=== PATIENT | female | born 1930 | race Caucasian/White ===

== ENCOUNTER → 2016-10-08 | Outpatient (CLI) | payer MEDICARE, BC ==
--- NOTE | 2016-10-08 18:11 | XR ---
EXAMINATION TYPE: XR ribs LT DATE OF EXAM: 10/08/2016 4:26 PM COMPARISON: 06/21/2016 HISTORY: Rib pain TECHNIQUE: 4 views FINDINGS: I see no pleural effusion or pneumothorax. Left lung is clear of infiltrate. The left ribs appear intact. IMPRESSION: Negative left rib exam. No change.
--- NOTE | 2016-10-08 18:12 | XR ---
EXAMINATION TYPE: XR Hip Complete LT DATE OF EXAM: 10/08/2016 4:26 PM COMPARISON: NONE HISTORY: Hip pain TECHNIQUE: 2 views FINDINGS: I see no fracture nor dislocation. Hip joint spaces normal. Sacroiliac joint is normal. IMPRESSION: Negative left hip exam.
== END | disposition home or self-care (01) ==
LOC: RADXRMAIN 16:02
PROVIDERS: ATTEND Internal Medicine
DX: S79.912A Unspecified injury of left hip, initial encounter (principal); S29.9XXA Unspecified injury of thorax, initial encounter
CPT/HCPCS: 73502

== ENCOUNTER 2017-12-01 17:38 | Inpatient (IN) | payer MEDICARE, BC ==
[2017-12-01] MEDS ORDERED: IPRATROPIUM-ALBUTEROL 3 ML NEB INHALATION STA (18:14)
--- NOTE | 2017-12-01 18:32 | ED ---
SOB HPI - General Chief Complaint: Shortness of Breath Stated Complaint: wheezing, SOB Time Seen by Provider: 12/01/17 18:12 Source: patient, family, RN notes reviewed Mode of arrival: wheelchair Limitations: no limitations - History of Present Illness Initial Comments: This is an 87-year-old female presents emergency Department chief complaint of shortness of breath. Patient's been having increasing shortness breath since Friday. Patient states that her symptoms worsen and saw her band sawing machine operator Dr. Vasquez on Friday who started on oral steroids. Patient states she has underlying asthma/UL PD. Feeling around the room states that she's been getting worse did not receive her steroids today and was noted to have increased shortness of breath and she complained of some discomfort of her chest when coughing. She denies any current chest pain. Patient reports no fever, chills. She does admit that her cough is productive. She states she does to a [facility] has not had one recently. Patient denies history of CHF does have underlying cardiac disease with prior stents. - Related Data Home Medications Medication Instructions Recorded Confirmed Budesonide [Pulmicort] 0.5 mg INHALATION RT-BID 10/01/14 12/01/17 Captopril [Capoten] 25 mg PO BID 10/01/14 12/01/17 Citalopram Hydrobromide [CeleXA] 10 mg PO HS 10/01/14 12/01/17 Donepezil HCl [Aricept] 5 mg PO HS 10/01/14 12/01/17 Montelukast [Singulair] 10 mg PO HS 10/01/14 12/01/17 Nitroglycerin Sl Tabs [Nitrostat] 0.4 mg SUBLINGUAL Q5M PRN 10/01/14 12/01/17 Omalizumab [Xolair] 1 dose IM Q30D 10/01/14 12/01/17 Potassium Chloride [Klor-Con 20] 20 meq PO DAILY 10/01/14 12/01/17 Isosorbide Mononitrate ER [Imdur] 30 mg PO DAILY 01/30/16 12/01/17 Levothyroxine Sodium [Synthroid] 50 mcg PO DAILY 01/30/16 12/01/17 Sucralfate [Carafate] 1 gm PO BID 01/30/16 12/01/17 Aspirin [Children's Aspirin] 81 mg PO DAILY 12/01/17 12/01/17 Ergocalciferol [Vitamin D2] 50,000 unit PO LOPEZ 12/01/17 12/01/17 Metoprolol Tartrate [Lopressor] 25 mg PO BID 12/01/17 12/01/17 Simvastatin [Zocor] 20 mg PO HS 12/01/17 12/01/17 Previous Rx's Medication Instructions Recorded Pantoprazole [Protonix] 40 mg PO [id number] #30 tablet. 02/01/16 Allergies Allergy/AdvReac Type Severity Reaction Status Date / Time cephalexin monohydrate Allergy Colitis Verified 12/01/17 18:42 [From [employer] [place]] Review of Systems ROS Statement: Those systems with pertinent positive or pertinent negative responses have been documented in the HPI. ROS Other: All systems not noted in ROS Statement are negative. Past Medical History Past Medical History: Asthma, Coronary Artery Disease (CAD), Chest Pain / Angina , COPD, Dementia, Hyperlipidemia, Hypertension, Myocardial Infarction (CT), Osteoarthritis (OA), Thyroid Disorder Additional Past Medical History / Comment(s): CT in 1998, 2 cardiac stents in 1998. Last Myocardial Infarction Date:: 1998 History of Any Multi-Drug Resistant Organisms: None Reported Past Surgical History: Heart Catheterization With Stent Additional Past Surgical History / Comment(s): B\L cataracts removed 2013 Past Anesthesia/Blood Transfusion Reactions: No Reported Reaction Date of Last Stent Placement:: 1998 Past Psychological History: No Psychological Hx Reported Smoking Status: Former smoker Past Alcohol Use History: None Reported Past Drug Use History: None Reported - Past Family History Father Additional Family Medical History / Comment(s): emphazema Mother Additional Family Medical History / Comment(s): Alzhiemiers General Exam Limitations: no limitations General appearance: alert, in no apparent distress ENT exam: Present: normal exam, mucous membranes moist Neck exam: Present: normal inspection, full ROM. Absent: tenderness, meningismus, lymphadenopathy Respiratory exam: Present: respiratory distress, wheezes, rhonchi. Absent: normal lung sounds bilaterally, rales, stridor Cardiovascular Exam: Present: regular rate (I'll), normal rhythm, normal heart sounds. Absent: systolic murmur, diastolic murmur, rubs, gallop, clicks Course Vital Signs 12/01/17 12/01/17 12/01/17 17:54 18:28 18:38 Temperature 98.7 F Pulse Rate 84 62 62 Respiratory 18 Rate Blood Pressure 158/74 O2 Sat by Pulse 95 Oximetry 12/01/17 18:50 Temperature Pulse Rate Respiratory 26 H Rate Blood Pressure O2 Sat by Pulse Oximetry Medical Decision Making - Lab Data Result diagrams: 12/01/17 18:35 12/01/17 18:35 Lab Results 12/01/17 12/01/17 12/01/17 Range/Units 18:35 18:35 18:35 WBC 4.5 (3.8-10.6) k/uL RBC 3.90 (3.80-5.40) m/uL Hgb 11.5 (11.4-16.0) gm/dL Hct 34.8 (34.0-46.0) % MCV 89.1 (80.0-100.0) fL MCH 29.5 (25.0-35.0) pg MCHC 33.1 (31.0-37.0) g/dL RDW 13.8 (11.5-15.5) % Plt Count 102 L (150-450) k/uL Neutrophils % 80 % Lymphocytes % 7 % Monocytes % 11 % Eosinophils % 1 % Basophils % 1 % Neutrophils # 3.6 (1.3-7.7) k/uL Lymphocytes # 0.3 L (1.0-4.8) k/uL Monocytes # 0.5 (0-1.0) k/uL Eosinophils # 0.0 (0-0.7) k/uL Basophils # 0.0 (0-0.2) k/uL PT (9.0-12.0) sec INR (<1.2) APTT (22.0-30.0) sec Sodium 137 (137-145) mmol/L Potassium 4.6 (3.5-5.1) mmol/L Chloride 99 (98-107) mmol/L Carbon Dioxide 30 (22-30) mmol/L Anion Gap 8 mmol/L BUN 22 H (7-17) mg/dL Creatinine 1.00 (0.52-1.04) mg/dL Est GFR (MDRD) Af Amer >60 (>60 ml/min/1.73 sqM) Est GFR (MDRD) Non-Af 53 (>60 ml/min/1.73 sqM) Glucose 134 H (74-99) mg/dL Plasma Lactic Acid Nicholas (0.7-2.0) mmol/L Calcium 8.8 (8.4-10.2) mg/dL Magnesium 1.9 (1.6-2.3) mg/dL Total Bilirubin 1.3 (0.2-1.3) mg/dL AST 30 (14-36) U/L ALT 12 (9-52) U/L Alkaline Phosphatase 42 (38-126) U/L Total Creatine Kinase 33 (30-135) U/L CK-MB (CK-2) 1.3 (0.0-2.4) ng/mL CK-MB (CK-2) Rel Index 3.9 Troponin I <0.012 (0.000-0.034) ng/mL NT-Pro-B Natriuret Pep pg/mL Total Protein 6.6 (6.3-8.2) g/dL Albumin 3.8 (3.5-5.0) g/dL Influenza Type A RNA (Not Detectd) Influenza Type B (PCR) (Not Detectd) 12/01/17 12/01/17 12/01/17 Range/Units 18:35 18:35 18:35 WBC (3.8-10.6) k/uL RBC (3.80-5.40) m/uL Hgb (11.4-16.0) gm/dL Hct (34.0-46.0) % MCV (80.0-100.0) fL MCH (25.0-35.0) pg MCHC (31.0-37.0) g/dL RDW (11.5-15.5) % Plt Count (150-450) k/uL Neutrophils % % Lymphocytes % % Monocytes % % Eosinophils % % Basophils % % Neutrophils # (1.3-7.7) k/uL Lymphocytes # (1.0-4.8) k/uL Monocytes # (0-1.0) k/uL Eosinophils # (0-0.7) k/uL Basophils # (0-0.2) k/uL PT 9.9 (9.0-12.0) sec INR 1.0 (<1.2) APTT 23.5 (22.0-30.0) sec Sodium (137-145) mmol/L Potassium (3.5-5.1) mmol/L Chloride (98-107) mmol/L Carbon Dioxide (22-30) mmol/L Anion Gap mmol/L BUN (7-17) mg/dL Creatinine (0.52-1.04) mg/dL Est GFR (MDRD) Af Amer (>60 ml/min/1.73 sqM) Est GFR (MDRD) Non-Af (>60 ml/min/1.73 sqM) Glucose (74-99) mg/dL Plasma Lactic Acid Nicholas 1.0 (0.7-2.0) mmol/L Calcium (8.4-10.2) mg/dL Magnesium (1.6-2.3) mg/dL Total Bilirubin (0.2-1.3) mg/dL AST (14-36) U/L ALT (9-52) U/L Alkaline Phosphatase (38-126) U/L Total Creatine Kinase (30-135) U/L CK-MB (CK-2) (0.0-2.4) ng/mL CK-MB (CK-2) Rel Index Troponin I (0.000-0.034) ng/mL NT-Pro-B Natriuret Pep 3140 pg/mL Total Protein (6.3-8.2) g/dL Albumin (3.5-5.0) g/dL Influenza Type A RNA (Not Detectd) Influenza Type B (PCR) (Not Detectd) 12/01/17 Range/Units 18:35 WBC (3.8-10.6) k/uL RBC (3.80-5.40) m/uL Hgb (11.4-16.0) gm/dL Hct (34.0-46.0) % MCV (80.0-100.0) fL MCH (25.0-35.0) pg MCHC (31.0-37.0) g/dL RDW (11.5-15.5) % Plt Count (150-450) k/uL Neutrophils % % Lymphocytes % % Monocytes % % Eosinophils % % Basophils % % Neutrophils # (1.3-7.7) k/uL Lymphocytes # (1.0-4.8) k/uL Monocytes # (0-1.0) k/uL Eosinophils # (0-0.7) k/uL Basophils # (0-0.2) k/uL PT (9.0-12.0) sec INR (<1.2) APTT (22.0-30.0) sec Sodium (137-145) mmol/L Potassium (3.5-5.1) mmol/L Chloride (98-107) mmol/L Carbon Dioxide (22-30) mmol/L Anion Gap mmol/L BUN (7-17) mg/dL Creatinine (0.52-1.04) mg/dL Est GFR (MDRD) Af Amer (>60 ml/min/1.73 sqM) Est GFR (MDRD) Non-Af (>60 ml/min/1.73 sqM) Glucose (74-99) mg/dL Plasma Lactic Acid Nicholas (0.7-2.0) mmol/L Calcium (8.4-10.2) mg/dL Magnesium (1.6-2.3) mg/dL Total Bilirubin (0.2-1.3) mg/dL AST (14-36) U/L ALT (9-52) U/L Alkaline Phosphatase (38-126) U/L Total Creatine Kinase (30-135) U/L CK-MB (CK-2) (0.0-2.4) ng/mL CK-MB (CK-2) Rel Index Troponin I (0.000-0.034) ng/mL NT-Pro-B Natriuret Pep pg/mL Total Protein (6.3-8.2) g/dL Albumin (3.5-5.0) g/dL Influenza Type A RNA Not Detected (Not Detectd) Influenza Type B (PCR) Not Detected (Not Detectd) - EKG Data EKG Comments: EKG performed at 18:16 oh sinus rhythm rate of 60 CO interval 176 QRS 48 QT/QTC 386/386 there is noted inverted T waves Disposition Clinical Impression: Pneumonia, COPD exacerbation Disposition: ADMITTED IP TO THIS HOSP Condition: Stable Referrals: Flora Pastrana MD [Primary Care Provider] - 1-2 days
[2017-12-01 18:58] LABS: Basophils % (A) 1 %; Eosinophils % (A) 1 %; HCT 34.8 % (34.0-46.0); HGB 11.5 gm/dL (11.4-16.0); Lymphocytes # (A) 0.3 k/uL (1.0-4.8); Lymphocytes % (A) 7 %; MCH 29.5 pg (25.0-35.0); MCHC 33.1 g/dL (31.0-37.0); MCV 89.1 fL (80.0-100.0); Mean Platelet Volume 8.4; Monocytes # (A) 0.5 k/uL (0-1.0); Monocytes % (A) 11 %; Neutrophils # (A) 3.6 k/uL (1.3-7.7); Neutrophils % (A) 80 %; Platelet Count 102 k/uL (150-450); RDW 13.8 % (11.5-15.5); WBC 4.5 k/uL (3.8-10.6)
[2017-12-01 19:04] LABS: Partial Thromboplastin Time 23.5 sec (22.0-30.0); Prothrombin Time 9.9 sec (9.0-12.0)
[2017-12-01 19:06] LABS: ALT 12 U/L (9-52); AST 30 U/L (14-36); Albumin 3.8 g/dL (3.5-5.0); Alkaline Phosphatase 42 U/L (38-126); Anion Gap 8 mmol/L; Blood Urea Nitrogen 22 mg/dL (7-17); Calcium 8.8 mg/dL (8.4-10.2); Carbon Dioxide 30 mmol/L (22-30); Chloride 99 mmol/L (98-107); Glucose 134 mg/dL (74-99); Potassium 4.6 mmol/L (3.5-5.1); Sodium 137 mmol/L (137-145); Total Bilirubin 1.3 mg/dL (0.2-1.3); Total Protein 6.6 g/dL (6.3-8.2)
[2017-12-01 19:10] LABS: Creatine Kinase 33 U/L (30-135)
[2017-12-01 19:22] LABS: Creatine Kinase MB 1.3 ng/mL (0.0-2.4); Troponin I <0.012 ng/mL (0.000-0.034)
[2017-12-01] MEDS ORDERED: methylPREDNISolone SOD SUCCI 125 MG/2 ML VIAL IV STA (19:29)
--- NOTE | 2017-12-01 19:56 | XR ---
EXAMINATION TYPE: XR chest 2V DATE OF EXAM: 12/01/2017 COMPARISON: 06/21/2016 INDICATION: Difficulty breathing cough congestion TECHNIQUE: Frontal and lateral views of the chest are obtained. FINDINGS: The heart size is normal. The pulmonary vasculature is normal. Mild infiltrate is in the right lower lobe.. IMPRESSION: 1. Clinical correlation recommended for mild right lower lobe infiltrate. Correlate for atelectasis a nd pneumonia.
[2017-12-01] MEDS ORDERED: PNEUMONIA PROTOCOL UTILIZED 1 EACH MISC PO PRN (20:01)
[2017-12-01] MEDS ORDERED: LEVOFLOXACIN 750MG-D5W PMX 750 MG in DEXTROSE/WATER 1 150ML.BAG IVPB STA (20:01)
[2017-12-01] MEDS ORDERED: IPRATROPIUM-ALBUTEROL 3 ML NEB INHALATION PRN (20:02)
[2017-12-01] MEDS ORDERED: NITROGLYCERIN SL TABS 0.4 MG TAB SUBLINGUAL PRN (22:30)
[2017-12-01] MEDS ORDERED: ACETAMINOPHEN TAB 325 MG TAB PO PRN (22:35)
[2017-12-01] MEDS: METOPROLOL TARTRATE 25 MG TAB PO SCH (23:21)
[2017-12-01] MEDS: SUCRALFATE 1 GM TAB PO SCH (23:21)
[2017-12-01] MEDS: ATORVASTATIN 10 MG TAB PO SCH (23:21)
[2017-12-01] MEDS: DONEPEZIL 5 MG TAB PO SCH (23:21)
[2017-12-01] MEDS: CITALOPRAM HYDROBROMIDE 10 MG TAB PO SCH (23:21)
[2017-12-01] MEDS: MONTELUKAST 10 MG TAB PO SCH (23:21)
[2017-12-01] MEDS: CAPTOPRIL 25 MG TAB PO SCH (23:21)
[2017-12-01] MEDS: methylPREDNISolone SOD SUCCI 125 MG/2 ML VIAL IV SCH (23:48)
[2017-12-02] MEDS ORDERED: FUROSEMIDE 10 MG/ML 2 ML VIAL IV ONE (05:25)
[2017-12-02] MEDS: LEVOTHYROXINE 50 MCG TAB PO SCH (05:56)
--- NOTE | 2017-12-02 07:48 | XR ---
EXAMINATION TYPE: XR chest 2V DATE OF EXAM: 12/02/2017 COMPARISON: 12/01/2017 TECHNIQUE: PA and lateral views submitted. HISTORY: Difficulty breathing FINDINGS: The lungs are clear and there is no pneumothorax, pleural effusion, or focal pneumonia. Linear dens ity right upper lobe appears to be compatible with a pleural plaque lateral view. Degenerative change of the spine. Atherosclerotic change aorta. Heart size prominent. IMPRESSION: 1. No acute process. Correlate for asbestosis related disease.
[2017-12-02] MEDS: ASPIRIN 81 MG PO SCH (07:55)
[2017-12-02] MEDS: POTASSIUM CHLORIDE ER 20 MEQ TAB.ER PO SCH (07:55)
[2017-12-02] MEDS: ISOSORBIDE MONONITRATE ER 30 MG TAB.ER.24H PO SCH (07:55)
[2017-12-02] MEDS: METOPROLOL TARTRATE 25 MG TAB PO SCH ×2 (07:55→20:49)
[2017-12-02] MEDS: PANTOPRAZOLE 40 MG TABLET PO SCH (07:56)
[2017-12-02] MEDS: SUCRALFATE 1 GM TAB PO SCH ×2 (07:56→17:39)
[2017-12-02] MEDS: CAPTOPRIL 25 MG TAB PO SCH ×2 (07:56→17:38)
[2017-12-02] MEDS: methylPREDNISolone SOD SUCCI 125 MG/2 ML VIAL IV SCH ×3 (07:56→23:21)
[2017-12-02 08:03] LABS: Basophils % (A) 0 %; Eosinophils % (A) 0 %; HCT 33.4 % (34.0-46.0); HGB 10.7 gm/dL (11.4-16.0); Lymphocytes # (A) 0.2 k/uL (1.0-4.8); Lymphocytes % (A) 8 %; MCH 28.7 pg (25.0-35.0); MCHC 32.1 g/dL (31.0-37.0); MCV 89.5 fL (80.0-100.0); Mean Platelet Volume 8.6; Monocytes # (A) 0.1 k/uL (0-1.0); Monocytes % (A) 2 %; Neutrophils # (A) 2.1 k/uL (1.3-7.7); Neutrophils % (A) 88 %; Platelet Count 101 k/uL (150-450); RBC 3.73 m/uL (3.80-5.40); RDW 13.9 % (11.5-15.5); WBC 2.4 k/uL (3.8-10.6)
[2017-12-02 08:34] LABS: Albumin 3.6 g/dL (3.5-5.0); Potassium 4.2 mmol/L (3.5-5.1); Total Bilirubin 1.2 mg/dL (0.2-1.3); Total Protein 6.2 g/dL (6.3-8.2)
[2017-12-02] MEDS ORDERED: IPRATROPIUM-ALBUTEROL 3 ML NEB INHALATION PRN (09:09)
[2017-12-02] MEDS: IPRATROPIUM-ALBUTEROL 3 ML NEB INHALATION SCH ×3 (09:22→20:05)
[2017-12-02] MEDS: BUDESONIDE 0.5 MG/2 ML NEBU INHALATION SCH ×2 (09:22→20:05)
--- NOTE | 2017-12-02 13:40 | P.HPIM ---
History of Present Illness H&P Date: 12/02/17 Chief Complaint: Cough and shortness of breath This is a 87-year-old female with a known history of dementia, hypertension, [place] , coronary artery disease cardiac stents, COPD, hypothyroidism, hyperlipidemia, peptic ulcer disease and chronic kidney disease. Patient presents to the emergency room with complaints of cough and shortness of breath. Patient has been having a productive cough with wheezing for about 3 days per daughter. She started on prednisone by her advertising assistant manager on Friday. Patient did not have improvement in symptoms therefore she came into the emergency room. Information was taken from the chart and daughter. Patient is a poor historian due to her dementia. Patient was started on IV Solu-Medrol and Levaquin for her COPD exacerbation and pneumonia. Pulmonate service has been consulted. Also started on bronchodilators. Initial chest x-ray revealing a mild right lower lobe infiltrate. And repeat chest x-ray showed no acute process. Correlate for asbestosis related disease. Pulmonary service will evaluate. Patient denies any fever or chills or sweats. Denies chest pain. Denies any nausea or vomiting. Denies any bowel movement changes or urinary symptoms. Patient did receive a dose of IV Lasix this morning so for some mild fluid overload. Review of Systems Please refer to HPI otherwise unremarkable Past Medical History Past Medical History: Asthma, Coronary Artery Disease (CAD), Chest Pain / Angina , COPD, Dementia, Hyperlipidemia, Hypertension, Myocardial Infarction (DE), Osteoarthritis (OA), Thyroid Disorder Additional Past Medical History / Comment(s): [place] in 1998, 2 cardiac stents in 1998. Last Myocardial Infarction Date:: 1998 History of Any Multi-Drug Resistant Organisms: None Reported Past Surgical History: Heart Catheterization With Stent Additional Past Surgical History / Comment(s): B\L cataracts removed 2013 Past Anesthesia/Blood Transfusion Reactions: No Reported Reaction Date of Last Stent Placement:: 1998 Past Psychological History: No Psychological Hx Reported Smoking Status: Former smoker Past Alcohol Use History: None Reported Past Drug Use History: None Reported - Past Family History Father Additional Family Medical History / Comment(s): emphazema Mother Additional Family Medical History / Comment(s): Alzhiemiers Medications and Allergies Home Medications Medication Instructions Recorded Confirmed Type Budesonide [Pulmicort] 0.5 mg INHALATION RT-BID 10/01/14 12/01/17 History Captopril [Capoten] 25 mg PO BID 10/01/14 12/01/17 History Citalopram Hydrobromide [CeleXA] 10 mg PO HS 10/01/14 12/01/17 History Donepezil HCl [Aricept] 5 mg PO HS 10/01/14 12/01/17 History Montelukast [Singulair] 10 mg PO HS 10/01/14 12/01/17 History Nitroglycerin Sl Tabs [Nitrostat] 0.4 mg SUBLINGUAL Q5M PRN 10/01/14 12/01/17 History Omalizumab [Xolair] 1 dose IM Q30D 10/01/14 12/01/17 History Potassium Chloride [Klor-Con 20] 20 meq PO DAILY 10/01/14 12/01/17 History Isosorbide Mononitrate ER [Imdur] 30 mg PO DAILY 01/30/16 12/01/17 History Levothyroxine Sodium [Synthroid] 50 mcg PO DAILY 01/30/16 12/01/17 History Sucralfate [Carafate] 1 gm PO BID 01/30/16 12/01/17 History Pantoprazole [Protonix] 40 mg PO AC-BRKFST #30 tablet. 02/01/16 12/01/17 Rx Aspirin [Children's Aspirin] 81 mg PO DAILY 12/01/17 12/01/17 History Ergocalciferol [Vitamin D2] 50,000 unit PO LOPEZ 12/01/17 12/01/17 History Metoprolol Tartrate [Lopressor] 25 mg PO BID 12/01/17 12/01/17 History Simvastatin [Zocor] 20 mg PO HS 12/01/17 12/01/17 History Allergies Allergy/AdvReac Type Severity Reaction Status Date / Time cephalexin monohydrate Allergy Colitis Verified 12/01/17 18:42 [From Keflex] Physical Exam Vitals: Vital Signs Temp Pulse Pulse Resp BP BP Pulse Ox 12/02/17 12:49 60 12/02/17 12:36 56 L 12/02/17 09:39 54 L 12/02/17 09:25 50 L 99 12/02/17 07:00 97.3 F L 52 L 18 132/70 98 12/02/17 00:00 60 12/01/17 23:53 60 12/01/17 23:00 97.7 F 67 20 141/54 94 L 12/01/17 20:53 98.4 F 65 18 153/67 97 12/01/17 20:01 94 L 12/01/17 18:50 26 H 12/01/17 18:38 62 12/01/17 18:28 62 12/01/17 17:54 98.7 F 84 18 158/74 95 Intake and Output 12/01/17 12/02/17 12/02/17 22:59 06:59 14:59 Intake Total 200 Balance 200 Intake: Oral 200 Other: Voiding Method Bedside Commode # Voids 1 1 1 Weight 58.06 kg 58 kg Head normocephalic Neck supple Lungs wheezing with coarse breath sounds bilaterally Heart regular rate and rhythm S1-S2, no rub or gallop Abdomen is soft nontender nondistended positive bowel sounds no hepatosplenomegaly Extremities no edema Neuro alert and orientated to 3 Results CBC & Chem 7: 12/02/17 07:22 12/02/17 07:22 Labs: Abnormal Lab Results - Last 24 Hours (Table) 12/01/17 12/01/17 12/02/17 Range/Units 18:35 18:35 07:22 WBC 2.4 L (3.8-10.6) k/uL RBC 3.73 L (3.80-5.40) m/uL Hgb 10.7 L (11.4-16.0) gm/dL Hct 33.4 L (34.0-46.0) % Plt Count 102 L 101 L (150-450) k/uL Lymphocytes # 0.3 L 0.2 L (1.0-4.8) k/uL Chloride (98-107) mmol/L BUN 22 H (7-17) mg/dL Creatinine (0.52-1.04) mg/dL Glucose 134 H (74-99) mg/dL Total Protein (6.3-8.2) g/dL 12/02/17 Range/Units 07:22 WBC (3.8-10.6) k/uL RBC (3.80-5.40) m/uL Hgb (11.4-16.0) gm/dL Hct (34.0-46.0) % Plt Count (150-450) k/uL Lymphocytes # (1.0-4.8) k/uL Chloride 95 L (98-107) mmol/L BUN 21 H (7-17) mg/dL Creatinine 1.07 H (0.52-1.04) mg/dL Glucose 143 H (74-99) mg/dL Total Protein 6.2 L (6.3-8.2) g/dL Thrombosis Risk Factor Assmnt - Choose All That Apply Any of the Below Risk Factors Present?: Yes Each Risk Factor Represents 3 Points: Age 75 years or older Thrombosis Risk Factor Assessment Total Risk Factor Score: 3 Thrombosis Risk Factor Assessment Level: Moderate Risk Assessment and Plan Assessment: 1. Acute COPD exacerbation: Patient started on IV Solu-Medrol and bronchodilators. Pulmonary service consulted. 2. Acute tracheobronchitis: Initial chest x-ray did show a right middle lobe pneumonia versus atelectasis. Repeat chest x-ray for today shows no acute pulmonary process. Patient is on Levaquin. Check sputum culture. Pulmonary service consulted. 3. Chronic kidney disease, stage II. Creatinine at baseline. 4. Leukopenia likely related to patient's bronchitis. White count 2.4. Repeat labs in a.m. 5. History of chronic anemia: Hemoglobin 10.7. Check iron studies 6. History of dementia 7. History of myocardial infarction with coronary disease and cardiac stents 8. Essential hypertension: BP stable continue his current meds 9. Hyperlipidemia continue statin DVT prophylaxis subcu heparin and GI prophylaxis Protonix Time with Patient: Greater than 30 (Greater than 50% of the total time spent in counseling and coordination of care.I performed an examination of the patient and discussed their management with the physician Automobile Mechanic Supervisor. I have reviewed the Physician Automobile Mechanic Supervisor's notes and agree with the documented findings and plan of care)
--- NOTE | 2017-12-02 14:50 | CONS ---
CONSULTATION DATE OF SERVICE: 12/02/2017 HISTORY OF PRESENT ILLNESS: The patient is an 87-year-old female, well known to our practice, who was seen in the Pulmonary office on Friday for worsening shortness of breath and cough and had been started on oral steroids. Patient did not improve after starting the steroids. Subsequently, was brought to the emergency room with the worsening shortness of breath and cough and admitted for further evaluation and treatment. patient is a very poor historian. Much of the information has been obtained from the chart. PAST MEDICAL HISTORY: Significant for asthma, coronary artery disease, angina, COPD, dementia, hyperlipidemia, hypertension, [place], osteoarthritis, and thyroid disorder. PAST SURGICAL HISTORY: Significant for cardiac cath with stents and bilateral cataract surgery. ALLERGIES: Include KEFLEX. Home medications include vitamin D2 fifty thousand international units p.o. weekly, children's aspirin 81 mg p.o. daily, Capoten 25 mg p.o. b.i.d., Pulmicort 0.5 mg via nebulizer b.i.d., Aricept 5 mg p.o. q.h.s., Celexa 10 mg p.o. q.h.s., levothyroxine 50 mcg p.o. daily, Imdur 30 mg p.o. daily, Nitrostat 0.4 mg sublingual q.5 minutes p.r.n. chest pain, Singulair 10 mg p.o. q.h.s., Lopressor 25 mg p.o. b.i.d., Carafate 1 g p.o. b.i.d., Zocor 20 mg p.o. q.h.s., potassium chloride 20 mEq p.o. daily, Protonix 40 mg p.o. before breakfast daily, and Xolair subcu once a month. SOCIAL HISTORY: Patient does have a history of smoking. No longer smokes. Denies any alcohol intake. Denies any illicit drug use. FAMILY HISTORY: Father with a history of emphysema and mother with a history of Alzheimer's disease. REVIEW OF SYSTEMS: General is negative for any fever or chills. HEENT: Negative for headache, dizziness. No acute visual changes. Denies difficulty hearing. Denies sore throat or difficulty swallowing. Respiratory is positive for worsening shortness of breath with cough and wheeze. CARDIOVASCULAR: Denies chest pain. Does have history of [place]. GI: Negative for abdominal pain. No nausea, vomiting, diarrhea, or constipation. : Negative for any dysuria. Endocrine is negative for diabetes mellitus, positive for thyroid disorder. MUSCULOSKELETAL: Positive for osteoarthritis. Denies any current joint pain. PSYCHIATRIC: Negative for depression. Neurologic is negative for any history of seizures. Patient does have dementia. PHYSICAL EXAM: General is a pleasant elderly female who is seen sitting up in bed, is awake, alert, pleasantly confused. Does know that she was born in 1930. Otherwise, does not know what year it is or where she lives. She thinks she lives with her daughter. VITAL SIGNS: Temp is 97.3, heart rate is 60, respiratory rate is 18, blood pressure is 132/70, O2 sats 99% on 2 L O2 via nasal cannula/ HEENT: Head is normocephalic, atraumatic. Pupils pinpoint. Ears and nose, no discharge is noted. Mouth with moist mucous membranes. Neck is supple. Trachea is midline. Lungs with decreased breath sounds and scattered wheezes throughout. HEART: S1, S2 are heard. Not tachycardic. Abdomen is soft. Bowel sounds are heard. Extremities with trace edema. NEUROLOGIC: Patient is awake, alert, pleasantly confused. LABS: White count is 2.4, hemoglobin is 10.7, hematocrit is 33.4 with 101,000 platelets, sodium is 137, potassium is 4.2, chloride is 95, CO2 is 30, anion gap is 12, BUN is 21, creatinine is 1.07, glucose is 143, calcium is 9.0, total bilirubin 1.2. AST is 17. ALT is 17, alk phos is 52. Troponins is less than 0.012. BNP is 3140, total protein 6.2, albumin is 3.6. Influenza type A and B both not detected. IMAGING: Chest x-ray done this a.m. shows no acute process. Correlate for asbestosis-related disease. IMPRESSION: 1. Acute exacerbation of asthma and chronic obstructive pulmonary disease. 2. Acute tracheobronchitis. 3. Pancytopenia. 4. Dementia. PLAN: Supplemental oxygen to maintain O2 sats greater than or equal to 90%. Continue bronchodilators with DuoNeb and aerosol steroids with Pulmicort. Continue Singulair. ill increase IV Solu-Medrol to 60 mg IV q.6 for the next 24 hours. GI and DVT. Continue GI and DVT prophylaxis. Repeat labs in the a.m. Increase activity as tolerated. Thank you for the consultation. We will continue to follow patient closely with you making further changes as necessary. LESLY / CINDY: [id number] /
[2017-12-02 17:29] LABS: Glucose,Whole Blood 135 mg/dL (75-99)
[2017-12-02] MEDS: INSULIN ASPART 100 UNIT/ML 1 ML 10 ML VIAL SQ SCH ×2 (17:39→20:55)
[2017-12-02 18:34] LABS: Iron Saturation 12.35 (12.00-45.00)
[2017-12-02] MEDS ORDERED: LEVOFLOXACIN 750MG-D5W PMX 750 MG in DEXTROSE/WATER 1 150ML.BAG IVPB SCH ×2 (20:00→21:00)
[2017-12-02] MEDS: DONEPEZIL 5 MG TAB PO SCH (20:49)
[2017-12-02] MEDS: ATORVASTATIN 10 MG TAB PO SCH (20:49)
[2017-12-02] MEDS: CITALOPRAM HYDROBROMIDE 10 MG TAB PO SCH (20:49)
[2017-12-02] MEDS: MONTELUKAST 10 MG TAB PO SCH (20:49)
[2017-12-02] MEDS: HEPARIN SODIUM,PORCINE 5,000 UNIT/ML 1 ML VIAL SQ SCH (20:50)
[2017-12-02 20:52] LABS: Glucose,Whole Blood 159 mg/dL (75-99)
[2017-12-02 21:16] LABS: Hemoglobin A1C 4.1 % (4.0-6.0)
[2017-12-03] MEDS: methylPREDNISolone SOD SUCCI 125 MG/2 ML VIAL IV SCH ×3 (05:01→18:06)
[2017-12-03] MEDS: LEVOTHYROXINE 50 MCG TAB PO SCH (05:01)
[2017-12-03] MEDS: BUDESONIDE 0.5 MG/2 ML NEBU INHALATION SCH ×2 (07:19→22:37)
[2017-12-03] MEDS: IPRATROPIUM-ALBUTEROL 3 ML NEB INHALATION SCH ×4 (07:19→22:37)
[2017-12-03 07:48] LABS: Glucose,Whole Blood 107 mg/dL (75-99)
[2017-12-03] MEDS: POTASSIUM CHLORIDE ER 20 MEQ TAB.ER PO SCH ×2 (08:22→08:25)
[2017-12-03] MEDS: CAPTOPRIL 25 MG TAB PO SCH ×2 (08:22→18:06)
[2017-12-03] MEDS: ASPIRIN 81 MG PO SCH (08:22)
[2017-12-03] MEDS: INSULIN ASPART 100 UNIT/ML 1 ML 10 ML VIAL SQ SCH ×4 (08:23→23:25)
[2017-12-03] MEDS: SUCRALFATE 1 GM TAB PO SCH ×2 (08:23→18:06)
[2017-12-03] MEDS: PANTOPRAZOLE 40 MG TABLET PO SCH (08:23)
[2017-12-03] MEDS: METOPROLOL TARTRATE 25 MG TAB PO SCH ×2 (08:23→23:25)
[2017-12-03] MEDS: ISOSORBIDE MONONITRATE ER 30 MG TAB.ER.24H PO SCH (08:23)
[2017-12-03] MEDS ORDERED: RX INFO: IV CONTRAST WAS GIVEN 1 EACH MISC MISCELLANE PRN (09:27)
--- NOTE | 2017-12-03 09:39 | P.PN ---
Subjective Progress Note Date: 12/03/17 HPI: This patient is an 87-year-old female, well-known to our practice, who has been seen in the pulmonary office on Friday for worsening shortness of breath and cough and had been started on oral steroids. Patient did not improve after starting steroids. Subsequently she brought herself into the emergency room with worsening shortness of breath and cough and admitted for further evaluation and treatment. Patient is very poor historian. Most of the information has been obtained from the chart. 12/03/17- patient is being seen in evaluated and examined on rounds. Patient is resting up in bed continues to have an audible wheeze and shortness of breath with exertion. She does use oxygen as needed at home. She continues to have a cough with scant sputum production. She has been unable to obtain a sputum sample at this time. We will add Mucinex to help her with secretions. Her flu swab was negative. Labs were reviewed and she is noted to be pancytopenic today. Both chest x-rays have been reviewed as well as old CT of the chest from 2016. We will obtain a new CT of the chest with contrast to look at her right nodule. Objective - Vital Signs Vital signs: Vital Signs Temp 98.3 F 12/03/17 06:36 Pulse 64 12/03/17 07:30 Resp 20 12/03/17 06:36 BP 151/90 12/03/17 06:36 Pulse Ox 94 L 12/03/17 06:36 Intake & Output 12/02/17 12/03/17 12/03/17 18:59 06:59 18:59 Weight 58 kg Other: Voiding Method Bedside Commode # Voids 1 1 - Exam GENERAL EXAM: Alert, active, comfortable in no apparent distress. HEAD: Normocephalic. EYES: Normal reaction of pupils, equal size. NOSE: Clear with pink turbinates. THROAT: No erythema or exudates. NECK: No masses, no JVD. CHEST: No chest wall deformity. LUNGS: Lungs noted to be coarse with inspiratory and expiratory wheezing and some rhonchi. CVS: S1 and S2 normal with no audible mumurs, regular rhythm. ABDOMEN: No hepatosplenomegaly, normal bowel sounds, no guarding or rigidity. EXTREMITIES: Trace edema noted, pedal pulses palpable. CENTRAL NERVOUS SYSTEM: No focal deficits, tone is normal in all 4 extremities. - Labs CBC & Chem 7: 03/06/18 07:22 12/02/17 07:22 Labs: Abnormal Lab Results - Last 24 Hours (Table) 12/02/17 12/02/17 12/02/17 Range/Units 07:22 17:22 20:51 POC Glucose (mg/dL) 135 H 159 H (75-99) mg/dL Iron 31 L (50-170) ug/dL Ferritin 463.0 H (10.0-291.0) ng/mL 12/03/17 Range/Units 07:26 POC Glucose (mg/dL) 107 H (75-99) mg/dL Iron (50-170) ug/dL Ferritin (10.0-291.0) ng/mL Microbiology - Last 24 Hours (Table) 12/01/17 20:57 Blood Culture - Preliminary Blood No Growth after 24 hours 12/01/17 18:35 Blood Culture - Preliminary Blood No Growth after 24 hours Assessment and Plan Assessment: Assessment Acute exacerbation of chronic persistent asthma Acute exacerbation of COPD Acute tracheobronchitis History of right lung nodule and pleural plaque Acute on chronic hypoxic respiratory failure requiring supplemental oxygen Pancytopenia Dementia Hypertension Plan Medications have been reviewed and will be continued as ordered. Add Mucinex, and flutter valve. Obtain sputum sample. Continue on the IV steroids as ordered right now, may decrease in the future. CT of the chest with contrast. Continue with pulmonary hygiene, coughing and deep breathing exercises, and supportive care. Supplemental oxygen to maintain oxygen saturations of 90% or better. Continue nebulizer treatments. GI and DVT prophylaxis. We will continue to monitor labs/results and adjust treatment as necessary. Further recommendations pending. I performed an examination of the patient and discussed their management with the nurse practitioner. I have reviewed the nurse practitioner's note and agree with the documented findings and plan of care.
[2017-12-03 09:45] LABS: Basophils % (A) 0 %; Eosinophils % (A) 0 %; HCT 32.2 % (34.0-46.0); HGB 10.4 gm/dL (11.4-16.0); Lymphocytes # (A) 0.2 k/uL (1.0-4.8); Lymphocytes % (A) 6 %; MCH 28.8 pg (25.0-35.0); MCHC 32.3 g/dL (31.0-37.0); MCV 89.3 fL (80.0-100.0); Mean Platelet Volume 9.3; Monocytes # (A) 0.1 k/uL (0-1.0); Monocytes % (A) 4 %; Neutrophils # (A) 2.5 k/uL (1.3-7.7); Neutrophils % (A) 89 %; Platelet Count 106 k/uL (150-450); RBC 3.61 m/uL (3.80-5.40); RDW 13.8 % (11.5-15.5); WBC 2.8 k/uL (3.8-10.6)
[2017-12-03 11:14] LABS: Albumin 3.4 g/dL (3.5-5.0); Calcium 9.1 mg/dL (8.4-10.2); Potassium 3.8 mmol/L (3.5-5.1); Total Protein 5.9 g/dL (6.3-8.2)
--- NOTE | 2017-12-03 11:41 | P.PN ---
Subjective Progress Note Date: 12/03/17 This is a 87-year-old female with a known history of dementia, hypertension, [place] , coronary artery disease cardiac stents, COPD, hypothyroidism, hyperlipidemia, peptic ulcer disease and chronic kidney disease. Patient presents to the emergency room with complaints of cough and shortness of breath. Patient has been having a productive cough with wheezing for about 3 days per daughter. She started on prednisone by her blueprint reader on Friday. Patient did not have improvement in symptoms therefore she came into the emergency room. Information was taken from the chart and daughter. Patient is a poor historian due to her dementia. Patient was started on IV Solu-Medrol and Levaquin for her COPD exacerbation and pneumonia. Pulmonate service has been consulted. Also started on bronchodilators. Initial chest x-ray revealing a mild right lower lobe infiltrate. And repeat chest x-ray showed no acute process. Correlate for asbestosis related disease. Pulmonary service will evaluate. Patient denies any fever or chills or sweats. Denies chest pain. Denies any nausea or vomiting. Denies any bowel movement changes or urinary symptoms. Patient did receive a dose of IV Lasix this morning so for some mild fluid overload. On 12/03/2017 patient is feeling better, she is still complaining of shortness of breath and wheezing, still complaining of cough, otherwise she denies any complaints, there is no fever or chills no chest pain, no nausea or vomiting no abdominal pain no diarrhea and no urinary symptoms Objective - Vital Signs Vital signs: Vital Signs Temp 98.3 F 12/03/17 06:36 Pulse 66 12/03/17 11:32 Resp 20 12/03/17 06:36 BP 151/90 12/03/17 06:36 Pulse Ox 94 L 12/03/17 06:36 Intake & Output 12/02/17 12/03/17 12/03/17 18:59 06:59 18:59 Weight 58 kg Other: Voiding Method Bedside Commode # Voids 1 1 - Exam Head normocephalic and atraumatic Neck supple no JVD no goiter Lungs significant wheezing with coarse breath sounds bilaterally Heart regular rate and rhythm S1-S2, no rub or gallop Abdomen is soft nontender nondistended positive bowel sounds no hepatosplenomegaly Extremities no edema Neuro alert and orientated to 3 - Labs CBC & Chem 7: 12/03/17 09:00 12/03/17 09:00 Labs: Abnormal Lab Results - Last 24 Hours (Table) 12/02/17 12/02/17 12/02/17 Range/Units 07:22 17:22 20:51 WBC (3.8-10.6) k/uL RBC (3.80-5.40) m/uL Hgb (11.4-16.0) gm/dL Hct (34.0-46.0) % Plt Count (150-450) k/uL Lymphocytes # (1.0-4.8) k/uL Carbon Dioxide (22-30) mmol/L BUN (7-17) mg/dL Creatinine (0.52-1.04) mg/dL Glucose (74-99) mg/dL POC Glucose (mg/dL) 135 H 159 H (75-99) mg/dL Iron 31 L (50-170) ug/dL Ferritin 463.0 H (10.0-291.0) ng/mL Total Protein (6.3-8.2) g/dL Albumin (3.5-5.0) g/dL 12/03/17 12/03/17 12/03/17 Range/Units 07:26 09:00 09:00 WBC 2.8 L (3.8-10.6) k/uL RBC 3.61 L (3.80-5.40) m/uL Hgb 10.4 L (11.4-16.0) gm/dL Hct 32.2 L (34.0-46.0) % Plt Count 106 L (150-450) k/uL Lymphocytes # 0.2 L (1.0-4.8) k/uL Carbon Dioxide 31 H (22-30) mmol/L BUN 30 H (7-17) mg/dL Creatinine 1.38 H (0.52-1.04) mg/dL Glucose 154 H (74-99) mg/dL POC Glucose (mg/dL) 107 H (75-99) mg/dL Iron (50-170) ug/dL Ferritin (10.0-291.0) ng/mL Total Protein 5.9 L (6.3-8.2) g/dL Albumin 3.4 L (3.5-5.0) g/dL Microbiology - Last 24 Hours (Table) 12/01/17 20:57 Blood Culture - Preliminary Blood No Growth after 24 hours 12/01/17 18:35 Blood Culture - Preliminary Blood No Growth after 24 hours Assessment and Plan Plan: 1. Acute COPD exacerbation: Patient started on IV Solu-Medrol and bronchodilators. Pulmonary service consulted. 2. Acute tracheobronchitis: Initial chest x-ray did show a right middle lobe pneumonia versus atelectasis. Repeat chest x-ray for today shows no acute pulmonary process. Patient is on Levaquin. Check sputum culture. Pulmonary service consulted. 3. Chronic kidney disease, stage II. Creatinine at baseline. 4. Leukopenia likely related to patient's bronchitis. White count 2.4. Repeat labs in a.m. 5. History of chronic anemia: Hemoglobin 10.7. Check iron studies 6. History of dementia 7. History of myocardial infarction with coronary disease and cardiac stents 8. Essential hypertension: BP stable continue his current meds 9. Hyperlipidemia continue statin 10. DVT prophylaxis subcu heparin and GI prophylaxis Protonix
--- NOTE | 2017-12-03 11:43 | CT ---
EXAMINATION TYPE: CT chest w con DATE OF EXAM: 12/03/2017 COMPARISON: 09/18/2016 HISTORY: 87-year-old female Right lung nodule; COPD exacerbation TECHNIQUE: Contiguous axial scanning of the chest after the administration of 100 ml mL of Visipaque 320. Coronal/sagittal reconstructions performed. CT DLP: 125.70mGycm. Automatic exposure control utilized for a dose reduction. FINDINGS: Heart is normal size without pericardial effusion. Extensive coronary vascular calcifications are pre sent. Ascending aorta ectatic and 3.6 cm. Moderate atherosclerotic arch calcifications with conventional br anching anatomy. Ectasia of the upper descending thoracic aorta at 3.1 cm and ectasia of the lower descending thoracic aorta at 2.9 cm. A borderline sized 1 cm precarinal lymph node is unchanged from 2016, likely chronic postinflammatory . Otherwise, no thoracic lymphadenopathy by CT size criteria. Evaluation of the lung shows similar calcified pleural plaque anterior right midlung. Mild diffuse bronchial wall thickening and hyperinflation. Strandy atelectasis/scarring at the inferi or. There is some tree-in-bud opacities peripheral right lower lobe axial image 38 through 43 new from pr ior. Some minimal tree-in-bud densities peripheral right upper lobe seem to have been present in 2016 as well, probable chronic small airways mucoid impaction. No augustina consolidation or pleural effusion . Visualized upper abdomen shows multiple gallstones in a nondistended gallbladder. Bones: Spondylosis mid to lower thoracic spine.. IMPRESSION: 1. COPD with mild emphysema. Calcified pleural plaque on the right suggests prior asbestos exposure. Clinically correlate. 2. Some new tree-in-bud opacities in the right lower lobe can be seen with infectious bronchiolitis. 3. CAD and ectatic descending thoracic aorta measuring up to 3.1 cm. 4. Cholelithiasis.
[2017-12-03] MEDS: guaiFENesin 600 MG TABLET.ER PO SCH ×2 (12:22→20:25)
[2017-12-03] MEDS: HEPARIN SODIUM,PORCINE 5,000 UNIT/ML 1 ML VIAL SQ SCH ×2 (12:22→20:26)
[2017-12-03 12:47] LABS: Glucose,Whole Blood 93 mg/dL (75-99)
[2017-12-03 17:38] LABS: Glucose,Whole Blood 113 mg/dL (75-99)
[2017-12-03] MEDS: CITALOPRAM HYDROBROMIDE 10 MG TAB PO SCH (20:24)
[2017-12-03] MEDS: ATORVASTATIN 10 MG TAB PO SCH (20:24)
[2017-12-03] MEDS: DONEPEZIL 5 MG TAB PO SCH (20:25)
[2017-12-03] MEDS: MONTELUKAST 10 MG TAB PO SCH (20:26)
[2017-12-03 22:00] LABS: Glucose,Whole Blood 128 mg/dL (75-99)
[2017-12-04] MEDS: methylPREDNISolone SOD SUCCI 125 MG/2 ML VIAL IV SCH ×4 (00:37→17:34)
[2017-12-04] MEDS: LEVOTHYROXINE 50 MCG TAB PO SCH (06:20)
[2017-12-04] MEDS: BUDESONIDE 0.5 MG/2 ML NEBU INHALATION SCH ×2 (07:25→19:36)
[2017-12-04] MEDS: IPRATROPIUM-ALBUTEROL 3 ML NEB INHALATION SCH ×4 (07:25→19:36)
[2017-12-04 07:31] LABS: Glucose,Whole Blood 123 mg/dL (75-99)
[2017-12-04] MEDS: guaiFENesin 600 MG TABLET.ER PO SCH ×2 (08:32→21:41)
[2017-12-04] MEDS: INSULIN ASPART 100 UNIT/ML 1 ML 10 ML VIAL SQ SCH ×4 (08:32→21:46)
[2017-12-04] MEDS: PANTOPRAZOLE 40 MG TABLET PO SCH (08:32)
[2017-12-04] MEDS: ASPIRIN 81 MG PO SCH (08:32)
[2017-12-04] MEDS: SUCRALFATE 1 GM TAB PO SCH ×2 (08:32→17:34)
[2017-12-04] MEDS: ISOSORBIDE MONONITRATE ER 30 MG TAB.ER.24H PO SCH (08:32)
[2017-12-04] MEDS: CAPTOPRIL 25 MG TAB PO SCH ×2 (08:32→17:34)
[2017-12-04] MEDS: HEPARIN SODIUM,PORCINE 5,000 UNIT/ML 1 ML VIAL SQ SCH ×2 (08:32→21:41)
[2017-12-04] MEDS: METOPROLOL TARTRATE 25 MG TAB PO SCH ×3 (08:33→21:43)
[2017-12-04] MEDS: POTASSIUM CHLORIDE ER 20 MEQ TAB.ER PO SCH (08:33)
--- NOTE | 2017-12-04 09:16 | P.PN ---
Subjective Progress Note Date: 12/04/17 HPI: This patient is an 87-year-old female, well-known to our practice, who has been seen in the pulmonary office on Friday for worsening shortness of breath and cough and had been started on oral steroids. Patient did not improve after starting steroids. Subsequently she brought herself into the emergency room with worsening shortness of breath and cough and admitted for further evaluation and treatment. Patient is very poor historian. Most of the information has been obtained from the chart. 12/03/17- patient is being seen in evaluated and examined on rounds. Patient is resting up in bed continues to have an audible wheeze and shortness of breath with exertion. She does use oxygen as needed at home. She continues to have a cough with scant sputum production. She has been unable to obtain a sputum sample at this time. We will add Mucinex to help her with secretions. Her flu swab was negative. Labs were reviewed and she is noted to be pancytopenic today. Both chest x-rays have been reviewed as well as old CT of the chest from 2016. We will obtain a new CT of the chest with contrast to look at her right nodule. 12/04/17- Patient is being seen examined and evaluated on rounds. CT results have been reviewed with her. She continues to be short of breath with activity and conversation. Congested cough continues. Remains on 2L of supplemental oxygen. Has been utilizing updrafts, mucinex and flutter. She feels her congestion is starting to break up and become looser. Hemodynamically stable, afebrile. Objective - Vital Signs Vital signs: Vital Signs Temp 97.4 F L 12/04/17 06:24 Pulse 70 12/04/17 07:35 Resp 16 12/04/17 06:24 BP 158/66 12/04/17 06:24 Pulse Ox 98 12/04/17 06:24 Intake & Output 12/03/17 12/04/17 12/04/17 18:59 06:59 18:59 Intake Total 440 100 Balance 440 100 Weight 57 kg Intake: Oral 440 100 Other: # Voids 1 1 - Exam GENERAL EXAM: Alert, active, comfortable in no apparent distress. HEAD: Normocephalic. EYES: Normal reaction of pupils, equal size. NOSE: Clear with pink turbinates. THROAT: No erythema or exudates. NECK: No masses, no JVD. CHEST: No chest wall deformity. LUNGS: Lungs noted to be coarse with inspiratory and expiratory wheezing and some rhonchi. CVS: S1 and S2 normal with no audible mumurs, regular rhythm. ABDOMEN: No hepatosplenomegaly, normal bowel sounds, no guarding or rigidity. EXTREMITIES: Trace edema noted, pedal pulses palpable. CENTRAL NERVOUS SYSTEM: No focal deficits, tone is normal in all 4 extremities. - Labs CBC & Chem 7: 12/03/17 09:00 12/03/17 09:00 Labs: Abnormal Lab Results - Last 24 Hours (Table) 12/03/17 12/03/17 12/03/17 Range/Units 09:00 09:00 17:31 WBC 2.8 L (3.8-10.6) k/uL RBC 3.61 L (3.80-5.40) m/uL Hgb 10.4 L (11.4-16.0) gm/dL Hct 32.2 L (34.0-46.0) % Plt Count 106 L (150-450) k/uL Lymphocytes # 0.2 L (1.0-4.8) k/uL Carbon Dioxide 31 H (22-30) mmol/L BUN 30 H (7-17) mg/dL Creatinine 1.38 H (0.52-1.04) mg/dL Glucose 154 H (74-99) mg/dL POC Glucose (mg/dL) 113 H (75-99) mg/dL Total Protein 5.9 L (6.3-8.2) g/dL Albumin 3.4 L (3.5-5.0) g/dL 12/03/17 12/04/17 Range/Units 21:49 07:24 WBC (3.8-10.6) k/uL RBC (3.80-5.40) m/uL Hgb (11.4-16.0) gm/dL Hct (34.0-46.0) % Plt Count (150-450) k/uL Lymphocytes # (1.0-4.8) k/uL Carbon Dioxide (22-30) mmol/L BUN (7-17) mg/dL Creatinine (0.52-1.04) mg/dL Glucose (74-99) mg/dL POC Glucose (mg/dL) 128 H 123 H (75-99) mg/dL Total Protein (6.3-8.2) g/dL Albumin (3.5-5.0) g/dL Microbiology - Last 24 Hours (Table) 12/01/17 20:57 Blood Culture - Preliminary Blood No Growth after 48 hours 12/01/17 18:35 Blood Culture - Preliminary Blood No Growth after 48 hours Assessment and Plan Assessment: Assessment Acute exacerbation of chronic persistent asthma Acute exacerbation of COPD Acute tracheobronchitis History of right lung nodule and pleural plaque Acute on chronic hypoxic respiratory failure requiring supplemental oxygen Pancytopenia Dementia Hypertension Plan Medications have been reviewed and will be continued as ordered. Continue Mucinex, and flutter valve. Obtain sputum sample. Continue on the IV steroids as ordered right now, may decrease in the future. CT of the chest with contrast , reviewed. Continue with pulmonary hygiene, coughing and deep breathing exercises, and supportive care. Supplemental oxygen to maintain oxygen saturations of 90% or better. Continue nebulizer treatments. GI and DVT prophylaxis. We will continue to monitor labs/results and adjust treatment as necessary. Further recommendations pending. I performed an examination of the patient and discussed their management with the nurse practitioner. I have reviewed the nurse practitioner's note and agree with the documented findings and plan of care.
[2017-12-04 09:18] LABS: Basophils % (A) 0 %; Eosinophils % (A) 0 %; HCT 35.6 % (34.0-46.0); HGB 11.5 gm/dL (11.4-16.0); Lymphocytes # (A) 0.2 k/uL (1.0-4.8); Lymphocytes % (A) 9 %; MCHC 32.3 g/dL (31.0-37.0); MCV 89.6 fL (80.0-100.0); Monocytes # (A) 0.1 k/uL (0-1.0); Monocytes % (A) 3 %; Neutrophils # (A) 2.4 k/uL (1.3-7.7); Neutrophils % (A) 87 %; Platelet Count 119 k/uL (150-450); RBC 3.98 m/uL (3.80-5.40); RDW 13.7 % (11.5-15.5); WBC 2.7 k/uL (3.8-10.6)
[2017-12-04 09:35] LABS: Albumin 3.7 g/dL (3.5-5.0); Calcium 9.1 mg/dL (8.4-10.2); Potassium 3.5 mmol/L (3.5-5.1); Total Bilirubin 1.2 mg/dL (0.2-1.3); Total Protein 6.3 g/dL (6.3-8.2)
[2017-12-04 12:43] LABS: Glucose,Whole Blood 124 mg/dL (75-99)
--- NOTE | 2017-12-04 14:16 | P.PN ---
Subjective Progress Note Date: 12/04/17 This is a 87-year-old female with a known history of dementia, hypertension, [place] , coronary artery disease cardiac stents, COPD, hypothyroidism, hyperlipidemia, peptic ulcer disease and chronic kidney disease. Patient presents to the emergency room with complaints of cough and shortness of breath. Patient has been having a productive cough with wheezing for about 3 days per daughter. She started on prednisone by her cattle brander on Friday. Patient did not have improvement in symptoms therefore she came into the emergency room. Information was taken from the chart and daughter. Patient is a poor historian due to her dementia. Patient was started on IV Solu-Medrol and Levaquin for her COPD exacerbation and pneumonia. Pulmonate service has been consulted. Also started on bronchodilators. Initial chest x-ray revealing a mild right lower lobe infiltrate. And repeat chest x-ray showed no acute process. Correlate for asbestosis related disease. Pulmonary service will evaluate. Patient denies any fever or chills or sweats. Denies chest pain. Denies any nausea or vomiting. Denies any bowel movement changes or urinary symptoms. Patient did receive a dose of IV Lasix this morning so for some mild fluid overload. 12/04/2017 patient still having significant cough with wheezing. She is asking when she'll be able to go home. She denies any chest pain. Denies any nausea or vomiting. Patient did have some confusion through the night. She doesn't a known history of dementia. Daughter at bedside. Confusion has improved. Objective - Vital Signs Vital signs: Vital Signs Temp 97.4 F L 12/04/17 06:24 Pulse 72 12/04/17 11:30 Resp 16 12/04/17 06:24 BP 158/66 12/04/17 06:24 Pulse Ox 98 12/04/17 06:24 Intake & Output 12/03/17 12/04/17 12/04/17 18:59 06:59 18:59 Intake Total 440 100 Balance 440 100 Weight 57 kg Intake: Oral 440 100 Other: # Voids 1 1 - Exam Head normocephalic Neck supple Lungs wheezing bilaterally Heart regular rate and rhythm S1-S2, no rub or gallop Abdomen is soft nontender nondistended positive bowel sounds no hepatosplenomegaly Extremities no edema Neuro alert and orientated to 3 - Labs CBC & Chem 7: 12/04/17 08:50 12/04/17 08:50 Labs: Abnormal Lab Results - Last 24 Hours (Table) 12/03/17 12/03/17 12/04/17 Range/Units 17:31 21:49 07:24 WBC (3.8-10.6) k/uL Plt Count (150-450) k/uL Lymphocytes # (1.0-4.8) k/uL Sodium (137-145) mmol/L Chloride (98-107) mmol/L BUN (7-17) mg/dL Creatinine (0.52-1.04) mg/dL Glucose (74-99) mg/dL POC Glucose (mg/dL) 113 H 128 H 123 H (75-99) mg/dL 12/04/17 12/04/17 12/04/17 Range/Units 08:50 08:50 12:19 WBC 2.7 L (3.8-10.6) k/uL Plt Count 119 L (150-450) k/uL Lymphocytes # 0.2 L (1.0-4.8) k/uL Sodium 136 L (137-145) mmol/L Chloride 97 L (98-107) mmol/L BUN 31 H (7-17) mg/dL Creatinine 1.30 H (0.52-1.04) mg/dL Glucose 159 H (74-99) mg/dL POC Glucose (mg/dL) 124 H (75-99) mg/dL Microbiology - Last 24 Hours (Table) 12/01/17 20:57 Blood Culture - Preliminary Blood No Growth after 48 hours 12/01/17 18:35 Blood Culture - Preliminary Blood No Growth after 48 hours Assessment and Plan Assessment: 1. Acute COPD exacerbation: Continue IV Solu-Medrol and bronchodilators. Pulmonary following 2. Acute tracheobronchitis: Initial chest x-ray did show a right middle lobe pneumonia versus atelectasis. Repeat chest x-ray for today shows no acute pulmonary process. Patient is on Levaquin. Check sputum culture. Pulmonary service consulted. 3. Chronic kidney disease, stage II. Creatinine at baseline. 4. Leukopenia likely related to patient's bronchitis. White count 2.7. Repeat labs in a.m. 5. History of chronic anemia: Iron levels are low at 31. Start ferrous sulfate 6. History of dementia 7. History of myocardial infarction with coronary disease and cardiac stents 8. Essential hypertension: BP stable continue his current meds 9. Hyperlipidemia continue statin 10. Acute on chronic hypoxic respiratory failure on home O2 11. History of a right lung nodule and pleural plaque: Followed by pulmonary service 12. Pancytopenia likely related to patient's acute infection. Showing improvement. White count 2.7 RBC normalized at 3.98 platelets trending up at 119. Repeat CBC in a.m. DVT prophylaxis subcu heparin and GI prophylaxis Protonix Consult physical therapy I performed an examination of the patient and discussed their management with the physician Cash Application Clerk. I have reviewed the Physician Cash Application Clerk's notes and agree with the documented findings and plan of care
--- NOTE | 2017-12-04 15:59 | CDI ---
Last Revision, August 2017 Documentation Clarification Form Date: 12/04/2017 3:42:00 PM From: Miracle Tejada RN, CCDS Admit Date: 12/01/2017 8:01:00 PM Patient Name: Alejandra Castellon Visit Number: [id number] Discharge Date: ATTENTION: The Clinical Documentation Specialists (CDI) and [facility] Coding Staff appreciate your assistance in clarifying documentation. Please respond to the clarification below the line at the bottom and electronically sign. The CDI & [facility] Coding staff will review the response and follow-up if needed. Please note: Queries are made part of the Legal Health Record. If you have any questions, please contact the author of this message via ITS. Dr. Walter Vasquez/Faith PORTER Asthma is documented in the consult and progress notes on 12/01/17-12/04/17 Acute exacerbation of chronic persistent asthma. Patient history/risk factors: Asthma, CAD, Angina, Dementia, Hypertension Clinical Indicators: Present with worsening shortness of breath and cough and had been started on oral steroids. Congested cough continues. Remains on 2/L of supplemental oxygen. Chest xray: clinical correlation recommended for mild right lower lobe infiltrate, correlate for atelectasis and pneumonia. Vital Signs: 158/74 84 14 98.7 Treatment Duoneb's Supplemental oxygen IV steroids Mucinex Pulmonary hygiene In your professional opinion, can you please further specify the following, if known? Acute exacerbation of chronic persistent asthma: Severity: Mild intermittent Mild persistent Moderate persistent Severe persistent Other, please specify ____ Unable to determine ---X___baseline unknown Please continue to document in your progress notes and discharge summary in order to capture severity of illness and risk of mortality. Include clinical findings that support your diagnosis. MTDD
[2017-12-04 17:23] LABS: Glucose,Whole Blood 134 mg/dL (75-99)
[2017-12-04] MEDS: ATORVASTATIN 10 MG TAB PO SCH (21:39)
[2017-12-04] MEDS: CITALOPRAM HYDROBROMIDE 10 MG TAB PO SCH (21:39)
[2017-12-04] MEDS: DONEPEZIL 5 MG TAB PO SCH (21:40)
[2017-12-04] MEDS: FERROUS SULFATE 325 MG TAB PO SCH (21:40)
[2017-12-04 21:41] LABS: Glucose,Whole Blood 160 mg/dL (75-99)
[2017-12-04] MEDS: LEVOFLOXACIN 750 MG TAB PO SCH (21:41)
[2017-12-04] MEDS: MONTELUKAST 10 MG TAB PO SCH (21:42)
[2017-12-05] MEDS: methylPREDNISolone SOD SUCCI 125 MG/2 ML VIAL IV SCH ×5 (00:24→23:15)
[2017-12-05] MEDS: LEVOTHYROXINE 50 MCG TAB PO SCH (06:20)
[2017-12-05 07:32] LABS: Glucose,Whole Blood 119 mg/dL (75-99)
[2017-12-05] MEDS: INSULIN ASPART 100 UNIT/ML 1 ML 10 ML VIAL SQ SCH ×4 (08:09→21:01)
[2017-12-05] MEDS: POTASSIUM CHLORIDE ER 20 MEQ TAB.ER PO SCH (08:27)
[2017-12-05] MEDS: ISOSORBIDE MONONITRATE ER 30 MG TAB.ER.24H PO SCH (08:27)
[2017-12-05] MEDS: guaiFENesin 600 MG TABLET.ER PO SCH ×2 (08:27→20:54)
[2017-12-05] MEDS: CAPTOPRIL 25 MG TAB PO SCH ×2 (08:28→18:39)
[2017-12-05] MEDS: PANTOPRAZOLE 40 MG TABLET PO SCH (08:28)
[2017-12-05] MEDS: METOPROLOL TARTRATE 25 MG TAB PO SCH ×2 (08:28→20:54)
[2017-12-05] MEDS: FERROUS SULFATE 325 MG TAB PO SCH ×2 (08:28→20:55)
[2017-12-05] MEDS: SUCRALFATE 1 GM TAB PO SCH ×2 (08:28→18:39)
[2017-12-05] MEDS: ASPIRIN 81 MG PO SCH (08:28)
[2017-12-05] MEDS: HEPARIN SODIUM,PORCINE 5,000 UNIT/ML 1 ML VIAL SQ SCH ×2 (08:28→20:54)
[2017-12-05 09:01] LABS: Basophils % (A) 0 %; Eosinophils % (A) 1 %; HCT 32.7 % (34.0-46.0); HGB 10.7 gm/dL (11.4-16.0); Lymphocytes # (A) 0.2 k/uL (1.0-4.8); Lymphocytes % (A) 7 %; MCH 28.7 pg (25.0-35.0); MCHC 32.8 g/dL (31.0-37.0); MCV 87.7 fL (80.0-100.0); Mean Platelet Volume 9.2; Monocytes # (A) 0.1 k/uL (0-1.0); Monocytes % (A) 4 %; Neutrophils # (A) 2.1 k/uL (1.3-7.7); Neutrophils % (A) 87 %; Platelet Count 110 k/uL (150-450); RBC 3.73 m/uL (3.80-5.40); RDW 13.6 % (11.5-15.5); WBC 2.4 k/uL (3.8-10.6)
[2017-12-05] MEDS: IPRATROPIUM-ALBUTEROL 3 ML NEB INHALATION SCH ×4 (09:13→19:17)
[2017-12-05] MEDS: BUDESONIDE 0.5 MG/2 ML NEBU INHALATION SCH ×2 (09:13→19:17)
[2017-12-05 09:58] LABS: Albumin 3.1 g/dL (3.5-5.0); Calcium 8.7 mg/dL (8.4-10.2); Total Protein 5.6 g/dL (6.3-8.2)
[2017-12-05 12:25] LABS: Glucose,Whole Blood 117 mg/dL (75-99)
--- NOTE | 2017-12-05 13:42 | P.PN ---
Subjective Progress Note Date: 12/05/17 This is a 87-year-old female with a known history of dementia, hypertension, [place] , coronary artery disease cardiac stents, COPD, hypothyroidism, hyperlipidemia, peptic ulcer disease and chronic kidney disease. Patient presents to the emergency room with complaints of cough and shortness of breath. Patient has been having a productive cough with wheezing for about 3 days per daughter. She started on prednisone by her obstetrician on Friday. Patient did not have improvement in symptoms therefore she came into the emergency room. Information was taken from the chart and daughter. Patient is a poor historian due to her dementia. Patient was started on IV Solu-Medrol and Levaquin for her COPD exacerbation and pneumonia. Pulmonate service has been consulted. Also started on bronchodilators. Initial chest x-ray revealing a mild right lower lobe infiltrate. And repeat chest x-ray showed no acute process. Correlate for asbestosis related disease. Pulmonary service will evaluate. Patient denies any fever or chills or sweats. Denies chest pain. Denies any nausea or vomiting. Denies any bowel movement changes or urinary symptoms. Patient did receive a dose of IV Lasix this morning so for some mild fluid overload. 12/04/2017 patient still having significant cough with wheezing. She is asking when she'll be able to go home. She denies any chest pain. Denies any nausea or vomiting. Patient did have some confusion through the night. She doesn't a known history of dementia. Daughter at bedside. Confusion has improved. 12/05/2017 patient is still having some wheezing and cough. Denies any chest pain or nausea or vomiting. She is pleasantly confused Objective - Vital Signs Vital signs: Vital Signs Temp 97.0 F L 12/05/17 07:00 Pulse 67 12/05/17 11:28 Resp 20 12/05/17 07:00 BP 147/80 12/05/17 07:00 Pulse Ox 100 12/05/17 07:00 Intake & Output 12/04/17 12/05/17 12/05/17 18:59 06:59 18:59 Other: # Voids 2 1 # Bowel Movements 1 - Exam Head normocephalic Neck supple Lungs wheezing bilaterally Heart regular rate and rhythm S1-S2, no rub or gallop Abdomen is soft nontender nondistended positive bowel sounds no hepatosplenomegaly Extremities no edema Neuro pleasantly confused - Labs CBC & Chem 7: 12/05/17 08:06 12/05/17 08:06 Labs: Abnormal Lab Results - Last 24 Hours (Table) 12/04/17 12/04/17 12/05/17 Range/Units 17:15 21:36 07:30 WBC (3.8-10.6) k/uL RBC (3.80-5.40) m/uL Hgb (11.4-16.0) gm/dL Hct (34.0-46.0) % Plt Count (150-450) k/uL Lymphocytes # (1.0-4.8) k/uL Sodium (137-145) mmol/L BUN (7-17) mg/dL Creatinine (0.52-1.04) mg/dL Glucose (74-99) mg/dL POC Glucose (mg/dL) 134 H 160 H 119 H (75-99) mg/dL Total Protein (6.3-8.2) g/dL Albumin (3.5-5.0) g/dL 12/05/17 12/05/17 12/05/17 Range/Units 08:06 08:06 12:23 WBC 2.4 L (3.8-10.6) k/uL RBC 3.73 L (3.80-5.40) m/uL Hgb 10.7 L (11.4-16.0) gm/dL Hct 32.7 L (34.0-46.0) % Plt Count 110 L (150-450) k/uL Lymphocytes # 0.2 L (1.0-4.8) k/uL Sodium 136 L (137-145) mmol/L BUN 30 H (7-17) mg/dL Creatinine 1.20 H (0.52-1.04) mg/dL Glucose 100 H (74-99) mg/dL POC Glucose (mg/dL) 117 H (75-99) mg/dL Total Protein 5.6 L (6.3-8.2) g/dL Albumin 3.1 L (3.5-5.0) g/dL Microbiology - Last 24 Hours (Table) 12/01/17 20:57 Blood Culture - Preliminary Blood No Growth after 72 hours 12/01/17 18:35 Blood Culture - Preliminary Blood No Growth after 72 hours Assessment and Plan Assessment: 1. Acute COPD exacerbation: Continue IV Solu-Medrol and bronchodilators. Pulmonary following 2. Acute tracheobronchitis: Initial chest x-ray did show a right middle lobe pneumonia versus atelectasis. Repeat chest x-ray for today shows no acute pulmonary process. Patient is on Levaquin. sputum culture has not been collected yet. Pulmonary service consulted. 3. Chronic kidney disease, stage II. Creatinine at baseline. 4. Leukopenia likely related to patient's bronchitis. White count 2.4. Repeat labs in a.m. 5. History of chronic anemia: Iron levels are low at 31. Start ferrous sulfate 6. History of dementia 7. History of myocardial infarction with coronary disease and cardiac stents 8. Essential hypertension: BP stable continue his current meds 9. Hyperlipidemia continue statin 10. Acute on chronic hypoxic respiratory failure on home O2 11. History of a right lung nodule and pleural plaque: Followed by pulmonary service 12. Pancytopenia likely related to patient's acute infection. White count 2.4 , RBC 3.73, platelets 110 DVT prophylaxis subcu heparin and GI prophylaxis Protonix Consult physical therapy I performed an examination of the patient and discussed their management with the physician Painter Airbrush. I have reviewed the Physician Painter Airbrush's notes and agree with the documented findings and plan of care
--- NOTE | 2017-12-05 13:56 | P.PN ---
Subjective Progress Note Date: 12/05/17 HPI: This patient is an 87-year-old female, well-known to our practice, who has been seen in the pulmonary office on Friday for worsening shortness of breath and cough and had been started on oral steroids. Patient did not improve after starting steroids. Subsequently she brought herself into the emergency room with worsening shortness of breath and cough and admitted for further evaluation and treatment. Patient is very poor historian. Most of the information has been obtained from the chart. 12/03/17- patient is being seen in evaluated and examined on rounds. Patient is resting up in bed continues to have an audible wheeze and shortness of breath with exertion. She does use oxygen as needed at home. She continues to have a cough with scant sputum production. She has been unable to obtain a sputum sample at this time. We will add Mucinex to help her with secretions. Her flu swab was negative. Labs were reviewed and she is noted to be pancytopenic today. Both chest x-rays have been reviewed as well as old CT of the chest from 2016. We will obtain a new CT of the chest with contrast to look at her right nodule. 12/04/17- Patient is being seen examined and evaluated on rounds. CT results have been reviewed with her. She continues to be short of breath with activity and conversation. Congested cough continues. Remains on 2L of supplemental oxygen. Has been utilizing updrafts, mucinex and flutter. She feels her congestion is starting to break up and become looser. Hemodynamically stable, afebrile. 12/05/17- patient is being seen examined and evaluated today on rounds. Patient continues to have the same shortness of breath with exertion activity with a congested cough. She also continues on supplemental oxygen. Patient seems to be very slowly responding to treatment. She continues on Solu-Medrol 60 every 6. She continues on 2 L of supplemental oxygen via nasal cannula. She is afebrile labs and reports have been reviewed. No further complaints Objective - Vital Signs Vital signs: Vital Signs Temp 97.0 F L 12/05/17 07:00 Pulse 67 12/05/17 11:28 Resp 20 12/05/17 07:00 BP 147/80 12/05/17 07:00 Pulse Ox 100 12/05/17 07:00 Intake & Output 03/05/1612/05/17 12/05/17 18:59 06:59 18:59 Other: # Voids 2 1 # Bowel Movements 1 - Exam GENERAL EXAM: Alert, active, comfortable in no apparent distress. HEAD: Normocephalic. EYES: Normal reaction of pupils, equal size. NOSE: Clear with pink turbinates. THROAT: No erythema or exudates. NECK: No masses, no JVD. CHEST: No chest wall deformity. LUNGS: Lungs noted to be coarse with inspiratory and expiratory wheezing and some rhonchi. CVS: S1 and S2 normal with no audible mumurs, regular rhythm. ABDOMEN: No hepatosplenomegaly, normal bowel sounds, no guarding or rigidity. EXTREMITIES: Trace edema noted, pedal pulses palpable. CENTRAL NERVOUS SYSTEM: No focal deficits, tone is normal in all 4 extremities. - Labs CBC & Chem 7: 12/05/17 08:06 12/05/17 08:06 Labs: Abnormal Lab Results - Last 24 Hours (Table) 12/04/17 12/04/17 12/05/17 Range/Units 17:15 21:36 07:30 WBC (3.8-10.6) k/uL RBC (3.80-5.40) m/uL Hgb (11.4-16.0) gm/dL Hct (34.0-46.0) % Plt Count (150-450) k/uL Lymphocytes # (1.0-4.8) k/uL Sodium (137-145) mmol/L BUN (7-17) mg/dL Creatinine (0.52-1.04) mg/dL Glucose (74-99) mg/dL POC Glucose (mg/dL) 134 H 160 H 119 H (75-99) mg/dL Total Protein (6.3-8.2) g/dL Albumin (3.5-5.0) g/dL 12/05/17 12/05/17 12/05/17 Range/Units 08:06 08:06 12:23 WBC 2.4 L (3.8-10.6) k/uL RBC 3.73 L (3.80-5.40) m/uL Hgb 10.7 L (11.4-16.0) gm/dL Hct 32.7 L (34.0-46.0) % Plt Count 110 L (150-450) k/uL Lymphocytes # 0.2 L (1.0-4.8) k/uL Sodium 136 L (137-145) mmol/L BUN 30 H (7-17) mg/dL Creatinine 1.20 H (0.52-1.04) mg/dL Glucose 100 H (74-99) mg/dL POC Glucose (mg/dL) 117 H (75-99) mg/dL Total Protein 5.6 L (6.3-8.2) g/dL Albumin 3.1 L (3.5-5.0) g/dL Microbiology - Last 24 Hours (Table) 12/01/17 20:57 Blood Culture - Preliminary Blood No Growth after 72 hours 12/01/17 18:35 Blood Culture - Preliminary Blood No Growth after 72 hours Assessment and Plan Assessment: Assessment Acute exacerbation of chronic persistent asthma Acute exacerbation of COPD Acute tracheobronchitis History of right lung nodule and pleural plaque Acute on chronic hypoxic respiratory failure requiring supplemental oxygen Pancytopenia Dementia Hypertension Plan Medications have been reviewed and will be continued as ordered. Continue Mucinex, and flutter valve. Obtain sputum sample. Continue on the IV steroids as ordered right now, may decrease in the future. CT of the chest with contrast , reviewed. Continue with pulmonary hygiene, coughing and deep breathing exercises, and supportive care. Supplemental oxygen to maintain oxygen saturations of 90% or better. Continue nebulizer treatments. GI and DVT prophylaxis. We will continue to monitor labs/results and adjust treatment as necessary. Further recommendations pending. I performed an examination of the patient and discussed their management with the nurse practitioner. I have reviewed the nurse practitioner's note and agree with the documented findings and plan of care.
[2017-12-05 17:22] LABS: Glucose,Whole Blood 131 mg/dL (75-99)
[2017-12-05 20:52] LABS: Glucose,Whole Blood 159 mg/dL (75-99)
[2017-12-05] MEDS: DONEPEZIL 5 MG TAB PO SCH (20:54)
[2017-12-05] MEDS: MONTELUKAST 10 MG TAB PO SCH (20:54)
[2017-12-05] MEDS: CITALOPRAM HYDROBROMIDE 10 MG TAB PO SCH (20:55)
[2017-12-05] MEDS: ATORVASTATIN 10 MG TAB PO SCH (20:55)
[2017-12-06] MEDS: methylPREDNISolone SOD SUCCI 125 MG/2 ML VIAL IV SCH ×2 (06:31→12:43)
[2017-12-06] MEDS: LEVOTHYROXINE 50 MCG TAB PO SCH (06:31)
[2017-12-06 07:00] LABS: Glucose,Whole Blood 114 mg/dL (75-99)
[2017-12-06] MEDS: BUDESONIDE 0.5 MG/2 ML NEBU INHALATION SCH ×2 (07:14→21:29)
[2017-12-06] MEDS: IPRATROPIUM-ALBUTEROL 3 ML NEB INHALATION SCH ×4 (07:14→21:29)
[2017-12-06 08:49] LABS: Basophils % (A) 0 %; Eosinophils % (A) 0 %; Lymphocytes # (A) 0.3 k/uL (1.0-4.8); Lymphocytes % (A) 9 %; MCH 28.5 pg (25.0-35.0); MCHC 32.3 g/dL (31.0-37.0); MCV 88.4 fL (80.0-100.0); Mean Platelet Volume 9.9; Monocytes # (A) 0.2 k/uL (0-1.0); Monocytes % (A) 5 %; Neutrophils # (A) 2.7 k/uL (1.3-7.7); Neutrophils % (A) 86 %; RBC 3.85 m/uL (3.80-5.40); RDW 13.8 % (11.5-15.5); WBC 3.1 k/uL (3.8-10.6)
[2017-12-06 08:51] LABS: Platelet Count 96 k/uL (150-450)
[2017-12-06 09:09] LABS: Albumin 3.1 g/dL (3.5-5.0); Potassium 4.1 mmol/L (3.5-5.1); Total Protein 5.5 g/dL (6.3-8.2)
[2017-12-06] MEDS: POTASSIUM CHLORIDE ER 20 MEQ TAB.ER PO SCH (09:18)
[2017-12-06] MEDS: ISOSORBIDE MONONITRATE ER 30 MG TAB.ER.24H PO SCH (09:18)
[2017-12-06] MEDS: METOPROLOL TARTRATE 25 MG TAB PO SCH ×2 (09:18→20:23)
[2017-12-06] MEDS: FERROUS SULFATE 325 MG TAB PO SCH ×2 (09:18→20:23)
[2017-12-06] MEDS: guaiFENesin 600 MG TABLET.ER PO SCH ×2 (09:18→20:23)
[2017-12-06] MEDS: ASPIRIN 81 MG PO SCH (09:18)
[2017-12-06] MEDS: SUCRALFATE 1 GM TAB PO SCH ×2 (09:18→16:47)
[2017-12-06] MEDS: CAPTOPRIL 25 MG TAB PO SCH ×2 (09:18→16:47)
[2017-12-06] MEDS: PANTOPRAZOLE 40 MG TABLET PO SCH (09:18)
[2017-12-06] MEDS: INSULIN ASPART 100 UNIT/ML 1 ML 10 ML VIAL SQ SCH ×4 (09:19→22:28)
[2017-12-06] MEDS: HEPARIN SODIUM,PORCINE 5,000 UNIT/ML 1 ML VIAL SQ SCH ×2 (09:19→20:23)
[2017-12-06 12:15] LABS: Glucose,Whole Blood 160 mg/dL (75-99)
--- NOTE | 2017-12-06 14:11 | P.PN ---
Subjective Progress Note Date: 12/06/17 This is a 87-year-old female with a known history of dementia, hypertension, [place] , coronary artery disease cardiac stents, COPD, hypothyroidism, hyperlipidemia, peptic ulcer disease and chronic kidney disease. Patient presents to the emergency room with complaints of cough and shortness of breath. Patient has been having a productive cough with wheezing for about 3 days per daughter. She started on prednisone by her community health agent on Friday. Patient did not have improvement in symptoms therefore she came into the emergency room. Information was taken from the chart and daughter. Patient is a poor historian due to her dementia. Patient was started on IV Solu-Medrol and Levaquin for her COPD exacerbation and pneumonia. Pulmonate service has been consulted. Also started on bronchodilators. Initial chest x-ray revealing a mild right lower lobe infiltrate. And repeat chest x-ray showed no acute process. Correlate for asbestosis related disease. Pulmonary service will evaluate. Patient denies any fever or chills or sweats. Denies chest pain. Denies any nausea or vomiting. Denies any bowel movement changes or urinary symptoms. Patient did receive a dose of IV Lasix this morning so for some mild fluid overload. On 12/03/2017 patient is feeling better, she is still complaining of shortness of breath and wheezing, still complaining of cough, otherwise she denies any complaints, there is no fever or chills no chest pain, no nausea or vomiting no abdominal pain no diarrhea and no urinary /08/2018 patient still having significant cough with wheezing. She is asking when she'll be able to go home. She denies any chest pain. Denies any nausea or vomiting. Patient did have some confusion through the night. She doesn't a known history of dementia. Daughter at bedside. Confusion has improved. 12/05/2017 patient is still having some wheezing and cough. Denies any chest pain or nausea or vomiting. She is pleasantly confused On 12/06/2017 patient is still having significant cough with wheezing. otherwise she denies any other complaints Objective - Vital Signs Vital signs: Vital Signs Temp 97.5 F L 12/06/17 07:45 Pulse 68 12/06/17 11:09 Resp 52 H 12/06/17 07:45 BP 185/73 12/06/17 07:45 Pulse Ox 98 12/06/17 07:45 Intake & Output 12/05/17 12/06/17 12/06/17 18:59 06:59 18:59 Intake Total 500 Balance 500 Weight 57 kg Intake: Oral 500 Other: Voiding Method Bedside Commode # Voids 1 1 - Exam Head normocephalic and atraumatic Neck supple no JVD no goiter Lungs significant wheezing with coarse breath sounds bilaterally Heart regular rate and rhythm S1-S2, no rub or gallop Abdomen is soft nontender nondistended positive bowel sounds no hepatosplenomegaly Extremities no edema Neuro alert and orientated to 3 - Labs CBC & Chem 7: 12/06/17 07:55 12/06/17 07:55 Labs: Abnormal Lab Results - Last 24 Hours (Table) 12/05/17 12/05/17 12/06/17 Range/Units 17:21 20:42 06:55 WBC (3.8-10.6) k/uL Hgb (11.4-16.0) gm/dL Plt Count (150-450) k/uL Lymphocytes # (1.0-4.8) k/uL Sodium (137-145) mmol/L BUN (7-17) mg/dL Creatinine (0.52-1.04) mg/dL Glucose (74-99) mg/dL POC Glucose (mg/dL) 131 H 159 H 114 H (75-99) mg/dL AST (14-36) U/L Total Protein (6.3-8.2) g/dL Albumin (3.5-5.0) g/dL 12/06/17 12/06/17 12/06/17 Range/Units 07:55 07:55 12:02 WBC 3.1 L (3.8-10.6) k/uL Hgb 11.0 L (11.4-16.0) gm/dL Plt Count 96 L (150-450) k/uL Lymphocytes # 0.3 L (1.0-4.8) k/uL Sodium 136 L (137-145) mmol/L BUN 33 H (7-17) mg/dL Creatinine 1.20 H (0.52-1.04) mg/dL Glucose 110 H (74-99) mg/dL POC Glucose (mg/dL) 160 H (75-99) mg/dL AST 12 L (14-36) U/L Total Protein 5.5 L (6.3-8.2) g/dL Albumin 3.1 L (3.5-5.0) g/dL Microbiology - Last 24 Hours (Table) 12/01/17 20:57 Blood Culture - Preliminary Blood No Growth after 96 hours 12/01/17 18:35 Blood Culture - Preliminary Blood No Growth after 96 hours Assessment and Plan Plan: 1. Acute COPD exacerbation: Patient started on IV Solu-Medrol and bronchodilators. Pulmonary service consulted. 2. Acute tracheobronchitis: Initial chest x-ray did show a right middle lobe pneumonia versus atelectasis. Repeat chest x-ray for today shows no acute pulmonary process. Patient is on Levaquin. Check sputum culture. Pulmonary service consulted. 3. Chronic kidney disease, stage II. Creatinine at baseline. 4. Leukopenia likely related to patient's bronchitis. White count 2.4. Repeat labs in a.m. 5. History of chronic anemia: Hemoglobin 10.7. Check iron studies 6. History of dementia 7. History of myocardial infarction with coronary disease and cardiac stents 8. Essential hypertension: BP stable continue his current meds 9. Hyperlipidemia continue statin 10. DVT prophylaxis subcu heparin and GI prophylaxis Protonix Continue current care will recheck in am
[2017-12-06] MEDS: predniSONE 20 MG TAB PO SCH (16:47)
[2017-12-06 17:22] LABS: Glucose,Whole Blood 159 mg/dL (75-99)
--- NOTE | 2017-12-06 17:25 | PN ---
PROGRESS NOTE DATE OF SERVICE: 12/06/2017 This patient is less short of breath. On physical examination, her respiratory rate is 16, pulse rate of 59, temperature 98.9, blood pressure 122/56. Oxygen saturation on 2 L by nasal cannula is 96%. HEENT is unremarkable. Chest reveals expiratory wheeze. Cardiovascular system reveals an S1, S2. Abdomen is soft. There is no edema. IMPRESSION AT THIS TIME: 1. Severe asthma with acute exacerbation. 2. Calcified pleural plaque in the right mid lung area. 3. Dementia. 4. Medical debility. Have her seen by Physical Medicine and Rehab. Switch her to oral steroids. May benefit from a slow taper as an outpatient. Depending on how she does, we shall make further changes to her care. MMODL / IJN: [id number] /
[2017-12-06] MEDS: ATORVASTATIN 10 MG TAB PO SCH (20:23)
[2017-12-06] MEDS: LEVOFLOXACIN 750 MG TAB PO SCH (20:23)
[2017-12-06] MEDS: MONTELUKAST 10 MG TAB PO SCH (20:23)
[2017-12-06] MEDS: DONEPEZIL 5 MG TAB PO SCH (20:23)
[2017-12-06] MEDS: CITALOPRAM HYDROBROMIDE 10 MG TAB PO SCH (20:23)
[2017-12-06 21:43] LABS: Glucose,Whole Blood 131 mg/dL (75-99)
[2017-12-07] MEDS: LEVOTHYROXINE 50 MCG TAB PO SCH (06:25)
[2017-12-07] MEDS: IPRATROPIUM-ALBUTEROL 3 ML NEB INHALATION SCH ×3 (07:37→15:19)
[2017-12-07] MEDS: BUDESONIDE 0.5 MG/2 ML NEBU INHALATION SCH (07:37)
[2017-12-07 07:59] LABS: Glucose,Whole Blood 109 mg/dL (75-99)
[2017-12-07 08:55] VITALS: RESP 22
[2017-12-07] MEDS: predniSONE 20 MG TAB PO SCH (10:15)
[2017-12-07] MEDS: FERROUS SULFATE 325 MG TAB PO SCH (10:15)
[2017-12-07] MEDS: POTASSIUM CHLORIDE ER 20 MEQ TAB.ER PO SCH (10:15)
[2017-12-07] MEDS: INSULIN ASPART 100 UNIT/ML 1 ML 10 ML VIAL SQ SCH ×2 (10:15→15:40)
[2017-12-07] MEDS: ASPIRIN 81 MG PO SCH (10:16)
[2017-12-07] MEDS: guaiFENesin 600 MG TABLET.ER PO SCH (10:16)
[2017-12-07] MEDS: CAPTOPRIL 25 MG TAB PO SCH (10:16)
[2017-12-07] MEDS: PANTOPRAZOLE 40 MG TABLET PO SCH (10:16)
[2017-12-07] MEDS: METOPROLOL TARTRATE 25 MG TAB PO SCH (10:16)
[2017-12-07] MEDS: SUCRALFATE 1 GM TAB PO SCH (10:16)
[2017-12-07] MEDS: HEPARIN SODIUM,PORCINE 5,000 UNIT/ML 1 ML VIAL SQ SCH (10:16)
[2017-12-07] MEDS: ISOSORBIDE MONONITRATE ER 30 MG TAB.ER.24H PO SCH (10:16)
[2017-12-07 10:19] LABS: Albumin 2.8 g/dL (3.5-5.0); Basophils % (A) 0 %; Calcium 8.5 mg/dL (8.4-10.2); Eosinophils % (A) 0 %; HCT 33.4 % (34.0-46.0); Lymphocytes # (A) 0.3 k/uL (1.0-4.8); Lymphocytes % (A) 7 %; MCH 29.2 pg (25.0-35.0); MCV 88.4 fL (80.0-100.0); Monocytes # (A) 0.2 k/uL (0-1.0); Monocytes % (A) 4 %; Neutrophils # (A) 4.2 k/uL (1.3-7.7); Neutrophils % (A) 88 %; Platelet Count 110 k/uL (150-450); Potassium 4.2 mmol/L (3.5-5.1); RBC 3.78 m/uL (3.80-5.40); RDW 13.7 % (11.5-15.5); Total Bilirubin 0.9 mg/dL (0.2-1.3); Total Protein 5.1 g/dL (6.3-8.2); WBC 4.7 k/uL (3.8-10.6)
[2017-12-07 11:30] LABS: Glucose,Whole Blood 98 mg/dL (75-99)
--- NOTE | 2017-12-07 15:47 | P.DS ---
Providers Date of admission: 12/01/17 20:01 Expected date of discharge: 12/07/17 Attending physician: Flora Pastrana Consults: 12/01/17 20:01 Consult Physician Stat Consulting Provider: Walter Vasquez Consult Reason/Comments: COPD exacerbation, pneumonia Do you want consulting provider notified?: Yes 12/06/17 16:12 Consult Physician Routine Consulting Provider: Jose Enrique Beauchamp Consult Reason/Comments: medical debility Do you want consulting provider notified?: Yes Primary care physician: Flora Zeina [facility] Course: Diagnoses on discharge: 1. Acute COPD exacerbation: Patient started on IV Solu-Medrol and bronchodilators. Pulmonary service consulted. 2. Acute tracheobronchitis: Initial chest x-ray did show a right middle lobe pneumonia versus atelectasis. Repeat chest x-ray for today shows no acute pulmonary process. Patient is on Levaquin. Check sputum culture. Pulmonary service consulted. 3. Chronic kidney disease, stage II. Creatinine at baseline. 4. Leukopenia likely related to patient's bronchitis. White count 2.4. Repeat labs in a.m. 5. History of chronic anemia: Hemoglobin 10.7. Check iron studies 6. History of dementia 7. History of myocardial infarction with coronary disease and cardiac stents 8. Essential hypertension: BP stable continue his current meds 9. Hyperlipidemia continue statin Hospital course: This is a 87-year-old female with a known history of dementia, hypertension, [place] , coronary artery disease cardiac stents, COPD, hypothyroidism, hyperlipidemia, peptic ulcer disease and chronic kidney disease. Patient presents to the emergency room with complaints of cough and shortness of breath. Patient has been having a productive cough with wheezing for about 3 days per daughter. She started on prednisone by her law enforcement director on Friday. Patient did not have improvement in symptoms therefore she came into the emergency room. Information was taken from the chart and daughter. Patient is a poor historian due to her dementia. Patient was started on IV Solu-Medrol and Levaquin for her COPD exacerbation and pneumonia. Pulmonate service has been consulted. Also started on bronchodilators. Initial chest x-ray revealing a mild right lower lobe infiltrate. And repeat chest x-ray showed no acute process. Correlate for asbestosis related disease. Pulmonary service will evaluate. Patient denies any fever or chills or sweats. Denies chest pain. Denies any nausea or vomiting. Denies any bowel movement changes or urinary symptoms. Patient did receive a dose of IV Lasix this morning so for some mild fluid overload. On 12/03/2017 patient is feeling better, she is still complaining of shortness of breath and wheezing, still complaining of cough, otherwise she denies any complaints, there is no fever or chills no chest pain, no nausea or vomiting no abdominal pain no diarrhea and no urinary [id number]/2018 patient still having significant cough with wheezing. She is asking when she'll be able to go home. She denies any chest pain. Denies any nausea or vomiting. Patient did have some confusion through the night. She doesn't a known history of dementia. Daughter at bedside. Confusion has improved. 12/05/2017 patient is still having some wheezing and cough. Denies any chest pain or nausea or vomiting. She is pleasantly confused On 12/06/2017 patient is still having significant cough with wheezing. otherwise she denies any other complaints Patient Condition at Discharge: Stable Plan - Discharge Summary Discharge Rx Participant: Yes New Discharge Prescriptions: New guaiFENesin [Mucinex] 1,200 mg PO Q12HR tablet.er Ipratropium-Albuterol Nebulize [Duoneb 0.5 mg-3 mg/3 ml Soln] 3 ml INHALATION RT-QID ampul.neb Levofloxacin [Levaquin] 250 mg PO DAILY 7 Days #7 tab predniSONE 10 mg PO DIRECTED #30 tab No Action Nitroglycerin Sl Tabs [Nitrostat] 0.4 mg SUBLINGUAL Q5M PRN PRN Reason: Chest Pain Citalopram Hydrobromide [CeleXA] 10 mg PO HS Budesonide [Pulmicort] 0.5 mg INHALATION RT-BID Captopril [Capoten] 25 mg PO BID Potassium Chloride [Klor-Con 20] 20 meq PO DAILY Montelukast [Singulair] 10 mg PO HS Donepezil HCl [Aricept] 5 mg PO HS Omalizumab [Xolair] 1 dose IM Q30D Isosorbide Mononitrate ER [Imdur] 30 mg PO DAILY Levothyroxine Sodium [Synthroid] 50 mcg PO DAILY Sucralfate [Carafate] 1 gm PO BID Pantoprazole [Protonix] 40 mg PO AC-BRKFST #30 tablet. Ergocalciferol [Vitamin D2] 50,000 unit PO LOPEZ Metoprolol Tartrate [Lopressor] 25 mg PO BID Simvastatin [Zocor] 20 mg PO HS Aspirin [Children's Aspirin] 81 mg PO DAILY Discharge Medication List Budesonide [Pulmicort] 0.5 mg INHALATION RT-BID 10/01/14 [History] Captopril [Capoten] 25 mg PO BID 10/01/14 [History] Citalopram Hydrobromide [CeleXA] 10 mg PO HS 10/01/14 [History] Donepezil HCl [Aricept] 5 mg PO HS 10/01/14 [History] Montelukast [Singulair] 10 mg PO HS 10/01/14 [History] Nitroglycerin Sl Tabs [Nitrostat] 0.4 mg SUBLINGUAL Q5M PRN 10/01/14 [History] Omalizumab [Xolair] 1 dose IM Q30D 10/01/14 [History] Potassium Chloride [Klor-Con 20] 20 meq PO DAILY 10/01/14 [History] Isosorbide Mononitrate ER [Imdur] 30 mg PO DAILY 01/30/16 [History] Levothyroxine Sodium [Synthroid] 50 mcg PO DAILY 01/30/16 [History] Sucralfate [Carafate] 1 gm PO BID 01/30/16 [History] Pantoprazole [Protonix] 40 mg PO AC-BRKFST #30 tablet. 02/01/16 [Rx] Aspirin [Children's Aspirin] 81 mg PO DAILY 12/01/17 [History] Ergocalciferol [Vitamin D2] 50,000 unit PO LOPEZ 12/01/17 [History] Metoprolol Tartrate [Lopressor] 25 mg PO BID 12/01/17 [History] Simvastatin [Zocor] 20 mg PO HS 12/01/17 [History] Ipratropium-Albuterol Nebulize [Duoneb 0.5 mg-3 mg/3 ml Soln] 3 ml INHALATION RT -QID ampul.neb 12/07/17 [Rx] Levofloxacin [Levaquin] 250 mg PO DAILY 7 Days #7 tab 12/07/17 [Rx] guaiFENesin [Mucinex] 1,200 mg PO Q12HR tablet.er 12/07/17 [Rx] predniSONE 10 mg PO DIRECTED #30 tab 12/07/17 [Rx] Follow up Appointment(s)/Referral(s): Aleksandra Portillo DO [Doctor of Osteopathic Medicine] - 3 Days Flora Pastrana MD [Primary Care Provider] - 3 Days Patient Instructions/Handouts: Pneumonia (DC) Activity/Diet/Wound Care/Special Instructions: DC RX Cardiac, diabetic diet. Heart failure folder given. Activity as tolerated, fall precautions.
[2017-12-07 15:50] VITALS: BP 128/69; PULSE 62; TEMP 96.9
[2017-12-07 17:15] LABS: Glucose,Whole Blood 129 mg/dL (75-99)
== END 2017-12-07 19:16 | disposition home or self-care (01) | DRG 190 ==
LOC: EC 17:38 → 4MS4W 20:01
PROVIDERS: ADMIT Internal Medicine; ATTEND Internal Medicine
DX: J44.0 Chronic obstructive pulmonary disease with (acute) lower respiratory infection (principal); J96.21 Acute and chronic respiratory failure with hypoxia; D61.818 Other pancytopenia; E87.70 Fluid overload, unspecified; Z99.81 Dependence on supplemental oxygen; J45.901 Unspecified asthma with (acute) exacerbation; D64.9 Anemia, unspecified; F03.90 Unspecified dementia, unspecified severity, without behavioral disturbance, psychotic disturbance, mood disturbance, and anxiety; J20.9 Acute bronchitis, unspecified; J44.1 Chronic obstructive pulmonary disease with (acute) exacerbation; E03.9 Hypothyroidism, unspecified; E78.5 Hyperlipidemia, unspecified; I12.9 Hypertensive chronic kidney disease with stage 1 through stage 4 chronic kidney disease, or unspecified chronic kidney disease; I25.10 Atherosclerotic heart disease of native coronary artery without angina pectoris; I25.2 Old myocardial infarction; N18.2 Chronic kidney disease, stage 2 (mild); Z79.82 Long term (current) use of aspirin; Z82.0 Family history of epilepsy and other diseases of the nervous system; Z82.5 Family history of asthma and other chronic lower respiratory diseases; Z87.11 Personal history of peptic ulcer disease; Z87.891 Personal history of nicotine dependence; Z95.5 Presence of coronary angioplasty implant and graft; Z79.899 Other long term (current) drug therapy; Z88.1 Allergy status to other antibiotic agents
CPT/HCPCS: 36415; 71046; 71260; 80053; 82550; 82553; 82728; 83036; 83540; 83550; 83605; 83735; 83880; 84484; 85025; 85610; 85730; 87040; 87502; 93005; 94640; 94667; 94668; 94760; 96374; 99285

== ENCOUNTER → 2018-02-17 | Outpatient (CLI) | payer MEDICARE, BC ==
[2018-02-17 08:21] LABS: Calcium 8.4 mg/dL (8.4-10.2); Potassium 3.9 mmol/L (3.5-5.1); Total Bilirubin 0.9 mg/dL (0.2-1.3); Total Protein 5.1 g/dL (6.3-8.2)
== END | disposition home or self-care (01) ==
LOC: LABWHC1 07:31
PROVIDERS: ATTEND Internal Medicine Interventional Cardiology
DX: E78.2 Mixed hyperlipidemia (principal)
CPT/HCPCS: 36415; 80053; 80061

== ENCOUNTER 2018-12-28 09:27 | Inpatient (IN) | payer MEDICARE, BC ==
[2018-12-28] MEDS ORDERED: IPRATROPIUM-ALBUTEROL 3 ML NEB INHALATION STA (09:54)
[2018-12-28] MEDS ORDERED: methylPREDNISolone SOD SUCCI 125 MG/2 ML VIAL IV STA (09:54)
--- NOTE | 2018-12-28 09:58 | ED ---
General Adult HPI - General Chief complaint: Shortness of Breath Stated complaint: Cough Time Seen by Provider: 12/28/18 09:50 Source: patient, family, RN notes reviewed Mode of arrival: wheelchair Limitations: no limitations - History of Present Illness Initial comments: Patient is a pleasant 88-year-old female presenting to the emergency Department with cough. Symptoms of been occurring for several days now. No improvement. Patient does have a history of similar symptoms previously associated with COPD. Patient did have a large amount of yellow sputum this morning. Patient states she only feels a little short of breath. Family states patient appears short of breath otherwise. No fevers. No leg pain or leg swelling. - Related Data Home Medications Medication Instructions Recorded Confirmed Budesonide [Pulmicort] 0.5 mg INHALATION RT-BID 10/01/14 12/28/18 Captopril [Capoten] 12.5 mg PO BID 10/01/14 12/28/18 Citalopram Hydrobromide [CeleXA] 10 mg PO HS 10/01/14 12/28/18 Donepezil HCl [Aricept] 5 mg PO HS 10/01/14 12/28/18 Montelukast [Singulair] 10 mg PO HS 10/01/14 12/28/18 Nitroglycerin Sl Tabs [Nitrostat] 0.4 mg SUBLINGUAL Q5M PRN 10/01/14 12/28/18 Omalizumab [Xolair] 150 mg IM Q30D 10/01/14 12/28/18 Potassium Chloride [Klor-Con 20] 20 meq PO DAILY 10/01/14 12/28/18 Isosorbide Mononitrate ER [Imdur] 30 mg PO DAILY 01/30/16 12/28/18 Levothyroxine Sodium [Synthroid] 50 mcg PO DAILY 01/30/16 12/28/18 Sucralfate [Carafate] 1 gm PO BID 01/30/16 12/28/18 Aspirin [Children's Aspirin] 81 mg PO DAILY 12/01/17 12/28/18 Metoprolol Tartrate [Lopressor] 25 mg PO BID 12/01/17 12/28/18 Simvastatin [Zocor] 20 mg PO HS 12/01/17 12/28/18 Cholecalciferol (Vitamin D3) 2,000 unit PO DAILY 06/08/18 12/28/18 [Vitamin D3] Furosemide [Lasix] 20 mg PO DAILY PRN 06/08/18 12/28/18 Previous Rx's Medication Instructions Recorded Pantoprazole [Protonix] 40 mg PO AC-BRKFST #30 tablet. 02/01/16 Ipratropium-Albuterol Nebulize 3 ml INHALATION RT-QID ampul.neb 12/07/17 [Duoneb 0.5 mg-3 mg/3 ml Soln] Allergies Allergy/AdvReac Type Severity Reaction Status Date / Time cephalexin monohydrate Allergy Colitis Verified 12/28/18 10:20 [From Keflex] Review of Systems ROS Statement: Those systems with pertinent positive or pertinent negative responses have been documented in the HPI. ROS Other: All systems not noted in ROS Statement are negative. Constitutional: Denies: fever Eyes: Denies: eye pain ENT: Denies: ear pain Respiratory: Reports: cough Cardiovascular: Denies: chest pain Endocrine: Denies: fatigue Gastrointestinal: Denies: abdominal pain Genitourinary: Denies: dysuria Musculoskeletal: Denies: back pain Skin: Denies: rash Neurological: Denies: weakness Past Medical History Past Medical History: Asthma, Coronary Artery Disease (CAD), Chest Pain / Angina, COPD, Dementia, Hyperlipidemia, Hypertension, Myocardial Infarction ([place]), Osteoarthritis (OA), Thyroid Disorder Additional Past Medical History / Comment(s): [place] in 1998, 2 cardiac stents in 1998. Last Myocardial Infarction Date:: 1998 History of Any Multi-Drug Resistant Organisms: None Reported Past Surgical History: Heart Catheterization With Stent Additional Past Surgical History / Comment(s): B\L cataracts removed 2013 Past Anesthesia/Blood Transfusion Reactions: No Reported Reaction Date of Last Stent Placement:: 1998 Past Psychological History: No Psychological Hx Reported Smoking Status: Former smoker Past Alcohol Use History: None Reported Past Drug Use History: None Reported - Past Family History Father Additional Family Medical History / Comment(s): emphazema Mother Additional Family Medical History / Comment(s): Alzhiemiers General Exam Limitations: no limitations General appearance: alert Head exam: Present: atraumatic Eye exam: Present: normal appearance, PERRL ENT exam: Present: normal oropharynx Neck exam: Present: normal inspection Respiratory exam: Present: wheezes, decreased breath sounds Cardiovascular Exam: Present: regular rate, normal rhythm GI/Abdominal exam: Present: soft. Absent: tenderness Extremities exam: Present: normal inspection. Absent: pedal edema, calf t enderness Neurological exam: Present: alert Psychiatric exam: Present: normal affect, normal mood Skin exam: Present: normal color Course Vital Signs 12/28/18 12/28/18 12/28/18 09:29 09:44 10:00 Temperature 98.4 F Pulse Rate 76 Respiratory 20 26 H Rate Blood Pressure 184/85 195/93 O2 Sat by Pulse 94 L 98 Oximetry 12/28/18 12/28/18 12/28/18 10:30 10:38 10:49 Temperature Pulse Rate 72 69 Respiratory Rate Blood Pressure 157/80 O2 Sat by Pulse 97 Oximetry 12/28/18 12/28/18 12/28/18 11:00 11:30 12:00 Temperature Pulse Rate 60 59 L Respiratory 20 20 Rate Blood Pressure 161/70 161/70 153/61 O2 Sat by Pulse 98 99 Oximetry 12/28/18 12:30 Temperature Pulse Rate 62 Respiratory 22 Rate Blood Pressure 145/66 O2 Sat by Pulse 98 Oximetry EKG Findings - EKG Comments: EKG Findings:: Normal sinus rhythm 70. MS 170. QRS 68. QT 392. QTC 423. Normal axis. Normal QRS. No acute ST change. Medical Decision Making - Medical Decision Making Patient reevaluated and significantly improved. Patient does have continued wheezing and decreased air exchange. No respiratory distress at this point. Patient and family updated on results and plan. Case was discussed in detail with Dr. Pastrana, who will admit his patient. Patient does see Dr. Vasquez for pulmonary. - Lab Data Result diagrams: 12/28/18 10:44 12/28/18 10:44 Lab Results 12/28/18 12/28/18 Range/Units 10:44 10:44 WBC 7.2 (3.8-10.6) k/uL RBC 4.17 (3.80-5.40) m/uL Hgb 11.1 L (11.4-16.0) gm/dL Hct 35.2 (34.0-46.0) % MCV 84.5 (80.0-100.0) fL MCH 26.6 (25.0-35.0) pg MCHC 31.4 (31.0-37.0) g/dL RDW 15.6 H (11.5-15.5) % Plt Count 177 (150-450) k/uL Neutrophils % 80 % Lymphocytes % 8 % Monocytes % 10 % Eosinophils % 1 % Basophils % 0 % Neutrophils # 5.7 (1.3-7.7) k/uL Lymphocytes # 0.5 L (1.0-4.8) k/uL Monocytes # 0.7 (0-1.0) k/uL Eosinophils # 0.1 (0-0.7) k/uL Basophils # 0.0 (0-0.2) k/uL Hypochromasia Slight Sodium 140 (137-145) mmol/L Potassium 4.3 (3.5-5.1) mmol/L Chloride 103 (98-107) mmol/L Carbon Dioxide 30 (22-30) mmol/L Anion Gap 7 mmol/L BUN 20 H (7-17) mg/dL Creatinine 1.30 H (0.52-1.04) mg/dL Est GFR (CKD-EPI)AfAm 43 (>60 ml/min/1.73 sqM) Est GFR (CKD-EPI)NonAf 37 (>60 ml/min/1.73 sqM) Glucose 87 (74-99) mg/dL Calcium 9.3 (8.4-10.2) mg/dL Total Bilirubin 0.9 (0.2-1.3) mg/dL AST 18 (14-36) U/L ALT 14 (9-52) U/L Alkaline Phosphatase 82 (38-126) U/L Total Protein 6.5 (6.3-8.2) g/dL Albumin 3.8 (3.5-5.0) g/dL - Radiology Data Radiology results: image reviewed (Chest x-ray shows previously seen nodule. Paratracheal soft tissue fullness.) Disposition Clinical Impression: Acute exacerbation of chronic obstructive airways disease Disposition: ADMITTED IP TO THIS HOSP Is patient prescribed a controlled substance at d/c from ED?: No Referrals: Flora Pastrana MD [Primary Care Provider] - 1-2 days Decision Time: 13:07
--- NOTE | 2018-12-28 11:08 | XR ---
EXAMINATION TYPE: XR chest 2V DATE OF EXAM: 12/28/2018 COMPARISON: 06/08/2018 TECHNIQUE: PA and lateral views submitted. HISTORY: Difficulty breathing FINDINGS: The lungs are clear and there is no pneumothorax, pleural effusion, or focal pneumonia. Atheroscler otic change aorta. Hypertrophic and degenerative changes spine. Surgical clips in the abdomen noted. Heart is enlarged. Diffuse osteopenia with arthropathy shoulders. No overt failure. There is a nodula r density in the right midlung which is stable. Hyperinflation noted. Diffuse osteopenia. IMPRESSION: 1. COPD with stable appearing nodular density right midlung likely related to the calcified pleural p laque noted by previous CT scan. 2. Right paratracheal soft tissue fullness may been the basis of ectatic vasculature, adenopathy, or prominent thyroid gland correlate clinically.
[2018-12-28 11:28] LABS: Basophils % (A) 0 %; Eosinophils # (A) 0.1 k/uL (0-0.7); Eosinophils % (A) 1 %; HCT 35.2 % (34.0-46.0); HGB 11.1 gm/dL (11.4-16.0); Hypochromasia Slight; Lymphocytes # (A) 0.5 k/uL (1.0-4.8); Lymphocytes % (A) 8 %; MCH 26.6 pg (25.0-35.0); MCHC 31.4 g/dL (31.0-37.0); MCV 84.5 fL (80.0-100.0); Mean Platelet Volume 8.6; Monocytes # (A) 0.7 k/uL (0-1.0); Monocytes % (A) 10 %; Neutrophils # (A) 5.7 k/uL (1.3-7.7); Neutrophils % (A) 80 %; Platelet Count 177 k/uL (150-450); RBC 4.17 m/uL (3.80-5.40); RDW 15.6 % (11.5-15.5); WBC 7.2 k/uL (3.8-10.6)
[2018-12-28 11:42] LABS: Albumin 3.8 g/dL (3.5-5.0); Calcium 9.3 mg/dL (8.4-10.2); Potassium 4.3 mmol/L (3.5-5.1); Total Bilirubin 0.9 mg/dL (0.2-1.3); Total Protein 6.5 g/dL (6.3-8.2)
[2018-12-28] MEDS ORDERED: IPRATROPIUM-ALBUTEROL 3 ML NEB INHALATION PRN (13:07)
[2018-12-28] MEDS ORDERED: NITROGLYCERIN SL TABS 0.4 MG TAB SUBLINGUAL PRN (13:34)
[2018-12-28] MEDS ORDERED: FUROSEMIDE 20 MG TAB PO PRN (14:22)
--- NOTE | 2018-12-28 14:27 | P.HPIM ---
History of Present Illness H&P Date: 12/28/18 This is a 88-year-old female patient who presented to the emergency department with complaints of increasing shortness of breath with wheezing and cough. Patient's accompanying by her daughter and son report that patient has been progressively getting worse over the weekend. Patient is having increased sputum production. Patient does have past medical history of dementia, asthma, coronary artery disease, chest pain, COPD, hyperlipidemia, hypertension, heart cath with stents in 1998 and 1991, osteoarthritis, thyroid disorder. Chest x- ray completed showing COPD with stable appearing nodule density right midlung likely related to calcified pleural plaques noted from previous computed tomogra phy scan. Right paratracheal soft tissue fullness may been the basis of ectatic vasculature, M.D. neuropathy or prominent thyroid gland correlate clinically. EKG completed showing normal sinus rhythm, nonspecific T-wave abnormality. Pulmonary services have been consulted. Patient started on Solu-Medrol and DuoNeb breathing treatments. Sputum and influenza ordered. At this time patient states she feels slightly improved. Patient denies chest pain. Patient denies nausea vomiting or diarrhea. Patient denies any urinary burning or frequency Review of Systems please refer to HPI otherwise unremarkable Past Medical History Past Medical History: Asthma, Coronary Artery Disease (CAD), Chest Pain / Angina, COPD, Dementia, Hyperlipidemia, Hypertension, Myocardial Infarction ([place]), Osteoarthritis (OA), Thyroid Disorder Additional Past Medical History / Comment(s): [place] in 1998, 2 cardiac stents in 1998. Last Myocardial Infarction Date:: 1998 History of Any Multi-Drug Resistant Organisms: None Reported Past Surgical History: Heart Catheterization With Stent Additional Past Surgical History / Comment(s): B\L cataracts removed 2013 Past Anesthesia/Blood Transfusion Reactions: No Reported Reaction Date of Last Stent Placement:: 1998 Past Psychological History: No Psychological Hx Reported Smoking Status: Former smoker Past Alcohol Use History: None Reported Past Drug Use History: None Reported - Past Family History Father Additional Family Medical History / Comment(s): emphazema Mother Additional Family Medical History / Comment(s): Alzhiemiers Medications and Allergies Home Medications Medication Instructions Recorded Confirmed Type Budesonide [Pulmicort] 0.5 mg INHALATION RT-BID 10/01/14 12/28/18 History Captopril [Capoten] 12.5 mg PO BID 10/01/14 12/28/18 History Citalopram Hydrobromide [CeleXA] 10 mg PO HS 10/01/14 12/28/18 History Donepezil HCl [Aricept] 5 mg PO HS 10/01/14 12/28/18 History Montelukast [Singulair] 10 mg PO HS 10/01/14 12/28/18 History Nitroglycerin Sl Tabs [Nitrostat] 0.4 mg SUBLINGUAL Q5M PRN 10/01/14 12/28/18 History Omalizumab [Xolair] 150 mg IM Q30D 10/01/14 12/28/18 History Potassium Chloride [Klor-Con 20] 20 meq PO DAILY 10/01/14 12/28/18 History Isosorbide Mononitrate ER [Imdur] 30 mg PO DAILY 01/30/16 12/28/18 History Levothyroxine Sodium [Synthroid] 50 mcg PO DAILY 01/30/16 12/28/18 History Sucralfate [Carafate] 1 gm PO BID 01/30/16 12/28/18 History Pantoprazole [Protonix] 40 mg PO AC-BRKFST #30 tablet. 02/01/16 12/28/18 Rx Aspirin [Children's Aspirin] 81 mg PO DAILY 12/01/17 12/28/18 History Metoprolol Tartrate [Lopressor] 25 mg PO BID 12/01/17 12/28/18 History Simvastatin [Zocor] 20 mg PO HS 12/01/17 12/28/18 History Ipratropium-Albuterol Nebulize 3 ml INHALATION RT-QID ampul.neb 12/07/17 12/28/18 Rx [Duoneb 0.5 mg-3 mg/3 ml Soln] Cholecalciferol (Vitamin D3) 2,000 unit PO DAILY 06/08/18 12/28/18 History [Vitamin D3] Furosemide [Lasix] 20 mg PO DAILY PRN 06/08/18 12/28/18 History Allergies Allergy/AdvReac Type Severity Reaction Status Date / Time cephalexin monohydrate Allergy Colitis Verified 12/28/18 10:20 [From Keflex] Physical Exam Vitals: Vital Signs Temp Pulse Resp BP Pulse Ox 12/28/18 12:30 62 22 145/66 98 12/28/18 12:00 59 L 20 153/61 99 12/28/18 11:30 60 20 161/70 98 12/28/18 11:00 161/70 12/28/18 10:49 69 12/28/18 10:38 72 12/28/18 10:30 157/80 97 12/28/18 10:00 195/93 98 12/28/18 09:44 26 H 12/28/18 09:29 98.4 F 76 20 184/85 94 L Intake and Output 12/27/18 12/28/18 12/28/18 22:59 06:59 14:59 Other: Weight 66.224 kg Head normocephalic Neck supple Lungs diminished breath sounds with bilateral expiratory wheezing Heart regular rate and rhythm S1-S2, no rub or gallop Abdomen is soft nontender nondistended positive bowel sounds no hepatosplenomegaly Extremities no edema Neuro alert and orientated to 3 Results CBC & Chem 7: 12/28/18 10:44 12/28/18 10:44 Labs: Abnormal Lab Results - Last 24 Hours (Table) 12/28/18 12/28/18 Range/Units 10:44 10:44 Hgb 11.1 L (11.4-16.0) gm/dL RDW 15.6 H (11.5-15.5) % Lymphocytes # 0.5 L (1.0-4.8) k/uL BUN 20 H (7-17) mg/dL Creatinine 1.30 H (0.52-1.04) mg/dL Assessment and Plan Assessment: 1. Acute COPD exacerbation. Patient started on Solu-Medrol and DuoNeb breathing treatments. Pulmonary services have been consulted. 2. Possible acute tracheobronchitis. Patient started on Levaquin. pulmonary services have been consulted. Sputum culture ordered. 3. 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 Creatinine 1.30 and bun 20. Captopril on hold we'll continue to monitor. 4. History of dementia 5. History of myocardial infarction with coronary disease and cardiac stents. Patient does follow with cardiology services 6. Essential hypertension 7. Hyperlipidemia DVT prophylaxis heparin. GI prophylaxis Protonix Pulmonary service is consulted Sputum influenza ordered IV Solu-Medrol, DuoNeb and Levaquin antibiotic ordered Time with Patient: Greater than 30 (Greater than 60% of the total time spent in counseling and coordination of care. I performed an examination of the patient and discussed their management with the Nurse Practitioner. I have reviewed the Nurse Practitioner's notes and agree with the documented findings and plan of care)
[2018-12-28] MEDS: IPRATROPIUM-ALBUTEROL 3 ML NEB INHALATION SCH ×2 (15:47→20:00)
[2018-12-28] MEDS ORDERED: IPRATROPIUM-ALBUTEROL 3 ML NEB INHALATION SCH (16:00)
[2018-12-28] MEDS: SODIUM CHLORIDE 0.9% 1,000 ML IV SCH (16:22)
[2018-12-28] MEDS: LEVOFLOXACIN 500MG-D5W PMX 500 MG in DEXTROSE/WATER 1 100ML.BAG IVPB SCH (16:26)
[2018-12-28] MEDS: methylPREDNISolone SOD SUCCI 125 MG/2 ML VIAL IV SCH (18:45)
[2018-12-28] MEDS: SUCRALFATE 1 GM TAB PO SCH (19:46)
[2018-12-28] MEDS: BUDESONIDE 0.5 MG/2 ML NEBU INHALATION SCH (20:00)
[2018-12-28] MEDS ORDERED: DONEPEZIL 5 MG TAB PO SCH (21:00)
[2018-12-28] MEDS: CITALOPRAM HYDROBROMIDE 10 MG TAB PO SCH (22:01)
[2018-12-28] MEDS: METOPROLOL TARTRATE 25 MG TAB PO SCH (22:01)
[2018-12-28] MEDS: MONTELUKAST 10 MG TAB PO SCH (22:01)
[2018-12-28] MEDS: ATORVASTATIN 10 MG TAB PO SCH (22:01)
[2018-12-28] MEDS: HEPARIN SODIUM,PORCINE 5,000 UNIT/ML 1 ML VIAL SQ SCH (22:02)
--- NOTE | 2018-12-28 22:18 | CONS ---
CONSULTATION Alejandra Arenas is an 88-year-old female who presented to the ED at [facility]. She had been having increasing shortness of breath of about 4-5 days' duration. She received an iron transfusion and became more short of breath. She subsequently was seen in the ED, was wheezing and admitted for further evaluation and management. She has a known history of severe asthma and is on anti IgE treatment with Xolair. She also has a history of dementia over the last 2-3 years. PAST MEDICAL HISTORY: Positive for: 1. Severe persistent asthma. 2. Coronary artery disease. 3. Dementia. 4. Osteoarthritis. 5. Chronic anemia that is in part due to iron deficiency. 6. Previous stent placement. 7. Bilateral cataract surgery in the past. SOCIAL HISTORY: Patient is a former smoker. She does not drink alcohol excessively. FAMILY HISTORY: Positive for emphysema in her father, Alzheimer's type dementia in her mother. MEDICATIONS: Medications prior to admission were: 1. Pulmicort. 2. DuoNeb. 3. Zocor. 4. Metoprolol. 5. Child's aspirin. 6. Protonix. 7. Carafate. 8. Synthroid. 9. Imdur. 10.Potassium chloride. 11.Xolair. 12.Nitroglycerin sublingual. 13.Singulair. 14.Aricept. 15.Citalopram. 16.Capoten. 17.Cholecalciferol. 18.Lasix. ALLERGIES: KEFLEX. REVIEW OF SYSTEMS: Noncontributory. PHYSICAL EXAMINATION: The patient was lying in bed. She was moderately short of breath. Respiratory rate 20, pulse rate 70, temperature 99 degrees Fahrenheit, oxygen saturation on 3 L by nasal cannula 97%, blood pressure 145/57. HEENT revealed pupils that are equal. CHEST: Decreased breath sounds. Prolonged expiration. Bilateral expiratory wheeze. CARDIOVASCULAR SYSTEM: S1, S2. Abdomen was soft. There was no pedal edema. LABS: White count of 7.2, hemoglobin of 11.1, sodium 140, potassium 4.3, chloride 103, bicarb 30, BUN 20, creatinine of 1.3. Chest x-ray does not show any discrete infiltrate. There is some right paratracheal soft tissue fullness, which may be due to ectatic vasculature adenopathy, but a prominent thyroid gland. IMPRESSION AT THIS TIME: 1. Severe asthma with acute exacerbation. 2. Iron deficiency anemia. 3. Dementia. 4. Coronary artery disease. At this point in time, we will keep her on IV and aerosolized steroids, montelukast, keep her on GI prophylaxis. Would hold off on subcutaneous heparin, as she has a history of iron deficiency anemia. Would follow her closely. She is not to be considered for aggressive workup of any kind of cancer, per the daughter, and we will provide symptomatic care, optimizing her medically. Depending on how she does, we shall make further changes to her care. She and her daughter were counseled regarding her condition and this approach and have fair understanding of our recommendations. I would like to thank you for allowing me the privilege of participating in the care of our patient. LESLY / CINDY: [id number] /
[2018-12-29] MEDS: methylPREDNISolone SOD SUCCI 125 MG/2 ML VIAL IV SCH ×5 (00:37→23:29)
[2018-12-29] MEDS: LEVOTHYROXINE 50 MCG TAB PO SCH (05:41)
[2018-12-29] MEDS: IPRATROPIUM-ALBUTEROL 3 ML NEB INHALATION SCH ×4 (07:30→19:52)
[2018-12-29] MEDS: BUDESONIDE 0.5 MG/2 ML NEBU INHALATION SCH ×2 (07:30→19:52)
[2018-12-29] MEDS: CHOLECALCIFEROL 1,000 UNIT TAB PO SCH (07:58)
[2018-12-29] MEDS: SUCRALFATE 1 GM TAB PO SCH ×2 (07:58→17:06)
[2018-12-29] MEDS: METOPROLOL TARTRATE 25 MG TAB PO SCH ×2 (07:58→20:09)
[2018-12-29] MEDS: PANTOPRAZOLE 40 MG TABLET PO SCH (07:58)
[2018-12-29] MEDS: ISOSORBIDE MONONITRATE ER 30 MG TAB.ER.24H PO SCH (07:58)
[2018-12-29] MEDS: ASPIRIN 81 MG PO SCH (07:58)
[2018-12-29] MEDS: POTASSIUM CHLORIDE ER 20 MEQ TAB.ER PO SCH (07:58)
[2018-12-29] MEDS: HEPARIN SODIUM,PORCINE 5,000 UNIT/ML 1 ML VIAL SQ SCH ×2 (07:59→20:09)
--- NOTE | 2018-12-29 10:56 | P.PN ---
Subjective Progress Note Date: 12/29/18 This is a 88-year-old female patient who presented to the emergency department with complaints of increasing shortness of breath with wheezing and cough. Patient's accompanying by her daughter and son report that patient has been progressively getting worse over the weekend. Patient is having increased sputum production. Patient does have past medical history of dementia, asthma, coronary artery disease, chest pain, COPD, hyperlipidemia, hypertension, heart cath with stents in 1998 and 1991, osteoarthritis, thyroid disorder. Chest x- ray completed showing COPD with stable appearing nodule density right midlung likely related to calcified pleural plaques noted from previous computed tomography scan. Right paratracheal soft tissue fullness may been the basis of ectatic vasculature, M.D. neuropathy or prominent thyroid gland correlate clinically. EKG completed showing normal sinus rhythm, nonspecific T-wave abnormality. Pulmonary services have been consulted. Patient started on Solu-Medrol and DuoNeb breathing treatments. Sputum and influenza ordered. At this time patient states she feels slightly improved. Patient denies chest pain. Patient denies nausea vomiting or diarrhea. Patient denies any urinary burning or frequency On 12/29/2018 patient is currently sitting comfortably in bed. Patient is alert. Patient remains pleasantly confused which is her baseline. Patient states improvement with her shortness of breath. Patient denies chest pain. Patient denies nausea vomiting or diarrhea. Patient denies any urinary burning or frequency Objective - Vital Signs Vital signs: Vital Signs Temp 98.4 F 12/29/18 05:20 Pulse 68 12/29/18 07:42 Resp 20 12/29/18 08:00 BP 172/64 12/29/18 05:20 Pulse Ox 99 12/29/18 05:20 Intake & Output 12/28/18 12/29/18 12/29/18 18:59 06:59 18:59 Intake Total 100 Balance 100 Weight 66.224 kg Intake: Oral 100 Other: Voiding Method Toilet # Voids 1 - Exam Head normocephalic Neck supple Lungs diminished breath sounds with bilateral expiratory wheezing Heart regular rate and rhythm S1-S2, no rub or gallop Abdomen is soft nontender nondistended positive bowel sounds no hepatosplenomegaly Extremities no edema Neuro alert. pleasantly confused - Labs CBC & Chem 7: 12/28/18 10:44 12/28/18 10:44 Labs: Abnormal Lab Results - Last 24 Hours (Table) 12/28/18 12/28/18 Range/Units 10:44 10:44 Hgb 11.1 L (11.4-16.0) gm/dL RDW 15.6 H (11.5-15.5) % Lymphocytes # 0.5 L (1.0-4.8) k/uL BUN 20 H (7-17) mg/dL Creatinine 1.30 H (0.52-1.04) mg/dL Assessment and Plan Assessment: 1. Acute COPD exacerbation. Patient started on Solu-Medrol and DuoNeb breathing treatments. Pulmonary services following 2. Possible acute tracheobronchitis. Patient started on Levaquin. pulmonary services have been consulted. Sputum culture ordered. 3. 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 Creatinine 1.30 and bun 20. Captopril on hold we'll continue to monitor. 4. History of dementia 5. History of myocardial infarction with coronary disease and cardiac stents. Patient does follow with cardiology services 6. Essential hypertension 7. Hyperlipidemia DVT prophylaxis heparin. GI prophylaxis Protonix Pulmonary service is consulted Sputum influenza ordered IV Solu-Medrol, DuoNeb and Levaquin antibiotic ordered I performed an examination of the patient and discussed their management with the Nurse Practitioner. I have reviewed the Nurse Practitioner's notes and agree with the documented findings and plan of care
[2018-12-29 11:01] LABS: Basophils % (A) 0 %; Eosinophils % (A) 1 %; HCT 32.2 % (34.0-46.0); HGB 10.5 gm/dL (11.4-16.0); Hypochromasia Slight; Lymphocytes # (A) 0.2 k/uL (1.0-4.8); Lymphocytes % (A) 4 %; MCH 27.4 pg (25.0-35.0); MCHC 32.6 g/dL (31.0-37.0); MCV 84.1 fL (80.0-100.0); Mean Platelet Volume 8.9; Monocytes # (A) 0.2 k/uL (0-1.0); Monocytes % (A) 3 %; Neutrophils # (A) 4.3 k/uL (1.3-7.7); Neutrophils % (A) 92 %; Platelet Count 157 k/uL (150-450); RBC 3.83 m/uL (3.80-5.40); RDW 15.7 % (11.5-15.5); WBC 4.7 k/uL (3.8-10.6)
[2018-12-29 11:19] LABS: Albumin 3.3 g/dL (3.5-5.0); Potassium 4.3 mmol/L (3.5-5.1); Total Bilirubin 0.8 mg/dL (0.2-1.3); Total Protein 5.8 g/dL (6.3-8.2)
[2018-12-29] MEDS: LEVOFLOXACIN 500MG-D5W PMX 500 MG in DEXTROSE/WATER 1 100ML.BAG IVPB SCH (15:59)
--- NOTE | 2018-12-29 16:24 | PN ---
PROGRESS NOTE DATE OF SERVICE: 12/29/2018 This patient has been hemodynamically stable. She is less short of breath. On physical examination, respiratory rate is 18, pulse rate of 60, temperature 98.3, blood pressure 102/55. Oxygen saturation on 2 L by nasal cannula is 97%. HEENT is unremarkable. Chest reveals decreased breath sounds with prolonged expiration and expiratory wheeze. Cardiovascular system is in S1, S2. Abdomen is soft. There is no edema. IMPRESSION AT THIS TIME: Asthma with acute exacerbation. Continue antibiotics, steroids. Increase her activity level. Depending on how she does, we shall make further changes to her care. MMODL / IJN: [id number] /
[2018-12-29] MEDS: SODIUM CHLORIDE 0.9% 1,000 ML IV SCH (17:07)
[2018-12-29] MEDS ORDERED: ALPRAZolam 0.25 MG TAB PO PRN (17:20)
[2018-12-29] MEDS: ATORVASTATIN 10 MG TAB PO SCH (20:09)
[2018-12-29] MEDS: MONTELUKAST 10 MG TAB PO SCH (20:09)
[2018-12-29] MEDS: CITALOPRAM HYDROBROMIDE 10 MG TAB PO SCH (20:09)
[2018-12-29 21:18] LABS: Glucose,Whole Blood 156 mg/dL (75-99)
[2018-12-29] MEDS: INSULIN ASPART (NovoLOG) 100 UNIT/ML VIAL SQ SCH (21:23)
[2018-12-30] MEDS: methylPREDNISolone SOD SUCCI 125 MG/2 ML VIAL IV SCH ×2 (05:14→13:06)
[2018-12-30] MEDS: LEVOTHYROXINE 50 MCG TAB PO SCH (05:15)
[2018-12-30 07:47] LABS: Glucose,Whole Blood 132 mg/dL (75-99)
[2018-12-30] MEDS: INSULIN ASPART (NovoLOG) 100 UNIT/ML VIAL SQ SCH ×4 (07:56→21:23)
[2018-12-30] MEDS: ISOSORBIDE MONONITRATE ER 30 MG TAB.ER.24H PO SCH (07:57)
[2018-12-30] MEDS: SUCRALFATE 1 GM TAB PO SCH ×2 (07:57→16:49)
[2018-12-30] MEDS: PANTOPRAZOLE 40 MG TABLET PO SCH (07:57)
[2018-12-30] MEDS: CHOLECALCIFEROL 1,000 UNIT TAB PO SCH (07:57)
[2018-12-30] MEDS: ASPIRIN 81 MG PO SCH (07:58)
[2018-12-30] MEDS: POTASSIUM CHLORIDE ER 20 MEQ TAB.ER PO SCH (07:58)
[2018-12-30] MEDS: HEPARIN SODIUM,PORCINE 5,000 UNIT/ML 1 ML VIAL SQ SCH ×2 (07:58→21:23)
[2018-12-30] MEDS: METOPROLOL TARTRATE 25 MG TAB PO SCH ×2 (07:58→21:23)
[2018-12-30] MEDS: BUDESONIDE 0.5 MG/2 ML NEBU INHALATION SCH ×2 (08:32→20:08)
[2018-12-30] MEDS: IPRATROPIUM-ALBUTEROL 3 ML NEB INHALATION SCH ×4 (08:32→20:08)
--- NOTE | 2018-12-30 09:59 | P.PN ---
Subjective Progress Note Date: 12/30/18 This is a 88-year-old female patient who presented to the emergency department with complaints of increasing shortness of breath with wheezing and cough. Patient's accompanying by her daughter and son report that patient has been progressively getting worse over the weekend. Patient is having increased sputum production. Patient does have past medical history of dementia, asthma, coronary artery disease, chest pain, COPD, hyperlipidemia, hypertension, heart cath with stents in 1998 and 1991, osteoarthritis, thyroid disorder. Chest x- ray completed showing COPD with stable appearing nodule density right midlung likely related to calcified pleural plaques noted from previous computed tomography scan. Right paratracheal soft tissue fullness may been the basis of ectatic vasculature, M.D. neuropathy or prominent thyroid gland correlate clinically. EKG completed showing normal sinus rhythm, nonspecific T-wave abnormality. Pulmonary services have been consulted. Patient started on Solu-Medrol and DuoNeb breathing treatments. Sputum and influenza ordered. At this time patient states she feels slightly improved. Patient denies chest pain. Patient denies nausea vomiting or diarrhea. Patient denies any urinary burning or frequency On 12/29/2018 patient is currently sitting comfortably in bed. Patient is alert. Patient remains pleasantly confused which is her baseline. Patient states improvement with her shortness of breath. Patient denies chest pain. Patient denies nausea vomiting or diarrhea. Patient denies any urinary burning or frequency On 12/30/2018 patient is currently resting comfortably in bed. Patient remains pleasantly confused at this time. Patient is still wheezing. Patient denies chest pain. Patient denies nausea vomiting or diarrhea. Patient denies any urinary burning or frequency. Patient remains on Solu-Medrol at this time around usual home no Objective - Vital Signs Vital signs: Vital Signs Temp 98.0 F 12/30/18 05:18 Pulse 60 12/30/18 08:48 Resp 17 12/30/18 05:18 BP 180/73 12/30/18 05:18 Pulse Ox 99 12/30/18 05:18 Intake & Output 12/29/18 12/30/18 12/30/18 18:59 06:59 18:59 Intake Total 1200 Balance 1200 Intake: Oral 1200 Other: Voiding Method Toilet Toilet # Voids 1 2 - Exam Head normocephalic Neck supple Lungs diminished breath sounds with bilateral expiratory wheezing Heart regular rate and rhythm S1-S2, no rub or gallop Abdomen is soft nontender nondistended positive bowel sounds no hepatosplenomegaly Extremities no edema Neuro alert. pleasantly confused - Labs CBC & Chem 7: 12/29/18 10:28 12/29/18 10:28 Labs: Abnormal Lab Results - Last 24 Hours (Table) 12/29/18 12/29/18 12/29/18 Range/Units 10:28 10:28 21:15 Hgb 10.5 L (11.4-16.0) gm/dL Hct 32.2 L (34.0-46.0) % RDW 15.7 H (11.5-15.5) % Lymphocytes # 0.2 L (1.0-4.8) k/uL BUN 22 H (7-17) mg/dL Creatinine 1.28 H (0.52-1.04) mg/dL Glucose 131 H (74-99) mg/dL POC Glucose (mg/dL) 156 H (75-99) mg/dL AST 13 L (14-36) U/L Total Protein 5.8 L (6.3-8.2) g/dL Albumin 3.3 L (3.5-5.0) g/dL 12/30/18 Range/Units 07:45 Hgb (11.4-16.0) gm/dL Hct (34.0-46.0) % RDW (11.5-15.5) % Lymphocytes # (1.0-4.8) k/uL BUN (7-17) mg/dL Creatinine (0.52-1.04) mg/dL Glucose (74-99) mg/dL POC Glucose (mg/dL) 132 H (75-99) mg/dL AST (14-36) U/L Total Protein (6.3-8.2) g/dL Albumin (3.5-5.0) g/dL Microbiology - Last 24 Hours (Table) 12/28/18 15:28 Blood Culture - Preliminary Blood No Growth after 24 hours Assessment and Plan Assessment: 1. Acute COPD exacerbation. Patient started on Solu-Medrol and DuoNeb breathi ng treatments. Initially in full pulmonary continue 2. Possible acute tracheobronchitis. Patient started on Levaquin. pulmonary services have been consulted. Sputum culture ordered. 3. 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 Creatinine 1.30 and bun 20. Captopril on hold we'll continue to monitor. 4. History of dementia 5. History of myocardial infarction with coronary disease and cardiac stents. Patient does follow with cardiology services 6. Essential hypertension 7. Hyperlipidemia DVT prophylaxis heparin. GI prophylaxis Protonix Pulmonary service is consulted Sputum influenza ordered IV Solu-Medrol, DuoNeb and Levaquin antibiotic ordered Consult physical therapy and social work for discharge planning I performed an examination of the patient and discussed their management with the Nurse Practitioner. I have reviewed the Nurse Practitioner's notes and agree with the documented findings and plan of care
[2018-12-30 10:10] LABS: Basophils % (A) 0 %; Eosinophils % (A) 0 %; HCT 35.5 % (34.0-46.0); HGB 10.8 gm/dL (11.4-16.0); Hypochromasia Slight; Lymphocytes # (A) 0.2 k/uL (1.0-4.8); Lymphocytes % (A) 5 %; MCHC 30.3 g/dL (31.0-37.0); MCV 85.9 fL (80.0-100.0); Mean Platelet Volume 8.8; Monocytes # (A) 0.1 k/uL (0-1.0); Monocytes % (A) 2 %; Neutrophils # (A) 4.9 k/uL (1.3-7.7); Neutrophils % (A) 92 %; Platelet Count 138 k/uL (150-450); RBC 4.13 m/uL (3.80-5.40); RDW 15.9 % (11.5-15.5); WBC 5.3 k/uL (3.8-10.6)
[2018-12-30 10:18] LABS: Albumin 3.6 g/dL (3.5-5.0); Calcium 9.2 mg/dL (8.4-10.2); Potassium 3.9 mmol/L (3.5-5.1); Total Bilirubin 0.8 mg/dL (0.2-1.3)
[2018-12-30 11:37] LABS: Glucose,Whole Blood 152 mg/dL (75-99)
--- NOTE | 2018-12-30 12:37 | P.PN ---
Subjective Progress Note Date: 12/30/18 Principal diagnosis: 12/30/2018: Patient seen and examined. Patient states that she is feeling a little bit better today. She is still confused however she is pleasant. He patient denies any fevers and chills. She denies shortness of breath. She states her breathing is improving. She is asking when she can go home. She states she is unsure if she has oxygen at home. Objective - Vital Signs Vital signs: Vital Signs Temp 98.0 F 12/30/18 05:18 Pulse 56 L 12/30/18 11:50 Resp 17 12/30/18 08:00 BP 180/73 12/30/18 05:18 Pulse Ox 99 12/30/18 05:18 Intake & Output 12/29/18 12/30/18 12/30/18 18:59 06:59 18:59 Intake Total 1200 Balance 1200 Intake: Oral 1200 Other: Voiding Method Toilet Toilet Toilet # Voids 1 2 - Exam Gen.: Patient is alert, no acute distress Cardiovascular: Regular rate and rhythm, S1/S2 Lungs: Diminished breath sounds bilaterally with scattered expiratory wheezing Abdomen: Soft nontender nondistended positive bowel sounds Extremities: No edema - Labs CBC & Chem 7: 12/30/18 09:37 12/30/18 09:37 Labs: Abnormal Lab Results - Last 24 Hours (Table) 12/29/18 12/30/18 12/30/18 Range/Units 21:15 07:45 09:37 Hgb 10.8 L (11.4-16.0) gm/dL MCHC 30.3 L (31.0-37.0) g/dL RDW 15.9 H (11.5-15.5) % Plt Count 138 L (150-450) k/uL Lymphocytes # 0.2 L (1.0-4.8) k/uL BUN (7-17) mg/dL Creatinine (0.52-1.04) mg/dL Glucose (74-99) mg/dL POC Glucose (mg/dL) 156 H 132 H (75-99) mg/dL AST (14-36) U/L Total Protein (6.3-8.2) g/dL 12/30/18 12/30/18 Range/Units 09:37 11:11 Hgb (11.4-16.0) gm/dL MCHC (31.0-37.0) g/dL RDW (11.5-15.5) % Plt Count (150-450) k/uL Lymphocytes # (1.0-4.8) k/uL BUN 28 H (7-17) mg/dL Creatinine 1.31 H (0.52-1.04) mg/dL Glucose 124 H (74-99) mg/dL POC Glucose (mg/dL) 152 H (75-99) mg/dL AST 13 L (14-36) U/L Total Protein 6.0 L (6.3-8.2) g/dL Microbiology - Last 24 Hours (Table) 12/28/18 15:28 Blood Culture - Preliminary Blood No Growth after 24 hours Assessment and Plan Assessment: Acute hypoxic respiratory failure Acute exacerbation of severe persistent asthma and COPD Encephalopathy likely underlying dementia Tracheobronchitis 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
[2018-12-30] MEDS ORDERED: LEVOFLOXACIN 250 MG TAB PO SCH (16:00)
[2018-12-30] MEDS: LEVOFLOXACIN 500MG-D5W PMX 500 MG in DEXTROSE/WATER 1 100ML.BAG IVPB SCH (16:17)
[2018-12-30] MEDS: SODIUM CHLORIDE 0.9% 1,000 ML IV SCH (16:48)
[2018-12-30 17:06] LABS: Glucose,Whole Blood 121 mg/dL (75-99)
[2018-12-30 20:26] LABS: Glucose,Whole Blood 179 mg/dL (75-99)
[2018-12-30] MEDS: methylPREDNISolone SOD SUCCI 40 MG/ML 1 ML VIAL IV SCH (21:22)
[2018-12-30] MEDS: ATORVASTATIN 10 MG TAB PO SCH (21:23)
[2018-12-30] MEDS: CITALOPRAM HYDROBROMIDE 10 MG TAB PO SCH (21:23)
[2018-12-30] MEDS: MONTELUKAST 10 MG TAB PO SCH (21:23)
[2018-12-31] MEDS: LEVOTHYROXINE 50 MCG TAB PO SCH (05:45)
[2018-12-31] MEDS: IPRATROPIUM-ALBUTEROL 3 ML NEB INHALATION SCH ×2 (07:28→11:38)
[2018-12-31] MEDS: BUDESONIDE 0.5 MG/2 ML NEBU INHALATION SCH (07:28)
[2018-12-31 08:22] LABS: Glucose,Whole Blood 121 mg/dL (75-99)
[2018-12-31] MEDS: POTASSIUM CHLORIDE ER 20 MEQ TAB.ER PO SCH (08:32)
[2018-12-31] MEDS: INSULIN ASPART (NovoLOG) 100 UNIT/ML VIAL SQ SCH ×2 (08:32→12:33)
[2018-12-31] MEDS: ISOSORBIDE MONONITRATE ER 30 MG TAB.ER.24H PO SCH (08:32)
[2018-12-31] MEDS: SUCRALFATE 1 GM TAB PO SCH (08:32)
[2018-12-31] MEDS: ASPIRIN 81 MG PO SCH (08:32)
[2018-12-31] MEDS: PANTOPRAZOLE 40 MG TABLET PO SCH (08:32)
[2018-12-31] MEDS: HEPARIN SODIUM,PORCINE 5,000 UNIT/ML 1 ML VIAL SQ SCH (08:32)
[2018-12-31] MEDS: METOPROLOL TARTRATE 25 MG TAB PO SCH (08:32)
[2018-12-31] MEDS: methylPREDNISolone SOD SUCCI 40 MG/ML 1 ML VIAL IV SCH (08:32)
[2018-12-31 10:28] LABS: Basophils % (A) 0 %; Eosinophils # (A) 0.1 k/uL (0-0.7); Eosinophils % (A) 1 %; HCT 32.7 % (34.0-46.0); HGB 10.5 gm/dL (11.4-16.0); Hypochromasia Slight; Lymphocytes # (A) 0.2 k/uL (1.0-4.8); Lymphocytes % (A) 3 %; MCH 27.1 pg (25.0-35.0); MCHC 32.1 g/dL (31.0-37.0); MCV 84.3 fL (80.0-100.0); Mean Platelet Volume 9.7; Monocytes # (A) 0.2 k/uL (0-1.0); Monocytes % (A) 4 %; Neutrophils # (A) 5.2 k/uL (1.3-7.7); Neutrophils % (A) 92 %; Platelet Count 131 k/uL (150-450); RBC 3.88 m/uL (3.80-5.40); RDW 15.9 % (11.5-15.5); WBC 5.6 k/uL (3.8-10.6)
[2018-12-31 11:04] LABS: Albumin 3.1 g/dL (3.5-5.0); Calcium 8.5 mg/dL (8.4-10.2); Potassium 4.5 mmol/L (3.5-5.1); Total Bilirubin 0.7 mg/dL (0.2-1.3); Total Protein 5.4 g/dL (6.3-8.2)
[2018-12-31] MEDS: CHOLECALCIFEROL 1,000 UNIT TAB PO SCH (12:33)
[2018-12-31 12:57] LABS: Glucose,Whole Blood 122 mg/dL (75-99)
[2018-12-31 13:10] VITALS: BP 134/80; PULSE 73; RESP 16; TEMP 97.3
--- NOTE | 2018-12-31 14:25 | P.DS ---
Providers Date of admission: 12/30/18 14:17 Expected date of discharge: 12/31/18 Attending physician: Flora Pastrana Consults: 12/28/18 13:07 Consult Physician Routine Consulting Provider: Walter Vasquez Consult Reason/Comments: dyspnea Do you want consulting provider notified?: Yes Primary care physician: Flora Pastrana [facility] Course: Discharge Diagnosis 1. Acute COPD exacerbation. Patient started on Solu-Medrol and DuoNeb breathing treatments. Discussed case with shake out worker Dr. bruner. Patient will be DC'd on Levaquin for 5 more days and prednisone taper. Patient to follow-up with pulmonary services and PCP 2. Possible acute tracheobronchitis. Patient started on Levaquin. pulmonary services have been consulted. Sputum culture ordered. Patient will be DC'd on Levaquin for 5 more days 3. 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 Creatinine 1.30 and bun 20. Captopril on hold we'll continue to monitor. Creatinine improving to 1.20 and bun 28 4. History of dementia 5. History of myocardial infarction with coronary disease and cardiac stents. Patient does follow with cardiology services 6. Essential hypertension 7. Hyperlipidemia Hospital course This is a 88-year-old female patient who presented to the emergency department with complaints of increasing shortness of breath with wheezing and cough. Patient's accompanying by her daughter and son report that patient has been progressively getting worse over the weekend. Patient is having increased sputum production. Patient does have past medical history of dementia, asthma, coronary artery disease, chest pain, COPD, hyperlipidemia, hypertension, heart cath with stents in 1998 and 1991, osteoarthritis, thyroid disorder. Chest x- ray completed showing COPD with stable appearing nodule density right midlung likely related to calcified pleural plaques noted from previous computed tomography scan. Right paratracheal soft tissue fullness may been the basis of ectatic vasculature, M.D. neuropathy or prominent thyroid gland correlate clinically. EKG completed showing normal sinus rhythm, nonspecific T-wave abnormality. Pulmonary services have been consulted. Patient started on Solu- Medrol and DuoNeb breathing treatments. Sputum and influenza ordered. At this time patient states she feels slightly improved. Patient denies chest pain. Patient denies nausea vomiting or diarrhea. Patient denies any urinary burning or frequency On 12/29/2018 patient is currently sitting comfortably in bed. Patient is a lert. Patient remains pleasantly confused which is her baseline. Patient states improvement with her shortness of breath. Patient denies chest pain. Patient denies nausea vomiting or diarrhea. Patient denies any urinary burning or frequency On 12/30/2018 patient is currently resting comfortably in bed. Patient remains pleasantly confused at this time. Patient is still wheezing. Patient denies chest pain. Patient denies nausea vomiting or diarrhea. Patient denies any urinary burning or frequency. Patient remains on Solu-Medrol at this time. Patient is on home O2 dose. On 12/31/2018. Patient is currently resting comfortably in bed. Patient is improving with wheezing. At this time patient denies chest pain or shortness of breath. Patient denies nausea vomiting or diarrhea. Patient denies any urinary burning or frequency. Patient will go home on home O2 which she currently has. Patient has been cleared for discharge from pulmonary standpoint. Patient will be DC'd on Levaquin 500 days plus prednisone taper. Patient to follow-up with pulmonary services and PCP. Repeat CMP will be ordered for 3 days I performed an examination of the patient and discussed their management with the Nurse Practitioner. I have reviewed the Nurse Practitioner's notes and agree with the documented findings and plan of care Patient Condition at Discharge: Stable Plan - Discharge Summary Discharge Rx Participant: No New Discharge Prescriptions: Continue Nitroglycerin Sl Tabs [Nitrostat] 0.4 mg SUBLINGUAL Q5M PRN PRN Reason: Chest Pain Citalopram Hydrobromide [CeleXA] 10 mg PO HS Budesonide [Pulmicort] 0.5 mg INHALATION RT-BID Potassium Chloride [Klor-Con 20] 20 meq PO DAILY Montelukast [Singulair] 10 mg PO HS Donepezil HCl [Aricept] 5 mg PO HS Omalizumab [Xolair] 150 mg IM Q30D Isosorbide Mononitrate ER [Imdur] 30 mg PO DAILY Levothyroxine Sodium [Synthroid] 50 mcg PO DAILY Sucralfate [Carafate] 1 gm PO BID Pantoprazole [Protonix] 40 mg PO AC-BRKFST #30 tablet. Metoprolol Tartrate [Lopressor] 25 mg PO BID Simvastatin [Zocor] 20 mg PO HS Aspirin [Children's Aspirin] 81 mg PO DAILY Ipratropium-Albuterol Nebulize [Duoneb 0.5 mg-3 mg/3 ml Soln] 3 ml INHALATION RT-QID ampul.neb Cholecalciferol (Vitamin D3) [Vitamin D3] 2,000 unit PO DAILY Furosemide [Lasix] 20 mg PO DAILY PRN PRN Reason: Edema Discontinued Captopril [Capoten] 12.5 mg PO BID Discharge Medication List Budesonide [Pulmicort] 0.5 mg INHALATION RT-BID 10/01/14 [History] Citalopram Hydrobromide [CeleXA] 10 mg PO HS 10/01/14 [History] Donepezil HCl [Aricept] 5 mg PO HS 10/01/14 [History] Montelukast [Singulair] 10 mg PO HS 10/01/14 [History] Nitroglycerin Sl Tabs [Nitrostat] 0.4 mg SUBLINGUAL Q5M PRN 10/01/14 [History] Omalizumab [Xolair] 150 mg IM Q30D 10/01/14 [History] Potassium Chloride [Klor-Con 20] 20 meq PO DAILY 10/01/14 [History] Isosorbide Mononitrate ER [Imdur] 30 mg PO DAILY 01/30/16 [History] Levothyroxine Sodium [Synthroid] 50 mcg PO DAILY 01/30/16 [History] Sucralfate [Carafate] 1 gm PO BID 01/30/16 [History] Pantoprazole [Protonix] 40 mg PO AC-BRKFST #30 tablet. 02/01/16 [Rx] Aspirin [Children's Aspirin] 81 mg PO DAILY 12/01/17 [History] Metoprolol Tartrate [Lopressor] 25 mg PO BID 12/01/17 [History] Simvastatin [Zocor] 20 mg PO HS 12/01/17 [History] Ipratropium-Albuterol Nebulize [Duoneb 0.5 mg-3 mg/3 ml Soln] 3 ml INHALATION RT-QID ampul.neb 12/07/17 [Rx] Cholecalciferol (Vitamin D3) [Vitamin D3] 2,000 unit PO DAILY 06/08/18 [History] Furosemide [Lasix] 20 mg PO DAILY PRN 06/08/18 [History] Follow up Appointment(s)/Referral(s): [facility] [NON-STAFF] - (Supplies your oxygen.) Flora Pastrana MD [Primary Care Provider] - 1-2 days Aleksandra Portillo DO [Doctor of Osteopathic Medicine] - 1 Week Activity/Diet/Wound Care/Special Instructions: Activity as tolerated Diet heart healthy Patient will go home with home O2. Arrange per case liner Discharge Disposition: HOME SELF-CARE
== END 2018-12-31 16:16 | disposition home or self-care (01) | DRG 190 ==
LOC: EC 09:27 → 4MS4W 13:07 → OBSVTOIN 12-30 14:17
PROVIDERS: ADMIT Internal Medicine; ATTEND Internal Medicine
DX: J44.1 Chronic obstructive pulmonary disease with (acute) exacerbation (principal); J96.01 Acute respiratory failure with hypoxia; G93.40 Encephalopathy, unspecified; J45.51 Severe persistent asthma with (acute) exacerbation; F03.90 Unspecified dementia, unspecified severity, without behavioral disturbance, psychotic disturbance, mood disturbance, and anxiety; I25.10 Atherosclerotic heart disease of native coronary artery without angina pectoris; N18.2 Chronic kidney disease, stage 2 (mild); I12.9 Hypertensive chronic kidney disease with stage 1 through stage 4 chronic kidney disease, or unspecified chronic kidney disease; E78.5 Hyperlipidemia, unspecified; D50.9 Iron deficiency anemia, unspecified; J20.9 Acute bronchitis, unspecified; J44.0 Chronic obstructive pulmonary disease with (acute) lower respiratory infection; E07.9 Disorder of thyroid, unspecified; M19.90 Unspecified osteoarthritis, unspecified site; I25.2 Old myocardial infarction; Z66 Do not resuscitate; Z79.899 Other long term (current) drug therapy; Z79.890 Hormone replacement therapy; Z79.82 Long term (current) use of aspirin; Z95.5 Presence of coronary angioplasty implant and graft; Z98.42 Cataract extraction status, left eye; Z98.41 Cataract extraction status, right eye; Z87.891 Personal history of nicotine dependence; Z88.1 Allergy status to other antibiotic agents; Z82.5 Family history of asthma and other chronic lower respiratory diseases; Z82.0 Family history of epilepsy and other diseases of the nervous system
CPT/HCPCS: 36415; 71046; 80053; 85025; 87040; 87070; 87205; 87502; 93005; 94640; 96365; 96374; 96376; 99285

== ENCOUNTER → 2019-07-20 | Outpatient (CLI) | payer MEDICARE, BC ==
--- NOTE | 2019-07-20 18:55 | XR ---
EXAMINATION TYPE: XR chest 2V DATE OF EXAM: 07/20/2019 COMPARISON: Prior chest x-ray 12/28/2018 HISTORY: Cough TECHNIQUE: Frontal and lateral views of the chest are obtained. FINDINGS: There is no focal air space opacity, pleural effusion, or pneumothorax seen. Prominent royal g lines suggest underlying COPD. The cardiac silhouette size is enlarged as on prior exam. The aorta is dense. There are calcified pleural plaques. The osseous structures are intact. IMPRESSION: No acute cardiopulmonary process. Asbestos related disease. Follow-up as indicated.
== END | disposition home or self-care (01) ==
LOC: RADXRMAIN 15:45
PROVIDERS: ATTEND Internal Medicine
DX: J92.0 Pleural plaque with presence of asbestos (principal)
CPT/HCPCS: 71046

== ENCOUNTER 2019-08-12 16:08 | Emergency (ER) | payer MEDICARE, BC ==
[2019-08-12 16:20] VITALS: RESP 18; TEMP 98.1
--- NOTE | 2019-08-12 17:00 | ED ---
SOB HPI - General Chief Complaint: Abdominal Pain Stated Complaint: ABd Pain Time Seen by Provider: 08/12/19 16:17 Source: EMS, RN notes reviewed, old records reviewed Mode of arrival: EMS Limitations: altered mental status - History of Present Illness Initial Comments: This is a 88-year-old female the ER for evaluation shortness a for multiple complaints including shortness of breath may be some chest pain and some abdominal pain. She has COPD and has been suffering from COPD on home O2. Patient's daughter lives the patient called EMS secondary to patient's shortness of breath EMS states they got there patient was laughing resting appropriately without complaint. Patient at this time is happy and does not have any complaints denying any symptoms. No recent hospitalizations or change in medication she had a low-grade fever earlier in the week of the 100.1 MD Complaint: shortness of breath, cough -: minutes(s) Radiation: other ( denying current pain) Severity: mild Severity scale (1-10): 3 (Was left-sided stabbing pain) Quality: stabbing Consistency: now resolved Improves With: nothing Worsens With: exertion Known History Of: COPD, congestive heart failure Associated Symptoms: chest pain (Now resolved), palpitations Treatments Prior to Arrival: none - Related Data Home Medications Medication Instructions Recorded Confirmed Budesonide [Pulmicort] 0.5 mg INHALATION RT-BID 10/01/14 12/28/18 Citalopram Hydrobromide [CeleXA] 10 mg PO HS 10/01/14 12/28/18 Donepezil HCl [Aricept] 5 mg PO HS 10/01/14 12/28/18 Montelukast [Singulair] 10 mg PO HS 10/01/14 12/28/18 Nitroglycerin Sl Tabs [Nitrostat] 0.4 mg SUBLINGUAL Q5M PRN 10/01/14 12/28/18 Omalizumab [Xolair] 150 mg IM Q30D 10/01/14 12/28/18 Potassium Chloride [Klor-Con 20] 20 meq PO DAILY 10/01/14 12/28/18 Isosorbide Mononitrate ER [Imdur] 30 mg PO DAILY 01/30/16 12/28/18 Levothyroxine Sodium [Synthroid] 50 mcg PO DAILY 01/30/16 12/28/18 Sucralfate [Carafate] 1 gm PO BID 01/30/16 12/28/18 Aspirin [Children's Aspirin] 81 mg PO DAILY 12/01/17 12/28/18 Metoprolol Tartrate [Lopressor] 25 mg PO BID 12/01/17 12/28/18 Simvastatin [Zocor] 20 mg PO HS 12/01/17 12/28/18 Cholecalciferol (Vitamin D3) 2,000 unit PO DAILY 06/08/18 12/28/18 [Vitamin D3] Furosemide [Lasix] 20 mg PO DAILY PRN 06/08/18 12/28/18 Previous Rx's Medication Instructions Recorded Pantoprazole [Protonix] 40 mg PO AC-BRKFST #30 tablet. 02/01/16 Ipratropium-Albuterol Nebulize 3 ml INHALATION RT-QID ampul.neb 12/07/17 [Duoneb 0.5 mg-3 mg/3 ml Soln] Levofloxacin [Levaquin] 250 mg PO Q24H 5 Days #5 tab 12/31/18 predniSONE 10 mg PO DIRECTED #30 tab 12/31/18 Levofloxacin 750 mg PO DAILY #7 tablet 08/12/19 predniSONE 50 mg PO DAILY #5 tab 08/12/19 Allergies Allergy/AdvReac Type Severity Reaction Status Date / Time cephalexin monohydrate Allergy Colitis Verified 12/28/18 10:20 [From Exepron] Review of Systems ROS Statement: Those systems with pertinent positive or pertinent negative responses have been documented in the HPI. ROS Other: All systems not noted in ROS Statement are negative. Past Medical History Past Medical History: Asthma, Coronary Artery Disease (CAD), Chest Pain / Angina, COPD, Dementia, Hyperlipidemia, Hypertension, Myocardial Infarction (AR), Osteoarthritis (OA), Thyroid Disorder Additional Past Medical History / Comment(s): AR in 1998, 2 cardiac stents in 1998, shingles Last Myocardial Infarction Date:: 1998 History of Any Multi-Drug Resistant Organisms: None Reported Past Surgical History: Heart Catheterization With Stent Additional Past Surgical History / Comment(s): B\L cataracts removed 2013, aortic aneurysm clipped, colonoscopy Past Anesthesia/Blood Transfusion Reactions: No Reported Reaction Date of Last Stent Placement:: 1998 Past Psychological History: Depression Smoking Status: Former smoker Past Alcohol Use History: None Reported Past Drug Use History: None Reported - Past Family History Father Additional Family Medical History / Comment(s): emphazema Mother Additional Family Medical History / Comment(s): [place] General Exam Limitations: altered mental status General appearance: alert, in no apparent distress Head exam: Present: atraumatic, normocephalic, normal inspection Eye exam: Present: normal appearance, PERRL, EOMI. Absent: scleral icterus, conjunctival injection, periorbital swelling ENT exam: Present: normal exam, mucous membranes moist Neck exam: Present: normal inspection. Absent: tenderness, meningismus, lymphadenopathy Respiratory exam: Present: normal lung sounds bilaterally. Absent: respiratory distress, wheezes, rales, rhonchi, stridor Cardiovascular Exam: Present: regular rate, normal rhythm, normal heart sounds. Absent: systolic murmur, diastolic murmur, rubs, gallop, clicks GI/Abdominal exam: Present: soft, normal bowel sounds. Absent: distended, tenderness, guarding, rebound, rigid Extremities exam: Present: normal inspection, full ROM, normal capillary refill. Absent: tenderness, pedal edema, joint swelling, calf tenderness Back exam: Present: normal inspection Neurological exam: Present: alert, oriented X3, CN II-XII intact Psychiatric exam: Present: normal affect, normal mood Skin exam: Present: warm, dry, intact, normal color. Absent: rash Course Vital Signs 08/12/19 08/12/19 16:13 19:34 Temperature 98.1 F Pulse Rate 77 80 Respiratory 18 Rate Blood Pressure 131/63 O2 Sat by Pulse 97 Oximetry - Reevaluation(s) Reevaluation #1: 08/12/19 17:09 Medical record is reviewed Reevaluation #2: 08/12/19 19:41 Patient states she feels better she has pulled her IV and is refusing to stay in the hospital Medical Decision Making - Medical Decision Making 88 female status post shortness of breath episode chest pain. Patient has no chest pain currently refusing hospital admission will treat outpatient for pneumonia - Lab Data Result diagrams: 08/12/19 17:08 08/12/19 17:08 Lab Results 08/12/19 08/12/19 08/12/19 Range/Units 17:08 17:08 17:08 WBC 5.5 (3.8-10.6) k/uL RBC 3.72 L (3.80-5.40) m/uL Hgb 11.1 L (11.4-16.0) gm/dL Hct 33.3 L (34.0-46.0) % MCV 89.7 (80.0-100.0) fL MCH 29.8 (25.0-35.0) pg MCHC 33.2 (31.0-37.0) g/dL RDW 15.3 (11.5-15.5) % Plt Count 168 (150-450) k/uL Neutrophils % 87 % Lymphocytes % 6 % Monocytes % 4 % Eosinophils % 1 % Basophils % 0 % Neutrophils # 4.8 (1.3-7.7) k/uL Lymphocytes # 0.3 L (1.0-4.8) k/uL Monocytes # 0.2 (0-1.0) k/uL Eosinophils # 0.1 (0-0.7) k/uL Basophils # 0.0 (0-0.2) k/uL Sodium 135 L (137-145) mmol/L Potassium 3.4 L (3.5-5.1) mmol/L Chloride 99 (98-107) mmol/L Carbon Dioxide 32 H (22-30) mmol/L Anion Gap 4 mmol/L BUN 11 (7-17) mg/dL Creatinine 1.57 H (0.52-1.04) mg/dL Est GFR (CKD-EPI)AfAm 34 (>60 ml/min/1.73 sqM) Est GFR (CKD-EPI)NonAf 29 (>60 ml/min/1.73 sqM) Glucose 120 H (74-99) mg/dL Calcium 8.4 (8.4-10.2) mg/dL Phosphorus 4.0 (2.5-4.5) mg/dL Magnesium 2.1 (1.6-2.3) mg/dL Total Bilirubin 1.9 H (0.2-1.3) mg/dL AST 62 H (14-36) U/L ALT 26 (9-52) U/L Alkaline Phosphatase 164 H (38-126) U/L Creatine Kinase 37 (30-135) U/L Troponin I <0.012 (0.000-0.034) ng/mL Total Protein 5.7 L (6.3-8.2) g/dL Albumin 3.2 L (3.5-5.0) g/dL Lipase 336 H (23-300) U/L Urine Color Urine Appearance (Clear) Urine pH (5.0-8.0) Ur Specific [place] (1.001-1.035) Urine Protein (Negative) Urine Glucose (UA) (Negative) Urine Ketones (Negative) Urine Blood (Negative) Urine Nitrite (Negative) Urine Bilirubin (Negative) Urine Urobilinogen (<2.0) mg/dL Ur Leukocyte Esterase (Negative) Urine RBC (0-5) /hpf Urine WBC (0-5) /hpf Ur Squamous Epith Cells (0-4) /hpf Urine Bacteria (None) /hpf Hyaline Casts (0-2) /lpf Urine Mucus (None) /hpf 08/12/19 Range/Units 18:38 WBC (3.8-10.6) k/uL RBC (3.80-5.40) m/uL Hgb (11.4-16.0) gm/dL Hct (34.0-46.0) % MCV (80.0-100.0) fL MCH (25.0-35.0) pg MCHC (31.0-37.0) g/dL RDW (11.5-15.5) % Plt Count (150-450) k/uL Neutrophils % % Lymphocytes % % Monocytes % % Eosinophils % % Basophils % % Neutrophils # (1.3-7.7) k/uL Lymphocytes # (1.0-4.8) k/uL Monocytes # (0-1.0) k/uL Eosinophils # (0-0.7) k/uL Basophils # (0-0.2) k/uL Sodium (137-145) mmol/L Potassium (3.5-5.1) mmol/L Chloride (98-107) mmol/L Carbon Dioxide (22-30) mmol/L Anion Gap mmol/L BUN (7-17) mg/dL Creatinine (0.52-1.04) mg/dL Est GFR (CKD-EPI)AfAm (>60 ml/min/1.73 sqM) Est GFR (CKD-EPI)NonAf (>60 ml/min/1.73 sqM) Glucose (74-99) mg/dL Calcium (8.4-10.2) mg/dL Phosphorus (2.5-4.5) mg/dL Magnesium (1.6-2.3) mg/dL Total Bilirubin (0.2-1.3) mg/dL AST (14-36) U/L ALT (9-52) U/L Alkaline Phosphatase (38-126) U/L Creatine Kinase (30-135) U/L Troponin I (0.000-0.034) ng/mL Total Protein (6.3-8.2) g/dL Albumin (3.5-5.0) g/dL Lipase (23-300) U/L Urine Color Yellow Urine Appearance Clear (Clear) Urine pH 6.0 (5.0-8.0) Ur Specific [place] 1.014 (1.001-1.035) Urine Protein Negative (Negative) Urine Glucose (UA) Negative (Negative) Urine Ketones Negative (Negative) Urine Blood Negative (Negative) Urine Nitrite Negative (Negative) Urine Bilirubin Negative (Negative) Urine Urobilinogen 2.0 (<2.0) mg/dL Ur Leukocyte Esterase Trace H (Negative) Urine RBC 2 (0-5) /hpf Urine WBC 14 H (0-5) /hpf Ur Squamous Epith Cells <1 (0-4) /hpf Urine Bacteria Rare H (None) /hpf Hyaline Casts 5 H (0-2) /lpf Urine Mucus Occasional H (None) /hpf - EKG Data -: EKG Interpreted by Me (EKG shows sinus rhythm rate of 77, AR 212, QRS 72, QTc 463) Disposition Clinical Impression: Pneumonia, Acute exacerbation of chronic obstructive airways disease Disposition: HOME SELF-CARE Condition: Good Instructions (If sedation given, give patient instructions): Community Acquired Pneumonia (ED), COPD (Chronic Obstructive Pulmonary Disease) (ED) Prescriptions: Levofloxacin 750 mg PO DAILY #7 tablet predniSONE 50 mg PO DAILY #5 tab Is patient prescribed a controlled substance at d/c from ED?: No Referrals: Flora Pastrana MD [Primary Care Provider] - 1-2 days
[2019-08-12 17:27] LABS: Basophils % (A) 0 %; Eosinophils # (A) 0.1 k/uL (0-0.7); Eosinophils % (A) 1 %; HCT 33.3 % (34.0-46.0); HGB 11.1 gm/dL (11.4-16.0); Lymphocytes # (A) 0.3 k/uL (1.0-4.8); Lymphocytes % (A) 6 %; MCH 29.8 pg (25.0-35.0); MCHC 33.2 g/dL (31.0-37.0); MCV 89.7 fL (80.0-100.0); Mean Platelet Volume 7.3; Monocytes # (A) 0.2 k/uL (0-1.0); Monocytes % (A) 4 %; Neutrophils # (A) 4.8 k/uL (1.3-7.7); Neutrophils % (A) 87 %; Platelet Count 168 k/uL (150-450); RBC 3.72 m/uL (3.80-5.40); RDW 15.3 % (11.5-15.5); WBC 5.5 k/uL (3.8-10.6)
[2019-08-12 17:30] LABS: Albumin 3.2 g/dL (3.5-5.0); Calcium 8.4 mg/dL (8.4-10.2); Magnesium 2.1 mg/dL (1.6-2.3); Potassium 3.4 mmol/L (3.5-5.1); Total Bilirubin 1.9 mg/dL (0.2-1.3); Total Protein 5.7 g/dL (6.3-8.2)
--- NOTE | 2019-08-12 18:00 | XR ---
EXAMINATION TYPE: XR chest 2V DATE OF EXAM: 08/12/2019 COMPARISON: 07/20/2019 HISTORY: Difficulty breathing TECHNIQUE: Frontal and lateral views of the chest are obtained. FINDINGS: Heart is slightly enlarged. There is no heart failure. There is some elongated 3 x 1 cm de nsity right midlung that is probably calcified pleural plaque. There is a minimal infiltrate left low er lobe at the left cardiac border. This could also be plaque. There are no hilar masses. Bony thorax is intact. IMPRESSION: Minimal infiltrate or plaque at the left cardiac border in the lingula left upper lobe. Anterior right upper lobe pleural plaque. Density left cardiac border increased slightly compared to old exam. No heart failure.
[2019-08-12 18:49] LABS: Appearance,Urine Clear (Clear); Bacteria,Urine Rare /hpf; Bilirubin,Urine Negative (Negative); Blood,Urine Negative (Negative); Color,Urine Yellow; Glucose,Urine (UA) Negative (Negative); Hyaline Casts,Urine 5 /lpf (0-2); Ketones,Urine Negative (Negative); Leukocyte Esterase,Urine Trace (Negative); Mucus,Urine Occasional /hpf; Nitrite,Urine Negative (Negative); Protein,Urine Negative (Negative); RBC,Urine 2 /hpf (0-5); Specific Gravity,Urine 1.014 (1.001-1.035); Squamous Epithelial Cell,Urine <1 /hpf (0-4)
[2019-08-12] MEDS ORDERED: methylPREDNISolone SOD SUCCI 125 MG/2 ML VIAL IV STA (19:18)
[2019-08-12] MEDS ORDERED: IPRATROPIUM-ALBUTEROL 3 ML NEB INHALATION STA (19:18)
[2019-08-12 19:35] VITALS: PULSE 80
[2019-08-12] MEDS ORDERED: LEVOFLOXACIN 750 MG TAB PO STA (19:40)
[2019-08-12 19:55] VITALS: BP 119/62
== END 2019-08-12 19:57 | disposition home or self-care (01) ==
LOC: EC 16:08
DX: J44.0 Chronic obstructive pulmonary disease with (acute) lower respiratory infection (principal); J18.9 Pneumonia, unspecified organism; J44.1 Chronic obstructive pulmonary disease with (acute) exacerbation; R10.9 Unspecified abdominal pain; I25.119 Atherosclerotic heart disease of native coronary artery with unspecified angina pectoris; F03.90 Unspecified dementia, unspecified severity, without behavioral disturbance, psychotic disturbance, mood disturbance, and anxiety; E78.5 Hyperlipidemia, unspecified; I11.0 Hypertensive heart disease with heart failure; I50.9 Heart failure, unspecified; I25.2 Old myocardial infarction; M19.90 Unspecified osteoarthritis, unspecified site; E07.9 Disorder of thyroid, unspecified; F32.9 Major depressive disorder, single episode, unspecified; Z53.20 Procedure and treatment not carried out because of patient's decision for unspecified reasons; Z82.5 Family history of asthma and other chronic lower respiratory diseases; Z87.891 Personal history of nicotine dependence; Z88.1 Allergy status to other antibiotic agents; Z79.51 Long term (current) use of inhaled steroids; Z79.82 Long term (current) use of aspirin; Z79.890 Hormone replacement therapy; Z79.899 Other long term (current) drug therapy; Z95.5 Presence of coronary angioplasty implant and graft; Z98.890 Other specified postprocedural states; Z99.81 Dependence on supplemental oxygen
CPT/HCPCS: 36415; 94640; 93005; 80053; 82550; 83690; 83735; 84100; 84484; 85025; 81001; 87086; 71046; 99285; 96374; J2930

== ENCOUNTER 2020-02-03 13:39 | Emergency (ER) | payer MEDICARE, BC ==
[2020-02-03 13:47] VITALS: TEMP 98.1
[2020-02-03 14:36] LABS: Basophils % (A) 0 %; Eosinophils # (A) 0.1 k/uL (0-0.7); Eosinophils % (A) 1 %; HGB 9.4 gm/dL (11.4-16.0); Lymphocytes # (A) 0.8 k/uL (1.0-4.8); Lymphocytes % (A) 10 %; MCHC 32.3 g/dL (31.0-37.0); MCV 83.6 fL (80.0-100.0); Mean Platelet Volume 10.3; Monocytes # (A) 0.7 k/uL (0-1.0); Monocytes % (A) 8 %; Neutrophils # (A) 6.9 k/uL (1.3-7.7); Neutrophils % (A) 79 %; Platelet Count 235 k/uL (150-450); RBC 3.46 m/uL (3.80-5.40); RDW 15.5 % (11.5-15.5); WBC 8.7 k/uL (3.8-10.6)
[2020-02-03 14:38] LABS: Appearance,Urine Clear (Clear); Bilirubin,Urine Negative (Negative); Blood,Urine Negative (Negative); Color,Urine Yellow; Glucose,Urine (UA) Negative (Negative); Hyaline Casts,Urine 10 /lpf (0-2); Ketones,Urine Negative (Negative); Leukocyte Esterase,Urine Large (Negative); Mucus,Urine Rare /hpf; Nitrite,Urine Negative (Negative); PH, Urine 5.5 (5.0-8.0); Protein,Urine Trace (Negative); RBC,Urine 1 /hpf (0-5); Specific Gravity,Urine 1.009 (1.001-1.035); Squamous Epithelial Cell,Urine <1 /hpf (0-4); Urobilinogen,Urine <2.0 mg/dL (<2.0); WBC,Urine 84 /hpf (0-5)
[2020-02-03 14:45] LABS: Albumin 3.1 g/dL (3.5-5.0); Calcium 8.6 mg/dL (8.4-10.2); Potassium 2.9 mmol/L (3.5-5.1); Total Bilirubin 0.8 mg/dL (0.2-1.3); Total Protein 5.5 g/dL (6.3-8.2)
--- NOTE | 2020-02-03 14:45 | XR ---
EXAMINATION TYPE: XR KUB DATE OF EXAM: 02/03/2020 2:29 PM CLINICAL HISTORY: Abdominal pain TECHNIQUE: Single upright image of the abdomen is obtained. COMPARISON: None. FINDINGS: There is a levoscoliosis of the lumbar spine and mild compression deformity of L1. Multiple surgical clips seen in the midabdomen. Lung bases are well aerated. Phlebolith seen in the left ankit pelvis. No dilated large or small bowel. IMPRESSION: Nonobstructive bowel gas pattern.
[2020-02-03] MEDS ORDERED: NITROFURANTOIN MONOHYD/M-CRYST 100 MG CAP PO STA (14:53)
[2020-02-03] MEDS ORDERED: POTASSIUM CHLORIDE ER 20 MEQ TAB.ER PO STA (14:53)
[2020-02-03] MEDS ORDERED: LEVOFLOXACIN 750 MG TAB PO STA (15:33)
[2020-02-03 17:01] VITALS: RESP 18
--- NOTE | 2020-02-03 18:34 | ED ---
General Adult HPI - General Chief complaint: Nausea/Vomiting/Diarrhea Stated complaint: Diarrhea Time Seen by Provider: 02/03/20 13:52 Source: patient, family, RN notes reviewed, old records reviewed Mode of arrival: wheelchair Limitations: no limitations - History of Present Illness Initial comments: 89-year-old female patient past medical history coronary artery disease, COPD presents ED for chief complaint approximately 1 month of diarrhea. Patient seen her primary care provider and has not had any improvement of her symptoms. She denies any abdominal pain. Denies any other complaints. Systemic: Pt denies fatigue, fever/chills, rash. Pt denies weakness, night sweats, weight loss. Neuro: Pt denies headache, visual disturbances, syncope or pre-syncope. HEENT: Pt denies ocular discharge or irritation, otalgia, rhinorrhea, pharyngitis or notable lymphadenopathy. Cardiopulmonary: Pt denies chest pain, SOB, heart palpitations, dyspnea on exe rtion. Abdominal/GI: Pt denies abdominal pain, nausea/vomiting. : Pt denies dysuria, burning w/ urination, frequency/urgency. Denies new onset urinary or bowel incontinence. MSK: Pt denies myalgia, loss of strength or function in extremities. Neuro: Pt denies new onset weakness, paresthesias. - Related Data Home Medications Medication Instructions Recorded Confirmed Budesonide [Pulmicort] 0.5 mg INHALATION RT-BID 10/01/14 12/28/18 Citalopram Hydrobromide [CeleXA] 10 mg PO HS 10/01/14 12/28/18 Donepezil HCl [Aricept] 5 mg PO HS 10/01/14 12/28/18 Montelukast [Singulair] 10 mg PO HS 10/01/14 12/28/18 Nitroglycerin Sl Tabs [Nitrostat] 0.4 mg SUBLINGUAL Q5M PRN 10/01/14 12/28/18 Omalizumab [Xolair] 150 mg IM Q30D 10/01/14 12/28/18 Potassium Chloride [Klor-Con 20] 20 meq PO DAILY 10/01/14 12/28/18 Isosorbide Mononitrate ER [Imdur] 30 mg PO DAILY 01/30/16 12/28/18 Levothyroxine Sodium [Synthroid] 50 mcg PO DAILY 01/30/16 12/28/18 Sucralfate [Carafate] 1 gm PO BID 01/30/16 12/28/18 Aspirin [Children's Aspirin] 81 mg PO DAILY 12/01/17 12/28/18 Metoprolol Tartrate [Lopressor] 25 mg PO BID 12/01/17 12/28/18 Simvastatin [Zocor] 20 mg PO HS 12/01/17 12/28/18 Cholecalciferol (Vitamin D3) 2,000 unit PO DAILY 06/08/18 12/28/18 [Vitamin D3] Furosemide [Lasix] 20 mg PO DAILY PRN 06/08/18 12/28/18 Previous Rx's Medication Instructions Recorded Pantoprazole [Protonix] 40 mg PO AC-FERDINANDFSEvita #30 tablet. 02/01/16 Ipratropium-Albuterol Nebulize 3 ml INHALATION RT-QID ampul.neb 12/07/17 [Duoneb 0.5 mg-3 mg/3 ml Soln] Levofloxacin [Levaquin] 250 mg PO Q24H 5 Days #5 tab 12/31/18 predniSONE 10 mg PO DIRECTED #30 tab 12/31/18 Levofloxacin 750 mg PO DAILY #7 tablet 08/12/19 predniSONE 50 mg PO DAILY #5 tab 08/12/19 Levofloxacin [Levaquin] 250 mg PO DAILY 4 Days #4 tab 02/03/20 Vancomycin HCl [Vancocin HCl] 125 mg PO Q6HR 10 Days #40 capsule 02/03/20 Allergies Allergy/AdvReac Type Severity Reaction Status Date / Time cephalexin monohydrate Allergy Colitis Verified 02/03/20 13:47 [From Keflex] Review of Systems ROS Statement: Those systems with pertinent positive or pertinent negative responses have been documented in the HPI. ROS Other: All systems not noted in ROS Statement are negative. Past Medical History Past Medical History: Asthma, Coronary Artery Disease (CAD), Chest Pain / Angina, COPD, Dementia, Hyperlipidemia, Hypertension, Myocardial Infarction ([place]), Osteoarthritis (OA), Thyroid Disorder Additional Past Medical History / Comment(s): [place] in 1998, 2 cardiac stents in 1998, shingles, collitis Last Myocardial Infarction Date:: 1998 History of Any Multi-Drug Resistant Organisms: None Reported Past Surgical History: Heart Catheterization With Stent Additional Past Surgical History / Comment(s): B\L cataracts removed 2013, aortic aneurysm clipped, colonoscopy Past Anesthesia/Blood Transfusion Reactions: No Reported Reaction Date of Last Stent Placement:: 1998 Past Psychological History: Depression Smoking Status: Former smoker Past Alcohol Use History: None Reported Past Drug Use History: None Reported - Past Family History Father Additional Family Medical History / Comment(s): emphazema Mother Additional Family Medical History / Comment(s): Phan General Exam - General Exam Comments Initial Comments: Constitutional: NAD, AOX3, Pt has pleasant affect. HEENT: NC/AT, trachea midline, neck supple, no lymphadenopathy. Posterior pharynx non erythematous, without exudates. External ears appear normal, without discharge. Mucous membranes moist. Eyes PERRLA, EOM intact. There is no scleral icterus. No pallor noted. Cardiopulmonary: RRR, no murmurs, rubs or gallops, no JVD noted. Lungs CTAB in anterior and posterior finnegan. No peripheral edema. Abdominal exam: Abdomen soft and non-distended. Abdomen non-tender to palpation in all 4 quadrants. Bowel sounds active in LLQ. No hepatosplenomegaly. No ecchymosis Neuro: CN II-XII grossly intact. No nuchal rigidity. No raccon eyes, no luna sign, no hemotympanum. No cervical spinal tenderness. MSK: No posterior calf tenderness bilaterally, homans sign negative bilaterally. Posterior tibialis and radial pulse +2 bilaterally. Sensation intact in upper and lower extremities. Full active ROM in upper and lower extremities, 5/5 stregnth. Limitations: no limitations Course Vital Signs 02/03/20 02/03/20 02/03/20 13:42 15:00 15:30 Temperature 98.1 F Pulse Rate 73 80 75 Respiratory 16 18 18 Rate Blood Pressure 110/66 116/66 110/55 O2 Sat by Pulse 97 100 100 Oximetry 02/03/20 18:59 Temperature Pulse Rate 70 Respiratory 18 Rate Blood Pressure 111/54 O2 Sat by Pulse 98 Oximetry Medical Decision Making - Medical Decision Making 89-year-old female patient past medical history coronary artery disease, COPD presents ED for chief complaint approximately 1 month of diarrhea. Patient seen her primary care provider and has not had any improvement of her symptoms. She denies any abdominal pain. Denies any other complaints. Vital signs are stable, afebrile. Physical exam is fully nontender abdomen. Laboratory investigations obtained displayed mild hypokalemia of 2.9. Patient does state potassium supplements. Patient testing was up in the ED and she was instructed to take an extra potassium health tomorrow. Patient will then have his level rechecked and sent her primary care provider. UA displayed urinary tract infection and C. diff was positive. Patient will be treated with oral Levaquin for possible indifference I'll due to her cephalosporin ALLERGY. Patient will additionally be treated with oral vancomycin for possible indifference that appear to be discharged with outpatient GI consult as well as primary care provider will have strict return precautions. Case discussed with Dr. Lemons. - Lab Data Result diagrams: 02/03/20 14:09 02/03/20 14:09 Lab Results 02/03/20 02/03/20 02/03/20 Range/Units 14:09 14:09 14:09 WBC 8.7 (3.8-10.6) k/uL RBC 3.46 L (3.80-5.40) m/uL Hgb 9.4 L (11.4-16.0) gm/dL Hct 29.0 L (34.0-46.0) % MCV 83.6 (80.0-100.0) fL MCH 27.0 (25.0-35.0) pg MCHC 32.3 (31.0-37.0) g/dL RDW 15.5 (11.5-15.5) % Plt Count 235 (150-450) k/uL Neutrophils % 79 % Lymphocytes % 10 % Monocytes % 8 % Eosinophils % 1 % Basophils % 0 % Neutrophils # 6.9 (1.3-7.7) k/uL Lymphocytes # 0.8 L (1.0-4.8) k/uL Monocytes # 0.7 (0-1.0) k/uL Eosinophils # 0.1 (0-0.7) k/uL Basophils # 0.0 (0-0.2) k/uL Sodium 132 L (137-145) mmol/L Potassium 2.9 L (3.5-5.1) mmol/L Chloride 95 L (98-107) mmol/L Carbon Dioxide 31 H (22-30) mmol/L Anion Gap 6 mmol/L BUN 11 (7-17) mg/dL Creatinine 1.79 H (0.52-1.04) mg/dL Est GFR (CKD-EPI)AfAm 29 (>60 ml/min/1.73 sqM) Est GFR (CKD-EPI)NonAf 25 (>60 ml/min/1.73 sqM) Glucose 114 H (74-99) mg/dL Plasma Lactic Acid Nicholas 1.2 (0.7-2.0) mmol/L Calcium 8.6 (8.4-10.2) mg/dL Total Bilirubin 0.8 (0.2-1.3) mg/dL AST 19 (14-36) U/L ALT 7 (4-34) U/L Alkaline Phosphatase 89 (38-126) U/L Total Protein 5.5 L (6.3-8.2) g/dL Albumin 3.1 L (3.5-5.0) g/dL Lipase 229 (23-300) U/L Urine Color Urine Appearance (Clear) Urine pH (5.0-8.0) Ur Specific Keyes (1.001-1.035) Urine Protein (Negative) Urine Glucose (UA) (Negative) Urine Ketones (Negative) Urine Blood (Negative) Urine Nitrite (Negative) Urine Bilirubin (Negative) Urine Urobilinogen (<2.0) mg/dL Ur Leukocyte Esterase (Negative) Urine RBC (0-5) /hpf Urine WBC (0-5) /hpf Ur Squamous Epith Cells (0-4) /hpf Hyaline Casts (0-2) /lpf Urine Mucus (None) /hpf C. difficile (EIA) Intrp (Negative) 02/03/20 02/03/20 Range/Units 14:09 16:20 WBC (3.8-10.6) k/uL RBC (3.80-5.40) m/uL Hgb (11.4-16.0) gm/dL Hct (34.0-46.0) % MCV (80.0-100.0) fL MCH (25.0-35.0) pg MCHC (31.0-37.0) g/dL RDW (11.5-15.5) % Plt Count (150-450) k/uL Neutrophils % % Lymphocytes % % Monocytes % % Eosinophils % % Basophils % % Neutrophils # (1.3-7.7) k/uL Lymphocytes # (1.0-4.8) k/uL Monocytes # (0-1.0) k/uL Eosinophils # (0-0.7) k/uL Basophils # (0-0.2) k/uL Sodium (137-145) mmol/L Potassium (3.5-5.1) mmol/L Chloride (98-107) mmol/L Carbon Dioxide (22-30) mmol/L Anion Gap mmol/L BUN (7-17) mg/dL Creatinine (0.52-1.04) mg/dL Est GFR (CKD-EPI)AfAm (>60 ml/min/1.73 sqM) Est GFR (CKD-EPI)NonAf (>60 ml/min/1.73 sqM) Glucose (74-99) mg/dL Plasma Lactic Acid Nicholas (0.7-2.0) mmol/L Calcium (8.4-10.2) mg/dL Total Bilirubin (0.2-1.3) mg/dL AST (14-36) U/L ALT (4-34) U/L Alkaline Phosphatase (38-126) U/L Total Protein (6.3-8.2) g/dL Albumin (3.5-5.0) g/dL Lipase (23-300) U/L Urine Color Yellow Urine Appearance Clear (Clear) Urine pH 5.5 (5.0-8.0) Ur Specific Keyes 1.009 (1.001-1.035) Urine Protein Trace H (Negative) Urine Glucose (UA) Negative (Negative) Urine Ketones Negative (Negative) Urine Blood Negative (Negative) Urine Nitrite Negative (Negative) Urine Bilirubin Negative (Negative) Urine Urobilinogen <2.0 (<2.0) mg/dL Ur Leukocyte Esterase Large H (Negative) Urine RBC 1 (0-5) /hpf Urine WBC 84 H (0-5) /hpf Ur Squamous Epith Cells <1 (0-4) /hpf Hyaline Casts 10 H (0-2) /lpf Urine Mucus Rare H (None) /hpf C. difficile (EIA) Intrp Positive A (Negative) Disposition Clinical Impression: Clostridium difficile infection, UTI (urinary tract infection) Disposition: HOME SELF-CARE Condition: Stable Instructions (If sedation given, give patient instructions): Urinary Tract Infection in Women (ED), C Diff (Clostridium Difficile) Infection (ED) Additional Instructions: Take medication as directed. Follow up with primary care provider tomorrow. Follow up with GI consult tomorrow. Have recheck potassium in 2 days and results sent to PCP. Return to ER if condition worsens in any way. Prescriptions: Levofloxacin [Levaquin] 250 mg PO DAILY 4 Days #4 tab Vancomycin HCl [Vancocin HCl] 125 mg PO Q6HR 10 Days #40 capsule Is patient prescribed a controlled substance at d/c from ED?: No Referrals: Flora Pastrana MD [Primary Care Provider] - 1-2 days Poncho Azul MD [STAFF PHYSICIAN] - 1-2 days
[2020-02-03 19:00] VITALS: BP 111/54; PULSE 70
== END 2020-02-03 18:59 | disposition home or self-care (01) ==
LOC: EC 13:39
DX: N39.0 Urinary tract infection, site not specified (principal); A04.72 Enterocolitis due to Clostridium difficile, not specified as recurrent; E87.6 Hypokalemia; I25.119 Atherosclerotic heart disease of native coronary artery with unspecified angina pectoris; J44.9 Chronic obstructive pulmonary disease, unspecified; F03.90 Unspecified dementia, unspecified severity, without behavioral disturbance, psychotic disturbance, mood disturbance, and anxiety; I10 Essential (primary) hypertension; E78.5 Hyperlipidemia, unspecified; I25.2 Old myocardial infarction; E07.9 Disorder of thyroid, unspecified; F32.9 Major depressive disorder, single episode, unspecified; Z79.899 Other long term (current) drug therapy; Z79.51 Long term (current) use of inhaled steroids; Z88.1 Allergy status to other antibiotic agents; Z87.891 Personal history of nicotine dependence; Z95.5 Presence of coronary angioplasty implant and graft
CPT/HCPCS: 36415; 74018; 80053; 81001; 83605; 83690; 85025; 87045; 87046; 87086; 87324; 99284

== ENCOUNTER → 2020-02-05 | Outpatient (CLI) | payer MEDICARE, BC ==
[2020-02-05 10:19] LABS: ALT 7 U/L (4-34); AST 17 U/L (14-36); African American GFR (CKD) 25 (>60 ml/min/1.73 sqM); Albumin/Globulin Ratio 1.2; Alkaline Phosphatase 77 U/L (38-126); Anion Gap 8 mmol/L; Blood Urea Nitrogen 11 mg/dL (7-17); Calcium 8.8 mg/dL (8.4-10.2); Carbon Dioxide 28 mmol/L (22-30); Chloride 98 mmol/L (98-107); Globulin 2.6 g/dL; Glucose 97 mg/dL (74-99); Non-African American GFR(CKD) 22 (>60 ml/min/1.73 sqM); Potassium 3.5 mmol/L (3.5-5.1); Sodium 134 mmol/L (137-145); Total Bilirubin 0.7 mg/dL (0.2-1.3); Total Protein 5.6 g/dL (6.3-8.2)
== END | disposition home or self-care (01) ==
LOC: LABMAIN 09:26
PROVIDERS: ATTEND Physician Assistant
DX: N39.0 Urinary tract infection, site not specified (principal); A04.72 Enterocolitis due to Clostridium difficile, not specified as recurrent; E87.6 Hypokalemia
CPT/HCPCS: 36415; 80053

== ENCOUNTER 2020-02-10 15:04 | Inpatient (IN) | payer MEDICARE, BC ==
[2020-02-10 18:24] LABS: Basophils % (A) 0 %; Eosinophils # (A) 0.1 k/uL (0-0.7); Eosinophils % (A) 2 %; HCT 26.8 % (34.0-46.0); HGB 8.7 gm/dL (11.4-16.0); Hypochromasia Slight; Lymphocytes # (A) 0.7 k/uL (1.0-4.8); Lymphocytes % (A) 15 %; MCH 27.8 pg (25.0-35.0); MCHC 32.5 g/dL (31.0-37.0); MCV 85.5 fL (80.0-100.0); Mean Platelet Volume 11.9; Monocytes # (A) 0.4 k/uL (0-1.0); Monocytes % (A) 8 %; Neutrophils # (A) 3.3 k/uL (1.3-7.7); Neutrophils % (A) 73 %; Platelet Count 212 k/uL (150-450); RBC 3.14 m/uL (3.80-5.40); RDW 15.4 % (11.5-15.5); WBC 4.6 k/uL (3.8-10.6)
[2020-02-10 18:42] LABS: Albumin 2.8 g/dL (3.5-5.0); Calcium 8.4 mg/dL (8.4-10.2); Total Bilirubin 0.4 mg/dL (0.2-1.3); Total Protein 5.1 g/dL (6.3-8.2)
[2020-02-10] MEDS ORDERED: NITROGLYCERIN SL TABS 0.4 MG TAB SUBLINGUAL PRN (21:07)
[2020-02-10] MEDS: MONTELUKAST 10 MG TAB PO SCH (21:52)
[2020-02-10] MEDS: ATORVASTATIN 10 MG TAB PO SCH (21:52)
[2020-02-10] MEDS: CITALOPRAM HYDROBROMIDE 20 MG TAB PO SCH (21:52)
[2020-02-10] MEDS: FUROSEMIDE 20 MG TAB PO SCH (21:52)
[2020-02-10] MEDS: DONEPEZIL 5 MG TAB PO SCH (22:30)
[2020-02-11] MEDS: VANCOMYCIN ORAL SOLUTION 250 MG/5 ML BOTTLE PO SCH ×5 (00:02→23:01)
[2020-02-11] MEDS: LEVOTHYROXINE 50 MCG TAB PO SCH (06:16)
[2020-02-11] MEDS: SYMBICORT 160-4.5 MCG INHALER INHALATION SCH ×2 (07:54→20:26)
[2020-02-11] MEDS: ASPIRIN 81 MG PO SCH (09:19)
[2020-02-11] MEDS: POTASSIUM CHLORIDE ER 20 MEQ TAB.ER PO SCH (09:19)
[2020-02-11] MEDS: PANTOPRAZOLE 40 MG TABLET PO SCH (09:19)
[2020-02-11] MEDS: CHOLECALCIFEROL 1,000 UNIT TAB PO SCH (09:19)
[2020-02-11] MEDS: SUCRALFATE 1 GM TAB PO SCH ×2 (09:19→20:30)
[2020-02-11] MEDS: ISOSORBIDE MONONITRATE ER 30 MG TAB.ER.24H PO SCH (09:19)
[2020-02-11] MEDS: METOPROLOL TARTRATE 25 MG TAB PO SCH ×2 (09:21→20:30)
[2020-02-11] MEDS: FUROSEMIDE 40 MG TAB PO SCH (09:21)
[2020-02-11 10:43] VITALS: BMI 23.5
[2020-02-11] MEDS ORDERED: Potassium Replacement Protocol 1 EACH MISC MISCELLANE PRN (13:54)
--- NOTE | 2020-02-11 14:16 | P.HPIM ---
History of Present Illness H&P Date: 02/11/20 Chief Complaint: Diarrhea, bloody stool per rectum Alejandra Castellon is an 89-year-old female who presented to [facility], with a chief complaint of diarrhea, patient has a known history of Clostridium difficile colitis in the past, she presented to the office about 4 weeks ago with diarrhea, she was treated with a course of oral Flagyl, at that point her daughter did not want her to be admitted to the hospital, patient improved however she started having diarrhea again about 10 days ago, her daughter requested a second course of Flagyl which was given, a stool sample was sent to [facility] lab on 02/03/2020 and it was positive for Clostridium difficile. Patient condition continued to worsen despite oral Flagyl at home, on the day of admission she started having blood in her stools, at that point her daughter was willing to proceed with admission, she was admitted directly to medical floor she was started on oral vancomycin. Past Medical History Past Medical History: Asthma, Coronary Artery Disease (CAD), Chest Pain / Angina, COPD, Dementia, Hyperlipidemia, Hypertension, Myocardial Infarction ([place]), Osteoarthritis (OA), Thyroid Disorder Additional Past Medical History / Comment(s): [place] in 1998, 2 cardiac stents in 1998, shingles, collitis Last Myocardial Infarction Date:: 1998 History of Any Multi-Drug Resistant Organisms: C-DIFF Date of last positivie culture/infection: 02/03/20 MDRO Source:: stool Past Surgical History: Heart Catheterization With Stent Additional Past Surgical History / Comment(s): B\L cataracts removed 2013, aortic aneurysm clipped 2005, colonoscopy Past Anesthesia/Blood Transfusion Reactions: No Reported Reaction Date of Last Stent Placement:: 1998 Past Psychological History: Depression Smoking Status: Former smoker Past Alcohol Use History: None Reported Past Drug Use History: None Reported - Past Family History Father Additional Family Medical History / Comment(s): emphazema Mother Additional Family Medical History / Comment(s): Alzhiemiers Medications and Allergies Home Medications Medication Instructions Recorded Confirmed Type Budesonide [Pulmicort] 0.5 mg INHALATION RT-BID 10/01/14 02/10/20 History Donepezil HCl [Aricept] 5 mg PO HS 10/01/14 02/10/20 History Montelukast [Singulair] 10 mg PO HS 10/01/14 02/10/20 History Nitroglycerin Sl Tabs [Nitrostat] 0.4 mg SUBLINGUAL Q5M PRN 10/01/14 02/10/20 History Omalizumab [Xolair] 150 mg IM Q30D 10/01/14 02/10/20 History Potassium Chloride [Klor-Con 20] 20 meq PO DAILY 10/01/14 02/10/20 History Isosorbide Mononitrate ER [Imdur] 30 mg PO DAILY 01/30/16 02/10/20 History Levothyroxine Sodium [Synthroid] 50 mcg PO DAILY 01/30/16 02/10/20 History Sucralfate [Carafate] 1 gm PO BID 01/30/16 02/10/20 History Pantoprazole [Protonix] 40 mg PO AC-BRKFST #30 tablet. 02/01/16 02/10/20 Rx Aspirin [Children's Aspirin] 81 mg PO DAILY 12/01/17 02/10/20 History Metoprolol Tartrate [Lopressor] 25 mg PO BID 12/01/17 02/10/20 History Simvastatin [Zocor] 20 mg PO HS 12/01/17 02/10/20 History Ipratropium-Albuterol Nebulize 3 ml INHALATION RT-QID ampul.neb 12/07/17 02/10/20 Rx [Duoneb 0.5 mg-3 mg/3 ml Soln] Cholecalciferol (Vitamin D3) 2,000 unit PO DAILY 06/08/18 02/10/20 History [Vitamin D3] Furosemide [Lasix] 40 mg PO DAILY 06/08/18 02/10/20 History Citalopram Hydrobromide [CeleXA] 20 mg PO HS 02/10/20 02/10/20 History Furosemide [Lasix] 20 mg PO HS 02/10/20 02/10/20 History Allergies Allergy/AdvReac Type Severity Reaction Status Date / Time cephalexin monohydrate Allergy Colitis Verified 02/10/20 19:00 [From Keflex] Physical Exam Vitals: Vital Signs Temp Pulse Resp BP Pulse Ox 02/11/20 09:21 73 16 02/11/20 07:37 97.9 F 73 16 93/62 99 02/11/20 04:16 97.8 F 68 18 112/51 100 02/11/20 00:00 16 02/10/20 20:00 16 02/10/20 19:00 98.3 F 66 16 130/52 100 02/10/20 17:27 98.4 F 66 16 109/54 99 Intake and Output 02/10/20 02/11/20 02/11/20 22:59 06:59 14:59 Intake Total 540 Balance 540 Intake: Oral 540 Other: Voiding Method Toilet Toilet Toilet # Voids 1 1 # Bowel Movements 1 Weight 56.5 kg 56.5 kg In general patient is alert and oriented 3 in no apparent distress HEENT head normocephalic and atraumatic Neck is supple no JVD no goiter no lymphadenopathy Chest exam reveals a few scattered rhonchi no wheezing Cardiac exam reveals regular heart sounds S1 and S2 no gallops no murmurs Abdomen is soft nontender no organomegaly with normal bowel sounds Extremity exam reveals no edema no cyanosis or clubbing Neurological examination reveals no gross focal deficit Results CBC & Chem 7: 02/10/20 18:05 02/10/20 18:05 Labs: Abnormal Lab Results - Last 24 Hours (Table) 02/10/20 02/10/20 Range/Units 18:05 18:05 RBC 3.14 L (3.80-5.40) m/uL Hgb 8.7 L (11.4-16.0) gm/dL Hct 26.8 L (34.0-46.0) % Lymphocytes # 0.7 L (1.0-4.8) k/uL Sodium 133 L (137-145) mmol/L Potassium 3.0 L (3.5-5.1) mmol/L Chloride 96 L (98-107) mmol/L Creatinine 1.80 H (0.52-1.04) mg/dL Glucose 132 H (74-99) mg/dL Total Protein 5.1 L (6.3-8.2) g/dL Albumin 2.8 L (3.5-5.0) g/dL Thrombosis Risk Factor Assmnt - Choose All That Apply Any of the Below Risk Factors Present?: Yes Each Factor Represents 1 point: Abnormal pulmonary function (COPD) Other Risk Factors: Yes Each Risk Factor Represents 3 Points: Age 75 years or older Other congenital or acquired thrombophilia - If yes, enter type in comment: No Thrombosis Risk Factor Assessment Total Risk Factor Score: 4 Thrombosis Risk Factor Assessment Level: Moderate Risk Assessment and Plan Plan: 1. Clostridium difficile colitis, patient will be started on oral vancomycin, will monitor symptoms closely. 2. Hypokalemia, likely related to diarrhea, will replace potassium as needed 3. Chronic kidney disease stage III 4. Underlying history of coronary artery disease stable at this time 5. Underlying history of hypothyroidism 6. Underlying history of congestive heart failure 7. Underlying history of degenerative disc disease. 8. Underlying history of dementia 9. underlying history of depression 10. Underlying history of vitamin D deficiency. 11. Anemia, will check iron level, vitamin B12 and folate level, and replace as needed At this time patient was started on oral vancomycin, Will replace potassium and check blood test daily Further treatment will depend on clinical response For DVT prophylaxis we will use Lovenox 30 mg subcu once daily For GI prophylaxis patient is on proton X and Carafate
[2020-02-11 14:32] LABS: Appearance,Urine Cloudy (Clear); Bacteria,Urine Rare /hpf; Bilirubin,Urine Negative (Negative); Blood,Urine Negative (Negative); Calcium Oxalate Crystals,Urine Few /hpf; Color,Urine Yellow; Glucose,Urine (UA) Negative (Negative); Hyaline Casts,Urine 3 /lpf (0-2); Ketones,Urine Negative (Negative); Leukocyte Esterase,Urine Small (Negative); Mucus,Urine Occasional /hpf; Nitrite,Urine Negative (Negative); PH, Urine 5.5 (5.0-8.0); Protein,Urine Negative (Negative); RBC,Urine 11 /hpf (0-5); Specific Gravity,Urine 1.011 (1.001-1.035); Squamous Epithelial Cell,Urine 2 /hpf (0-4); Urobilinogen,Urine <2.0 mg/dL (<2.0); WBC,Urine 9 /hpf (0-5)
--- NOTE | 2020-02-11 15:06 | P.CNPUL ---
History of Present Illness Consult date: 02/11/20 Reason for consult: dyspnea Chief complaint: Shortness of breath History of present illness: This is a 89-year-old female with prior history of diarrhea as well as history of C. difficile colitis in the past, he shouldn't was admitted from the office with history of ongoing diarrhea patient has a outpatient course of Flagyl without any significant relief, she has a history of COPD has been on supplemental oxygen denies any chest pain shortness of breath, denies any cough or sputum production Review of Systems All systems: negative Past Medical History Past Medical History: Asthma, Coronary Artery Disease (CAD), Chest Pain / Angina, COPD, Dementia, Hyperlipidemia, Hypertension, Myocardial Infarction ([place]), Osteoarthritis ([place]), Thyroid Disorder Additional Past Medical History / Comment(s): [place] in 1998, 2 cardiac stents in 1998, shingles, collitis Last Myocardial Infarction Date:: 1998 History of Any Multi-Drug Resistant Organisms: C-DIFF Date of last positivie culture/infection: 02/03/20 MDRO Source:: stool Past Surgical History: Heart Catheterization With Stent Additional Past Surgical History / Comment(s): B\L cataracts removed 2013, aortic aneurysm clipped 2005, colonoscopy Past Anesthesia/Blood Transfusion Reactions: No Reported Reaction Date of Last Stent Placement:: 1998 Past Psychological History: Depression Smoking Status: Former smoker Past Alcohol Use History: None Reported Past Drug Use History: None Reported - Past Family History Father Additional Family Medical History / Comment(s): emphazema Mother Additional Family Medical History / Comment(s): Alzhiemiers Medications and Allergies Home Medications Medication Instructions Recorded Confirmed Type Budesonide [Pulmicort] 0.5 mg INHALATION RT-BID 10/01/14 02/10/20 History Donepezil HCl [Aricept] 5 mg PO HS 10/01/14 02/10/20 History Montelukast [Singulair] 10 mg PO HS 10/01/14 02/10/20 History Nitroglycerin Sl Tabs [Nitrostat] 0.4 mg SUBLINGUAL Q5M PRN 10/01/14 02/10/20 History Omalizumab [Xolair] 150 mg IM Q30D 10/01/14 02/10/20 History Potassium Chloride [Klor-Con 20] 20 meq PO DAILY 10/01/14 02/10/20 History Isosorbide Mononitrate ER [Imdur] 30 mg PO DAILY 01/30/16 02/10/20 History Levothyroxine Sodium [Synthroid] 50 mcg PO DAILY 01/30/16 02/10/20 History Sucralfate [Carafate] 1 gm PO BID 01/30/16 02/10/20 History Pantoprazole [Protonix] 40 mg PO AC-BRKFST #30 tablet. 02/01/16 02/10/20 Rx Aspirin [Children's Aspirin] 81 mg PO DAILY 12/01/17 02/10/20 History Metoprolol Tartrate [Lopressor] 25 mg PO BID 12/01/17 02/10/20 History Simvastatin [Zocor] 20 mg PO HS 12/01/17 02/10/20 History Ipratropium-Albuterol Nebulize 3 ml INHALATION RT-QID ampul.neb 12/07/17 02/10/20 Rx [Duoneb 0.5 mg-3 mg/3 ml Soln] Cholecalciferol (Vitamin D3) 2,000 unit PO DAILY 06/08/18 02/10/20 History [Vitamin D3] Furosemide [Lasix] 40 mg PO DAILY 06/08/18 02/10/20 History Citalopram Hydrobromide [CeleXA] 20 mg PO HS 02/10/20 02/10/20 History Furosemide [Lasix] 20 mg PO HS 02/10/20 02/10/20 History Allergies Allergy/AdvReac Type Severity Reaction Status Date / Time cephalexin monohydrate Allergy Colitis Verified 02/10/20 19:00 [From Keflex] Physical Exam Vitals: Vital Signs Temp Pulse Resp BP Pulse Ox 02/11/20 09:21 73 16 02/11/20 07:37 97.9 F 73 16 93/62 99 02/11/20 04:16 97.8 F 68 18 112/51 100 02/11/20 00:00 16 02/10/20 20:00 16 02/10/20 19:00 98.3 F 66 16 130/52 100 02/10/20 17:27 98.4 F 66 16 109/54 99 Intake and Output 02/11/20 02/11/20 02/11/20 06:59 14:59 22:59 Intake Total 540 Balance 540 Intake: Oral 540 Other: Voiding Method Toilet Toilet # Voids 1 # Bowel Movements 1 Weight 56.5 kg - Constitutional General appearance: average body habitus, cooperative, disheveled - EENT Ears: bilateral: normal - Neck Neck: normal ROM Carotids: bilateral: upstroke normal Thyroid: bilateral: normal size - Respiratory Respiratory: bilateral: diminished, negative: dullness, rales, rhonchi, wheezing, prolonged expiration - Cardiovascular Rhythm: regular Heart sounds: normal: S1, S2 - Gastrointestinal General gastrointestinal: distended, normal bowel sounds, soft - Neurologic Neurologic: CNII-XII intact - Musculoskeletal Musculoskeletal: gait normal, generalized weakness, strength equal bilaterally - Psychiatric Psychiatric: A&O x's 3, appropriate affect, intact judgment & insight Results - Laboratory Findings CBC and BMP: 02/10/20 18:05 02/10/20 18:05 Abnormal lab findings: Abnormal Labs 02/10/20 02/10/20 02/11/20 18:05 18:05 13:15 RBC 3.14 L Hgb 8.7 L Hct 26.8 L Lymphocytes # 0.7 L Sodium 133 L Potassium 3.0 L Chloride 96 L Creatinine 1.80 H Glucose 132 H Total Protein 5.1 L Albumin 2.8 L Urine Appearance Cloudy H Ur Leukocyte Esterase Small H Urine RBC 11 H Urine WBC 9 H Calcium Oxalate Crystal Few H Urine Bacteria Rare H Hyaline Casts 3 H Urine Mucus Occasional H Assessment and Plan Assessment: Baseline stable COPD Chronic hypoxic respiratory failure C. difficile colitis Electrolyte imbalance with hypokalemia History of coronary artery disease hypothyroidism congestive heart failure History of baseline dementia and thymus disease Plan: Patient COPD is fairly stable and continue supplemental oxygen continue current supportive care with therapy with oral vancomycin, will avoid IV steroids as well as antibiotics as best as possible continue supportive care further recommendations pending plan of care as per clinical response of the patient Time with Patient: Greater than 30
[2020-02-11 15:30] LABS: Albumin 2.5 g/dL (3.5-5.0); Basophils % (A) 1 %; Calcium 8.4 mg/dL (8.4-10.2); Eosinophils # (A) 0.1 k/uL (0-0.7); Eosinophils % (A) 2 %; HCT 26.8 % (34.0-46.0); HGB 8.4 gm/dL (11.4-16.0); Lymphocytes # (A) 0.6 k/uL (1.0-4.8); Lymphocytes % (A) 15 %; MCH 26.8 pg (25.0-35.0); MCHC 31.2 g/dL (31.0-37.0); MCV 86.1 fL (80.0-100.0); Mean Platelet Volume 10.3; Monocytes # (A) 0.4 k/uL (0-1.0); Monocytes % (A) 9 %; Neutrophils % (A) 73 %; Platelet Count 186 k/uL (150-450); Potassium 2.9 mmol/L (3.5-5.1); RBC 3.11 m/uL (3.80-5.40); RDW 15.4 % (11.5-15.5); Total Bilirubin 0.4 mg/dL (0.2-1.3); Total Protein 4.9 g/dL (6.3-8.2); WBC 4.1 k/uL (3.8-10.6)
[2020-02-11] MEDS: ENOXAPARIN 30 MG/0.3 ML SYRINGE SQ SCH (16:04)
[2020-02-11] MEDS: ATORVASTATIN 10 MG TAB PO SCH (20:30)
[2020-02-11] MEDS: DONEPEZIL 5 MG TAB PO SCH (20:30)
[2020-02-11] MEDS: MONTELUKAST 10 MG TAB PO SCH (20:30)
[2020-02-11] MEDS: CITALOPRAM HYDROBROMIDE 20 MG TAB PO SCH (20:30)
[2020-02-11] MEDS: FUROSEMIDE 20 MG TAB PO SCH (20:31)
[2020-02-11 23:30] LABS: Folate, Serum 2.7 ng/mL
[2020-02-11 23:38] LABS: % Iron Saturation 18.39 (12.00-45.00)
--- NOTE | 2020-02-12 00:12 | P.CONS ---
History of Present Illness - Reason for Consult Consult date: 02/11/20 c diff colitis Requesting physician: Flora Pastrana - Chief Complaint diarrhea and blood in stools x few days - History of Present Illness Patient is 89-year-old female presenting to the [facility] with chief complaints of diarrhea apparently this patient presented to his primary care physician office about 4 weeks ago with diarrhea patient tested positive for C. difficile colitis and has been treated with a course of oral Flagyl however pending the patient have an improvement in her diarrhea there will be getting worse for the last 10 days the patient did have a 2 different courses of oral Flagyl at home and subsequent started having some blood in the stool for the patient has been admitted to the hospital patient at this point denies having any symptoms to me and is not sure why she is in the hospital but not specifically patient denies having abdominal pain no nausea no vomiting or any diarrhea patient denies any chest pain no shortness of breath or cough and no urinary symptoms on presentation to the hospital patient has been afebrile p atient did have a normal white count creatinine was slightly elevated 1.80 urine has been negative, no PCR PCR was negative stool for C. difficile was not checked patient has been started on vancomycin and infectious was consulted for further management of antibiotic therapy. Review of Systems Positive point has been mentioned in HPI rest of the systems are negative Past Medical History Past Medical History: Asthma, Coronary Artery Disease (CAD), Chest Pain / Angina, COPD, Dementia, Hyperlipidemia, Hypertension, Myocardial Infarction (TN), Osteoarthritis (OA), Thyroid Disorder Additional Past Medical History / Comment(s): TN in 1998, 2 cardiac stents in 1998, shingles, collitis Last Myocardial Infarction Date:: 1998 History of Any Multi-Drug Resistant Organisms: C-DIFF Year Discovered:: 02/03/20 MDRO Source:: stool Past Surgical History: Heart Catheterization With Stent Additional Past Surgical History / Comment(s): B\L cataracts removed 2013, aortic aneurysm clipped 2005, colonoscopy Past Anesthesia/Blood Transfusion Reactions: No Reported Reaction Date of Last Stent Placement:: 1998 Past Psychological History: Depression Smoking Status: Former smoker Past Alcohol Use History: None Reported Past Drug Use History: None Reported - Past Family History Father Additional Family Medical History / Comment(s): emphazema Mother Additional Family Medical History / Comment(s): Alzhiemiers Medications and Allergies Home Medications Medication Instructions Recorded Confirmed Type Budesonide [Pulmicort] 0.5 mg INHALATION RT-BID 10/01/14 02/10/20 History Donepezil HCl [Aricept] 5 mg PO HS 10/01/14 02/10/20 History Montelukast [Singulair] 10 mg PO HS 10/01/14 02/10/20 History Nitroglycerin Sl Tabs [Nitrostat] 0.4 mg SUBLINGUAL Q5M PRN 10/01/14 02/10/20 History Omalizumab [Xolair] 150 mg IM Q30D 10/01/14 02/10/20 History Potassium Chloride [Klor-Con 20] 20 meq PO DAILY 10/01/14 02/10/20 History Isosorbide Mononitrate ER [Imdur] 30 mg PO DAILY 01/30/16 02/10/20 History Levothyroxine Sodium [Synthroid] 50 mcg PO DAILY 01/30/16 02/10/20 History Sucralfate [Carafate] 1 gm PO BID 01/30/16 02/10/20 History Pantoprazole [Protonix] 40 mg PO AC-BRKFST #30 tablet. 02/01/16 02/10/20 Rx Aspirin [Children's Aspirin] 81 mg PO DAILY 12/01/17 02/10/20 History Metoprolol Tartrate [Lopressor] 25 mg PO BID 12/01/17 02/10/20 History Simvastatin [Zocor] 20 mg PO HS 12/01/17 02/10/20 History Ipratropium-Albuterol Nebulize 3 ml INHALATION RT-QID ampul.neb 12/07/17 02/10/20 Rx [Duoneb 0.5 mg-3 mg/3 ml Soln] Cholecalciferol (Vitamin D3) 2,000 unit PO DAILY 06/08/18 02/10/20 History [Vitamin D3] Furosemide [Lasix] 40 mg PO DAILY 06/08/18 02/10/20 History Citalopram Hydrobromide [CeleXA] 20 mg PO HS 02/10/20 02/10/20 History Furosemide [Lasix] 20 mg PO HS 02/10/20 02/10/20 History Allergies Allergy/AdvReac Type Severity Reaction Status Date / Time cephalexin monohydrate Allergy Colitis Verified 02/10/20 19:00 [From Keflex] Physical Exam Vitals: Vital Signs Temp Pulse Resp BP Pulse Ox 02/11/20 09:21 73 16 02/11/20 07:37 97.9 F 73 16 93/62 99 02/11/20 04:16 97.8 F 68 18 112/51 100 02/11/20 00:00 16 02/10/20 20:00 16 02/10/20 19:00 98.3 F 66 16 130/52 100 02/10/20 17:27 98.4 F 66 16 109/54 99 Intake and Output 02/11/20 02/11/20 02/11/20 06:59 14:59 22:59 Intake Total 540 Balance 540 Intake: Oral 540 Other: Voiding Method Toilet Toilet # Voids 1 # Bowel Movements 1 Weight 56.5 kg GENERAL DESCRIPTION: Elderly female lying in bed, no distress. No tachypnea or accessory muscle of respiration use. HEENT: Shows Pallor , no scleral icterus. Oral mucous membrane is dry. NECK: Trachea central, no thyromegaly. LUNGS: Unlabored breathing. Clear to auscultation anteriorly. No wheeze or crackle. HEART: S1, S2, regular rate and rhythm. ABDOMEN: Soft, no tenderness , guarding or rigidity EXTREMITIES: No edema of feet. SKIN: No rash, no masses palpable. NEUROLOGICAL: The patient is awake, alert, oriented x2, mood and affect normal. Results CBC & Chem 7: 02/11/20 14:51 02/11/20 14:51 Labs: Abnormal Lab Results - Last 24 Hours (Table) 02/10/20 02/10/20 02/11/20 Range/Units 18:05 18:05 13:15 RBC 3.14 L (3.80-5.40) m/uL Hgb 8.7 L (11.4-16.0) gm/dL Hct 26.8 L (34.0-46.0) % Lymphocytes # 0.7 L (1.0-4.8) k/uL Sodium 133 L (137-145) mmol/L Potassium 3.0 L (3.5-5.1) mmol/L Chloride 96 L (98-107) mmol/L Creatinine 1.80 H (0.52-1.04) mg/dL Glucose 132 H (74-99) mg/dL Total Protein 5.1 L (6.3-8.2) g/dL Albumin 2.8 L (3.5-5.0) g/dL Urine Appearance Cloudy H (Clear) Ur Leukocyte Esterase Small H (Negative) Urine RBC 11 H (0-5) /hpf Urine WBC 9 H (0-5) /hpf Calcium Oxalate Crystal Few H (None) /hpf Urine Bacteria Rare H (None) /hpf Hyaline Casts 3 H (0-2) /lpf Urine Mucus Occasional H (None) /hpf Assessment and Plan Assessment: patient presented hospital with diarrhea now with evidence of hematochezia this patient apparently has been diagnosed with C. difficile colitis about 4 weeks ago has been treated with 2 different courses of oral Flagyl likely with any failure of the oral Flagyl therapy (1) Clostridium difficile infection Current Visit: No Status: Acute Code(s): A49.8 - OTHER BACTERIAL INFECTIONS OF UNSPECIFIED SITE SNOMED Code(s): 755748523 Plan: 1-we will check a stool for C. difficile 2-vancomycin 250 p.o. every 6 hours 3-if diarrhea persist by a.m. to add Questran for symptomatic relief and toxin binding We will follow on clinical condition and cultures to further adjust medication if needed Thank you for this consultation we will follow the patient along with you Time with Patient: Greater than 30
[2020-02-12] MEDS: LEVOTHYROXINE 50 MCG TAB PO SCH (05:53)
[2020-02-12] MEDS: VANCOMYCIN ORAL SOLUTION 250 MG/5 ML BOTTLE PO SCH ×4 (05:54→22:46)
[2020-02-12] MEDS: CHERRY FLAVOR 60 ML BOTTLE PO PRN ×2 (05:54→22:46)
[2020-02-12 07:57] LABS: Basophils % (A) 0 %; Eosinophils # (A) 0.1 k/uL (0-0.7); Eosinophils % (A) 3 %; HCT 27.9 % (34.0-46.0); HGB 8.5 gm/dL (11.4-16.0); Hypochromasia Slight; Lymphocytes # (A) 0.6 k/uL (1.0-4.8); Lymphocytes % (A) 16 %; MCH 26.6 pg (25.0-35.0); MCHC 30.5 g/dL (31.0-37.0); MCV 87.3 fL (80.0-100.0); Mean Platelet Volume 9.8; Monocytes # (A) 0.3 k/uL (0-1.0); Monocytes % (A) 8 %; Neutrophils # (A) 2.7 k/uL (1.3-7.7); Neutrophils % (A) 71 %; Platelet Count 186 k/uL (150-450); RBC 3.19 m/uL (3.80-5.40); RDW 15.5 % (11.5-15.5); WBC 3.8 k/uL (3.8-10.6)
[2020-02-12 08:04] LABS: Albumin 2.4 g/dL (3.5-5.0); Calcium 8.2 mg/dL (8.4-10.2); Total Bilirubin 0.5 mg/dL (0.2-1.3); Total Protein 4.8 g/dL (6.3-8.2)
[2020-02-12] MEDS: SYMBICORT 160-4.5 MCG INHALER INHALATION SCH ×2 (08:26→19:31)
[2020-02-12] MEDS: ASPIRIN 81 MG PO SCH (09:16)
[2020-02-12] MEDS: FUROSEMIDE 40 MG TAB PO SCH (09:16)
[2020-02-12] MEDS: POTASSIUM CHLORIDE ER 20 MEQ TAB.ER PO SCH ×7 (09:17→22:45)
[2020-02-12] MEDS: METOPROLOL TARTRATE 25 MG TAB PO SCH ×2 (09:17→20:16)
[2020-02-12] MEDS: SUCRALFATE 1 GM TAB PO SCH ×2 (09:17→20:16)
[2020-02-12] MEDS: PANTOPRAZOLE 40 MG TABLET PO SCH (09:17)
[2020-02-12] MEDS: ISOSORBIDE MONONITRATE ER 30 MG TAB.ER.24H PO SCH (09:17)
[2020-02-12] MEDS: CHOLECALCIFEROL 1,000 UNIT TAB PO SCH (09:17)
--- NOTE | 2020-02-12 11:52 | P.PN ---
Subjective Progress Note Date: 02/12/20 Principal diagnosis: Baseline stable COPD Chronic hypoxic respiratory failure C. difficile colitis Electrolyte imbalance with hypokalemia History of coronary artery disease hypothyroidism congestive heart failure History of baseline dementia and Alzheimer's disease 02/12/2020, patient seen eval examined during the rounds labs reviewed medications reviewed has been doing well in terms of respiratory standpoint, patient now off of oxygen breathing comfortably, remains afebrile hemodynamic status stable oxygen saturation 94% on room air, This is a 89-year-old female with prior history of diarrhea as well as history of C. difficile colitis in the past, he shouldn't was admitted from the office with history of ongoing diarrhea patient has a outpatient course of Flagyl without any significant relief, she has a history of COPD has been on supplemental oxygen denies any chest pain shortness of breath, denies any cough or sputum production Objective - Vital Signs Vital signs: Vital Signs Temp 97.8 F 02/12/20 07:14 Pulse 64 02/12/20 07:14 Resp 16 02/12/20 07:14 BP 107/62 02/12/20 07:14 Pulse Ox 94 L 02/12/20 07:14 Intake & Output 02/11/20 02/12/20 02/12/20 18:59 06:59 18:59 Intake Total 540 Balance 540 Weight 56.5 kg Intake: Oral 540 Other: Voiding Method Toilet Toilet Toilet Diaper Diaper # Voids 2 1 # Bowel Movements 1 2 - Exam - Constitutional General appearance: average body habitus, cooperative, disheveled - EENT Ears: bilateral: normal - Neck Neck: normal ROM Carotids: bilateral: upstroke normal Thyroid: bilateral: normal size - Respiratory Respiratory: bilateral: diminished, negative: dullness, rales, rhonchi, wheezing, prolonged expiration - Cardiovascular Rhythm: regular Heart sounds: normal: S1, S2 - Gastrointestinal General gastrointestinal: distended, normal bowel sounds, soft - Neurologic Neurologic: CNII-XII intact - Musculoskeletal Musculoskeletal: gait normal, generalized weakness, strength equal bilaterally - Psychiatric Psychiatric: A&O x's 3, appropriate affect, intact judgment & insight - Labs CBC & Chem 7: 02/12/20 06:26 02/12/20 06:26 Labs: Abnormal Lab Results - Last 24 Hours (Table) 02/11/20 02/11/2002/10/20 Range/Units 13:15 14:51 14:51 RBC 3.11 L (3.80-5.40) m/uL Hgb 8.4 L (11.4-16.0) gm/dL Hct 26.8 L (34.0-46.0) % MCHC (31.0-37.0) g/dL Lymphocytes # 0.6 L (1.0-4.8) k/uL Sodium 135 L (137-145) mmol/L Potassium 2.9 L (3.5-5.1) mmol/L Carbon Dioxide 32 H (22-30) mmol/L Creatinine 1.67 H (0.52-1.04) mg/dL Glucose 135 H (74-99) mg/dL Calcium (8.4-10.2) mg/dL Iron 32 L (50-170) ug/dL TIBC 174 L (228-460) ug/dL Total Protein 4.9 L (6.3-8.2) g/dL Albumin 2.5 L (3.5-5.0) g/dL Urine Appearance Cloudy H (Clear) Ur Leukocyte Esterase Small H (Negative) Urine RBC 11 H (0-5) /hpf Urine WBC 9 H (0-5) /hpf Calcium Oxalate Crystal Few H (None) /hpf Urine Bacteria Rare H (None) /hpf Hyaline Casts 3 H (0-2) /lpf Urine Mucus Occasional H (None) /hpf 02/12/20 02/12/20 Range/Units 06:26 06:26 RBC 3.19 L (3.80-5.40) m/uL Hgb 8.5 L (11.4-16.0) gm/dL Hct 27.9 L (34.0-46.0) % MCHC 30.5 L (31.0-37.0) g/dL Lymphocytes # 0.6 L (1.0-4.8) k/uL Sodium 135 L (137-145) mmol/L Potassium 3.0 L (3.5-5.1) mmol/L Carbon Dioxide (22-30) mmol/L Creatinine 1.45 H (0.52-1.04) mg/dL Glucose 105 H (74-99) mg/dL Calcium 8.2 L (8.4-10.2) mg/dL Iron (50-170) ug/dL TIBC (228-460) ug/dL Total Protein 4.8 L (6.3-8.2) g/dL Albumin 2.4 L (3.5-5.0) g/dL Urine Appearance (Clear) Ur Leukocyte Esterase (Negative) Urine RBC (0-5) /hpf Urine WBC (0-5) /hpf Calcium Oxalate Crystal (None) /hpf Urine Bacteria (None) /hpf Hyaline Casts (0-2) /lpf Urine Mucus (None) /hpf Assessment and Plan Assessment: Baseline stable COPD Chronic hypoxic respiratory failure, oxygenation is much better now at room air 94% C. difficile colitis Electrolyte imbalance with hypokalemia History of coronary artery disease hypothyroidism congestive heart failure History of baseline dementia and thymus disease Plan: Patient COPD is fairly stable and continue supplemental oxygen as needed, continue current supportive care with therapy with oral vancomycin, will avoid IV steroids as well as antibiotics as best as possible continue supportive care further recommendations pending plan of care as per clinical response of the patient Time with Patient: Greater than 30
[2020-02-12] MEDS ORDERED: Potassium Replacement Protocol 1 EACH MISC MISCELLANE PRN (12:23)
--- NOTE | 2020-02-12 12:48 | P.PN ---
Subjective Progress Note Date: 02/12/20 Alejandra Castellon is an 89-year-old female who presented to [facility], with a chief complaint of diarrhea, patient has a known history of Clostridium difficile colitis in the past, she presented to the office about 4 weeks ago with diarrhea, she was treated with a course of oral Flagyl, at that point her daughter did not want her to be admitted to the hospital, patient improved however she started having diarrhea again about 10 days ago, her daughter requested a second course of Flagyl which was given, a stool sample was sent to [facility] lab on 02/03/2020 and it was positive for Clostridium difficile. Patient condition continued to worsen despite oral Flagyl at home, on the day of admission she started having blood in her stools, at that point her daughter was willing to proceed with admission, she was admitted directly to medical floor she was started on oral vancomycin. On 02/12/2020 patient was seen and examined on the medical floor she is alert and oriented 3 in no apparent distress she had 2 soft bowel movements today otherwise she denies any complaints there is no fever or chills no headache or dizziness no chest pain no shortness of breath no cough no nausea or vomiting no abdominal pain no burning was urination no frequency or urgency and no hematuria Objective - Vital Signs Vital signs: Vital Signs Temp 97.8 F 02/12/20 07:14 Pulse 64 02/12/20 07:14 Resp 16 02/12/20 07:14 BP 107/62 02/12/20 07:14 Pulse Ox 94 L 02/12/20 07:14 Intake & Output 02/11/20 02/12/20 02/12/20 18:59 06:59 18:59 Intake Total 540 Balance 540 Weight 56.5 kg Intake: Oral 540 Other: Voiding Method Toilet Toilet Toilet Diaper Diaper # Voids 2 1 1 # Bowel Movements 1 2 1 - Exam In general patient is alert and oriented 3 in no apparent distress HEENT head normocephalic and atraumatic Neck is supple no JVD no goiter no lymphadenopathy Chest exam reveals a few scattered rhonchi no wheezing Cardiac exam reveals regular heart sounds S1 and S2 no gallops no murmurs Abdomen is soft nontender no organomegaly with normal bowel sounds Extremity exam reveals no edema no cyanosis or clubbing Neurological examination reveals no gross focal deficit - Labs CBC & Chem 7: 02/12/20 06:26 02/12/20 06:26 Labs: Abnormal Lab Results - Last 24 Hours (Table) 02/11/20 02/11/20 02/11/20 Range/Units 13:15 14:51 14:51 RBC 3.11 L (3.80-5.40) m/uL Hgb 8.4 L (11.4-16.0) gm/dL Hct 26.8 L (34.0-46.0) % MCHC (31.0-37.0) g/dL Lymphocytes # 0.6 L (1.0-4.8) k/uL Sodium 135 L (137-145) mmol/L Potassium 2.9 L (3.5-5.1) mmol/L Carbon Dioxide 32 H (22-30) mmol/L Creatinine 1.67 H (0.52-1.04) mg/dL Glucose 135 H (74-99) mg/dL Calcium (8.4-10.2) mg/dL Iron 32 L (50-170) ug/dL TIBC 174 L (228-460) ug/dL Total Protein 4.9 L (6.3-8.2) g/dL Albumin 2.5 L (3.5-5.0) g/dL Urine Appearance Cloudy H (Clear) Ur Leukocyte Esterase Small H (Negative) Urine RBC 11 H (0-5) /hpf Urine WBC 9 H (0-5) /hpf Calcium Oxalate Crystal Few H (None) /hpf Urine Bacteria Rare H (None) /hpf Hyaline Casts 3 H (0-2) /lpf Urine Mucus Occasional H (None) /hpf 02/12/20 02/12/20 Range/Units 06:26 06:26 RBC 3.19 L (3.80-5.40) m/uL Hgb 8.5 L (11.4-16.0) gm/dL Hct 27.9 L (34.0-46.0) % MCHC 30.5 L (31.0-37.0) g/dL Lymphocytes # 0.6 L (1.0-4.8) k/uL Sodium 135 L (137-145) mmol/L Potassium 3.0 L (3.5-5.1) mmol/L Carbon Dioxide (22-30) mmol/L Creatinine 1.45 H (0.52-1.04) mg/dL Glucose 105 H (74-99) mg/dL Calcium 8.2 L (8.4-10.2) mg/dL Iron (50-170) ug/dL TIBC (228-460) ug/dL Total Protein 4.8 L (6.3-8.2) g/dL Albumin 2.4 L (3.5-5.0) g/dL Urine Appearance (Clear) Ur Leukocyte Esterase (Negative) Urine RBC (0-5) /hpf Urine WBC (0-5) /hpf Calcium Oxalate Crystal (None) /hpf Urine Bacteria (None) /hpf Hyaline Casts (0-2) /lpf Urine Mucus (None) /hpf Assessment and Plan Plan: 1. Clostridium difficile colitis, patient will be started on oral vancomycin, will monitor symptoms closely. 2. Hypokalemia, likely related to diarrhea, will replace potassium as needed 3. Chronic kidney disease stage III 4. Underlying history of coronary artery disease stable at this time 5. Underlying history of hypothyroidism 6. Underlying history of congestive heart failure 7. Underlying history of degenerative disc disease. 8. Underlying history of dementia 9. underlying history of depression 10. Underlying history of vitamin D deficiency. 11. Anemia, will check iron level, vitamin B12 and folate level, and replace as needed. Patient has evidence of iron deficiency she is receiving IV iron. 12. Severe malnutrition with decreased albumin to 2.4 dietitian consultation initiated At this time patient was started on oral vancomycin, Will replace potassium and check blood test daily Further treatment will depend on clinical response For DVT prophylaxis we will use Lovenox 30 mg subcu once daily For GI prophylaxis patient is on proton X and Carafate
[2020-02-12] MEDS ORDERED: SODIUM FERRIC GLUCONAT-SUCROSE 125 MG in SODIUM CHLORIDE 0.9% 100 ML IVPB ONE (13:30)
--- NOTE | 2020-02-12 16:27 | PN ---
PROGRESS NOTE DATE OF SERVICE: 02/12/2020 REASON FOR FOLLOW UP: Clostridium difficile colitis. INTERVAL HISTORY: The patient is currently afebrile. Patient is breathing comfortably. Denies having any chest pain. No shortness of breath, no cough. No nausea, no abdominal pain. When asked specifically about diarrhea she says I don't know. PHYSICAL EXAMINATION: Blood pressure is 100/72 with a pulse of 64, temperature is 97.8. She is 94% on room air. General description is an elderly female lying in bed in no distress. Respiratory system: Unlabored breathing, clear to auscultation anteriorly. Heart S1, S2. Regular rate and rhythm. Abdomen soft, no tenderness. Extremities, no edema of the feet. LABS: Hemoglobin 8.5, white count 3.8, BUN of 7, creatinine 1.45. Stool for C difficile was requested, not done. DIAGNOSTIC IMPRESSION AND PLAN: Patient admitted to the hospital with diarrhea and hematochezia with outpatient C. diff positive concerning for C difficile colitis. The patient at this point will continue with vancomycin p.o. and monitor clinical course closely. MMODL / IJN: [id number] /
[2020-02-12] MEDS: ENOXAPARIN 30 MG/0.3 ML SYRINGE SQ SCH (16:42)
[2020-02-12] MEDS: FUROSEMIDE 20 MG TAB PO SCH (20:14)
[2020-02-12] MEDS: CITALOPRAM HYDROBROMIDE 20 MG TAB PO SCH (20:15)
[2020-02-12] MEDS: ATORVASTATIN 10 MG TAB PO SCH (20:16)
[2020-02-12] MEDS: DONEPEZIL 5 MG TAB PO SCH (20:16)
[2020-02-12] MEDS: MONTELUKAST 10 MG TAB PO SCH (20:16)
[2020-02-13] MEDS ORDERED: POTASSIUM CHLORIDE ER 20 MEQ TAB.ER PO SCH (02:16)
[2020-02-13] MEDS: LEVOTHYROXINE 50 MCG TAB PO SCH (05:33)
[2020-02-13] MEDS: VANCOMYCIN ORAL SOLUTION 250 MG/5 ML BOTTLE PO SCH ×4 (05:33→23:58)
[2020-02-13] MEDS: CHERRY FLAVOR 60 ML BOTTLE PO PRN (05:33)
[2020-02-13 08:18] LABS: Basophils % (A) 0 %; Eosinophils # (A) 0.1 k/uL (0-0.7); Eosinophils % (A) 3 %; HCT 28.1 % (34.0-46.0); HGB 8.8 gm/dL (11.4-16.0); Hypochromasia Slight; Lymphocytes # (A) 0.7 k/uL (1.0-4.8); Lymphocytes % (A) 13 %; MCH 26.9 pg (25.0-35.0); MCHC 31.4 g/dL (31.0-37.0); MCV 85.9 fL (80.0-100.0); Monocytes # (A) 0.4 k/uL (0-1.0); Monocytes % (A) 7 %; Neutrophils # (A) 4.3 k/uL (1.3-7.7); Neutrophils % (A) 77 %; Platelet Count 197 k/uL (150-450); RBC 3.27 m/uL (3.80-5.40); RDW 15.8 % (11.5-15.5); WBC 5.6 k/uL (3.8-10.6)
[2020-02-13 08:25] LABS: Albumin 2.6 g/dL (3.5-5.0); Calcium 8.6 mg/dL (8.4-10.2); Potassium 4.4 mmol/L (3.5-5.1); Total Bilirubin 0.5 mg/dL (0.2-1.3)
[2020-02-13] MEDS: METOPROLOL TARTRATE 25 MG TAB PO SCH ×2 (08:48→22:04)
[2020-02-13] MEDS: ISOSORBIDE MONONITRATE ER 30 MG TAB.ER.24H PO SCH (08:48)
[2020-02-13] MEDS: FUROSEMIDE 40 MG TAB PO SCH (08:48)
[2020-02-13] MEDS: CHOLECALCIFEROL 1,000 UNIT TAB PO SCH (08:48)
[2020-02-13] MEDS: POTASSIUM CHLORIDE ER 20 MEQ TAB.ER PO SCH (08:48)
[2020-02-13] MEDS: SUCRALFATE 1 GM TAB PO SCH ×3 (08:49→22:04)
[2020-02-13] MEDS: PANTOPRAZOLE 40 MG TABLET PO SCH (08:49)
[2020-02-13] MEDS: ASPIRIN 81 MG PO SCH (08:49)
[2020-02-13] MEDS: SYMBICORT 160-4.5 MCG INHALER INHALATION SCH ×2 (09:12→21:53)
--- NOTE | 2020-02-13 13:02 | P.PN ---
Subjective Progress Note Date: 02/13/20 Alejandra Castellon is an 89-year-old female who presented to [facility], with a chief complaint of diarrhea, patient has a known history of Clostridium difficile colitis in the past, she presented to the office about 4 weeks ago with diarrhea, she was treated with a course of oral Flagyl, at that point her daughter did not want her to be admitted to the hospital, patient improved however she started having diarrhea again about 10 days ago, her daughter requested a second course of Flagyl which was given, a stool sample was sent to [facility] lab on 02/03/2020 and it was positive for Clostridium difficile. Patient condition continued to worsen despite oral Flagyl at home, on the day of admission she started having blood in her stools, at that point her daughter was willing to proceed with admission, she was admitted directly to medical floor she was started on oral vancomycin. On 02/12/2020 patient was seen and examined on the medical floor she is alert and oriented 3 in no apparent distress she had 2 soft bowel movements today otherwise she denies any complaints there is no fever or chills no headache or dizziness no chest pain no shortness of breath no cough no nausea or vomiting no abdominal pain no burning was urination no frequency or urgency and no hematuria On 02/13/2020 patient was seen and examined on the medical floor she is alert and oriented 3 in no apparent distress there is no fever or chills no headache or dizziness no chest pain no shortness of breath no cough no nausea or vomiting no abdominal pain diarrhea is improving no blood in the stools no burning was urination no frequency or urgency and no hematuria Objective - Vital Signs Vital signs: Vital Signs Temp 98.0 F 02/13/20 07:00 Pulse 68 02/13/20 07:00 Resp 19 02/13/20 07:00 BP 133/68 02/13/20 07:00 Pulse Ox 96 02/13/20 07:00 Intake & Output 02/12/20 02/13/20 02/13/20 18:59 06:59 18:59 Other: Voiding Method Toilet Toilet Diaper Diaper # Voids 2 3 # Bowel Movements 1 3 - Exam In general patient is alert and oriented 3 in no apparent distress HEENT head normocephalic and atraumatic Neck is supple no JVD no goiter no lymphadenopathy Chest exam reveals a few scattered rhonchi no wheezing Cardiac exam reveals regular heart sounds S1 and S2 no gallops no murmurs Abdomen is soft nontender no organomegaly with normal bowel sounds Extremity exam reveals no edema no cyanosis or clubbing Neurological examination reveals no gross focal deficit - Labs CBC & Chem 7: 02/13/20 07:04 02/13/20 07:04 Labs: Abnormal Lab Results - Last 24 Hours (Table) 02/12/20 02/12/20 02/13/20 Range/Units 15:48 18:47 07:04 RBC 3.27 L (3.80-5.40) m/uL Hgb 8.8 L (11.4-16.0) gm/dL Hct 28.1 L (34.0-46.0) % RDW 15.8 H (11.5-15.5) % Lymphocytes # 0.7 L (1.0-4.8) k/uL Potassium 3.3 L 3.4 L (3.5-5.1) mmol/L BUN (7-17) mg/dL Creatinine (0.52-1.04) mg/dL Total Protein (6.3-8.2) g/dL Albumin (3.5-5.0) g/dL 02/13/20 Range/Units 07:04 RBC (3.80-5.40) m/uL Hgb (11.4-16.0) gm/dL Hct (34.0-46.0) % RDW (11.5-15.5) % Lymphocytes # (1.0-4.8) k/uL Potassium (3.5-5.1) mmol/L BUN 6 L (7-17) mg/dL Creatinine 1.39 H (0.52-1.04) mg/dL Total Protein 5.0 L (6.3-8.2) g/dL Albumin 2.6 L (3.5-5.0) g/dL Assessment and Plan Plan: 1. Clostridium difficile colitis, patient will be started on oral vancomycin, will monitor symptoms closely. 2. Hypokalemia, likely related to diarrhea, will replace potassium as needed 3. Chronic kidney disease stage III 4. Underlying history of coronary artery disease stable at this time 5. Underlying history of hypothyroidism 6. Underlying history of congestive heart failure 7. Underlying history of degenerative disc disease. 8. Underlying history of dementia 9. underlying history of depression 10. Underlying history of vitamin D deficiency. 11. Anemia, will check iron level, vitamin B12 and folate level, and replace as needed. Patient has evidence of iron deficiency she is receiving IV iron. 12. Severe malnutrition with decreased albumin to 2.4 dietitian consultation initiated At this time patient was started on oral vancomycin, Will replace potassium and check blood test daily Further treatment will depend on clinical response For DVT prophylaxis we will use Lovenox 30 mg subcu once daily For GI prophylaxis patient is on proton X and Carafate Possible discharge to home tomorrow
[2020-02-13] MEDS ORDERED: SODIUM FERRIC GLUCONAT-SUCROSE 125 MG in SODIUM CHLORIDE 0.9% 100 ML IVPB ONE (14:00)
[2020-02-13] MEDS: ENOXAPARIN 30 MG/0.3 ML SYRINGE SQ SCH (16:17)
--- NOTE | 2020-02-13 16:35 | P.PN ---
Subjective Progress Note Date: 02/13/20 Principal diagnosis: Baseline stable COPD Chronic hypoxic respiratory failure C. difficile colitis Electrolyte imbalance with hypokalemia History of coronary artery disease hypothyroidism congestive heart failure History of baseline dementia and Alzheimer's disease 02/13/2020, patient seen evjose examined overall respiratory status remains stable remains off of oxygen denies any cough or sputum production, reviewed medications reviewed 02/12/2020, patient seen jackie examined during the rounds labs reviewed medications reviewed has been doing well in terms of respiratory standpoint, patient now off of oxygen breathing comfortably, remains afebrile hemodynamic status stable oxygen saturation 94% on room air, This is a 89-year-old female with prior history of diarrhea as well as history of C. difficile colitis in the past, he shouldn't was admitted from the office w ith history of ongoing diarrhea patient has a outpatient course of Flagyl without any significant relief, she has a history of COPD has been on supplemental oxygen denies any chest pain shortness of breath, denies any cough or sputum production Objective - Vital Signs Vital signs: Vital Signs Temp 98.1 F 02/13/20 15:00 Pulse 63 02/13/20 15:00 Resp 19 02/13/20 15:00 BP 102/63 02/13/20 15:00 Pulse Ox 96 02/13/20 15:00 Intake & Output 02/12/20 02/13/20 02/13/20 18:59 06:59 18:59 Intake Total 100 Balance 100 Intake: IV 100 Sodium Ferric Gluconat- 100 Sucrose 125 mg In Sodium Chloride 0.9% 100 ml @ 100 mls/hr IVPB ONCE ONE Rx#:[id number] Other: Voiding Method Toilet Toilet Diaper Diaper # Voids 2 3 2 # Bowel Movements 1 3 - Exam - Constitutional General appearance: average body habitus, cooperative, disheveled - EENT Ears: bilateral: normal - Neck Neck: normal ROM Carotids: bilateral: upstroke normal Thyroid: bilateral: normal size - Respiratory Respiratory: bilateral: diminished, negative: dullness, rales, rhonchi, wheezing, prolonged expiration - Cardiovascular Rhythm: regular Heart sounds: normal: S1, S2 - Gastrointestinal General gastrointestinal: distended, normal bowel sounds, soft - Neurologic Neurologic: CNII-XII intact - Musculoskeletal Musculoskeletal: gait normal, generalized weakness, strength equal bilaterally - Psychiatric Psychiatric: A&O x's 3, appropriate affect, intact judgment & insight - Labs CBC & Chem 7: 02/13/20 07:04 02/13/20 07:04 Labs: Abnormal Lab Results - Last 24 Hours (Table) 02/12/20 02/13/20 02/13/20 Range/Units 18:47 07:04 07:04 RBC 3.27 L (3.80-5.40) m/uL Hgb 8.8 L (11.4-16.0) gm/dL Hct 28.1 L (34.0-46.0) % RDW 15.8 H (11.5-15.5) % Lymphocytes # 0.7 L (1.0-4.8) k/uL Potassium 3.4 L (3.5-5.1) mmol/L BUN 6 L (7-17) mg/dL Creatinine 1.39 H (0.52-1.04) mg/dL Total Protein 5.0 L (6.3-8.2) g/dL Albumin 2.6 L (3.5-5.0) g/dL Assessment and Plan Assessment: Baseline stable COPD Chronic hypoxic respiratory failure, oxygenation is much better now at room air 94% C. difficile colitis Electrolyte imbalance with hypokalemia History of coronary artery disease hypothyroidism congestive heart failure History of baseline dementia and thymus disease Plan: Patient COPD is fairly stable and continue supplemental oxygen as needed, continue current supportive care with therapy with oral vancomycin, will avoid I V steroids as well as antibiotics as best as possible continue supportive care further recommendations pending plan of care as per clinical response of the patient Time with Patient: Greater than 30
[2020-02-13] MEDS: CITALOPRAM HYDROBROMIDE 20 MG TAB PO SCH (22:04)
[2020-02-13] MEDS: MONTELUKAST 10 MG TAB PO SCH (22:04)
[2020-02-13] MEDS: ATORVASTATIN 10 MG TAB PO SCH (22:04)
[2020-02-13] MEDS: DONEPEZIL 5 MG TAB PO SCH (22:04)
[2020-02-13] MEDS: FUROSEMIDE 20 MG TAB PO SCH (22:04)
--- NOTE | 2020-02-14 00:33 | PN ---
PROGRESS NOTE DATE OF SERVICE: 02/13/2020. REASON FOR FOLLOWUP: C difficile colitis. INTERVAL HISTORY: The patient is currently afebrile. The patient is breathing comfortably. Denies having any chest pain or shortness of breath or cough. No nausea, no vomiting. No abdominal pain or any diarrhea. PHYSICAL EXAMINATION: Blood pressure 102/63 with a pulse of 63, temperature 98.1. She is 96% on room air. General description is an elderly female up in the chair in no distress. RESPIRATORY SYSTEM: Unlabored breathing, clear to auscultation anteriorly. HEART: S1, S2. Regular rate and rhythm. ABDOMEN: Soft, no tenderness. LABS: Hemoglobin 8.8, white count 5.6. BUN of 6, creatinine 1.39. DIAGNOSTIC IMPRESSION AND PLAN: Patient admitted to the hospital with diarrhea and hematochezia with concern for Clostridium difficile as the patient outpatient Clostridium difficile was positive and failed oral Flagyl therapy. She responded to vancomycin to continue finish 10-day course of therapy. Continue with supportive care. MMODL / IJN: [id number] /
[2020-02-14] MEDS: VANCOMYCIN ORAL SOLUTION 250 MG/5 ML BOTTLE PO SCH ×4 (06:22→22:40)
[2020-02-14] MEDS: LEVOTHYROXINE 50 MCG TAB PO SCH (06:22)
[2020-02-14] MEDS: SYMBICORT 160-4.5 MCG INHALER INHALATION SCH ×2 (08:26→19:49)
[2020-02-14 08:35] LABS: Basophils % (A) 0 %; Eosinophils # (A) 0.2 k/uL (0-0.7); Eosinophils % (A) 3 %; HCT 27.9 % (34.0-46.0); HGB 8.8 gm/dL (11.4-16.0); Lymphocytes # (A) 0.8 k/uL (1.0-4.8); Lymphocytes % (A) 11 %; MCH 26.9 pg (25.0-35.0); MCHC 31.6 g/dL (31.0-37.0); MCV 85.3 fL (80.0-100.0); Mean Platelet Volume 9.9; Monocytes # (A) 0.5 k/uL (0-1.0); Monocytes % (A) 8 %; Neutrophils # (A) 5.6 k/uL (1.3-7.7); Neutrophils % (A) 77 %; Platelet Count 205 k/uL (150-450); RBC 3.28 m/uL (3.80-5.40); RDW 15.9 % (11.5-15.5); WBC 7.2 k/uL (3.8-10.6)
[2020-02-14 09:01] LABS: Albumin 2.6 g/dL (3.5-5.0); Calcium 8.4 mg/dL (8.4-10.2); Potassium 3.8 mmol/L (3.5-5.1); Total Bilirubin 0.6 mg/dL (0.2-1.3); Total Protein 5.1 g/dL (6.3-8.2)
[2020-02-14] MEDS: PANTOPRAZOLE 40 MG TABLET PO SCH (09:23)
[2020-02-14] MEDS: ASPIRIN 81 MG PO SCH (09:23)
[2020-02-14] MEDS: SUCRALFATE 1 GM TAB PO SCH ×2 (09:23→22:39)
[2020-02-14] MEDS: FUROSEMIDE 40 MG TAB PO SCH (09:23)
[2020-02-14] MEDS: ISOSORBIDE MONONITRATE ER 30 MG TAB.ER.24H PO SCH (09:23)
[2020-02-14] MEDS: CHOLECALCIFEROL 1,000 UNIT TAB PO SCH (09:23)
[2020-02-14] MEDS: POTASSIUM CHLORIDE ER 20 MEQ TAB.ER PO SCH (09:23)
[2020-02-14] MEDS: METOPROLOL TARTRATE 25 MG TAB PO SCH ×2 (09:24→22:39)
[2020-02-14] MEDS: CHERRY FLAVOR 60 ML BOTTLE PO PRN ×2 (11:52→17:13)
[2020-02-14] MEDS: SODIUM FERRIC GLUCONAT-SUCROSE 125 MG in SODIUM CHLORIDE 0.9% 100 ML IVPB SCH (14:56)
[2020-02-14] MEDS: ENOXAPARIN 30 MG/0.3 ML SYRINGE SQ SCH (14:56)
--- NOTE | 2020-02-14 17:23 | P.PN ---
Subjective Progress Note Date: 02/14/20 Alejandra Castellon is an 89-year-old female who presented to [facility], with a chief complaint of diarrhea, patient has a known history of Clostridium difficile colitis in the past, she presented to the office about 4 weeks ago with diarrhea, she was treated with a course of oral Flagyl, at that point her daughter did not want her to be admitted to the hospital, patient improved however she started having diarrhea again about 10 days ago, her daughter requested a second course of Flagyl which was given, a stool sample was sent to [facility] lab on 02/03/2020 and it was positive for Clostridium difficile. Patient condition continued to worsen despite oral Flagyl at home, on the day of admission she started having blood in her stools, at that point her daughter was willing to proceed with admission, she was admitted directly to medical floor she was started on oral vancomycin. On 02/12/2020 patient was seen and examined on the medical floor she is alert and oriented 3 in no apparent distress she had 2 soft bowel movements today otherwise she denies any complaints there is no fever or chills no headache or dizziness no chest pain no shortness of breath no cough no nausea or vomiting no abdominal pain no burning was urination no frequency or urgency and no hematuria On 02/13/2020 patient was seen and examined on the medical floor she is alert and oriented 3 in no apparent distress there is no fever or chills no headache or dizziness no chest pain no shortness of breath no cough no nausea or vomiting no abdominal pain diarrhea is improving no blood in the stools no burning was urination no frequency or urgency and no hematuria On 02/14/2020 patient was seen and examined on the medical floor she is alert slightly confused in no apparent distress, there is no fever or chills no headache or dizziness no chest pain no shortness of breath no cough no nausea or vomiting no abdominal pain no burning was urination no frequency or urgency no hematuria. Patient is still having diarrhea but is improving there is no blood in the stools. Objective - Vital Signs Vital signs: Vital Signs Temp 97.5 F L 02/14/20 15:00 Pulse 67 02/14/20 15:00 Resp 18 02/14/20 15:00 BP 104/55 02/14/20 15:00 Pulse Ox 99 02/14/20 15:00 Intake & Output 02/13/20 02/14/20 02/14/20 18:59 06:59 18:59 Intake Total 100 Balance 100 Intake: IV 100 Sodium Ferric Gluconat- 100 Sucrose 125 mg In Sodium Chloride 0.9% 100 ml @ 100 mls/hr IVPB ONCE ONE Rx#:[id number] Other: Voiding Method Toilet Toilet Diaper Diaper # Voids 2 1 1 # Bowel Movements 1 1 - Exam In general patient is alert and oriented 3 in no apparent distress HEENT head normocephalic and atraumatic Neck is supple no JVD no goiter no lymphadenopathy Chest exam reveals a few scattered rhonchi no wheezing Cardiac exam reveals regular heart sounds S1 and S2 no gallops no murmurs Abdomen is soft nontender no organomegaly with normal bowel sounds Extremity exam reveals no edema no cyanosis or clubbing Neurological examination reveals no gross focal deficit - Labs CBC & Chem 7: 02/14/20 07:02 02/14/20 07:02 Labs: Abnormal Lab Results - Last 24 Hours (Table) 02/14/20 02/14/20 Range/Units 07:02 07:02 RBC 3.28 L (3.80-5.40) m/uL Hgb 8.8 L (11.4-16.0) gm/dL Hct 27.9 L (34.0-46.0) % RDW 15.9 H (11.5-15.5) % Lymphocytes # 0.8 L (1.0-4.8) k/uL Sodium 135 L (137-145) mmol/L Creatinine 1.57 H (0.52-1.04) mg/dL Total Protein 5.1 L (6.3-8.2) g/dL Albumin 2.6 L (3.5-5.0) g/dL Assessment and Plan Plan: 1. Clostridium difficile colitis, patient will be started on oral vancomycin, will monitor symptoms closely. 2. Hypokalemia, likely related to diarrhea, will replace potassium as needed 3. Chronic kidney disease stage III 4. Underlying history of coronary artery disease stable at this time 5. Underlying history of hypothyroidism 6. Underlying history of congestive heart failure 7. Underlying history of degenerative disc disease. 8. Underlying history of dementia 9. underlying history of depression 10. Underlying history of vitamin D deficiency. 11. Anemia, will check iron level, vitamin B12 and folate level, and replace as needed. Patient has evidence of iron deficiency she is receiving IV iron. 12. Severe malnutrition with decreased albumin to 2.4 dietitian consultation initiated At this time patient was started on oral vancomycin, Will replace potassium and check blood test daily Further treatment will depend on clinical response For DVT prophylaxis we will use Lovenox 30 mg subcu once daily For GI prophylaxis patient is on proton X and Carafate Possible discharge to home tomorrow
--- NOTE | 2020-02-14 18:02 | P.PN ---
Subjective Progress Note Date: 02/14/20 Principal diagnosis: Baseline stable COPD Chronic hypoxic respiratory failure C. difficile colitis Electrolyte imbalance with hypokalemia History of coronary artery disease hypothyroidism congestive heart failure History of baseline dementia and Alzheimer's disease 02/14/2020, patient seen jackie examined during the rounds labs reviewed medications reviewed overall respiratory status remains stable denies any cough or sputum production 02/13/2020, patient seen eval examined overall respiratory status remains stable remains off of oxygen denies any cough or sputum production, reviewed medications reviewed 02/12/2020, patient seen evjose examined during the rounds labs reviewed medications reviewed has been doing well in terms of respiratory standpoint, patient now off of oxygen breathing comfortably, remains afebrile hemodynamic status stable oxygen saturation 94% on room air, This is a 89-year-old female with prior history of diarrhea as well as history of C. difficile colitis in the past, he shouldn't was admitted from the office with history of ongoing diarrhea patient has a outpatient course of Flagyl without any significant relief, she has a history of COPD has been on supplemental oxygen denies any chest pain shortness of breath, denies any cough or sputum production Objective - Vital Signs Vital signs: Vital Signs Temp 97.5 F L 02/14/20 15:00 Pulse 67 02/14/20 15:00 Resp 18 02/14/20 15:00 BP 104/55 02/14/20 15:00 Pulse Ox 99 02/14/20 15:00 Intake & Output 02/13/20 02/14/20 02/14/20 18:59 06:59 18:59 Intake Total 100 Balance 100 Intake: IV 100 Sodium Ferric Gluconat- 100 Sucrose 125 mg In Sodium Chloride 0.9% 100 ml @ 100 mls/hr IVPB ONCE ONE Rx#:[id number] Other: Voiding Method Toilet Toilet Diaper Diaper # Voids 2 1 1 # Bowel Movements 1 1 - Exam - Constitutional General appearance: average body habitus, cooperative, disheveled - EENT Ears: bilateral: normal - Neck Neck: normal ROM Carotids: bilateral: upstroke normal Thyroid: bilateral: normal size - Respiratory Respiratory: bilateral: diminished, negative: dullness, rales, rhonchi, wheezin g, prolonged expiration - Cardiovascular Rhythm: regular Heart sounds: normal: S1, S2 - Gastrointestinal General gastrointestinal: distended, normal bowel sounds, soft - Neurologic Neurologic: CNII-XII intact - Musculoskeletal Musculoskeletal: gait normal, generalized weakness, strength equal bilaterally - Psychiatric Psychiatric: A&O x's 3, appropriate affect, intact judgment & insight - Labs CBC & Chem 7: 02/14/20 07:02 02/14/20 07:02 Labs: Abnormal Lab Results - Last 24 Hours (Table) 02/14/20 02/14/20 Range/Units 07:02 07:02 RBC 3.28 L (3.80-5.40) m/uL Hgb 8.8 L (11.4-16.0) gm/dL Hct 27.9 L (34.0-46.0) % RDW 15.9 H (11.5-15.5) % Lymphocytes # 0.8 L (1.0-4.8) k/uL Sodium 135 L (137-145) mmol/L Creatinine 1.57 H (0.52-1.04) mg/dL Total Protein 5.1 L (6.3-8.2) g/dL Albumin 2.6 L (3.5-5.0) g/dL Assessment and Plan Assessment: Baseline stable COPD Chronic hypoxic respiratory failure, oxygenation is much better now at room air 94% C. difficile colitis Electrolyte imbalance with hypokalemia History of coronary artery disease hypothyroidism congestive heart failure History of baseline dementia and thymus disease Plan: Patient COPD is fairly stable and continue supplemental oxygen as needed, continue current supportive care with therapy with oral vancomycin, will avoid IV steroids as well as antibiotics as best as possible continue supportive care further recommendations pending plan of care as per clinical response of the patient Time with Patient: Greater than 30
--- NOTE | 2020-02-14 18:54 | PN ---
PROGRESS NOTE DATE OF SERVICE: 02/14/2020 REASON FOR FOLLOWUP: Diarrhea and a question of C difficile colitis. INTERVAL HISTORY: The patient is currently afebrile. The patient is breathing comfortably. The patient denies having any chest pain or shortness of breath or cough. No nausea, no vomiting, no abdominal pain or diarrhea. PHYSICAL EXAMINATION: Blood pressure 104/55 with a pulse of 67, temperature 97.5. She is 99% on 2 L nasal cannula. General description is an elderly female up in the chair in no distress. RESPIRATORY SYSTEM: Unlabored breathing. Clear to auscultation anteriorly. HEART: S1, S2. Regular rate and rhythm. ABDOMEN: Soft. No tenderness. LABS: Hemoglobin 8.8, white count 7.2, BUN of 8, creatinine 1.57. DIAGNOSTIC IMPRESSION AND PLAN: Patient admitted to hospital with diarrhea and hematochezia. Outpatient C difficile was positive, failing outpatient oral Flagyl. She did well on oral vancomycin; that is to be continued to finish a 10-day course of therapy. Continue with supportive care. MMODL / IJN: [id number] /
[2020-02-14] MEDS: CITALOPRAM HYDROBROMIDE 20 MG TAB PO SCH (22:39)
[2020-02-14] MEDS: FUROSEMIDE 20 MG TAB PO SCH (22:39)
[2020-02-14] MEDS: DONEPEZIL 5 MG TAB PO SCH (22:39)
[2020-02-14] MEDS: ATORVASTATIN 10 MG TAB PO SCH (22:39)
[2020-02-14] MEDS: MONTELUKAST 10 MG TAB PO SCH (22:39)
[2020-02-15] MEDS: VANCOMYCIN ORAL SOLUTION 250 MG/5 ML BOTTLE PO SCH ×2 (05:29→11:02)
[2020-02-15] MEDS: LEVOTHYROXINE 50 MCG TAB PO SCH (05:30)
[2020-02-15] MEDS: SYMBICORT 160-4.5 MCG INHALER INHALATION SCH (08:08)
[2020-02-15 08:16] VITALS: BP 100/62; PULSE 73; RESP 17; TEMP 97.7
[2020-02-15] MEDS: POTASSIUM CHLORIDE ER 20 MEQ TAB.ER PO SCH (08:25)
[2020-02-15] MEDS: PANTOPRAZOLE 40 MG TABLET PO SCH (08:25)
[2020-02-15] MEDS: ASPIRIN 81 MG PO SCH (08:25)
[2020-02-15] MEDS: ISOSORBIDE MONONITRATE ER 30 MG TAB.ER.24H PO SCH (08:25)
[2020-02-15] MEDS: METOPROLOL TARTRATE 25 MG TAB PO SCH (08:25)
[2020-02-15] MEDS: SUCRALFATE 1 GM TAB PO SCH (08:25)
[2020-02-15] MEDS: CHOLECALCIFEROL 1,000 UNIT TAB PO SCH (08:25)
[2020-02-15] MEDS: FUROSEMIDE 40 MG TAB PO SCH (08:25)
[2020-02-15] MEDS: SODIUM FERRIC GLUCONAT-SUCROSE 125 MG in SODIUM CHLORIDE 0.9% 100 ML IVPB SCH (09:56)
--- NOTE | 2020-02-15 10:24 | P.DS ---
Providers Date of admission: 02/10/20 16:05 Expected date of discharge: 02/15/20 Attending physician: Flora Pastrana Consults: 02/11/20 14:15 Consult Physician Routine Consulting Provider: Shira Jeffrey Consult Reason/Comments: c. diff Do you want consulting provider notified?: Yes 02/12/20 12:22 Consult Physician Routine Consulting Provider: Ricardo Mixon Consult Reason/Comments: COPD Do you want consulting provider notified?: Already Contacted Primary care physician: [facility] Course: Diagnosis on discharge: 1. Clostridium difficile colitis, patient will be started on oral vancomycin, will monitor symptoms closely. 2. Hypokalemia, likely related to diarrhea, will replace potassium as needed 3. Chronic kidney disease stage III 4. Underlying history of coronary artery disease stable at this time 5. Underlying history of hypothyroidism 6. Underlying history of congestive heart failure 7. Underlying history of degenerative disc disease. 8. Underlying history of dementia 9. underlying history of depression 10. Underlying history of vitamin D deficiency. 11. Anemia, will check iron level, vitamin B12 and folate level, and replace as needed. Patient has evidence of iron deficiency she is receiving IV iron. 12. Severe malnutrition with decreased albumin to 2.4 dietitian consultation initiated Hospital course: Alejandra Castellon is an 89-year-old female who presented to [facility], with a chief complaint of diarrhea, patient has a known history of Clostridium difficile colitis in the past, she presented to the office about 4 weeks ago with diarrhea, she was treated with a course of oral Flagyl, at that point her daughter did not want her to be admitted to the hospital, patient improved however she started having diarrhea again about 10 days ago, her daughter requested a second course of Flagyl which was given, a stool sample was sent to [facility] lab on 02/03/2020 and it was positive for Clostridium difficile. Patient condition continued to worsen despite oral Flagyl at home, on the day of admission she started having blood in her stools, at that point her daughter was willing to proceed with admission, she was admitted directly to medical floor she was started on oral vancomycin. On 02/12/2020 patient was seen and examined on the medical floor she is alert and oriented 3 in no apparent distress she had 2 soft bowel movements today otherwise she denies any complaints there is no fever or chills no headache or dizziness no chest pain no shortness of breath no cough no nausea or vomiting no abdominal pain no burning was urination no frequency or urgency and no hematuria On 02/13/2020 patient was seen and examined on the medical floor she is alert and oriented 3 in no apparent distress there is no fever or chills no headache or dizziness no chest pain no shortness of breath no cough no nausea or vomiting no abdominal pain diarrhea is improving no blood in the stools no burning was urination no frequency or urgency and no hematuria On 02/14/2020 patient was seen and examined on the medical floor she is alert slightly confused in no apparent distress, there is no fever or chills no headache or dizziness no chest pain no shortness of breath no cough no nausea or vomiting no abdominal pain no burning was urination no frequency or urgency no hematuria. Patient is still having diarrhea but is improving there is no blood in the stools. On 02/15/2020 patient was seen and examined on the medical floor she is alert slightly confused in no apparent distress there is no fever or chills no headache or dizziness no chest pain no shortness of breath no cough no nausea or vomiting no abdominal pain no burning was urination no frequency or urgency and no hematuria, diarrhea has improved significantly patient had 1 bowel movement today which is semi-formed. Patient will be discharged home today she will be given a prescription for oral vancomycin for 6 more days, she will also be given a prescription for Symbicort inhaler, and ferrous sulfate 325 mg 1 daily, she will be followed in our office within 1 week for further evaluation and treatment Plan - Discharge Summary Discharge Rx Participant: No New Discharge Prescriptions: New Budesonide-Formot 160-4.5 Mcg [Symbicort 160-4.5 Mcg Inhaler] 1 puff INHALATION RT-BID puff Vancomycin Oral Solution 250 mg PO Q6HR ml Continue Nitroglycerin Sl Tabs [Nitrostat] 0.4 mg SUBLINGUAL Q5M PRN PRN Reason: Chest Pain Budesonide [Pulmicort] 0.5 mg INHALATION RT-BID Potassium Chloride [Klor-Con 20] 20 meq PO DAILY Montelukast [Singulair] 10 mg PO HS Donepezil HCl [Aricept] 5 mg PO HS Omalizumab [Xolair] 150 mg IM Q30D Isosorbide Mononitrate ER [Imdur] 30 mg PO DAILY Levothyroxine Sodium [Synthroid] 50 mcg PO DAILY Sucralfate [Carafate] 1 gm PO BID Pantoprazole [Protonix] 40 mg PO AC-BRKFST #30 tablet. Metoprolol Tartrate [Lopressor] 25 mg PO BID Simvastatin [Zocor] 20 mg PO HS Aspirin [Children's Aspirin] 81 mg PO DAILY Ipratropium-Albuterol Nebulize [Duoneb 0.5 mg-3 mg/3 ml Soln] 3 ml INHALATION RT-QID ampul.neb Cholecalciferol (Vitamin D3) [Vitamin D3] 2,000 unit PO DAILY Furosemide [Lasix] 40 mg PO DAILY Citalopram Hydrobromide [CeleXA] 20 mg PO HS Furosemide [Lasix] 20 mg PO HS Discharge Medication List Budesonide [Pulmicort] 0.5 mg INHALATION RT-BID 10/01/14 [History] Donepezil HCl [Aricept] 5 mg PO HS 10/01/14 [History] Montelukast [Singulair] 10 mg PO HS 10/01/14 [History] Nitroglycerin Sl Tabs [Nitrostat] 0.4 mg SUBLINGUAL Q5M PRN 10/01/14 [History] Omalizumab [Xolair] 150 mg IM Q30D 10/01/14 [History] Potassium Chloride [Klor-Con 20] 20 meq PO DAILY 10/01/14 [History] Isosorbide Mononitrate ER [Imdur] 30 mg PO DAILY 01/30/16 [History] Levothyroxine Sodium [Synthroid] 50 mcg PO DAILY 01/30/16 [History] Sucralfate [Carafate] 1 gm PO BID 01/30/16 [History] Pantoprazole [Protonix] 40 mg PO AC-BRKFST #30 tablet. 02/01/16 [Rx] Aspirin [Children's Aspirin] 81 mg PO DAILY 12/01/17 [History] Metoprolol Tartrate [Lopressor] 25 mg PO BID 12/01/17 [History] Simvastatin [Zocor] 20 mg PO HS 12/01/17 [History] Ipratropium-Albuterol Nebulize [Duoneb 0.5 mg-3 mg/3 ml Soln] 3 ml INHALATION RT-QID ampul.neb 12/07/17 [Rx] Cholecalciferol (Vitamin D3) [Vitamin D3] 2,000 unit PO DAILY 06/08/18 [History] Furosemide [Lasix] 40 mg PO DAILY 06/08/18 [History] Citalopram Hydrobromide [CeleXA] 20 mg PO HS 02/10/20 [History] Furosemide [Lasix] 20 mg PO HS 02/10/20 [History] Budesonide-Formot 160-4.5 Mcg [Symbicort 160-4.5 Mcg Inhaler] 1 puff INHALATION RT-BID puff 02/15/20 [Rx] Vancomycin Oral Solution 250 mg PO Q6HR ml 02/15/20 [Rx]
[2020-02-15] MEDS: CHERRY FLAVOR 60 ML BOTTLE PO PRN (11:02)
--- NOTE | 2020-02-15 14:56 | P.PN ---
Subjective Progress Note Date: 02/15/20 Principal diagnosis: Baseline stable COPD Chronic hypoxic respiratory failure C. difficile colitis Electrolyte imbalance with hypokalemia History of coronary artery disease hypothyroidism congestive heart failure History of baseline dementia and Alzheimer's disease 02/14/2020, patient seen jackie examined during the rounds labs reviewed medications reviewed overall respiratory status remains stable denies any cough or sputum production 02/13/2020, patient seen eval examined overall respiratory status remains stable remains off of oxygen denies any cough or sputum production, reviewed medications reviewed 02/12/2020, patient seen evjose examined during the rounds labs reviewed medications reviewed has been doing well in terms of respiratory standpoint, patient now off of oxygen breathing comfortably, remains afebrile hemodynamic status stable oxygen saturation 94% on room air, This is a 89-year-old female with prior history of diarrhea as well as history of C. difficile colitis in the past, he shouldn't was admitted from the office with history of ongoing diarrhea patient has a outpatient course of Flagyl without any significant relief, she has a history of COPD has been on supplemental oxygen denies any chest pain shortness of breath, denies any cough or sputum production Objective - Vital Signs Vital signs: Vital Signs Temp 97.7 F 02/15/20 07:00 Pulse 73 02/15/20 07:00 Resp 17 02/15/20 07:00 BP 100/62 02/15/20 07:00 Pulse Ox 97 02/15/20 07:00 Intake & Output 02/14/20 02/15/20 02/15/20 18:59 06:59 18:59 Weight 56.5 kg Other: Voiding Method Toilet Toilet Diaper Diaper Incontinent # Voids 1 1 1 # Bowel Movements 1 2 - Exam - Constitutional General appearance: average body habitus, cooperative, disheveled - EENT Ears: bilateral: normal - Neck Neck: normal ROM Carotids: bilateral: upstroke normal Thyroid: bilateral: normal size - Respiratory Respiratory: bilateral: diminished, negative: dullness, rales, rhonchi, wheezing, prolonged expiration - Cardiovascular Rhythm: regular Heart sounds: normal: S1, S2 - Gastrointestinal General gastrointestinal: distended, normal bowel sounds, soft - Neurologic Neurologic: CNII-XII intact - Musculoskeletal Musculoskeletal: gait normal, generalized weakness, strength equal bilaterally - Psychiatric Psychiatric: A&O x's 3, appropriate affect, intact judgment & insight - Labs CBC & Chem 7: 02/14/20 07:02 02/14/20 07:02 Assessment and Plan Assessment: Baseline stable COPD Chronic hypoxic respiratory failure, oxygenation is much better now at room air 94% C. difficile colitis Electrolyte imbalance with hypokalemia History of coronary artery disease hypothyroidism congestive heart failure History of baseline dementia and thymus disease Plan: Patient COPD is fairly stable and continue supplemental oxygen as needed, continue current supportive care with therapy with oral vancomycin, will avoid IV steroids as well as antibiotics as best as possible continue supportive care further recommendations pending plan of care as per clinical response of the patient Time with Patient: Greater than 30
--- NOTE | 2020-02-16 16:51 | P.PN ---
Progress Note - Text Progress Note Date: 02/15/20 REASON FOR FOLLOWUP: Diarrhea and a question of C difficile colitis. INTERVAL HISTORY: The patient remains to be afebrile. The patient is breathing comfortably. The patient denies having any chest pain or shortness of breath or cough. No nausea, no vomiting, no abdominal pain and denies diarrhea. PHYSICAL EXAMINATION: Blood pressure 100/62 with a pulse of 73, temperature 97.5. She is 99% on 2 L nasal cannula. General description is an elderly female up in the chair in no distress. RESPIRATORY SYSTEM: Unlabored breathing. Clear to auscultation anteriorly. HEART: S1, S2. Regular rate and rhythm. ABDOMEN: Soft. No tenderness. LABS: None obtained today DIAGNOSTIC IMPRESSION AND PLAN: Patient admitted to hospital with diarrhea and hematochezia. Outpatient C difficile was positive, failing outpatient oral Flagyl. She did well on oral vancomycin; the patient Will continue vancomycin 250 mg every 6 hours to finish a ten-day course of therapy and close out patient follow-up.
== END 2020-02-15 14:40 | disposition home health service (06) | DRG 371 ==
LOC: 4SSUR 16:05
PROVIDERS: ADMIT Internal Medicine; ATTEND Internal Medicine
DX: A04.72 Enterocolitis due to Clostridium difficile, not specified as recurrent (principal); E43 Unspecified severe protein-calorie malnutrition; I13.0 Hypertensive heart and chronic kidney disease with heart failure and stage 1 through stage 4 chronic kidney disease, or unspecified chronic kidney disease; J96.11 Chronic respiratory failure with hypoxia; F02.80 Dementia in other diseases classified elsewhere, unspecified severity, without behavioral disturbance, psychotic disturbance, mood disturbance, and anxiety; G30.9 Alzheimer's disease, unspecified; I50.9 Heart failure, unspecified; N18.3 Chronic kidney disease, stage 3 (moderate); D50.9 Iron deficiency anemia, unspecified; E03.9 Hypothyroidism, unspecified; E78.5 Hyperlipidemia, unspecified; E87.6 Hypokalemia; F32.9 Major depressive disorder, single episode, unspecified; I25.10 Atherosclerotic heart disease of native coronary artery without angina pectoris; I25.2 Old myocardial infarction; J44.9 Chronic obstructive pulmonary disease, unspecified; E55.9 Vitamin D deficiency, unspecified; M19.90 Unspecified osteoarthritis, unspecified site; I71.9 Aortic aneurysm of unspecified site, without rupture; Z11.59 Encounter for screening for other viral diseases; E32.9 Disease of thymus, unspecified; Z68.23 Body mass index [BMI] 23.0-23.9, adult; Z79.82 Long term (current) use of aspirin; Z79.890 Hormone replacement therapy; Z79.899 Other long term (current) drug therapy; Z87.891 Personal history of nicotine dependence; Z95.5 Presence of coronary angioplasty implant and graft; Z86.19 Personal history of other infectious and parasitic diseases; Z98.42 Cataract extraction status, left eye; Z98.41 Cataract extraction status, right eye; Z88.1 Allergy status to other antibiotic agents; Z82.5 Family history of asthma and other chronic lower respiratory diseases; Z82.0 Family history of epilepsy and other diseases of the nervous system
CPT/HCPCS: 80053; 81001; 82607; 82746; 83540; 83550; 84132; 85025; 87324; 87635; 94640

== ENCOUNTER 2020-02-27 09:50 | Inpatient (IN) | payer MEDICARE, BC ==
[2020-02-27] MEDS ORDERED: SODIUM CHLORIDE 0.9% 1,000 ML IV STA ×2 (10:04)
--- NOTE | 2020-02-27 10:08 | ED ---
General Adult HPI - General Chief complaint: Recheck/Abnormal Lab/Rx Stated complaint: Dehydration Time Seen by Provider: 02/27/20 09:50 Source: patient, EMS, RN notes reviewed, old records reviewed Mode of arrival: EMS Limitations: no limitations - History of Present Illness Initial comments: This is a 81-year-old female history of multiple medical issues including dementia who is brought in by EMS after family called due to fear of hydration. Patient had recently been treated for C. diff at home with oral medications diarrhea has stopped she is also had decreased oral intake. No reports of any trauma no fevers chills nausea vomiting sweats or other symptoms. Patient was noted have a blood pressure of initially 92/44 in a second one of 88/ per paramedics. No reports of lightheadedness or dizziness. - Related Data Home Medications Medication Instructions Recorded Confirmed Budesonide [Pulmicort] 0.5 mg INHALATION RT-BID 10/01/14 02/10/20 Donepezil HCl [Aricept] 5 mg PO HS 10/01/14 02/10/20 Montelukast [Singulair] 10 mg PO HS 10/01/14 02/10/20 Nitroglycerin Sl Tabs [Nitrostat] 0.4 mg SUBLINGUAL Q5M PRN 10/01/14 02/10/20 Omalizumab [Xolair] 150 mg IM Q30D 10/01/14 02/10/20 Potassium Chloride [Klor-Con 20] 20 meq PO DAILY 10/01/14 02/10/20 Isosorbide Mononitrate ER [Imdur] 30 mg PO DAILY 01/30/16 02/10/20 Levothyroxine Sodium [Synthroid] 50 mcg PO DAILY 01/30/16 02/10/20 Sucralfate [Carafate] 1 gm PO BID 01/30/16 02/10/20 Aspirin [Children's Aspirin] 81 mg PO DAILY 12/01/17 02/10/20 Metoprolol Tartrate [Lopressor] 25 mg PO BID 12/01/17 02/10/20 Simvastatin [Zocor] 20 mg PO HS 12/01/17 02/10/20 Cholecalciferol (Vitamin D3) 2,000 unit PO DAILY 06/08/18 02/10/20 [Vitamin D3] Furosemide [Lasix] 40 mg PO DAILY 06/08/18 02/10/20 Citalopram Hydrobromide [CeleXA] 20 mg PO HS 02/10/20 02/10/20 Furosemide [Lasix] 20 mg PO HS 02/10/20 02/10/20 Previous Rx's Medication Instructions Recorded Pantoprazole [Protonix] 40 mg PO AC-BRKFST #30 tablet. 02/01/16 Ipratropium-Albuterol Nebulize 3 ml INHALATION RT-QID ampul.neb 12/07/17 [Duoneb 0.5 mg-3 mg/3 ml Soln] Budesonide-Formot 160-4.5 Mcg 1 puff INHALATION RT-BID puff 02/15/20 [Symbicort 160-4.5 Mcg Inhaler] Vancomycin Oral Solution 250 mg PO Q6HR ml 02/15/20 Allergies Allergy/AdvReac Type Severity Reaction Status Date / Time cephalexin monohydrate Allergy Colitis Verified 02/10/20 19:00 [From Trunk Show] Review of Systems ROS Statement: Those systems with pertinent positive or pertinent negative responses have been documented in the HPI. ROS Other: All systems not noted in ROS Statement are negative. Past Medical History Past Medical History: Asthma, Coronary Artery Disease (CAD), Chest Pain / Angin a, COPD, Dementia, Hyperlipidemia, Hypertension, Myocardial Infarction ([place]), Osteoarthritis (OA), Thyroid Disorder Additional Past Medical History / Comment(s): [place] in 1998, 2 cardiac stents in 1998, shingles, collitis Last Myocardial Infarction Date:: 1998 History of Any Multi-Drug Resistant Organisms: C-DIFF Date of last positivie culture/infection: 02/03/20 MDRO Source:: stool Past Surgical History: Heart Catheterization With Stent Additional Past Surgical History / Comment(s): B\L cataracts removed 2013, aortic aneurysm clipped 2005, colonoscopy Past Anesthesia/Blood Transfusion Reactions: No Reported Reaction Date of Last Stent Placement:: 1998 Past Psychological History: Depression Smoking Status: Former smoker Past Alcohol Use History: None Reported Past Drug Use History: None Reported - Past Family History Father Additional Family Medical History / Comment(s): emphazema Mother Additional Family Medical History / Comment(s): Alzhiemiers General Exam - General Exam Comments Initial Comments: This is a well-developed sec appearing female who is awake alert no acute distress Limitations: no limitations General appearance: alert, in no apparent distress Head exam: Present: atraumatic, normocephalic, normal inspection Eye exam: Present: normal appearance, PERRL, EOMI. Absent: scleral icterus, conjunctival injection, periorbital swelling ENT exam: Present: mucous membranes dry Neck exam: Present: normal inspection. Absent: tenderness, meningismus, lymphadenopathy Respiratory exam: Present: normal lung sounds bilaterally. Absent: respiratory distress, wheezes, rales, rhonchi, stridor Cardiovascular Exam: Present: regular rate, normal rhythm, normal heart sounds. Absent: systolic murmur, diastolic murmur, rubs, gallop, clicks GI/Abdominal exam: Present: soft, normal bowel sounds. Absent: distended, tenderness, guarding, rebound, rigid Rectal exam: Present: normal inspection, heme (+) stool (Some black with brown) Extremities exam: Present: normal inspection, full ROM, normal capillary refill. Absent: tenderness, pedal edema, joint swelling, calf tenderness Back exam: Present: normal inspection Neurological exam: Present: alert, oriented X3, CN II-XII intact Psychiatric exam: Present: normal affect, normal mood Skin exam: Present: warm, dry, intact, normal color. Absent: rash Course Vital Signs 02/27/20 02/27/20 09:52 11:03 Temperature 98.0 F Pulse Rate 74 79 Respiratory 16 16 Rate Blood Pressure 95/49 116/69 O2 Sat by Pulse 96 96 Oximetry - Reevaluation(s) Reevaluation #1: 02/27/20 12:00 I did discuss the initial findings the patient's daughter was present patient does have anemia she did recently have a seal. Her normal hemoglobin level is an attending region per the daughter. Reevaluation #2: 02/27/20 12:01 Patient was noted be hypotensive she did respond to fluids. Medical Decision Making - Medical Decision Making I did discuss findings the patient her daughter and with Dr. Pastrana. Patient be admitted with GI consultation she does demonstrate evidence of GI bleeding she did have heme positive stool upon rectal exam/Hemoccult testing. - Lab Data Result diagrams: 02/27/20 10:05 02/27/20 10:05 Lab Results 02/27/20 02/27/20 02/27/20 Range/Units 10:05 10:05 10:05 WBC 8.0 (3.8-10.6) k/uL RBC 2.48 L (3.80-5.40) m/uL Hgb 6.8 L* D (11.4-16.0) gm/dL Hct 21.4 L (34.0-46.0) % MCV 86.5 (80.0-100.0) fL MCH 27.3 (25.0-35.0) pg MCHC 31.6 (31.0-37.0) g/dL RDW 16.9 H (11.5-15.5) % Plt Count 205 (150-450) k/uL Neutrophils % 83 % Lymphocytes % 9 % Monocytes % 7 % Eosinophils % 1 % Basophils % 0 % Neutrophils # 6.6 (1.3-7.7) k/uL Lymphocytes # 0.7 L (1.0-4.8) k/uL Monocytes # 0.5 (0-1.0) k/uL Eosinophils # 0.0 (0-0.7) k/uL Basophils # 0.0 (0-0.2) k/uL Anisocytosis Slight Sodium 135 L (137-145) mmol/L Potassium 3.8 (3.5-5.1) mmol/L Chloride 100 (98-107) mmol/L Carbon Dioxide 30 (22-30) mmol/L Anion Gap 5 mmol/L BUN 22 H (7-17) mg/dL Creatinine 1.86 H (0.52-1.04) mg/dL Est GFR (CKD-EPI)AfAm 28 (>60 ml/min/1.73 sqM) Est GFR (CKD-EPI)NonAf 24 (>60 ml/min/1.73 sqM) Glucose 98 (74-99) mg/dL Calcium 8.1 L (8.4-10.2) mg/dL Magnesium 2.2 (1.6-2.3) mg/dL Total Bilirubin 0.7 (0.2-1.3) mg/dL AST 23 (14-36) U/L ALT 8 (4-34) U/L Alkaline Phosphatase 65 (38-126) U/L Creatine Kinase <20 L (30-135) U/L Troponin I <0.012 (0.000-0.034) ng/mL Total Protein 5.1 L (6.3-8.2) g/dL Albumin 2.6 L (3.5-5.0) g/dL - Radiology Data Radiology results: report reviewed (I did review the imaging and report no acute findings), image reviewed Critical Care Time Critical Care Time: Yes Total Critical Care Time: 31 Critical Care Time: 31 minutes of critical care time which includes initial presentation with history physical labs x-rays review of old charting was available multiple reevaluation the patient discussed with the patient and family as well as the admitting physician admission orders and documentation of the above Disposition Clinical Impression: GI bleed, Anemia, Hypotensive episode Disposition: ADMITTED IP TO THIS [facility] Condition: Fair Referrals: Flora Pastrana MD [Primary Care Provider] - 1-2 days
[2020-02-27 10:32] LABS: ALT 8 U/L (4-34); AST 23 U/L (14-36); African American GFR (CKD) 28 (>60 ml/min/1.73 sqM); Albumin 2.6 g/dL (3.5-5.0); Alkaline Phosphatase 65 U/L (38-126); Anion Gap 5 mmol/L; Blood Urea Nitrogen 22 mg/dL (7-17); Calcium 8.1 mg/dL (8.4-10.2); Carbon Dioxide 30 mmol/L (22-30); Chloride 100 mmol/L (98-107); Creatine Kinase <20 U/L (30-135); Glucose 98 mg/dL (74-99); Magnesium 2.2 mg/dL (1.6-2.3); Non-African American GFR(CKD) 24 (>60 ml/min/1.73 sqM); Potassium 3.8 mmol/L (3.5-5.1); Sodium 135 mmol/L (137-145); Total Bilirubin 0.7 mg/dL (0.2-1.3); Total Protein 5.1 g/dL (6.3-8.2)
[2020-02-27 10:50] LABS: Anisocytosis Slight; Basophils % (A) 0 %; Eosinophils % (A) 1 %; HCT 21.4 % (34.0-46.0); Lymphocytes # (A) 0.7 k/uL (1.0-4.8); Lymphocytes % (A) 9 %; MCH 27.3 pg (25.0-35.0); MCHC 31.6 g/dL (31.0-37.0); MCV 86.5 fL (80.0-100.0); Mean Platelet Volume 10.5; Monocytes # (A) 0.5 k/uL (0-1.0); Monocytes % (A) 7 %; Neutrophils # (A) 6.6 k/uL (1.3-7.7); Neutrophils % (A) 83 %; Platelet Count 205 k/uL (150-450); RBC 2.48 m/uL (3.80-5.40); RDW 16.9 % (11.5-15.5)
--- NOTE | 2020-02-27 10:51 | XR ---
EXAMINATION TYPE: XR chest 2V DATE OF EXAM: 02/27/2020 COMPARISON: 08/12/2019 HISTORY: Weakness TECHNIQUE: Frontal and lateral views of the chest are obtained. FINDINGS: Pleural plaquing of the right midlung. There is no focal air space opacity, pleural effusio n, or pneumothorax seen. The cardiac silhouette size is again enlarged. Minimal degenerative change of the spine and diffuse osseous demineralization. IMPRESSION: Chronic changes with no acute cardiopulmonary process.
[2020-02-27 11:00] LABS: HGB 6.8 gm/dL (11.4-16.0)
[2020-02-27] MEDS ORDERED: SODIUM CHLORIDE 0.9% 500 ML 500 ML IV STA (11:47)
[2020-02-27] MEDS ORDERED: NALOXONE 0.4 MG/ML 1 ML VIAL IV PRN (12:04)
[2020-02-27] MEDS ORDERED: NITROGLYCERIN SL TABS 0.4 MG TAB SUBLINGUAL PRN (12:09)
[2020-02-27] MEDS ORDERED: OMALIZUMAB 150 MG IM SCH (12:15)
[2020-02-27] MEDS ORDERED: OMALIZUMAB 150 MG SQ SCH (12:45)
--- NOTE | 2020-02-27 13:36 | P.HPIM ---
History of Present Illness H&P Date: 02/27/20 Alejandra Castellon is an 89-year-old female who presented to [facility] emergency room with a chief complaint of generalized weakness, and poor oral intake, she was evaluated in the emergency room, she was afebrile, blood pressure was low at 95/49 she had evidence of dehydration with elevated BUN and creatinine above her baseline, she also had evidence of anemia with hemoglobin of 6.8. Rectal exam revealed heme positive stools. 1 unit of red blood cell transfusion was ordered patient will be admitted to medical floor gastroenterology consultation was requested. Patient has a baseline of dementia with mild confusion, her daughter is in the room, there is no other symptoms, there is no fever or chills no headache or dizziness no chest pain no shortness of breath no cough no nausea or vomiting no abdominal pain, she has soft stools but no augustina diarrhea, no burning with urination no frequency or urgency and no hematuria. Patient was admitted to the hospital recently with an episode of Clostridium difficile colitis, she was discharged on 02/14/2020 she received oral vancomycin during her hospitalization and at home. Patient also had previous episodes of Clostridium difficile colitis in the past. Past Medical History Past Medical History: Asthma, Coronary Artery Disease (CAD), Chest Pain / Angina, COPD, Dementia, Hyperlipidemia, Hypertension, Myocardial Infarction ([place]), Osteoarthritis (OA), Thyroid Disorder Additional Past Medical History / Comment(s): [place] in 1998, 2 cardiac stents in 1998, shingles, collitis Last Myocardial Infarction Date:: 1998 History of Any Multi-Drug Resistant Organisms: C-DIFF Date of last positivie culture/infection: 02/03/20 MDRO Source:: stool Past Surgical History: Heart Catheterization With Stent Additional Past Surgical History / Comment(s): B\L cataracts removed 2013, aortic aneurysm clipped 2005, colonoscopy Past Anesthesia/Blood Transfusion Reactions: No Reported Reaction Date of Last Stent Placement:: 1998 Past Psychological History: Depression Smoking Status: Former smoker Past Alcohol Use History: None Reported Past Drug Use History: None Reported - Past Family History Father Additional Family Medical History / Comment(s): emphazema Mother Additional Family Medical History / Comment(s): Alzhiemiers Medications and Allergies Home Medications Medication Instructions Recorded Confirmed Type Budesonide [Pulmicort] 0.5 mg INHALATION RT-BID 10/01/14 02/27/20 History Donepezil HCl [Aricept] 5 mg PO HS 10/01/14 02/27/20 History Montelukast [Singulair] 10 mg PO HS 10/01/14 02/27/20 History Nitroglycerin Sl Tabs [Nitrostat] 0.4 mg SUBLINGUAL Q5M PRN 10/01/14 02/27/20 History Omalizumab [Xolair] 150 mg SQ Q30D 10/01/14 02/27/20 History Potassium Chloride [Klor-Con 20] 20 meq PO DAILY 10/01/14 02/27/20 History Isosorbide Mononitrate ER [Imdur] 30 mg PO DAILY 01/30/16 02/27/20 History Levothyroxine Sodium [Synthroid] 50 mcg PO DAILY 01/30/16 02/27/20 History Sucralfate [Carafate] 1 gm PO BID 01/30/16 02/27/20 History Pantoprazole [Protonix] 40 mg PO AC-BRKFST #30 tablet. 02/01/16 02/27/20 Rx Aspirin [Children's Aspirin] 81 mg PO DAILY 12/01/17 02/27/20 History Metoprolol Tartrate [Lopressor] 25 mg PO BID 12/01/17 02/27/20 History Simvastatin [Zocor] 20 mg PO HS 12/01/17 02/27/20 History Ipratropium-Albuterol Nebulize 3 ml INHALATION RT-QID ampul.neb 12/07/17 02/27/20 Rx [Duoneb 0.5 mg-3 mg/3 ml Soln] Cholecalciferol (Vitamin D3) 2,000 unit PO DAILY 06/08/18 02/27/20 History [Vitamin D3] Furosemide [Lasix] 40 mg PO DAILY 06/08/18 02/27/20 History Citalopram Hydrobromide [CeleXA] 20 mg PO HS 02/10/20 02/27/20 History Furosemide [Lasix] 20 mg PO HS 02/10/20 02/27/20 History Budesonide-Formot 160-4.5 Mcg 1 puff INHALATION RT-BID puff 02/15/20 02/27/20 Rx [Symbicort 160-4.5 Mcg Inhaler] Vancomycin HCl [Vancocin HCl] 250 mg PO Q6H 02/27/20 02/27/20 History Allergies Allergy/AdvReac Type Severity Reaction Status Date / Time cephalexin monohydrate Allergy Colitis Verified 02/27/20 12:43 [From Keflex] Physical Exam Vitals: Vital Signs Temp Pulse Resp BP Pulse Ox 02/27/20 12:18 78 18 100/40 99 02/27/20 12:00 74 90/30 100 02/27/20 11:30 76 101/47 100 02/27/20 11:16 100 02/27/20 11:03 79 16 116/69 96 02/27/20 09:52 98.0 F 74 16 95/49 96 Intake and Output 02/26/20 02/27/20 02/27/20 22:59 06:59 14:59 Other: Weight 61.235 kg In general patient is alert slightly confused in no apparent distress HEENT head normocephalic and atraumatic Neck is supple no JVD no goiter no lymphadenopathy Chest exam reveals a few scattered crackles bilaterally no wheezing Cardiac exam reveals regular heart sounds S1 and S2 no gallops no murmurs Abdomen is soft nontender no organomegaly with normal bowel sounds Extremity exam reveals no edema no cyanosis or clubbing Neurological examination reveals no gross focal deficit Results CBC & Chem 7: 02/27/20 10:05 02/27/20 10:05 Labs: Abnormal Lab Results - Last 24 Hours (Table) 02/27/20 02/27/20 02/27/20 Range/Units 10:05 10:05 11:45 RBC 2.48 L (3.80-5.40) m/uL Hgb 6.8 L* D (11.4-16.0) gm/dL Hct 21.4 L (34.0-46.0) % RDW 16.9 H (11.5-15.5) % Lymphocytes # 0.7 L (1.0-4.8) k/uL Sodium 135 L (137-145) mmol/L BUN 22 H (7-17) mg/dL Creatinine 1.86 H (0.52-1.04) mg/dL Calcium 8.1 L (8.4-10.2) mg/dL Creatine Kinase <20 L (30-135) U/L Total Protein 5.1 L (6.3-8.2) g/dL Albumin 2.6 L (3.5-5.0) g/dL Stool Occult Blood Positive H (Negative) Crossmatch 02/27/20 Range/Units 12:05 RBC (3.80-5.40) m/uL Hgb (11.4-16.0) gm/dL Hct (34.0-46.0) % RDW (11.5-15.5) % Lymphocytes # (1.0-4.8) k/uL Sodium (137-145) mmol/L BUN (7-17) mg/dL Creatinine (0.52-1.04) mg/dL Calcium (8.4-10.2) mg/dL Creatine Kinase (30-135) U/L Total Protein (6.3-8.2) g/dL Albumin (3.5-5.0) g/dL Stool Occult Blood (Negative) Crossmatch See Detail Assessment and Plan Plan: 1. Anemia, with heme positive stools, 1 unit of red blood cell transfusion was ordered in the emergency room, consultation for gastroenterology was initiated 2. Recent admission with recurrent Clostridium difficile colitis 3. Underlying history of dementia 4. Underlying history of depression maintained on Celexa 5. Underlying history of hypothyroidism 6. Underlying history of asthma At this time patient will be admitted to medical floor, 1 unit of red blood cell transfusion was ordered Patient will be kept on clear liquid diet Gastroenterology consultation was requested Will monitor labs closely
[2020-02-27] MEDS: SODIUM CHLORIDE 0.9% 1,000 ML IV SCH (13:47)
[2020-02-27] MEDS: IPRATROPIUM-ALBUTEROL 3 ML NEB INHALATION SCH ×2 (15:43→19:38)
[2020-02-27] MEDS: SYMBICORT 160-4.5 MCG INHALER INHALATION SCH (19:39)
[2020-02-27] MEDS ORDERED: BUDESONIDE 0.5 MG/2 ML NEBU INHALATION SCH (20:00)
[2020-02-27 21:31] LABS: Anisocytosis Slight; HCT 24.1 % (34.0-46.0); Hypochromasia Slight; MCH 29.6 pg (25.0-35.0); MCHC 33.1 g/dL (31.0-37.0); MCV 89.5 fL (80.0-100.0); Mean Platelet Volume 10.3; Platelet Count 133 k/uL (150-450); RBC 2.69 m/uL (3.80-5.40); RDW 16.5 % (11.5-15.5); WBC 6.7 k/uL (3.8-10.6)
[2020-02-27] MEDS: DONEPEZIL 5 MG TAB PO SCH (21:31)
[2020-02-27] MEDS: CITALOPRAM HYDROBROMIDE 20 MG TAB PO SCH (21:31)
[2020-02-27] MEDS: PANTOPRAZOLE 40 MG/10 ML VIAL IVP SCH (21:31)
[2020-02-27] MEDS: MONTELUKAST 10 MG TAB PO SCH (21:31)
[2020-02-28] MEDS: LEVOTHYROXINE 50 MCG TAB PO SCH (05:39)
[2020-02-28] MEDS: SODIUM CHLORIDE 0.9% 1,000 ML IV SCH ×2 (05:40→16:49)
[2020-02-28 06:28] LABS: Anisocytosis Slight; Basophils % (A) 0 %; Eosinophils % (A) 1 %; HCT 23.3 % (34.0-46.0); HGB 7.4 gm/dL (11.4-16.0); Hypochromasia Slight; Lymphocytes # (A) 0.4 k/uL (1.0-4.8); Lymphocytes % (A) 7 %; MCH 28.2 pg (25.0-35.0); MCHC 31.9 g/dL (31.0-37.0); MCV 88.4 fL (80.0-100.0); Mean Platelet Volume 10.6; Monocytes # (A) 0.4 k/uL (0-1.0); Monocytes % (A) 7 %; Neutrophils # (A) 5.2 k/uL (1.3-7.7); Neutrophils % (A) 84 %; Platelet Count 162 k/uL (150-450); RBC 2.64 m/uL (3.80-5.40); RDW 16.6 % (11.5-15.5); WBC 6.2 k/uL (3.8-10.6)
[2020-02-28 06:40] LABS: Albumin 2.1 g/dL (3.5-5.0); Calcium 7.6 mg/dL (8.4-10.2); Potassium 3.5 mmol/L (3.5-5.1); Total Bilirubin 1.3 mg/dL (0.2-1.3); Total Protein 4.3 g/dL (6.3-8.2)
[2020-02-28] MEDS: IPRATROPIUM-ALBUTEROL 3 ML NEB INHALATION SCH ×4 (08:02→20:15)
[2020-02-28] MEDS: SYMBICORT 160-4.5 MCG INHALER INHALATION SCH ×2 (08:02→20:15)
[2020-02-28] MEDS: PANTOPRAZOLE 40 MG/10 ML VIAL IVP SCH ×2 (08:34→20:38)
[2020-02-28 10:14] LABS: Reticulocyte % 3.3 % (0.5-2.0)
[2020-02-28 11:40] VITALS: BMI 23.4
--- NOTE | 2020-02-28 17:23 | P.PN ---
Subjective Progress Note Date: 02/28/20 Alejandra Castellon is an 89-year-old female who presented to [facility] emergency room with a chief complaint of generalized weakness, and poor oral intake, she was evaluated in the emergency room, she was afebrile, blood pressure was low at 95/49 she had evidence of dehydration with elevated BUN and creatinine above her baseline, she also had evidence of anemia with hemoglobin of 6.8. Rectal exam revealed heme positive stools. 1 unit of red blood cell transfusion was ordered patient will be admitted to medical floor gastroenterology consultation was requested. Patient has a baseline of dementia with mild confusion, her daughter is in the room, there is no other symptoms, there is no fever or chills no headache or dizziness no chest pain no shortness of breath no cough no nausea or vomiting no abdominal pain, she has soft stools but no augustina diarrhea, no burning with urination no frequency or urgency and no hematuria. Patient was admitted to the hospital recently with an episode of Clostridium difficile colitis, she was discharged on 02/14/2020 she received oral vancomycin during her hospitalization and at home. Patient also had previous episodes of Clostridium difficile colitis in the past. On 02/28/2020 patient was seen and examined on the medical floor she is alert c onfused in no apparent distress she received 1 unit of red blood cell transfusion yesterday hemoglobin went up from 6.8-8 and today it's down to 7.4 there is no clinical evidence of bleeding at this time there is no fever or chills no headache or dizziness no chest pain no shortness of breath no cough no nausea or vomiting no abdominal pain no diarrhea no burning with urination no frequency or urgency and no hematuria gastroenterology consult was requested awaiting input Objective - Vital Signs Vital signs: Vital Signs Temp 98.4 F 02/28/20 16:00 Pulse 70 02/28/20 17:10 Resp 19 02/28/20 16:00 BP 111/56 02/28/20 16:00 Pulse Ox 100 02/28/20 17:10 Intake & Output 02/27/20 02/28/20 02/28/20 18:59 06:59 18:59 Intake Total 550 540 880 Balance 550 540 880 Weight 61.235 kg 58.2 kg 58.2 kg Intake: Oral 240 540 880 Blood Product 310 Rc As-1 Unit 310 [id number] Other: Voiding Method Toilet Toilet # Voids 1 - Exam In general patient is alert, confused in no apparent distress, HEENT head normocephalic and atraumatic neck is supple no JVD no goiter no lymphadenopathy Chest exam reveals a few scattered rhonchi no wheezing Cardiac exam reveals regular heart sounds S1 and S2 no gallops or murmurs Abdomen is soft nontender no organomegaly Extremity exam reveals no edema no cyanosis or clubbing Neurological examination reveals no gross focal deficit - Labs CBC & Chem 7: 02/28/20 05:35 02/28/20 05:35 Labs: Abnormal Lab Results - Last 24 Hours (Table) 02/27/20 02/28/20 02/28/20 Range/Units 21:17 05:35 05:35 RBC 2.69 L 2.64 L (3.80-5.40) m/uL Hgb 8.0 L 7.4 L (11.4-16.0) gm/dL Hct 24.1 L 23.3 L (34.0-46.0) % RDW 16.5 H 16.6 H (11.5-15.5) % Plt Count 133 L (150-450) k/uL Lymphocytes # 0.4 L (1.0-4.8) k/uL Retic Count (0.5-2.0) % Chloride 109 H (98-107) mmol/L Creatinine 1.41 H (0.52-1.04) mg/dL Calcium 7.6 L (8.4-10.2) mg/dL Total Protein 4.3 L (6.3-8.2) g/dL Albumin 2.1 L (3.5-5.0) g/dL 02/28/20 Range/Units 05:35 RBC (3.80-5.40) m/uL Hgb (11.4-16.0) gm/dL Hct (34.0-46.0) % RDW (11.5-15.5) % Plt Count (150-450) k/uL Lymphocytes # (1.0-4.8) k/uL Retic Count 3.3 H (0.5-2.0) % Chloride (98-107) mmol/L Creatinine (0.52-1.04) mg/dL Calcium (8.4-10.2) mg/dL Total Protein (6.3-8.2) g/dL Albumin (3.5-5.0) g/dL Assessment and Plan Plan: 1. Anemia, with heme positive stools, 1 unit of red blood cell transfusion was ordered in the emergency room, consultation for gastroenterology was initiated, awaiting input 2. Recent admission with recurrent Clostridium difficile colitis 3. Underlying history of dementia 4. Underlying history of depression maintained on Celexa 5. Underlying history of hypothyroidism 6. Underlying history of asthma At this time patient will be admitted to medical floor, 1 unit of red blood cell transfusion was ordered Patient will be kept on clear liquid diet Gastroenterology consultation was requested Will monitor labs closely
[2020-02-28 17:32] LABS: Folate, Serum 3.4 ng/mL
[2020-02-28 17:43] LABS: % Iron Saturation 5.73 (12.00-45.00); Ferritin 485.6 ng/mL (10.0-291.0)
[2020-02-28] MEDS: MONTELUKAST 10 MG TAB PO SCH (20:38)
[2020-02-28] MEDS: DONEPEZIL 5 MG TAB PO SCH (20:38)
[2020-02-28] MEDS: CITALOPRAM HYDROBROMIDE 20 MG TAB PO SCH (20:38)
[2020-02-29] MEDS: SODIUM CHLORIDE 0.9% 1,000 ML IV SCH ×2 (04:26→15:22)
--- NOTE | 2020-02-29 05:07 | P.CONS ---
History of Present Illness - Reason for Consult Consult date: 02/28/20 Symptomatic anemia Requesting physician: Flora Pastrana - Chief Complaint Low blood pressure, near syncope - History of Present Illness 89-year-old female with a medical history significant for coronary artery disease, COPD, hypertension, Clostridium difficile colitis dementia and osteoarthritis who presented to the hospital due to complaints of weakness, decreased oral intake and low blood pressure. The patient was recently hospitalized for treatment of Clostridium difficile colitis. If she presented back to the hospital with complaints as mentioned above. Weakness and decreased oral intake with associated low blood pressure. Of note patient is somewhat of a poor historian secondary to underlying dementia and history has been taken from conversation with the patient in addition to on review of the electronic medical record. Per the patient she denies any signs or symptoms of GI bleed with no coffee-ground emesis, hematemesis, blood per rectum or melanotic stool. She denies any abdominal pain. She has been having poor oral intake. She previously underwent endoscopic evaluation in 2016 with EGD significant for a pyloric ulcer and gastritis and colonoscopy significant for hemorrhoids and polypectomy. On presentation to the hospital the patient was found to be anemic with a hemoglobin of 6.8 subsequently transfused PRBCs with improvement of hemoglobin to 8 and currently at 7.4. Review of Systems REVIEW OF SYSTEMS: CONSTITUTIONAL: Denies any fevers, chills, weight change but the patient did report fatigue and weakness on presentation. CARDIOVASCULAR: Denies any chest pain, palpitations, but was found to be hypotensive by EMS RESPIRATORY: Denies any shortness of breath, hemoptysis or cough. GENITOURINARY: No dysuria or hematuria. MUSCULOSKELETAL: No focal weakness reported. SKIN: Denies any new rashes or lesions, jaundice or pallor. PSYCHIATRIC: Denies any depression or anxiety, does suffer from dementia at baseline. NEUROLOGY: Denies headache, denies any new focal deficits. EARS/NOSE/THROAT: No recent hearing change, congestion, nasal discharge or sore throat. EYES: No pain in eyes, discharge or change in vision. GASTROINTESTINAL: As per HPI. Past Medical History Past Medical History: Asthma, Coronary Artery Disease (CAD), Chest Pain / Angina, COPD, Dementia, Hyperlipidemia, Hypertension, Myocardial Infarction (CO), Osteoarthritis (OA), Thyroid Disorder Additional Past Medical History / Comment(s): CO in 1998, 2 cardiac stents in 1998, shingles, collitis Last Myocardial Infarction Date:: 1998 History of Any Multi-Drug Resistant Organisms: C-DIFF Year Discovered:: 02/03/20 MDRO Source:: stool Past Surgical History: Heart Catheterization With Stent Additional Past Surgical History / Comment(s): B\L cataracts removed 2013, aortic aneurysm clipped 2005, colonoscopy Past Anesthesia/Blood Transfusion Reactions: No Reported Reaction Date of Last Stent Placement:: 1998 Past Psychological History: Depression Smoking Status: Former smoker Past Alcohol Use History: None Reported Past Drug Use History: None Reported - Past Family History Father Additional Family Medical History / Comment(s): emphazema Mother Additional Family Medical History / Comment(s): Alzhiemiers Medications and Allergies Home Medications Medication Instructions Recorded Confirmed Type Budesonide [Pulmicort] 0.5 mg INHALATION RT-BID 10/01/14 02/27/20 History Donepezil HCl [Aricept] 5 mg PO HS 10/01/14 02/27/20 History Montelukast [Singulair] 10 mg PO HS 10/01/14 02/27/20 History Nitroglycerin Sl Tabs [Nitrostat] 0.4 mg SUBLINGUAL Q5M PRN 10/01/14 02/27/20 History Omalizumab [Xolair] 150 mg SQ Q30D 10/01/14 02/27/20 History Potassium Chloride [Klor-Con 20] 20 meq PO DAILY 10/01/14 02/27/20 History Isosorbide Mononitrate ER [Imdur] 30 mg PO DAILY 01/30/16 02/27/20 History Levothyroxine Sodium [Synthroid] 50 mcg PO DAILY 01/30/16 02/27/20 History Pantoprazole [Protonix] 40 mg PO AC-BRKFST #30 tablet. 02/01/16 02/27/20 Rx Aspirin [Children's Aspirin] 81 mg PO DAILY 12/01/17 02/27/20 History Metoprolol Tartrate [Lopressor] 25 mg PO BID 12/01/17 02/27/20 History Simvastatin [Zocor] 20 mg PO HS 12/01/17 02/27/20 History Ipratropium-Albuterol Nebulize 3 ml INHALATION RT-QID ampul.neb 12/07/17 02/27/20 Rx [Duoneb 0.5 mg-3 mg/3 ml Soln] Cholecalciferol (Vitamin D3) 2,000 unit PO DAILY 06/08/18 02/27/20 History [Vitamin D3] Furosemide [Lasix] 40 mg PO DAILY 06/08/18 02/27/20 History Citalopram Hydrobromide [CeleXA] 20 mg PO HS 02/10/20 02/27/20 History Furosemide [Lasix] 20 mg PO HS 02/10/20 02/27/20 History Budesonide-Formot 160-4.5 Mcg 1 puff INHALATION RT-BID puff 02/15/20 02/27/20 Rx [Symbicort 160-4.5 Mcg Inhaler] Nystatin 500,000 unit PO 02/27/20 History Vancomycin HCl [Vancocin HCl] 250 mg PO Q6H 02/27/20 02/27/20 History Allergies Allergy/AdvReac Type Severity Reaction Status Date / Time cephalexin monohydrate Allergy Colitis Verified 02/27/20 12:43 [From Keflex] Physical Exam Vitals: Vital Signs Temp Pulse Pulse Resp BP BP Pulse Ox 02/28/20 12:07 72 02/28/20 12:00 97.9 F 89 18 114/62 02/28/20 11:58 74 02/28/20 08:12 70 02/28/20 08:02 72 02/28/20 08:00 98.1 F 95 18 129/60 96 02/28/20 04:00 97.7 F 85 17 96/48 96 02/28/20 00:00 98.0 F 90 16 104/55 94 L 02/27/20 20:00 98.8 F 93 16 118/56 98 02/27/20 19:50 76 02/27/20 19:39 76 02/27/20 17:02 99.0 F 84 18 110/55 99 02/27/20 15:52 78 02/27/20 15:43 78 Intake and Output 02/28/20 02/28/20 02/28/20 06:59 14:59 22:59 Other: Voiding Method Toilet Weight 58.2 kg 58.2 kg On physical examination, patient appears comfortable in no apparent distress. HEAD: Normocephalic, atraumatic. EYES: No scleral icterus. No conjunctival injection. MOUTH: No lesions, tongue midline. NECK: Trachea midline, no gross abnormalities. CHEST: Decreased air entry in all lung finnegan. HEART: S1, S2 appreciated. ABDOMEN: Soft, obese. Bowel sounds are positive. No organomegaly. No guarding or rigidity. EXTREMITIES: No pedal edema. SKIN: No rashes, no jaundice. NEUROLOGIC: Alert and oriented to person. No focal deficits. Results CBC & Chem 7: 02/28/20 05:35 02/28/20 05:35 Labs: Abnormal Lab Results - Last 24 Hours (Table) 02/27/20 02/27/20 02/28/20 Range/Units 12:05 21:17 05:35 RBC 2.69 L 2.64 L (3.80-5.40) m/uL Hgb 8.0 L 7.4 L (11.4-16.0) gm/dL Hct 24.1 L 23.3 L (34.0-46.0) % RDW 16.5 H 16.6 H (11.5-15.5) % Plt Count 133 L (150-450) k/uL Lymphocytes # 0.4 L (1.0-4.8) k/uL Retic Count (0.5-2.0) % Chloride (98-107) mmol/L Creatinine (0.52-1.04) mg/dL Calcium (8.4-10.2) mg/dL Total Protein (6.3-8.2) g/dL Albumin (3.5-5.0) g/dL Crossmatch See Detail 02/28/20 02/28/20 Range/Units 05:35 05:35 RBC (3.80-5.40) m/uL Hgb (11.4-16.0) gm/dL Hct (34.0-46.0) % RDW (11.5-15.5) % Plt Count (150-450) k/uL Lymphocytes # (1.0-4.8) k/uL Retic Count 3.3 H (0.5-2.0) % Chloride 109 H (98-107) mmol/L Creatinine 1.41 H (0.52-1.04) mg/dL Calcium 7.6 L (8.4-10.2) mg/dL Total Protein 4.3 L (6.3-8.2) g/dL Albumin 2.1 L (3.5-5.0) g/dL Crossmatch Chest x-ray: report reviewed (No acute cardiopulmonary process and chest x-ray) Assessment and Plan (1) Iron deficiency anemia Narrative/Plan: 89-year-old female with multiple medical comorbidities presenting with symptomatic iron deficiency anemia. Denies any signs or symptoms of GI bleed ing. Stool testing was positive for occult blood. Hemoglobin 6.8 with normocytic indices on presentation with iron studies significant for iron deficiency. Previously the patient has been noted to have a pyloric ulcer in 2016. Last colonoscopy at the same time in 2016 significant for hemorrhoids and polyps. No abdominal pain reported. Unknown etiology may be secondary to esophagitis, gastritis, peptic ulcer disease, AVM, nutritional deficiencies or other etiology. Current Visit: Yes Status: Acute Code(s): D50.9 - IRON DEFICIENCY ANEMIA, UNSPECIFIED SNOMED Code(s): 92101094 (2) Colitis Narrative/Plan: Recently admitted in November 2019 and treated for C. diff colitis. Current Visit: No Status: Acute Code(s): K52.9 - NONINFECTIVE GASTROENTERITIS AND COLITIS, UNSPECIFIED SNOMED Code(s): 51701217 Plan: Supportive care Okay for diet Nothing by mouth after midnight Continue Protonix 40 mg twice daily Continue to monitor stool output Avoid NSAID use Continue to monitor hemoglobin and hematocrit and transfuse as needed IV iron supplementation ordered Plan for EGD tomorrow for further evaluation Thank you for allowing us dysphagia in the care of the patient we will continue to follow
[2020-02-29] MEDS: LEVOTHYROXINE 50 MCG TAB PO SCH (05:51)
[2020-02-29 06:20] LABS: Reticulocyte % 3.4 % (0.5-2.0)
[2020-02-29 06:29] LABS: Anisocytosis Slight; Basophils % (A) 0 %; Eosinophils # (A) 0.1 k/uL (0-0.7); Eosinophils % (A) 2 %; HCT 27.6 % (34.0-46.0); HGB 8.6 gm/dL (11.4-16.0); Hypochromasia Slight; Lymphocytes # (A) 0.5 k/uL (1.0-4.8); Lymphocytes % (A) 7 %; MCH 27.9 pg (25.0-35.0); MCHC 31.2 g/dL (31.0-37.0); MCV 89.4 fL (80.0-100.0); Mean Platelet Volume 10.2; Monocytes # (A) 0.5 k/uL (0-1.0); Monocytes % (A) 6 %; Neutrophils # (A) 6.3 k/uL (1.3-7.7); Neutrophils % (A) 84 %; Platelet Count 245 k/uL (150-450); RBC 3.09 m/uL (3.80-5.40); RDW 16.8 % (11.5-15.5); WBC 7.4 k/uL (3.8-10.6)
[2020-02-29] MEDS: SYMBICORT 160-4.5 MCG INHALER INHALATION SCH ×2 (07:16→19:15)
[2020-02-29] MEDS: IPRATROPIUM-ALBUTEROL 3 ML NEB INHALATION SCH ×4 (07:16→19:15)
[2020-02-29] MEDS ORDERED: PROPOFOL 10 MG/ML 20 ML VIAL IV ONE (09:02)
[2020-02-29] MEDS ORDERED: SODIUM CHLORIDE 0.9% 500 ML 500 ML IV ONE ×2 (09:11)
--- NOTE | 2020-02-29 09:26 | P.PCN ---
Date of Procedure: 02/29/20 Description of Procedure: BRIEF HISTORY: 89-year-old female with a medical history significant for coronary artery disease, COPD, hypertension, Clostridium difficile colitis dementia and osteoarthritis who presented to the hospital due to complaints of weakness, decreased oral intake and low blood pressure. The patient was recently hospitalized for treatment of Clostridium difficile colitis. If she presented back to the hospital with complaints as mentioned above. Weakness and decreased oral intake with associated low blood pressure. Of note patient is somewhat of a poor historian secondary to underlying dementia and history has been taken from conversation with the patient in addition to on review of the electronic medical record. Per the patient she denies any signs or symptoms of GI bleed with no coffee-ground emesis, hematemesis, blood per rectum or melanotic stool. She denies any abdominal pain. She has been having poor oral intake. She previously underwent endoscopic evaluation in 2016 with EGD significant for a pyloric ulcer and gastritis and colonoscopy significant for hemorrhoids and polypectomy. On presentation to the hospital the patient was found to be anemic with a hemoglobin of 6.8 subsequently transfused PRBCs with improvement of hemoglobin to 8 and currently at 7.4. PROCEDURE PERFORMED: Esophagogastroduodenoscopy with biopsy. PREOPERATIVE DIAGNOSIS: Iron deficiency anemia. ESTIMATED BLOOD LOSS: Minimal. IV sedation per anesthesia. PROCEDURE: After informed consent was obtained, the patient was brought into the endoscopy unit. IV sedation was administered by Anesthesia under continuous monitoring. Initially the Olympus GIF-190 video endoscope was inserted into the mouth. Esophagus intubated without any difficulty. It was gradually advanced into the stomach and duodenum and carefully examined. The bulb and the second part of the duodenum appeared normal, with biopsies taken. The scope at this time was withdrawn to the stomach, adequately insufflated with air, and upon careful examination, mucosa of the antrum, body, cardia and the fundus appeared normal, except for some mild scattered erythema in the antrum and body suggestive of mild gastritis with biopsies taken. The scope was then withdrawn into the esophagus. The GE junction was located at 37 cm from the incisors. The esophagus appeared normal. There were no erosions or ulcerations seen and the patient tolerated the procedure well. IMPRESSION: 1. No active bleeding, old blood or pathology to explain anemia found. 2. Mild gastritis antrum and body, biopsied. 3. Duodenal biopsies.. RECOMMENDATIONS: The findings of this examination were discussed with the patient. Okay to resume liquid diet. Continue to monitor hemoglobin and hematocrit and transfuse as needed. Continue IV iron therapy. We'll discuss possible colonoscopy with the patient, last colonoscopy in 2015 significant for hemorrhoids and polypectomy, the patient is agreeable can proceed with exam tomorrow otherwise we'll continue medical management.
[2020-02-29] MEDS: SODIUM FERRIC GLUCONAT-SUCROSE 125 MG in SODIUM CHLORIDE 0.9% 100 ML IVPB SCH (10:13)
[2020-02-29] MEDS: PANTOPRAZOLE 40 MG/10 ML VIAL IVP SCH ×2 (10:13→20:10)
--- NOTE | 2020-02-29 15:07 | P.PN ---
Progress Note - Text Progress Note Date: 02/29/20 The patient's daughter and power of contracts attorney Luana Cuellar was called at . I discussed with her the findings from the patient's EGD that Dr. Azul performed, which showed no evidence of old or active bleeding. I discussed with Luana that Dr. Azul was planning on starting the patient on iron, however it would be reasonable if the patient and family wanted a colonoscopy done to look for further source of the GI bleed he would prep and perform a colonoscopy on Alejandra tomorrow. Luana Cuellar the patient's power of contracts attorney, stated that they did NOT want a colonoscopy performed as she believes it would not change the treatment plan for her mother Alejandra Castellon, who is a NO C ODE. The above dictated assessment and findings were discussed with Dr. Azul. The impression and plan of care have been directed as dictated.
--- NOTE | 2020-02-29 17:26 | P.PN ---
Subjective Progress Note Date: 02/29/20 Alejandra Castellon is an 89-year-old female who presented to [facility] emergency room with a chief complaint of generalized weakness, and poor oral intake, she was evaluated in the emergency room, she was afebrile, blood pressure was low at 95/49 she had evidence of dehydration with elevated BUN and creatinine above her baseline, she also had evidence of anemia with hemoglobin of 6.8. Rectal exam revealed heme positive stools. 1 unit of red blood cell transfusion was ordered patient will be admitted to medical floor gastroenterology consultation was requested. Patient has a baseline of dementia with mild confusion, her daughter is in the room, there is no other symptoms, there is no fever or chills no headache or dizziness no chest pain no shortness of breath no cough no nausea or vomiting no abdominal pain, she has soft stools but no augustina diarrhea, no burning with urination no frequency or urgency and no hematuria. Patient was admitted to the hospital recently with an episode of Clostridium difficile colitis, she was discharged on 02/14/2020 she received oral vancomycin during her hospitalization and at home. Patient also had previous episodes of Clostridium difficile colitis in the past. On 02/28/2020 patient was seen and examined on the medical floor she is alert c onfused in no apparent distress she received 1 unit of red blood cell transfusion yesterday hemoglobin went up from 6.8-8 and today it's down to 7.4 there is no clinical evidence of bleeding at this time there is no fever or chills no headache or dizziness no chest pain no shortness of breath no cough no nausea or vomiting no abdominal pain no diarrhea no burning with urination no frequency or urgency and no hematuria gastroenterology consult was requested awaiting input On 02/29/2020 patient was seen and examined on the medical floor she is alert slightly confused in no apparent distress there is no fever or chills no headache or dizziness no chest pain no shortness of breath no cough no nausea or vomiting no abdominal pain no diarrhea no burning with urination no frequency or urgency and no hematuria Objective - Vital Signs Vital signs: Vital Signs Temp 98.2 F 02/29/20 16:00 Pulse 77 02/29/20 16:00 Resp 16 02/29/20 16:00 BP 125/70 02/29/20 16:00 Pulse Ox 98 02/29/20 16:00 Intake & Output 02/28/20 02/29/20 02/29/20 18:59 06:59 18:59 Intake Total 880 610 Balance 880 610 Weight 58.2 kg 59 kg Intake: IV 250 Oral 880 360 Other: Voiding Method Toilet Toilet Toilet # Voids 2 # Bowel Movements 1 - Exam In general patient is alert, confused in no apparent distress, HEENT head normocephalic and atraumatic neck is supple no JVD no goiter no lymphadenopathy Chest exam reveals a few scattered rhonchi no wheezing Cardiac exam reveals regular heart sounds S1 and S2 no gallops or murmurs Abdomen is soft nontender no organomegaly Extremity exam reveals no edema no cyanosis or clubbing Neurological examination reveals no gross focal deficit - Labs CBC & Chem 7: 02/29/20 05:55 02/28/20 05:35 Labs: Abnormal Lab Results - Last 24 Hours (Table) 02/28/20 02/29/20 02/29/20 Range/Units 05:35 05:55 05:55 RBC 3.09 L (3.80-5.40) m/uL Hgb 8.6 L (11.4-16.0) gm/dL Hct 27.6 L (34.0-46.0) % RDW 16.8 H (11.5-15.5) % Lymphocytes # 0.5 L (1.0-4.8) k/uL Retic Count 3.4 H (0.5-2.0) % Iron 9 L (50-170) ug/dL TIBC 157 L (228-460) ug/dL % Saturation 5.73 L (12.00-45.00) Ferritin 485.6 H (10.0-291.0) ng/mL Assessment and Plan Plan: 1. Anemia, with heme positive stools, 1 unit of red blood cell transfusion was ordered in the emergency room, consultation for gastroenterology was initiated, awaiting input 2. Recent admission with recurrent Clostridium difficile colitis 3. Underlying history of dementia 4. Underlying history of depression maintained on Celexa 5. Underlying history of hypothyroidism 6. Underlying history of asthma At this time patient will be admitted to medical floor, 1 unit of red blood cell transfusion was ordered Patient will be kept on clear liquid diet Gastroenterology consultation was requested, patient underwent EGD results noted Gastroenterology suggested colonoscopy however daughter and power of energy attorney declined Plan to discharge patient to home tomorrow if stable Will monitor labs closely
[2020-02-29] MEDS: CITALOPRAM HYDROBROMIDE 20 MG TAB PO SCH (20:10)
[2020-02-29] MEDS: DONEPEZIL 5 MG TAB PO SCH (20:10)
[2020-02-29] MEDS: MONTELUKAST 10 MG TAB PO SCH (20:10)
[2020-03-01] MEDS: SODIUM CHLORIDE 0.9% 1,000 ML IV SCH (03:33)
[2020-03-01] MEDS: LEVOTHYROXINE 50 MCG TAB PO SCH (05:40)
[2020-03-01 06:34] LABS: Anisocytosis Slight; Basophils % (A) 0 %; Eosinophils # (A) 0.2 k/uL (0-0.7); Eosinophils % (A) 3 %; HCT 26.7 % (34.0-46.0); HGB 8.5 gm/dL (11.4-16.0); Hypochromasia Moderate; Lymphocytes # (A) 0.6 k/uL (1.0-4.8); Lymphocytes % (A) 9 %; MCH 29.4 pg (25.0-35.0); MCV 92.1 fL (80.0-100.0); Mean Platelet Volume 10.4; Monocytes # (A) 0.4 k/uL (0-1.0); Monocytes % (A) 6 %; Neutrophils % (A) 80 %; Platelet Count 220 k/uL (150-450); RDW 16.6 % (11.5-15.5); WBC 6.2 k/uL (3.8-10.6)
[2020-03-01] MEDS: IPRATROPIUM-ALBUTEROL 3 ML NEB INHALATION SCH ×2 (07:49→11:13)
[2020-03-01] MEDS: SYMBICORT 160-4.5 MCG INHALER INHALATION SCH (07:49)
[2020-03-01 08:34] VITALS: BP 161/72; RESP 18; TEMP 98.3
--- NOTE | 2020-03-01 09:40 | P.DS ---
Providers Date of admission: 02/27/20 12:14 Expected date of discharge: 03/01/20 Attending physician: Flora Pastrana Consults: 02/27/20 12:08 Consult Physician Routine Consulting Provider: Poncho Azul Consult Reason/Comments: Anemia with GI bleed, recent C. diff Do you want consulting provider notified?: Yes 02/29/20 19:04 Consult Physician Routine Consulting Provider: Reece Kapoor Consult Reason/Comments: anemia Do you want consulting provider notified?: Yes Primary care physician: [facility] Course: Diagnosis on discharge: 1. Anemia, with heme positive stools, 1 unit of red blood cell transfusion was ordered in the emergency room, consultation for gastroenterology was initiated, patient underwent EGD there was no significant abnormality no evidence of any source of bleeding gastroenterology suggested to proceed with colonoscopy however patient's daughter declined, she received IV iron during this admission 2. Recent admission with recurrent Clostridium difficile colitis. C. diff testing was negative during this admission no need for further treatments. 3. Underlying history of dementia 4. Underlying history of depression maintained on Celexa 5. Underlying history of hypothyroidism 6. Underlying history of asthma Hospital course: Alejandra Castellon is an 89-year-old female who presented to [facility] emergency room with a chief complaint of generalized weakness, and poor oral intake, she was evaluated in the emergency room, she was afebrile, blood pressu re was low at 95/49 she had evidence of dehydration with elevated BUN and creatinine above her baseline, she also had evidence of anemia with hemoglobin of 6.8. Rectal exam revealed heme positive stools. 1 unit of red blood cell transfusion was ordered patient will be admitted to medical floor gastroenterology consultation was requested. Patient has a baseline of dementia with mild confusion, her daughter is in the room, there is no other symptoms, there is no fever or chills no headache or dizziness no chest pain no shortness of breath no cough no nausea or vomiting no abdominal pain, she has soft stools but no augustina diarrhea, no burning with urination no frequency or urgency and no hematuria. Patient was admitted to the hospital recently with an episode of Clostridium difficile colitis, she was discharged on 02/14/2020 she received oral vancomycin during her hospitalization and at home. Patient also had previous episodes of Clostridium difficile colitis in the past. On 02/28/2020 patient was seen and examined on the medical floor she is alert confused in no apparent distress she received 1 unit of red blood cell transfusion yesterday hemoglobin went up from 6.8-8 and today it's down to 7.4 there is no clinical evidence of bleeding at this time there is no fever or chills no headache or dizziness no chest pain no shortness of breath no cough no nausea or vomiting no abdominal pain no diarrhea no burning with urination no frequency or urgency and no hematuria gastroenterology consult was requested awaiting input On 02/29/2020 patient was seen and examined on the medical floor she is alert slightly confused in no apparent distress there is no fever or chills no headache or dizziness no chest pain no shortness of breath no cough no nausea or vomiting no abdominal pain no diarrhea no burning with urination no frequency or urgency and no hematuria On 03/01/2020 patient was seen and examined on the medical floor she is alert confused in no apparent distress there is no fever or chills no headache or dizziness no chest pain no shortness of breath no cough no nausea or vomiting no abdominal pain no diarrhea no blood in the stools no burning was urination no frequency or urgency and no hematuria, hemoglobin is stable, patient received 1 unit of red blood cell transfusion during this admission she also received IV iron, she is stable but getting confused due to lack of family visits, at this time will discharge patient to home, will follow closely in the office in the next 2-3 days will arrange for follow-up was Dr. Kapoor as outpatient Patient Condition at Discharge: Fair Plan - Discharge Summary New Discharge Prescriptions: Continue Nitroglycerin Sl Tabs [Nitrostat] 0.4 mg SUBLINGUAL Q5M PRN PRN Reason: Chest Pain Budesonide [Pulmicort] 0.5 mg INHALATION RT-BID Potassium Chloride [Klor-Con 20] 20 meq PO DAILY Montelukast [Singulair] 10 mg PO HS Donepezil HCl [Aricept] 5 mg PO HS Omalizumab [Xolair] 150 mg SQ Q30D Isosorbide Mononitrate ER [Imdur] 30 mg PO DAILY Levothyroxine Sodium [Synthroid] 50 mcg PO DAILY Pantoprazole [Protonix] 40 mg PO AC-BRKFST #30 tablet. Metoprolol Tartrate [Lopressor] 25 mg PO BID Simvastatin [Zocor] 20 mg PO HS Ipratropium-Albuterol Nebulize [Duoneb 0.5 mg-3 mg/3 ml Soln] 3 ml INHALATION RT-QID ampul.neb Cholecalciferol (Vitamin D3) [Vitamin D3] 2,000 unit PO DAILY Furosemide [Lasix] 40 mg PO DAILY Citalopram Hydrobromide [CeleXA] 20 mg PO HS Budesonide-Formot 160-4.5 Mcg [Symbicort 160-4.5 Mcg Inhaler] 1 puff INHALATION RT-BID puff Nystatin 500,000 unit PO Discontinued Aspirin [Children's Aspirin] 81 mg PO DAILY Furosemide [Lasix] 20 mg PO HS Vancomycin HCl [Vancocin HCl] 250 mg PO Q6H Discharge Medication List Budesonide [Pulmicort] 0.5 mg INHALATION RT-BID 10/01/14 [History] Donepezil HCl [Aricept] 5 mg PO HS 10/01/14 [History] Montelukast [Singulair] 10 mg PO HS 10/01/14 [History] Nitroglycerin Sl Tabs [Nitrostat] 0.4 mg SUBLINGUAL Q5M PRN 10/01/14 [History] Omalizumab [Xolair] 150 mg SQ Q30D 10/01/14 [History] Potassium Chloride [Klor-Con 20] 20 meq PO DAILY 10/01/14 [History] Isosorbide Mononitrate ER [Imdur] 30 mg PO DAILY 01/30/16 [History] Levothyroxine Sodium [Synthroid] 50 mcg PO DAILY 01/30/16 [History] Pantoprazole [Protonix] 40 mg PO AC-BRKFST #30 tablet. 02/01/16 [Rx] Metoprolol Tartrate [Lopressor] 25 mg PO BID 12/01/17 [History] Simvastatin [Zocor] 20 mg PO HS 12/01/17 [History] Ipratropium-Albuterol Nebulize [Duoneb 0.5 mg-3 mg/3 ml Soln] 3 ml INHALATION RT-QID ampul.neb 12/07/17 [Rx] Cholecalciferol (Vitamin D3) [Vitamin D3] 2,000 unit PO DAILY 06/08/18 [History] Furosemide [Lasix] 40 mg PO DAILY 06/08/18 [History] Citalopram Hydrobromide [CeleXA] 20 mg PO HS 02/10/20 [History] Budesonide-Formot 160-4.5 Mcg [Symbicort 160-4.5 Mcg Inhaler] 1 puff INHALATION RT-BID puff 02/15/20 [Rx] Nystatin 500,000 unit PO 02/27/20 [History] Follow up Appointment(s)/Referral(s): Reece Kapoor MD [STAFF PHYSICIAN] - 1 Week Flora Pastrana MD [Primary Care Provider] - 1-2 days [facility] Visiting Nurse, [NON-STAFF] -
[2020-03-01] MEDS: PANTOPRAZOLE 40 MG/10 ML VIAL IVP SCH (09:58)
[2020-03-01] MEDS: SODIUM FERRIC GLUCONAT-SUCROSE 125 MG in SODIUM CHLORIDE 0.9% 100 ML IVPB SCH (09:58)
[2020-03-01 11:15] VITALS: PULSE 64
== END 2020-03-01 11:40 | disposition home health service (06) | DRG 812 ==
LOC: EC 09:50 → 3SCARD 12:14
PROVIDERS: ADMIT Internal Medicine; ATTEND Internal Medicine
DX: D50.0 Iron deficiency anemia secondary to blood loss (chronic) (principal); F03.90 Unspecified dementia, unspecified severity, without behavioral disturbance, psychotic disturbance, mood disturbance, and anxiety; I95.9 Hypotension, unspecified; E03.9 Hypothyroidism, unspecified; K29.70 Gastritis, unspecified, without bleeding; J44.9 Chronic obstructive pulmonary disease, unspecified; Z11.59 Encounter for screening for other viral diseases; F32.9 Major depressive disorder, single episode, unspecified; I10 Essential (primary) hypertension; E78.5 Hyperlipidemia, unspecified; E86.0 Dehydration; I25.10 Atherosclerotic heart disease of native coronary artery without angina pectoris; I25.2 Old myocardial infarction; M19.90 Unspecified osteoarthritis, unspecified site; R94.4 Abnormal results of kidney function studies; Z79.82 Long term (current) use of aspirin; Z79.890 Hormone replacement therapy; Z79.51 Long term (current) use of inhaled steroids; Z79.899 Other long term (current) drug therapy; Z87.891 Personal history of nicotine dependence; Z86.19 Personal history of other infectious and parasitic diseases; Z87.11 Personal history of peptic ulcer disease; Z95.5 Presence of coronary angioplasty implant and graft; Z87.19 Personal history of other diseases of the digestive system; Z86.79 Personal history of other diseases of the circulatory system; Z98.42 Cataract extraction status, left eye; Z98.41 Cataract extraction status, right eye; Z98.890 Other specified postprocedural states; Z88.1 Allergy status to other antibiotic agents
CPT/HCPCS: 36415; 36430; 43239; 71046; 80053; 82272; 82550; 82607; 82728; 82746; 83540; 83550; 83735; 84484; 85025; 85027; 85045; 86850; 86900; 86901; 86920; 87324; 88305; 94640; 96360; 96361; 99291

== ENCOUNTER 2020-06-03 11:46 | Inpatient (IN) | payer MEDICARE, BC ==
[2020-06-03] MEDS ORDERED: SODIUM CHLORIDE 0.9% 1,000 ML IV STA (12:21)
[2020-06-03] MEDS ORDERED: SODIUM CHLORIDE 0.9% 500 ML 500 ML IV STA (12:21)
--- NOTE | 2020-06-03 12:25 | ED ---
General Adult HPI - General Chief complaint: Nausea/Vomiting/Diarrhea Stated complaint: vomiting/diarrhea Time Seen by Provider: 06/03/20 11:55 Source: patient, family, RN notes reviewed, old records reviewed Mode of arrival: ambulatory Limitations: no limitations - History of Present Illness Initial comments: This is an 89-year-old female presents emergency Department with her daughter. Daughter states that she had vomiting and diarrhea last Friday but none since until this morning. Patient this morning vomited and then had some episodes of diarrhea. Patient herself has no complaints. Patient denies any abdominal pain however daughter says earlier today she complained of some abdominal cramping. Patient states she's not nauseous right now. Patient denies any recent fever chills per patient denies any chest pain or palpitations. Patient denies shortness of breath. Patient denies feeling lightheaded so daughter states she has been very weak lately. Daughter also states she does not normally eat a lot. - Related Data Home Medications Medication Instructions Recorded Confirmed Budesonide [Pulmicort] 0.5 mg INHALATION RT-BID 10/01/14 02/27/20 Donepezil HCl [Aricept] 5 mg PO HS 10/01/14 02/27/20 Montelukast [Singulair] 10 mg PO HS 10/01/14 02/27/20 Nitroglycerin Sl Tabs [Nitrostat] 0.4 mg SUBLINGUAL Q5M PRN 10/01/14 02/27/20 Omalizumab [Xolair] 150 mg SQ Q30D 10/01/14 02/27/20 Potassium Chloride [Klor-Con 20] 20 meq PO DAILY 10/01/14 02/27/20 Isosorbide Mononitrate ER [Imdur] 30 mg PO DAILY 01/30/16 02/27/20 Levothyroxine Sodium [Synthroid] 50 mcg PO DAILY 01/30/16 02/27/20 Metoprolol Tartrate [Lopressor] 25 mg PO BID 12/01/17 02/27/20 Simvastatin [Zocor] 20 mg PO HS 12/01/17 02/27/20 Cholecalciferol (Vitamin D3) 2,000 unit PO DAILY 06/08/18 02/27/20 [Vitamin D3] Furosemide [Lasix] 40 mg PO DAILY 06/08/18 02/27/20 Citalopram Hydrobromide [CeleXA] 20 mg PO HS 02/10/20 02/27/20 Nystatin 500,000 unit PO 02/27/20 Previous Rx's Medication Instructions Recorded Pantoprazole [Protonix] 40 mg PO AC-BRKFST #30 tablet. 02/01/16 Ipratropium-Albuterol Nebulize 3 ml INHALATION RT-QID ampul.neb 12/07/17 [Duoneb 0.5 mg-3 mg/3 ml Soln] Budesonide-Formot 160-4.5 Mcg 1 puff INHALATION RT-BID puff 02/15/20 [Symbicort 160-4.5 Mcg Inhaler] Allergies Allergy/AdvReac Type Severity Reaction Status Date / Time cephalexin monohydrate Allergy Colitis Verified 06/03/20 11:53 [From [employer]] Review of Systems ROS Statement: Those systems with pertinent positive or pertinent negative responses have been documented in the HPI. ROS Other: All systems not noted in ROS Statement are negative. Past Medical History Past Medical History: Asthma, Coronary Artery Disease (CAD), Chest Pain / Angina, COPD, Dementia, Hyperlipidemia, Hypertension, Myocardial Infarction ([place]), Osteoarthritis (OA), Thyroid Disorder Additional Past Medical History / Comment(s): [place] in 1998, 2 cardiac stents in 1998, shingles, collitis Last Myocardial Infarction Date:: 1998 History of Any Multi-Drug Resistant Organisms: C-DIFF Date of last positivie culture/infection: 02/03/20 MDRO Source:: stool Past Surgical History: Heart Catheterization With Stent Additional Past Surgical History / Comment(s): B\L cataracts removed 2013, aortic aneurysm clipped 2005, colonoscopy Past Anesthesia/Blood Transfusion Reactions: No Reported Reaction Date of Last Stent Placement:: 1998 Past Psychological History: Depression Smoking Status: Former smoker Past Alcohol Use History: None Reported Past Drug Use History: None Reported - Past Family History Father Additional Family Medical History / Comment(s): emphazema Mother Additional Family Medical History / Comment(s): Alzhiemiers General Exam - General Exam Comments Initial Comments: GENERAL: Patient is well-developed and well-nourished. Patient is nontoxic and well-hydr ated and is in no acute distress. ENT: Neck is soft and supple. No significant lymphadenopathy is noted. Oropharynx is clear. Dry mucous membranes. Neck has full range of motion without eliciting any pain. EYES: The sclera were anicteric and conjunctiva were pink and moist. Extraocular movements were intact and pupils were equal round and reactive to light. Eyelids were unremarkable. PULMONARY: Unlabored respirations. Good breath sounds bilaterally. No audible rales rhonchi or wheezing was noted. CARDIOVASCULAR: There is a regular rate and rhythm without any murmurs gallops or rubs. ABDOMEN: Soft and nontender with normal bowel sounds. No palpable organomegaly was noted. There is no palpable pulsatile mass. SKIN: Skin is clear with no lesions or rashes and otherwise unremarkable. NEUROLOGIC: Patient is alert and oriented x3. Cranial nerves II through XII are grossly in tact. Motor and sensory are also intact. Normal speech, volume and content. Symmetrical smile. MUSCULOSKELETAL: Normal extremities with adequate strength and full range of motion. No lower extremity swelling or edema. No calf tenderness. LYMPHATICS: No significant lymphadenopathy is noted PSYCHIATRIC: Normal psychiatric evaluation. Limitations: no limitations Course Vital Signs 06/03/20 06/03/20 11:54 13:42 Temperature 98.1 F Pulse Rate 72 76 Respiratory 18 18 Rate Blood Pressure 82/49 110/83 O2 Sat by Pulse 97 96 Oximetry Medical Decision Making - Medical Decision Making EKG shows normal sinus rhythm at 63 bpm DC interval 280 QRS is 54 QTC is 442 QTC is 452. Patient's EKG shows some slight T-wave inversions in precordial leads V1 through V6 which are seen in the old EKG. - Lab Data Result diagrams: 06/03/20 12:56 06/03/20 12:56 Lab Results 06/03/20 06/03/20 Range/Units 12:56 12:56 WBC 13.4 H (3.8-10.6) k/uL RBC 3.90 (3.80-5.40) m/uL Hgb 11.3 L (11.4-16.0) gm/dL Hct 34.9 (34.0-46.0) % MCV 89.3 (80.0-100.0) fL MCH 28.9 (25.0-35.0) pg MCHC 32.3 (31.0-37.0) g/dL RDW 14.5 (11.5-15.5) % Plt Count 296 (150-450) k/uL Neutrophils % 85 % Lymphocytes % 8 % Monocytes % 5 % Eosinophils % 1 % Basophils % 0 % Neutrophils # 11.3 H (1.3-7.7) k/uL Lymphocytes # 1.0 (1.0-4.8) k/uL Monocytes # 0.7 (0-1.0) k/uL Eosinophils # 0.1 (0-0.7) k/uL Basophils # 0.1 (0-0.2) k/uL Sodium 135 L (137-145) mmol/L Potassium 4.2 (3.5-5.1) mmol/L Chloride 98 (98-107) mmol/L Carbon Dioxide 30 (22-30) mmol/L Anion Gap 7 mmol/L BUN 23 H (7-17) mg/dL Creatinine 2.41 H (0.52-1.04) mg/dL Est GFR (CKD-EPI)AfAm 20 (>60 ml/min/1.73 sqM) Est GFR (CKD-EPI)NonAf 17 (>60 ml/min/1.73 sqM) Glucose 122 H (74-99) mg/dL Calcium 9.1 (8.4-10.2) mg/dL Total Bilirubin 0.8 (0.2-1.3) mg/dL AST 23 (14-36) U/L ALT 7 (4-34) U/L Alkaline Phosphatase 95 (38-126) U/L Total Protein 6.6 (6.3-8.2) g/dL Albumin 3.7 (3.5-5.0) g/dL Amylase 64 (30-110) U/L Lipase 281 (23-300) U/L Disposition Clinical Impression: Acute on chronic renal failure, Dehydration, Acute vomiting, Acute diarrhea Disposition: ADMITTED IP TO THIS HOSP Referrals: Flora Pastrana MD [Primary Care Provider] - 1-2 days Time of Disposition: 13:47
[2020-06-03 13:08] LABS: Basophils # (A) 0.1 k/uL (0-0.2); Basophils % (A) 0 %; Eosinophils # (A) 0.1 k/uL (0-0.7); Eosinophils % (A) 1 %; HCT 34.9 % (34.0-46.0); HGB 11.3 gm/dL (11.4-16.0); Lymphocytes % (A) 8 %; MCH 28.9 pg (25.0-35.0); MCHC 32.3 g/dL (31.0-37.0); MCV 89.3 fL (80.0-100.0); Mean Platelet Volume 9.8; Monocytes # (A) 0.7 k/uL (0-1.0); Monocytes % (A) 5 %; Neutrophils # (A) 11.3 k/uL (1.3-7.7); Neutrophils % (A) 85 %; Platelet Count 296 k/uL (150-450); RDW 14.5 % (11.5-15.5); WBC 13.4 k/uL (3.8-10.6)
[2020-06-03 13:19] LABS: Albumin 3.7 g/dL (3.5-5.0); Calcium 9.1 mg/dL (8.4-10.2); Potassium 4.2 mmol/L (3.5-5.1); Total Bilirubin 0.8 mg/dL (0.2-1.3); Total Protein 6.6 g/dL (6.3-8.2)
[2020-06-03] MEDS ORDERED: SODIUM CHLORIDE 0.9% 1,000 ML IV ONE (13:47)
[2020-06-03 16:34] LABS: Appearance,Urine Clear (Clear); Bilirubin,Urine Negative (Negative); Blood,Urine Negative (Negative); Color,Urine Light Yellow; Glucose,Urine (UA) Negative (Negative); Ketones,Urine Negative (Negative); Leukocyte Esterase,Urine Negative (Negative); Nitrite,Urine Negative (Negative); Protein,Urine Negative (Negative); Specific Gravity,Urine 1.008 (1.001-1.035); Urobilinogen,Urine <2.0 mg/dL (<2.0)
[2020-06-03] MEDS ORDERED: NITROGLYCERIN SL TABS 0.4 MG TAB SUBLINGUAL PRN (16:47)
--- NOTE | 2020-06-03 17:52 | P.NPCON ---
History of Present Illness - Reason for Consult Consult date: 06/03/20 acute renal failure - Chief Complaint Diarrhea - History of Present Illness 89-year-old white lady brought into the hospital by the daughter because of the vomiting and diarrhea. She does have chronic kidney disease stage III with a baseline creatinine of 1.4-1.8 MG per DL. Lately her creatinine was creeping to 1.8-2.2 MG per DL. She does take potassium and Lasix at home. Blood pressures low normal. She is confused most of the history is obtained from the chart and the nursing staff. No recent NSAID use or contrast studies. Review of Systems Constitutional: Reports as per HPI Past Medical History Past Medical History: Asthma, Coronary Artery Disease (CAD), Chest Pain / Angina, COPD, Dementia, Hyperlipidemia, Hypertension, Myocardial Infarction ([place]), Osteoarthritis ([place]), Thyroid Disorder Additional Past Medical History / Comment(s): [place] in 1998, 2 cardiac stents in 1998, shingles, collitis, Last Myocardial Infarction Date:: 1998 History of Any Multi-Drug Resistant Organisms: C-DIFF Date of last positivie culture/infection: 02/03/20 MDRO Source:: stool Past Surgical History: Heart Catheterization With Stent Additional Past Surgical History / Comment(s): B\L cataracts removed 2013, aortic aneurysm clipped 2005, colonoscopy Past Anesthesia/Blood Transfusion Reactions: No Reported Reaction Date of Last Stent Placement:: 1998 Past Psychological History: Depression Smoking Status: Former smoker Past Alcohol Use History: None Reported Past Drug Use History: None Reported - Past Family History Father Additional Family Medical History / Comment(s): emphazema Mother Additional Family Medical History / Comment(s): Alzseema Medications and Allergies Home Medications Medication Instructions Recorded Confirmed Type Budesonide [Pulmicort] 0.5 mg INHALATION RT-BID 10/01/14 06/03/20 History Donepezil HCl [Aricept] 5 mg PO HS 10/01/14 06/03/20 History Montelukast [Singulair] 10 mg PO HS 10/01/14 06/03/20 History Nitroglycerin Sl Tabs [Nitrostat] 0.4 mg SUBLINGUAL Q5M PRN 10/01/14 06/03/20 History Omalizumab [Xolair] 150 mg SQ Q30D 10/01/14 06/03/20 History Potassium Chloride [Klor-Con 20] 20 meq PO DAILY 10/01/14 06/03/20 History Isosorbide Mononitrate ER [Imdur] 30 mg PO DAILY 01/30/16 06/03/20 History Levothyroxine Sodium [Synthroid] 50 mcg PO DAILY 01/30/16 06/03/20 History Pantoprazole [Protonix] 40 mg PO AC-BRKFST #30 tablet. 02/01/16 06/03/20 Rx Metoprolol Tartrate [Lopressor] 25 mg PO BID 12/01/17 06/03/20 History Simvastatin [Zocor] 20 mg PO HS 12/01/17 06/03/20 History Ipratropium-Albuterol Nebulize 3 ml INHALATION RT-QID ampul.neb 12/07/17 06/03/20 Rx [Duoneb 0.5 mg-3 mg/3 ml Soln] Cholecalciferol (Vitamin D3) 2,000 unit PO DAILY 06/08/18 06/03/20 History [Vitamin D3] Furosemide [Lasix] 40 mg PO DAILY 06/08/18 06/03/20 History Citalopram Hydrobromide [CeleXA] 20 mg PO HS 02/10/20 06/03/20 History Budesonide-Formot 160-4.5 Mcg 1 puff INHALATION RT-BID puff 02/15/20 06/03/20 Rx [Symbicort 160-4.5 Mcg Inhaler] Ferrous Sulfate [Feosol] 325 mg PO DAILY 06/03/20 06/03/20 History Furosemide [Lasix] 20 mg PO HS 06/03/20 06/03/20 History Allergies Allergy/AdvReac Type Severity Reaction Status Date / Time cephalexin monohydrate Allergy Colitis Verified 06/03/20 14:22 [From Keflex] Physical Exam Vitals: Vital Signs Temp Pulse Pulse Resp BP BP Pulse Ox 06/03/20 16:49 16 06/03/20 14:35 98.4 F 81 16 154/73 98 06/03/20 13:42 76 18 110/83 96 06/03/20 11:54 98.1 F 72 18 82/49 97 Intake and Output 09/05/20 09/05/20 09/05/20 06:59 14:59 22:59 Other: Weight 51.71 kg No acute distress S1-S2 heard Lungs clear Abdomen soft No edema Results - Lab Results Most recent lab results Calcium 9.1 mg/dL (8.4-10.2) 06/03/20 12:56 06/03/20 12:56 06/03/20 12:56 Assessment and Plan Assessment: #1 nonoliguric acute kidney injury secondary to prerenal process from nausea vomiting. #2 metabolic alkalosis secondary to vomiting. #3 chronic kidney disease stage III with a baseline creatinine of 1.4-1.8 MG per DL. #4 low normal blood pressures #5 hypovolemic hyponatremia Plan: #1 agree with IV fluids, continue at 50 ML's an hour. #2 hold diuretics at this time, potassiums within normal limit stop potassium supplements. #3 avoid nephrotoxic agents and hypotensive episodes. #4 labs in the morning
[2020-06-03] MEDS: SODIUM CHLORIDE 0.9% 1,000 ML IV SCH (18:15)
[2020-06-03] MEDS: MONTELUKAST 10 MG TAB PO SCH (20:24)
[2020-06-03] MEDS: DONEPEZIL 5 MG TAB PO SCH (20:24)
[2020-06-03] MEDS: ATORVASTATIN 10 MG TAB PO SCH (20:24)
[2020-06-03] MEDS: METOPROLOL TARTRATE 25 MG TAB PO SCH (20:24)
[2020-06-03] MEDS: CITALOPRAM HYDROBROMIDE 20 MG TAB PO SCH (20:24)
[2020-06-03] MEDS: BUDESONIDE 0.5 MG/2 ML NEBU INHALATION SCH (20:50)
[2020-06-03] MEDS: IPRATROPIUM-ALBUTEROL 3 ML NEB INHALATION SCH (20:50)
[2020-06-04] MEDS: LEVOTHYROXINE 50 MCG TAB PO SCH (05:29)
[2020-06-04] MEDS: BUDESONIDE 0.5 MG/2 ML NEBU INHALATION SCH ×2 (07:10→19:40)
[2020-06-04] MEDS: IPRATROPIUM-ALBUTEROL 3 ML NEB INHALATION SCH ×4 (07:10→19:40)
[2020-06-04] MEDS: PANTOPRAZOLE 40 MG TABLET PO SCH (07:38)
[2020-06-04] MEDS: CHOLECALCIFEROL 1,000 UNIT TAB PO SCH (07:38)
[2020-06-04] MEDS: ISOSORBIDE MONONITRATE ER 30 MG TAB.ER.24H PO SCH (07:38)
[2020-06-04] MEDS: METOPROLOL TARTRATE 25 MG TAB PO SCH ×2 (07:38→20:36)
[2020-06-04 08:52] LABS: Calcium 8.1 mg/dL (8.4-10.2); Potassium 3.4 mmol/L (3.5-5.1)
[2020-06-04] MEDS ORDERED: POTASSIUM CHLORIDE ER 20 MEQ TAB.ER PO SCH (09:00)
[2020-06-04] MEDS: ENOXAPARIN 30 MG/0.3 ML SYRINGE SQ SCH (10:04)
--- NOTE | 2020-06-04 10:44 | P.HPIM ---
History of Present Illness H&P Date: 06/04/20 Alejandra Castellon, is an 89-year-old female well known to my practice who presented to [facility] emergency room with symptoms of nausea vomiting and severe weakness, she was evaluated in the emergency room, her vital exam on presentation reveals a temperature of 98.1 pulse 72 respiration 18 blood pressure 82/49 pulse ox 97% on room air, her laboratory data was significant for white blood count of 13.4 hemoglobin 11.3 she also had evidence of acute kidney injury was elevated BUN at 23 and elevated creatinine at 2.41 patient was admitted to medical floor she was started on IV fluid, nephrology consultation was requested and gastroenterology consultation was requested. On review of systems patient is alert confused in no apparent distress she is complaining of abdominal pain otherwise she denies any complaints at this time. Her past medical history significant for history of hypertension, history of hyperlipidemia, history of hypothyroidism, history of advanced Alzheimer disease with dementia, history of depression, and history of asthma. Past Medical History Past Medical History: Asthma, Coronary Artery Disease (CAD), Chest Pain / An rosalba, COPD, Dementia, Hyperlipidemia, Hypertension, Myocardial Infarction ([place]), Osteoarthritis (OA), Thyroid Disorder Additional Past Medical History / Comment(s): [place] in 1998, 2 cardiac stents in 1998, shingles, collitis, Last Myocardial Infarction Date:: 1998 History of Any Multi-Drug Resistant Organisms: C-DIFF Date of last positivie culture/infection: 02/03/20 MDRO Source:: stool Past Surgical History: Heart Catheterization With Stent Additional Past Surgical History / Comment(s): B\L cataracts removed 2013, aortic aneurysm clipped 2005, colonoscopy Past Anesthesia/Blood Transfusion Reactions: No Reported Reaction Date of Last Stent Placement:: 1998 Past Psychological History: Depression Smoking Status: Former smoker Past Alcohol Use History: None Reported Past Drug Use History: None Reported - Past Family History Father Additional Family Medical History / Comment(s): emphazema Mother Additional Family Medical History / Comment(s): Alzhiemiers Medications and Allergies Home Medications Medication Instructions Recorded Confirmed Type Budesonide [Pulmicort] 0.5 mg INHALATION RT-BID 10/01/14 06/03/20 History Donepezil HCl [Aricept] 5 mg PO HS 10/01/14 06/03/20 History Montelukast [Singulair] 10 mg PO HS 10/01/14 06/03/20 History Nitroglycerin Sl Tabs [Nitrostat] 0.4 mg SUBLINGUAL Q5M PRN 10/01/14 06/03/20 History Omalizumab [Xolair] 150 mg SQ Q30D 10/01/14 06/03/20 History Potassium Chloride [Klor-Con 20] 20 meq PO DAILY 10/01/14 06/03/20 History Isosorbide Mononitrate ER [Imdur] 30 mg PO DAILY 01/30/16 06/03/20 History Levothyroxine Sodium [Synthroid] 50 mcg PO DAILY 01/30/16 06/03/20 History Pantoprazole [Protonix] 40 mg PO AC-BRKFST #30 tablet. 02/01/16 06/03/20 Rx Metoprolol Tartrate [Lopressor] 25 mg PO BID 12/01/17 06/03/20 History Simvastatin [Zocor] 20 mg PO HS 12/01/17 06/03/20 History Ipratropium-Albuterol Nebulize 3 ml INHALATION RT-QID ampul.neb 12/07/17 06/03/20 Rx [Duoneb 0.5 mg-3 mg/3 ml Soln] Cholecalciferol (Vitamin D3) 2,000 unit PO DAILY 06/08/18 06/03/20 History [Vitamin D3] Furosemide [Lasix] 40 mg PO DAILY 06/08/18 06/03/20 History Citalopram Hydrobromide [CeleXA] 20 mg PO HS 02/10/20 06/03/20 History Budesonide-Formot 160-4.5 Mcg 1 puff INHALATION RT-BID puff 02/15/20 06/03/20 Rx [Symbicort 160-4.5 Mcg Inhaler] Ferrous Sulfate [Feosol] 325 mg PO DAILY 06/03/20 06/03/20 History Furosemide [Lasix] 20 mg PO HS 06/03/20 06/03/20 History Allergies Allergy/AdvReac Type Severity Reaction Status Date / Time cephalexin monohydrate Allergy Colitis Verified 06/03/20 14:22 [From Keflex] Physical Exam Vitals: Vital Signs Temp Pulse Pulse Pulse Resp BP BP 06/04/20 08:00 20 06/04/20 07:24 60 06/04/20 07:10 60 06/04/20 07:00 99.0 F 66 16 112/53 06/04/20 00:30 98.8 F 71 20 100/58 06/03/20 21:07 72 06/03/20 20:51 68 06/03/20 20:50 06/03/20 19:03 98.5 F 74 16 102/66 06/03/20 16:49 16 06/03/20 14:35 98.4 F 81 16 154/73 06/03/20 13:42 76 18 110/83 06/03/20 11:54 98.1 F 72 18 82/49 Pulse Ox 06/04/20 08:00 06/04/20 07:24 06/04/20 07:10 06/04/20 07:00 98 06/04/20 00:30 97 06/03/20 21:07 06/03/20 20:51 06/03/20 20:50 96 06/03/20 19:03 96 06/03/20 16:49 06/03/20 14:35 98 06/03/20 13:42 96 06/03/20 11:54 97 Intake and Output 06/03/20 06/04/20 06/04/20 22:59 06:59 14:59 Intake Total 100 Balance 100 Intake: Oral 100 Other: Voiding Method Toilet Toilet Diaper Diaper # Voids 1 1 In general patient is alert confused in no apparent distress HEENT head normocephalic and atraumatic Neck is supple no JVD no goiter no lymphadenopathy Chest exam reveals a few scattered rhonchi no wheezing Cardiac exam reveals regular heart sounds no gallops no murmurs Abdomen is soft with mild tenderness in the epigastric and right upper quadrant area, no organomegaly no palpable masses was normal bowel sounds Extremity exam reveals no edema no cyanosis or clubbing Neurological examination reveals no gross focal deficit Results CBC & Chem 7: 06/03/20 12:56 06/04/20 07:45 Labs: Abnormal Lab Results - Last 24 Hours (Table) 06/03/20 06/03/20 06/04/20 Range/Units 12:56 12:56 07:45 WBC 13.4 H (3.8-10.6) k/uL Hgb 11.3 L (11.4-16.0) gm/dL Neutrophils # 11.3 H (1.3-7.7) k/uL Sodium 135 L 136 L (137-145) mmol/L Potassium 3.4 L (3.5-5.1) mmol/L BUN 23 H 18 H (7-17) mg/dL Creatinine 2.41 H 1.82 H (0.52-1.04) mg/dL Glucose 122 H 110 H (74-99) mg/dL Calcium 8.1 L (8.4-10.2) mg/dL Thrombosis Risk Factor Assmnt - Choose All That Apply Any of the Below Risk Factors Present?: No Each Risk Factor Represents 3 Points: Age 75 years or older Thrombosis Risk Factor Assessment Total Risk Factor Score: 3 Thrombosis Risk Factor Assessment Level: Moderate Risk Assessment and Plan Plan: 1. Gastroenteritis with nausea vomiting and diarrhea, check stools for C. diff, check abdomen ultrasound to rule out gallbladder disease 2. Dehydration with acute renal failure, started on IV fluid, nephrology consult requested in the emergency room 3. Leukocytosis, no clear source of infection, will check chest x-ray, check abdomen ultrasound 4. Underlying history of dementia 5. Underlying history of asthma 6. Underlying history of coronary artery disease 7. Underlying history of depression maintained on Celexa continue 8. Underlying history of hyperlipidemia maintained on Lipitor 9. Underlying history of hypothyroidism maintained on Synthroid continue 10. For GI prophylaxis patient is on Protonix for DVT prophylaxis Will add Lovenox At this time will check nephrology and gastroenterology consult input Will check chest x-ray and abdomen ultrasound Will monitor CBC, and kidney function
[2020-06-04 11:03] LABS: Basophils % (A) 0 %; Eosinophils # (A) 0.1 k/uL (0-0.7); Eosinophils % (A) 1 %; HCT 32.7 % (34.0-46.0); HGB 10.1 gm/dL (11.4-16.0); Hypochromasia Moderate; Lymphocytes # (A) 1.2 k/uL (1.0-4.8); Lymphocytes % (A) 17 %; MCH 28.3 pg (25.0-35.0); MCHC 30.9 g/dL (31.0-37.0); MCV 91.8 fL (80.0-100.0); Mean Platelet Volume 10.6; Monocytes # (A) 0.5 k/uL (0-1.0); Monocytes % (A) 6 %; Neutrophils # (A) 5.3 k/uL (1.3-7.7); Neutrophils % (A) 74 %; Platelet Count 195 k/uL (150-450); RBC 3.56 m/uL (3.80-5.40); RDW 14.3 % (11.5-15.5); WBC 7.1 k/uL (3.8-10.6)
--- NOTE | 2020-06-04 11:11 | P.PN ---
Subjective Progress Note Date: 06/04/20 Follow-up for acute kidney injury. Feels better. Objective - Vital Signs Vital signs: Vital Signs Temp 99.0 F 06/04/20 07:00 Pulse 60 06/04/20 07:24 Resp 20 06/04/20 08:00 BP 112/53 06/04/20 07:00 Pulse Ox 98 06/04/20 07:00 Intake & Output 06/03/20 06/04/20 06/04/20 18:59 06:59 18:59 Intake Total 100 Balance 100 Weight 51.71 kg Intake: Oral 100 Other: Voiding Method Toilet Toilet Diaper Diaper # Voids 1 - Exam No acute distress Lungs clear Abdomen soft S1-S2 heard No edema - Labs CBC & Chem 7: 06/04/20 07:45 06/04/20 07:45 Labs: Abnormal Lab Results - Last 24 Hours (Table) 06/03/20 06/03/20 06/04/20 Range/Units 12:56 12:56 07:45 WBC 13.4 H (3.8-10.6) k/uL RBC (3.80-5.40) m/uL Hgb 11.3 L (11.4-16.0) gm/dL Hct (34.0-46.0) % MCHC (31.0-37.0) g/dL Neutrophils # 11.3 H (1.3-7.7) k/uL Sodium 135 L 136 L (137-145) mmol/L Potassium 3.4 L (3.5-5.1) mmol/L BUN 23 H 18 H (7-17) mg/dL Creatinine 2.41 H 1.82 H (0.52-1.04) mg/dL Glucose 122 H 110 H (74-99) mg/dL Calcium 8.1 L (8.4-10.2) mg/dL 06/04/20 Range/Units 07:45 WBC (3.8-10.6) k/uL RBC 3.56 L (3.80-5.40) m/uL Hgb 10.1 L (11.4-16.0) gm/dL Hct 32.7 L (34.0-46.0) % MCHC 30.9 L (31.0-37.0) g/dL Neutrophils # (1.3-7.7) k/uL Sodium (137-145) mmol/L Potassium (3.5-5.1) mmol/L BUN (7-17) mg/dL Creatinine (0.52-1.04) mg/dL Glucose (74-99) mg/dL Calcium (8.4-10.2) mg/dL Assessment and Plan Assessment: #1 nonoliguric acute kidney injury secondary to prerenal process from nausea vomiting. #2 metabolic alkalosis secondary to vomiting. #3 chronic kidney disease stage III with a baseline creatinine of 1.4-1.8 MG per DL. #4 low normal blood pressures #5 hypovolemic hyponatremia Plan: #1 renal function improving. Close to baseline. #2 stop IV fluids, encourage by mouth intake. #3 stable from nephrology point of view for discharge.
--- NOTE | 2020-06-04 11:59 | CONS ---
CONSULTATION DATE OF CONSULTATION: 06/04/2020 REASON FOR CONSULTATION: Nausea, vomiting and diarrhea. HISTORY OF PRESENT ILLNESS: The patient is an 89-year-old pleasant white female with advanced dementia, who was brought in by her daughter. Apparently she was complaining of nausea, vomiting for the last 2 or 3 days duration. She also had diarrhea a week ago and yesterday. She had decreased appetite and hence she was brought into the emergency room. As per the nursing staff, she did not have any further episodes of nausea, vomiting. She is currently on a clear liquid diet, tolerating well. She reports no abdominal pain. She had no bowel movements today. PAST MEDICAL HISTORY: Significant for coronary artery disease, asthma, COPD, dementia, hyperlipidemia, hypertension, coronary artery disease, degenerative joint disease and hypothyroidism. MEDICATIONS: At home, Celexa, Lasix, vitamin D3, Zocor, Lopressor, Synthroid, Imdur, potassium chloride, Xolair, Singulair, Aricept, and Pulmicort. ALLERGIES: KEFLEX. SOCIAL HISTORY: Remote history of smoking. FAMILY HISTORY: Unremarkable. PAST SURGICAL HISTORY: Bilateral cataract surgery, cardiac catheterization with stent placement, aortic aneurysm surgery in 2005. FAMILY HISTORY: Father had emphysema. Mother had Alzheimer's. REVIEW OF SYSTEMS: CARDIOPULMONARY: She currently denies any chest pain, no shortness of breath. : No dysuria or hematuria. MUSCULOSKELETAL: Unremarkable. SKIN: Unremarkable. ENDOCRINE: Unremarkable. PSYCHIATRIC: Unremarkable. NEUROLOGY: Dementia. CONSTITUTIONAL: No recent weight loss. No fever, chills, night sweats. MUSCULOSKELETAL: Unremarkable. ENDOCRINE: Unremarkable. PHYSICAL EXAMINATION: She appears comfortable. VITAL SIGNS: Stable. Blood pressure is 112/53, pulse rate 66, temperature 99. HEENT: Examination unremarkable. Conjunctivae are pink. Sclerae anicteric. Oral cavity no lesions. NECK: No JVD or lymph node enlargement. CHEST: Clear to auscultation. HEART: Regular rate and rhythm. ABDOMEN: Soft, nontender, nondistended. Bowel sounds are positive. EXTREMITIES: No pedal edema. NEURO: She is alert and oriented x3. No focal deficits. LABS: WBC 13.4, hemoglobin 11.3, platelets normal. Basic metabolic panel is within normal limits. BUN is 23, creatinine 2.41. Urinalysis is negative. ALT, AST, T-bilirubin and alkaline phosphatase are normal. IMPRESSION: 1. Acute onset of nausea, vomiting, and diarrhea of 1 or 2 days duration. The patient is clinically doing well. Her symptoms have resolved. In fact, no bowel movements at the present time. Possible viral gastroenteritis, gradually improving. On clear liquid diet, tolerating well. 2. Elevated BUN and creatinine, probably related to acute kidney injury. Nephrology following the patient closely. 3. History of advanced dementia. RECOMMENDATIONS: 1. Advance diet as tolerated. 2. Continue Protonix 40 mg daily. 3. Antiemetics as needed. 4. Repeat labs in the morning. 5. We will follow with you closely. Thank you for this consultation. MMODL / IJN: [id number] /
[2020-06-04 12:02] VITALS: BMI 21.5
--- NOTE | 2020-06-04 14:28 | XR ---
EXAMINATION TYPE: XR chest 1V DATE OF EXAM: 06/04/2020 CLINICAL HISTORY: Leukocytosis TECHNIQUE: Portable upright view of the chest obtained COMPARISON: Chest regressed 02/27/2020 FINDINGS: The cardiomediastinal silhouette is within normal limits for size. Pulmonary vasculature i s normal. There is no focal air space opacity, pleural effusion, or pneumothorax seen. The osseous st ructures are intact. IMPRESSION: No acute cardiopulmonary process.
--- NOTE | 2020-06-04 14:32 | US ---
EXAMINATION TYPE: US abdomen complete DATE OF EXAM: 06/04/2020 COMPARISON: NONE CLINICAL HISTORY: vomiting, leukocytosis. Elderly female in recliner, very confused, abd pain EXAM MEASUREMENTS: Liver Length: 12.5 cm Gallbladder Wall: 0.3 cm CBD: 0.4 cm Spleen: 11.2 cm Right Kidney: 7.8 x 4.1 x 4.5 cm Left Kidney: 7.8 x 3.9 x 3.6 cm Pancreas: Normal where visualized. Liver: Normal. Gallbladder: Suboptimal visualization due to overlying bowel gas. There is cholelithiasis. No visual ized gallbladder wall thickening or pericholecystic edema. De Ionizer Operator reports negative sonographic Condon sign. CBD: Normal. Spleen: Normal. Right Kidney: 3.5cm lateral renal cyst redemonstrated. No hydronephrosis. Left Kidney: Normal. Upper IVC: Normal. Abd Aorta: Normal caliber of the proximal and mid abdominal aorta. Distal abdominal aorta obscured d ue to overlying bowel gas. IMPRESSION: 1. Cholelithiasis. Gallbladder is suboptimally visualized due to overlying bowel gas, however visuali zed portions demonstrate no evidence of acute cholecystitis. 2. Distal abdominal aorta obscured due to overlying bowel gas.
[2020-06-04] MEDS: SODIUM CHLORIDE 0.9% 1,000 ML IV SCH (15:51)
[2020-06-04] MEDS: DONEPEZIL 5 MG TAB PO SCH (20:35)
[2020-06-04] MEDS: MONTELUKAST 10 MG TAB PO SCH (20:36)
[2020-06-04] MEDS: CITALOPRAM HYDROBROMIDE 20 MG TAB PO SCH (20:36)
[2020-06-04] MEDS: ATORVASTATIN 10 MG TAB PO SCH (20:36)
[2020-06-05] MEDS: LEVOTHYROXINE 50 MCG TAB PO SCH (05:48)
[2020-06-05] MEDS: BUDESONIDE 0.5 MG/2 ML NEBU INHALATION SCH ×2 (07:19→20:47)
[2020-06-05] MEDS: IPRATROPIUM-ALBUTEROL 3 ML NEB INHALATION SCH ×4 (07:19→20:47)
[2020-06-05] MEDS: CHOLECALCIFEROL 1,000 UNIT TAB PO SCH (08:17)
[2020-06-05] MEDS: ENOXAPARIN 30 MG/0.3 ML SYRINGE SQ SCH (08:18)
[2020-06-05] MEDS: PANTOPRAZOLE 40 MG TABLET PO SCH (08:18)
[2020-06-05] MEDS: ISOSORBIDE MONONITRATE ER 30 MG TAB.ER.24H PO SCH (08:18)
[2020-06-05] MEDS: METOPROLOL TARTRATE 25 MG TAB PO SCH ×2 (08:18→20:22)
[2020-06-05] MEDS: SODIUM CHLORIDE 0.9% 1,000 ML IV SCH (08:19)
[2020-06-05 08:30] LABS: ALT <6 U/L (4-34); AST 17 U/L (14-36); African American GFR (CKD) 33 (>60 ml/min/1.73 sqM); Albumin 2.3 g/dL (3.5-5.0); Alkaline Phosphatase 65 U/L (38-126); Anion Gap 6 mmol/L; Blood Urea Nitrogen 13 mg/dL (7-17); Calcium 7.8 mg/dL (8.4-10.2); Carbon Dioxide 24 mmol/L (22-30); Chloride 106 mmol/L (98-107); Glucose 87 mg/dL (74-99); Non-African American GFR(CKD) 28 (>60 ml/min/1.73 sqM); Potassium 3.4 mmol/L (3.5-5.1); Sodium 136 mmol/L (137-145); Total Bilirubin 0.6 mg/dL (0.2-1.3); Total Protein 4.6 g/dL (6.3-8.2)
[2020-06-05 08:35] LABS: Basophils % (A) 0 %; Eosinophils # (A) 0.1 k/uL (0-0.7); Eosinophils % (A) 1 %; HCT 27.4 % (34.0-46.0); HGB 8.7 gm/dL (11.4-16.0); Lymphocytes # (A) 0.6 k/uL (1.0-4.8); Lymphocytes % (A) 10 %; MCH 28.4 pg (25.0-35.0); MCHC 31.8 g/dL (31.0-37.0); MCV 89.3 fL (80.0-100.0); Mean Platelet Volume 9.8; Monocytes # (A) 0.4 k/uL (0-1.0); Monocytes % (A) 8 %; Neutrophils # (A) 4.2 k/uL (1.3-7.7); Neutrophils % (A) 79 %; Platelet Count 155 k/uL (150-450); RBC 3.07 m/uL (3.80-5.40); RDW 14.6 % (11.5-15.5); WBC 5.4 k/uL (3.8-10.6)
--- NOTE | 2020-06-05 12:16 | PN ---
PROGRESS NOTE DATE OF SERVICE: 06/05/2020 INTERVAL HISTORY: Patient is an 89-year-old pleasant white female admitted to the hospital with nausea, vomiting, and diarrhea. As per the nursing staff she has been doing well. Her diet has been advanced as tolerated. She did not have any further episodes of nausea, vomiting. No abdominal pain. Had one soft bowel movement this morning. PHYSICAL EXAMINATION: Appears comfortable. No apparent distress. VITAL SIGNS: Stable. Blood pressure is 119/62, pulse is 74, temperature 98.3. HEENT: Examination unremarkable. Conjunctivae are pink. Sclerae anicteric. Oral cavity no lesions. NECK: No JVD or lymph node enlargement. CHEST: Clear to auscultation. HEART: Regular rate and rhythm. ABDOMEN: Soft. Bowel sounds are positive. No organomegaly. EXTREMITIES: No pedal edema. NEURO: She is alert and oriented x3. No focal deficits. LABS: From today WBC 5.4, hemoglobin 8.7, platelets normal. Basic metabolic panel showed BUN of 13, creatinine 1.62. IMPRESSION: 1. Acute onset of nausea, vomiting, diarrhea, resolved. On a regular diet, tolerating well. 2. Acute kidney injury secondary to dehydration with improving BUN and creatinine today. 3. Normocytic anemia. The patient had a drop in hemoglobin from 11.3 to 8.7. Clinically no evidence of active bleeding. Most likely dilutional. RECOMMENDATIONS: 1. Advance diet as tolerated. 2. Continue IV hydration. 3. In regard to the anemia, we will obtain iron studies. 4. Antiemetics as needed. 5. We will follow with you closely. Thank you for this consultation. MMVILMAL / SHAWNN: [id number] /
--- NOTE | 2020-06-05 12:26 | P.PN ---
Subjective Progress Note Date: 06/05/20 Alejandra Castellon, is an 89-year-old female well known to my practice who presented to [facility] emergency room with symptoms of nausea vomiting and severe weakness, she was evaluated in the emergency room, her vital exam on presentation reveals a temperature of 98.1 pulse 72 respiration 18 blood pressure 82/49 pulse ox 97% on room air, her laboratory data was significant for white blood count of 13.4 hemoglobin 11.3 she also had evidence of acute kidney injury was elevated BUN at 23 and elevated creatinine at 2.41 patient was admitted to medical floor she was started on IV fluid, nephrology consultation was requested and gastroenterology consultation was requested. On review of systems patient is alert confused in no apparent distress she is complaining of abdominal pain otherwise she denies any complaints at this time. Her past medical history significant for history of hypertension, history of hyperlipidemia, history of hypothyroidism, history of advanced Alzheimer disease with dementia, history of depression, and history of asthma. On 06/05/2020 patient was seen and examined on the medical floor she is alert confused in no apparent distress she denies any symptoms at this time there is no fever or chills no headache or dizziness no chest pain no shortness of breath no cough no nausea or vomiting no abdominal pain no diarrhea no blood in the stools , no burning with urination no frequency or urgency and no hematuria Objective - Vital Signs Vital signs: Vital Signs Temp 98.3 F 06/05/20 07:00 Pulse 66 06/05/20 07:36 Resp 18 06/05/20 07:00 BP 119/62 06/05/20 07:00 Pulse Ox 97 06/05/20 07:00 Intake & Output 06/04/20 06/05/20 06/05/20 18:59 06:59 18:59 Intake Total 800 300 Balance 800 300 Weight 51.71 kg Intake: Intake, IV Titration 400 Amount Sodium Chloride 0.9% 1, 400 000 ml @ 50 mls/hr IV . Q20H [facility] Rx#:[id number] Oral 400 300 Other: Voiding Method Toilet Toilet Diaper Diaper # Voids 1 - Exam In general patient is alert confused in no apparent distress HEENT head normocephalic and atraumatic Neck is supple no JVD no goiter no lymphadenopathy Chest exam reveals a few scattered rhonchi no wheezing Cardiac exam reveals regular heart sounds no gallops no murmurs Abdomen is soft with mild tenderness in the epigastric and right upper quadrant area, no organomegaly no palpable masses was normal bowel sounds Extremity exam reveals no edema no cyanosis or clubbing Neurological examination reveals no gross focal deficit - Labs CBC & Chem 7: 06/05/20 07:15 06/05/20 07:15 Labs: Abnormal Lab Results - Last 24 Hours (Table) 06/04/20 06/05/20 06/05/20 Range/Units 07:45 07:15 07:15 RBC 3.56 L 3.07 L (3.80-5.40) m/uL Hgb 10.1 L 8.7 L (11.4-16.0) gm/dL Hct 32.7 L 27.4 L (34.0-46.0) % MCHC 30.9 L (31.0-37.0) g/dL Lymphocytes # 0.6 L (1.0-4.8) k/uL Sodium 136 L (137-145) mmol/L Potassium 3.4 L (3.5-5.1) mmol/L Creatinine 1.62 H (0.52-1.04) mg/dL Calcium 7.8 L (8.4-10.2) mg/dL Total Protein 4.6 L (6.3-8.2) g/dL Albumin 2.3 L (3.5-5.0) g/dL Assessment and Plan Plan: 1. Gastroenteritis with nausea vomiting and diarrhea, check stools for C. diff, check abdomen ultrasound to rule out gallbladder disease 2. Dehydration with acute renal failure, started on IV fluid, nephrology consult requested in the emergency room 3. Leukocytosis, no clear source of infection, will check chest x-ray, check abdomen ultrasound, leukocytosis improved, white blood count normal today at 5.4 down from 13.4 on admission abdomen ultrasound revealed evidence of cholelithiasis without evidence of cholecystitis, chest x-ray reveals no evidence of acute pulmonary process 4. Underlying history of dementia, patient is confused, but stable. 5. Underlying history of asthma, stable no evidence of exacerbation at this time 6. Underlying history of coronary artery disease, stable no cardiovascular symptoms at this time 7. Underlying history of depression maintained on Celexa continue 8. Underlying history of hyperlipidemia maintained on Lipitor 9. Underlying history of hypothyroidism maintained on Synthroid continue 10. For GI prophylaxis patient is on Protonix for DVT prophylaxis Will add Lovenox At this time will check nephrology and gastroenterology consult input chest x-ray and abdomen ultrasound, done results as above Will advance diet gradually Will monitor CBC, and kidney function
--- NOTE | 2020-06-05 13:07 | P.PN ---
Subjective Progress Note Date: 06/05/20 Follow-up for acute kidney injury. Feels better. Objective - Vital Signs Vital signs: Vital Signs Temp 98.3 F 06/05/20 07:00 Pulse 68 06/05/20 11:31 Resp 18 06/05/20 07:00 BP 119/62 06/05/20 07:00 Pulse Ox 97 06/05/20 07:00 Intake & Output 06/04/20 06/05/20 06/05/20 18:59 06:59 18:59 Intake Total 800 300 Balance 800 300 Weight 51.71 kg Intake: Intake, IV Titration 400 Amount Sodium Chloride 0.9% 1, 400 000 ml @ 50 mls/hr IV . Q20H [facility] Rx#:[id number] Oral 400 300 Other: Voiding Method Toilet Toilet Diaper Diaper # Voids 1 1 # Bowel Movements 1 - Exam No acute distress Lungs clear Abdomen soft S1-S2 heard No edema - Labs CBC & Chem 7: 06/05/20 07:15 06/05/20 07:15 Labs: Abnormal Lab Results - Last 24 Hours (Table) 06/05/20 06/05/20 Range/Units 07:15 07:15 RBC 3.07 L (3.80-5.40) m/uL Hgb 8.7 L (11.4-16.0) gm/dL Hct 27.4 L (34.0-46.0) % Lymphocytes # 0.6 L (1.0-4.8) k/uL Sodium 136 L (137-145) mmol/L Potassium 3.4 L (3.5-5.1) mmol/L Creatinine 1.62 H (0.52-1.04) mg/dL Calcium 7.8 L (8.4-10.2) mg/dL Total Protein 4.6 L (6.3-8.2) g/dL Albumin 2.3 L (3.5-5.0) g/dL Assessment and Plan Assessment: #1 nonoliguric acute kidney injury secondary to prerenal process from nausea vomiting. #2 metabolic alkalosis secondary to vomiting. #3 chronic kidney disease stage III with a baseline creatinine of 1.4-1.8 MG per DL. #4 low normal blood pressures #5 hypovolemic hyponatremia Plan: #1 renal function improving at baseline #2 stable from nephrology point of view for discharge.
[2020-06-05 17:28] LABS: % Iron Saturation 14.38 (12.00-45.00)
[2020-06-05 17:52] LABS: Ferritin 608.7 ng/mL (10.0-291.0)
[2020-06-05] MEDS: DONEPEZIL 5 MG TAB PO SCH (20:22)
[2020-06-05] MEDS: MONTELUKAST 10 MG TAB PO SCH (20:22)
[2020-06-05] MEDS: CITALOPRAM HYDROBROMIDE 20 MG TAB PO SCH (20:22)
[2020-06-05] MEDS: ATORVASTATIN 10 MG TAB PO SCH (20:22)
[2020-06-06] MEDS: LEVOTHYROXINE 50 MCG TAB PO SCH (05:07)
[2020-06-06] MEDS: BUDESONIDE 0.5 MG/2 ML NEBU INHALATION SCH ×2 (07:15→21:30)
[2020-06-06] MEDS: IPRATROPIUM-ALBUTEROL 3 ML NEB INHALATION SCH ×4 (07:15→21:30)
[2020-06-06] MEDS: ISOSORBIDE MONONITRATE ER 30 MG TAB.ER.24H PO SCH (08:25)
[2020-06-06] MEDS: CHOLECALCIFEROL 1,000 UNIT TAB PO SCH (08:27)
[2020-06-06] MEDS: ENOXAPARIN 30 MG/0.3 ML SYRINGE SQ SCH (08:28)
[2020-06-06] MEDS: METOPROLOL TARTRATE 25 MG TAB PO SCH ×2 (08:30→19:56)
[2020-06-06] MEDS: PANTOPRAZOLE 40 MG TABLET PO SCH (08:30)
[2020-06-06] MEDS: SODIUM CHLORIDE 0.9% 1,000 ML IV SCH (09:22)
--- NOTE | 2020-06-06 09:48 | P.PN ---
Subjective Patient is seen in follow for acute kidney injury. Creatinine 1.6 to as of yesterday. Oral intake gradually improving. No vomiting or diarrhea. Vital signs are stable. General: The patient appeared well nourished and normally developed. HEENT: Head exam is unremarkable. Neck is without jugular venous distension. LUNGS: Lungs are clear to auscultation and percussion. Breath sounds decreased. HEART: Rate and Rhythm are regular. ABDOMEN: Soft, nontender. EXTREMITITES: No clubbing, cyanosis, or edema. Objective - Vital Signs Vital signs: Vital Signs Temp 98.2 F 06/06/20 07:53 Pulse 70 06/06/20 07:53 Resp 20 06/06/20 07:53 BP 123/67 06/06/20 07:53 Pulse Ox 97 06/06/20 07:53 Intake & Output 06/05/20 06/06/20 06/06/20 18:59 06:59 18:59 Intake Total 150 Balance 150 Intake: Intake, IV Titration 150 Amount Sodium Chloride 0.9% 1, 150 000 ml @ 50 mls/hr IV . Q20H [facility] Rx#:[id number] Other: Voiding Method Toilet Toilet Diaper Diaper # Voids 1 1 # Bowel Movements 1 - Labs CBC & Chem 7: 06/05/20 07:15 06/05/20 07:15 Labs: Abnormal Lab Results - Last 24 Hours (Table) 06/05/20 Range/Units 07:15 Iron 21 L (50-170) ug/dL TIBC 146 L (228-460) ug/dL Ferritin 608.7 H (10.0-291.0) ng/mL Assessment and Plan Plan: Assessment: 1. Acute kidney injury mostly prerenal improving with IV hydration. Creatinine 1.6 to as of yesterday. UA benign. 2. Chronic kidney disease stage III with baseline creatinine in the range of 1.3-1.5 secondary to nephrosclerosis. 3. Anemia. Iron deficiency noted. 4. Nausea vomiting and diarrhea. Resolved. Tolerating oral intake. Seen by GI. 5. Hypokalemia from poor intake. Rule out magnesium deficiency. Plan: Maintain normal saline at 50 mL an hour. Check BMP and magnesium level today. IV iron today. Anticipate discharge soon. Follow up outpatient in 1-2 weeks.
[2020-06-06] MEDS ORDERED: SODIUM FERRIC GLUCONAT-SUCROSE 125 MG in SODIUM CHLORIDE 0.9% 100 ML IVPB ONE (10:00)
[2020-06-06 11:43] LABS: Calcium 8.1 mg/dL (8.4-10.2); Magnesium 1.8 mg/dL (1.6-2.3); Potassium 3.6 mmol/L (3.5-5.1)
[2020-06-06] MEDS ORDERED: POTASSIUM CHLORIDE ER 20 MEQ TAB.ER PO STA (11:58)
[2020-06-06 13:20] LABS: Basophils % (A) 0 %; Eosinophils # (A) 0.1 k/uL (0-0.7); Eosinophils % (A) 1 %; HCT 29.9 % (34.0-46.0); HGB 9.4 gm/dL (11.4-16.0); Lymphocytes # (A) 0.7 k/uL (1.0-4.8); Lymphocytes % (A) 9 %; MCH 28.1 pg (25.0-35.0); MCHC 31.3 g/dL (31.0-37.0); MCV 89.6 fL (80.0-100.0); Mean Platelet Volume 10.1; Monocytes # (A) 0.6 k/uL (0-1.0); Monocytes % (A) 7 %; Neutrophils # (A) 6.1 k/uL (1.3-7.7); Neutrophils % (A) 82 %; Platelet Count 203 k/uL (150-450); RBC 3.34 m/uL (3.80-5.40); RDW 14.5 % (11.5-15.5); WBC 7.5 k/uL (3.8-10.6)
--- NOTE | 2020-06-06 17:15 | P.PN ---
Subjective Progress Note Date: 06/06/20 Alejandra Castellon, is an 89-year-old female well known to my practice who presented to [facility] emergency room with symptoms of nausea vomiting and severe weakness, she was evaluated in the emergency room, her vital exam on presentation reveals a temperature of 98.1 pulse 72 respiration 18 blood pressure 82/49 pulse ox 97% on room air, her laboratory data was significant for white blood count of 13.4 hemoglobin 11.3 she also had evidence of acute kidney injury was elevated BUN at 23 and elevated creatinine at 2.41 patient was admitted to medical floor she was started on IV fluid, nephrology consultation was requested and gastroenterology consultation was requested. On review of systems patient is alert confused in no apparent distress she is complaining of abdominal pain otherwise she denies any complaints at this time. Her past medical history significant for history of hypertension, history of hyperlipidemia, history of hypothyroidism, history of advanced Alzheimer disease with dementia, history of depression, and history of asthma. On 06/05/2020 patient was seen and examined on the medical floor she is alert confused in no apparent distress she denies any symptoms at this time there is no fever or chills no headache or dizziness no chest pain no shortness of breath no cough no nausea or vomiting no abdominal pain no diarrhea no blood in the stools , no burning with urination no frequency or urgency and no hematuria On 06/06/2020 patient was seen and examined on the medical floor she is alert confused in no distress, she denies any complaints at this time hemoglobin has been declining IV iron was ordered by nephrology kidney function has been improving otherwise patient is stable and there is no fever or chills no headache or dizziness no chest pain no shortness of breath no cough no nausea or vomiting no abdominal pain no diarrhea and no urinary symptoms Objective - Vital Signs Vital signs: Vital Signs Temp 98.2 F 06/06/20 07:53 Pulse 72 06/06/20 15:52 Resp 20 06/06/20 07:53 BP 123/67 06/06/20 07:53 Pulse Ox 97 06/06/20 07:53 Intake & Output 06/05/20 06/06/20 06/06/20 18:59 06:59 18:59 Intake Total 150 400 Balance 150 400 Intake: Intake, IV Titration 150 200 Amount Sodium Chloride 0.9% 1, 150 200 000 ml @ 50 mls/hr IV . Q20H [facility] Rx#:[id number] Oral 200 Other: Voiding Method Toilet Toilet Diaper Diaper # Voids 1 1 1 # Bowel Movements 1 1 - Exam In general patient is alert confused in no apparent distress HEENT head normocephalic and atraumatic Neck is supple no JVD no goiter no lymphadenopathy Chest exam reveals a few scattered rhonchi no wheezing Cardiac exam reveals regular heart sounds no gallops no murmurs Abdomen is soft with mild tenderness in the epigastric and right upper quadrant area, no organomegaly no palpable masses was normal bowel sounds Extremity exam reveals no edema no cyanosis or clubbing Neurological examination reveals no gross focal deficit - Labs CBC & Chem 7: 06/06/20 11:51 06/06/20 11:16 Labs: Abnormal Lab Results - Last 24 Hours (Table) 06/05/20 06/06/20 06/06/20 Range/Units 07:15 11:16 11:51 RBC 3.34 L (3.80-5.40) m/uL Hgb 9.4 L (11.4-16.0) gm/dL Hct 29.9 L (34.0-46.0) % Lymphocytes # 0.7 L (1.0-4.8) k/uL Sodium 136 L (137-145) mmol/L Chloride 108 H (98-107) mmol/L Creatinine 1.49 H (0.52-1.04) mg/dL Calcium 8.1 L (8.4-10.2) mg/dL Iron 21 L (50-170) ug/dL TIBC 146 L (228-460) ug/dL Ferritin 608.7 H (10.0-291.0) ng/mL Assessment and Plan Plan: 1. Gastroenteritis with nausea vomiting and diarrhea, check stools for C. diff, check abdomen ultrasound to rule out gallbladder disease 2. Dehydration with acute renal failure, started on IV fluid, nephrology consult requested in the emergency room 3. Leukocytosis, no clear source of infection, will check chest x-ray, check abdomen ultrasound, leukocytosis improved, white blood count normal today at 5.4 down from 13.4 on admission abdomen ultrasound revealed evidence of cholelithiasis without evidence of cholecystitis, chest x-ray reveals no evidence of acute pulmonary process 4. Underlying history of dementia, patient is confused, but stable. 5. Underlying history of asthma, stable no evidence of exacerbation at this time 6. Underlying history of coronary artery disease, stable no cardiovascular symptoms at this time 7. Underlying history of depression maintained on Celexa continue 8. Underlying history of hyperlipidemia maintained on Lipitor 9. Underlying history of hypothyroidism maintained on Synthroid continue 10. For GI prophylaxis patient is on Protonix for DVT prophylaxis Will add Lovenox At this time will check nephrology and gastroenterology consult input chest x-ray and abdomen ultrasound, done results as above Will advance diet gradually Will monitor CBC, and kidney function
[2020-06-06] MEDS: CITALOPRAM HYDROBROMIDE 20 MG TAB PO SCH (19:56)
[2020-06-06] MEDS: ATORVASTATIN 10 MG TAB PO SCH (19:56)
[2020-06-06] MEDS: DONEPEZIL 5 MG TAB PO SCH (19:56)
[2020-06-06] MEDS: MONTELUKAST 10 MG TAB PO SCH (19:56)
[2020-06-07] MEDS: SODIUM CHLORIDE 0.9% 1,000 ML IV SCH (03:11)
[2020-06-07] MEDS: LEVOTHYROXINE 50 MCG TAB PO SCH (05:01)
[2020-06-07] MEDS: PANTOPRAZOLE 40 MG TABLET PO SCH (06:52)
[2020-06-07] MEDS: IPRATROPIUM-ALBUTEROL 3 ML NEB INHALATION SCH ×2 (07:00→10:58)
[2020-06-07] MEDS: BUDESONIDE 0.5 MG/2 ML NEBU INHALATION SCH (07:00)
[2020-06-07] MEDS: METOPROLOL TARTRATE 25 MG TAB PO SCH (08:57)
[2020-06-07] MEDS: CHOLECALCIFEROL 1,000 UNIT TAB PO SCH (08:57)
[2020-06-07] MEDS: ENOXAPARIN 30 MG/0.3 ML SYRINGE SQ SCH (08:57)
[2020-06-07] MEDS: ISOSORBIDE MONONITRATE ER 30 MG TAB.ER.24H PO SCH (08:57)
[2020-06-07 09:28] VITALS: BP 125/73; RESP 20; TEMP 97.7
--- NOTE | 2020-06-07 09:58 | P.PN ---
Subjective Progress Note Date: 06/06/20 Principal diagnosis: Nausea vomiting diarrhea the patient is seen lying in bed. No acute complaints. She is tolerating diet. No abdominal pain reported. Objective - Vital Signs Vital signs: Vital Signs Temp 98.2 F 06/06/20 07:53 Pulse 72 06/06/20 15:52 Resp 20 06/06/20 07:53 BP 123/67 06/06/20 07:53 Pulse Ox 97 06/06/20 07:53 Intake & Output 06/05/20 06/06/20 06/06/20 18:59 06:59 18:59 Intake Total 150 400 Balance 150 400 Intake: Intake, IV Titration 150 200 Amount Sodium Chloride 0.9% 1, 150 200 000 ml @ 50 mls/hr IV . Q20H [facility] Rx#:[id number] Oral 200 Other: Voiding Method Toilet Toilet Diaper Diaper # Voids 1 1 1 # Bowel Movements 1 1 - Exam On physical examination, patient appears comfortable in no apparent distress. HEAD: Normocephalic, atraumatic. EYES: No scleral icterus. No conjunctival injection. MOUTH: No lesions, tongue midline. NECK: Trachea midline, no gross abnormalities. ABDOMEN: Soft, nontenter to palpation. Bowel sounds are positive. No organomegaly. No guarding or rigidity. EXTREMITIES: No pedal edema. SKIN: No rashes, no jaundice. NEUROLOGIC: Alert and oriented. - Labs CBC & Chem 7: 06/06/20 11:51 06/06/20 11:16 Labs: Abnormal Lab Results - Last 24 Hours (Table) 06/05/20 06/06/20 06/06/20 Range/Units 07:15 11:16 11:51 RBC 3.34 L (3.80-5.40) m/uL Hgb 9.4 L (11.4-16.0) gm/dL Hct 29.9 L (34.0-46.0) % Lymphocytes # 0.7 L (1.0-4.8) k/uL Sodium 136 L (137-145) mmol/L Chloride 108 H (98-107) mmol/L Creatinine 1.49 H (0.52-1.04) mg/dL Calcium 8.1 L (8.4-10.2) mg/dL Ferritin 608.7 H (10.0-291.0) ng/mL Assessment and Plan (1) Nausea vomiting and diarrhea Narrative/Plan: 89-year-old female presenting with nausea, vomiting and diarrhea. Symptoms improved and patient reports tolerating diet with no abdominal pain or further symptoms. Suspicion is for acute gastroenteritis resolved. Current Visit: Yes Status: Acute Code(s): R11.2 - NAUSEA WITH VOMITING, UNSPECIFIED; R19.7 - DIARRHEA, UNSPECIFIED SNOMED Code(s): 2397616 (2) Iron deficiency anemia Current Visit: No Status: Acute Code(s): D50.9 - IRON DEFICIENCY ANEMIA, UNS PECIFIED SNOMED Code(s): 19678650 Plan: supportive care Okay for diet as tolerated Continue monitor CBC, BMP, LFTs Continue other medical management per primary team thank you for allowing us to participate in the care of the patient we will continue to follow
--- NOTE | 2020-06-07 10:09 | P.PN ---
Subjective Patient is seen in follow for acute kidney injury. Creatinine 1.49 as of yesterday. Oral intake gradually improving. No vomiting or diarrhea. wants to go home. Hemodynamically stable. Vital signs are stable. General: The patient appeared well nourished and normally developed. HEENT: Head exam is unremarkable. Neck is without jugular venous distension. LUNGS: Lungs are clear to auscultation and percussion. Breath sounds decreased. HEART: Rate and Rhythm are regular. ABDOMEN: Soft, nontender. EXTREMITITES: No clubbing, cyanosis, or edema. Objective - Vital Signs Vital signs: Vital Signs Temp 97.7 F 06/07/20 07:00 Pulse 70 06/07/20 07:17 Resp 20 06/07/20 07:00 BP 125/73 06/07/20 07:00 Pulse Ox 97 06/07/20 01:16 Intake & Output 06/06/20 06/07/20 06/07/20 18:59 06:59 18:59 Intake Total 400 400 Balance 400 400 Intake: Intake, IV Titration 200 400 Amount Sodium Chloride 0.9% 1, 200 400 000 ml @ 50 mls/hr IV . Q20H [facility] Rx#:[id number] Oral 200 Other: Voiding Method Toilet Toilet Toilet Diaper Diaper Diaper # Voids 1 1 # Bowel Movements 1 - Labs CBC & Chem 7: 06/06/20 11:51 06/06/20 11:16 Labs: Abnormal Lab Results - Last 24 Hours (Table) 06/06/20 06/06/20 Range/Units 11:16 11:51 RBC 3.34 L (3.80-5.40) m/uL Hgb 9.4 L (11.4-16.0) gm/dL Hct 29.9 L (34.0-46.0) % Lymphocytes # 0.7 L (1.0-4.8) k/uL Sodium 136 L (137-145) mmol/L Chloride 108 H (98-107) mmol/L Creatinine 1.49 H (0.52-1.04) mg/dL Calcium 8.1 L (8.4-10.2) mg/dL Assessment and Plan Plan: Assessment: 1. Acute kidney injury mostly prerenal improving with IV hydration. Creatinine 1.49 as of yesterday. UA benign. 2. Chronic kidney disease stage III with baseline creatinine in the range of 1.3-1.5 secondary to nephrosclerosis. 3. Anemia. Iron deficiency noted. 4. Nausea vomiting and diarrhea. Resolved. Tolerating oral intake. Seen by GI. 5. Hypokalemia from poor intake. Rule out magnesium deficiency. Plan: Maintain normal saline at 50 mL an hour. IV iron today. this will be her second dose. Anticipate discharge soon. Follow up outpatient in 1-2 weeks.
[2020-06-07 10:15] LABS: Basophils % (A) 0 %; Eosinophils # (A) 0.1 k/uL (0-0.7); Eosinophils % (A) 2 %; HCT 32.3 % (34.0-46.0); Hypochromasia Slight; Lymphocytes % (A) 14 %; MCH 28.5 pg (25.0-35.0); MCHC 31.1 g/dL (31.0-37.0); MCV 91.7 fL (80.0-100.0); Mean Platelet Volume 10.1; Monocytes # (A) 0.5 k/uL (0-1.0); Monocytes % (A) 6 %; Neutrophils # (A) 5.7 k/uL (1.3-7.7); Neutrophils % (A) 77 %; Platelet Count 217 k/uL (150-450); RBC 3.53 m/uL (3.80-5.40); RDW 14.6 % (11.5-15.5); WBC 7.4 k/uL (3.8-10.6)
[2020-06-07 10:23] LABS: Albumin 2.9 g/dL (3.5-5.0); Calcium 8.4 mg/dL (8.4-10.2); Magnesium 1.8 mg/dL (1.6-2.3); Total Bilirubin 1.1 mg/dL (0.2-1.3); Total Protein 5.6 g/dL (6.3-8.2)
[2020-06-07 10:27] LABS: Potassium 4.2 mmol/L (3.5-5.1)
[2020-06-07] MEDS ORDERED: SODIUM FERRIC GLUCONAT-SUCROSE 125 MG in SODIUM CHLORIDE 0.9% 100 ML IVPB ONE (11:00)
[2020-06-07 11:10] VITALS: PULSE 68
--- NOTE | 2020-06-07 13:22 | P.DS ---
Providers Date of admission: 06/03/20 13:47 Expected date of discharge: 06/07/20 Attending physician: Flora Pastrana Consults: 06/03/20 13:47 Consult Physician Urgent Consulting Provider: Monik Becerril Consult Reason/Comments: Acute on chronic renal failure Do you want consulting provider notified?: Yes Consult Physician Urgent Consulting Provider: Susana Sandhu Consult Reason/Comments: Vomiting and diarrhea Do you want consulting provider notified?: Yes Primary care physician: Flora Zeina [facility] Course: Diagnoses on discharge: 1. Gastroenteritis with nausea vomiting and diarrhea, check stools for C. diff, check abdomen ultrasound to rule out gallbladder disease 2. Dehydration with acute renal failure, started on IV fluid, nephrology consult requested in the emergency room 3. Leukocytosis, no clear source of infection, will check chest x-ray, check abdomen ultrasound, leukocytosis improved, white blood count normal today at 5.4 down from 13.4 on admission abdomen ultrasound revealed evidence of cholelithiasis without evidence of cholecystitis, chest x-ray reveals no evidence of acute pulmonary process 4. Underlying history of dementia, patient is confused, but stable. 5. Underlying history of asthma, stable no evidence of exacerbation at this time 6. Underlying history of coronary artery disease, stable no cardiovascular symptoms at this time 7. Underlying history of depression maintained on Celexa continue 8. Underlying history of hyperlipidemia maintained on Lipitor 9. Underlying history of hypothyroidism maintained on Synthroid continue 10. For GI prophylaxis patient is on Protonix for DVT prophylaxis [facility] course: Alejandra Castellon, is an 89-year-old female well known to my practice who presented to [facility] emergency room with symptoms of nausea vomiting and severe weakness, she was evaluated in the emergency room, her vital exam on presentation reveals a temperature of 98.1 pulse 72 respiration 18 blood pressure 82/49 pulse ox 97% on room air, her laboratory data was significant for white blood count of 13.4 hemoglobin 11.3 she also had evidence of acute kidney injury was elevated BUN at 23 and elevated creatinine at 2.41 patient was admitted to medical floor she was started on IV fluid, nephrology consultation was requested and gastroenterology consultation was requested. On review of systems patient is alert confused in no apparent distress she is complaining of abdominal pain otherwise she denies any complaints at this time. Her past medical history significant for history of hypertension, history of hyperlipidemia, history of hypothyroidism, history of advanced Alzheimer disease with dementia, history of depression, and history of asthma. On 06/05/2020 patient was seen and examined on the medical floor she is alert confused in no apparent distress she denies any symptoms at this time there is no fever or chills no headache or dizziness no chest pain no shortness of breath no cough no nausea or vomiting no abdominal pain no diarrhea no blood in the stools , no burning with urination no frequency or urgency and no hematuria On 06/06/2020 patient was seen and examined on the medical floor she is alert confused in no distress, she denies any complaints at this time hemoglobin has been declining IV iron was ordered by nephrology kidney function has been improving otherwise patient is stable and there is no fever or chills no headache or dizziness no chest pain no shortness of breath no cough no nausea or vomiting no abdominal pain no diarrhea and no urinary symptoms Plan - Discharge Summary Discharge Rx Participant: No New Discharge Prescriptions: Continue Nitroglycerin Sl Tabs [Nitrostat] 0.4 mg SUBLINGUAL Q5M PRN PRN Reason: Chest Pain Budesonide [Pulmicort] 0.5 mg INHALATION RT-BID Potassium Chloride [Klor-Con 20] 20 meq PO DAILY Montelukast [Singulair] 10 mg PO HS Donepezil HCl [Aricept] 5 mg PO HS Omalizumab [Xolair] 150 mg SQ Q30D Isosorbide Mononitrate ER [Imdur] 30 mg PO DAILY Levothyroxine Sodium [Synthroid] 50 mcg PO DAILY Pantoprazole [Protonix] 40 mg PO AC-BRKFST #30 tablet. Metoprolol Tartrate [Lopressor] 25 mg PO BID Simvastatin [Zocor] 20 mg PO HS Ipratropium-Albuterol Nebulize [Duoneb 0.5 mg-3 mg/3 ml Soln] 3 ml INHALATION RT-QID ampul.neb Cholecalciferol (Vitamin D3) [Vitamin D3] 2,000 unit PO DAILY Furosemide [Lasix] 40 mg PO DAILY Citalopram Hydrobromide [CeleXA] 20 mg PO HS Ferrous Sulfate [Iron (65 MG Elemental)] 325 mg PO DAILY Discontinued Budesonide-Formot 160-4.5 Mcg [Symbicort 160-4.5 Mcg Inhaler] 1 puff INHALATION RT-BID puff Furosemide [Lasix] 20 mg PO HS Discharge Medication List Budesonide [Pulmicort] 0.5 mg INHALATION RT-BID 10/01/14 [History] Donepezil HCl [Aricept] 5 mg PO HS 10/01/14 [History] Montelukast [Singulair] 10 mg PO HS 10/01/14 [History] Nitroglycerin Sl Tabs [Nitrostat] 0.4 mg SUBLINGUAL Q5M PRN 10/01/14 [History] Omalizumab [Xolair] 150 mg SQ Q30D 10/01/14 [History] Potassium Chloride [Klor-Con 20] 20 meq PO DAILY 10/01/14 [History] Isosorbide Mononitrate ER [Imdur] 30 mg PO DAILY 01/30/16 [History] Levothyroxine Sodium [Synthroid] 50 mcg PO DAILY 01/30/16 [History] Pantoprazole [Protonix] 40 mg PO AC-BRKFST #30 tablet. 02/01/16 [Rx] Metoprolol Tartrate [Lopressor] 25 mg PO BID 12/01/17 [History] Simvastatin [Zocor] 20 mg PO HS 12/01/17 [History] Ipratropium-Albuterol Nebulize [Duoneb 0.5 mg-3 mg/3 ml Soln] 3 ml INHALATION RT-QID ampul.neb 12/07/17 [Rx] Cholecalciferol (Vitamin D3) [Vitamin D3] 2,000 unit PO DAILY 06/08/18 [History] Furosemide [Lasix] 40 mg PO DAILY 06/08/18 [History] Citalopram Hydrobromide [CeleXA] 20 mg PO HS 02/10/20 [History] Ferrous Sulfate [Iron (65 MG Elemental)] 325 mg PO DAILY 06/03/20 [History] Follow up Appointment(s)/Referral(s): Flora Pastrana MD [Primary Care Provider] - 1-2 days
--- NOTE | 2020-06-07 15:19 | P.PN ---
Subjective Progress Note Date: 06/07/20 Principal diagnosis: Nausea, vomiting, diarrhea She was seen and examined at the bedside. She denies any nausea vomiting or diarrhea. She is tolerating regular diet. Denies any abdominal pain. Objective - Vital Signs Vital signs: Vital Signs Temp 97.7 F 06/07/20 07:00 Pulse 68 06/07/20 11:10 Resp 20 06/07/20 07:00 BP 125/73 06/07/20 07:00 Pulse Ox 97 06/07/20 01:16 Intake & Output 06/06/20 06/07/20 06/07/20 18:59 06:59 18:59 Intake Total 400 400 Balance 400 400 Intake: Intake, IV Titration 200 400 Amount Sodium Chloride 0.9% 1, 200 400 000 ml @ 50 mls/hr IV . Q[facility]H [facility] Rx#:[id number] Oral 200 Other: Voiding Method Toilet Toilet Toilet Diaper Diaper Diaper # Voids 1 1 # Bowel Movements 1 - Exam General appearance: The patient is alert, oriented, in no acute distress. HET: Head is normocephalic and atraumatic. Pupils are equal and reactive. Neck: Supple without lymphadenopathy. Trachea midline. Heart: S1 S2. Regular rate and rhythm. Lungs: No crackles or wheezes are heard. Abdomen: Soft, nontender, nondistended with bowel sounds. Extremities: Normal skin color and turgor. No pedal edema. Neurological: No focal deficits. Alert and oriented 3. - Labs CBC & Chem 7: 06/07/20 08:27 06/07/20 08:27 Labs: Abnormal Lab Results - Last 24 Hours (Table) 06/07/20 06/07/20 Range/Units 08:27 08:27 RBC 3.53 L (3.80-5.40) m/uL Hgb 10.0 L (11.4-16.0) gm/dL Hct 32.3 L (34.0-46.0) % Chloride 109 H (98-107) mmol/L Carbon Dioxide 21 L (22-30) mmol/L Creatinine 1.55 H (0.52-1.04) mg/dL Glucose 115 H (74-99) mg/dL Total Protein 5.6 L (6.3-8.2) g/dL Albumin 2.9 L (3.5-5.0) g/dL Assessment and Plan Assessment: (1) Nausea vomiting and diarrhea Narrative/Plan: 89-year-old female presenting with nausea, vomiting and diarrhea. Symptoms improved and patient reports tolerating diet with no abdominal pain or further symptoms. Suspicion is for acute gastroenteritis resolved. Current Visit: Yes Status: Acute Code(s): R11.2 - NAUSEA WITH VOMITING, UNSPECIFIED; R19.7 - DIARRHEA, UNSPECIFIED SNOMED Code(s): 7965604 (2) Iron deficiency anemia Current Visit: No Status: Acute Code(s): D50.9 - IRON DEFICIENCY ANEMIA, UNSPECIFIED SNOMED Code(s): 36427275 Plan: supportive care Okay for diet as tolerated Continue monitor CBC, BMP, LFTs Continue other medical management per primary team thank you for allowing us to participate in the care of the patient we will continue to follow The impression and plan of care has been dictated as directed. I performed a history and examination of this patient, discussed the same with the dictator. I agree with the dictator's note ,documented as a scribe. Any additional findings or plans will be noted.
--- NOTE | 2020-06-10 02:53 | CDI ---
Documentation Clarification Form Date: 06/10/2020 From: Nicholas Vasquez Phone: If you have a question about this query, please contact Azeb Crum, Public Affairs Manager at [phone] between 8am and 5pm. Admit Date: 06/03/2020 Discharge Date: 06/07/2020 Patient Name: Alejandra Castellon Visit Number: [id number] ATTENTION: The Clinical Documentation Specialists (CDI) and [facility] Coding Staff appreciate your assistance in clarifying documentation. Please respond to the clarification below the line at the bottom and electronically sign. The CDI & [facility] Coding staff will review the response and follow-up if needed. Please note: Queries are made part of the Legal Health Record. If you have any questions, please contact the author of this message via ITS. Dear Flora Orourke MD., The patient presented with Nausea and vomiting and NEAL. History/Risk Factors:COPD, Alzhemer's disease, Dementia, CAD Clinical Indicators: Nausea and vomiting, dehydration Radiology findings: Cholelithiasis.Gallbladder is suboptimally visualized due to overlying bowel gas, however visualized portions demonstrate no evidence of acute cholecystitis. Treatment: IV fluids Gastroenteritis with nausea vomiting and diarrhea, check stools for C. diff, check abdomen ultrasound to rule out gallbladder disease Leukocytosis, no clear source of infection, will check chest x-ray, check abdomen ultrasound, leukocytosis improved, white blood count normal today at 5.4 down from 13.4 on admission abdomen ultrasound revealed evidence of cholelithiasis without evidence of cholecystitis, chest x-ray reveals no evidence of acute pulmonary process. In your professional opinion, can you please clarify Nausea and Vomiting Related to Cholelithiasis? YES NO Other, please specify Unable to determine yes MTDD
== END 2020-06-07 15:30 | disposition home or self-care (01) | DRG 445 ==
LOC: EC 11:46 → 4SSUR 13:47
PROVIDERS: ADMIT Internal Medicine; ATTEND Internal Medicine
DX: K80.20 Calculus of gallbladder without cholecystitis without obstruction (principal); N17.9 Acute kidney failure, unspecified; E87.3 Alkalosis; E87.1 Hypo-osmolality and hyponatremia; I25.10 Atherosclerotic heart disease of native coronary artery without angina pectoris; J44.9 Chronic obstructive pulmonary disease, unspecified; E78.5 Hyperlipidemia, unspecified; E03.9 Hypothyroidism, unspecified; E87.6 Hypokalemia; E86.0 Dehydration; E86.1 Hypovolemia; K52.9 Noninfective gastroenteritis and colitis, unspecified; I12.9 Hypertensive chronic kidney disease with stage 1 through stage 4 chronic kidney disease, or unspecified chronic kidney disease; N18.3 Chronic kidney disease, stage 3 (moderate); G30.9 Alzheimer's disease, unspecified; D50.9 Iron deficiency anemia, unspecified; F02.80 Dementia in other diseases classified elsewhere, unspecified severity, without behavioral disturbance, psychotic disturbance, mood disturbance, and anxiety; M19.90 Unspecified osteoarthritis, unspecified site; F32.9 Major depressive disorder, single episode, unspecified; Z79.51 Long term (current) use of inhaled steroids; Z79.899 Other long term (current) drug therapy; Z79.890 Hormone replacement therapy; Z88.1 Allergy status to other antibiotic agents; Z86.19 Personal history of other infectious and parasitic diseases; Z98.42 Cataract extraction status, left eye; Z98.41 Cataract extraction status, right eye; I25.2 Old myocardial infarction; Z95.5 Presence of coronary angioplasty implant and graft; Z98.890 Other specified postprocedural states; Z87.891 Personal history of nicotine dependence; Z83.6 Family history of other diseases of the respiratory system; Z82.0 Family history of epilepsy and other diseases of the nervous system; Z82.5 Family history of asthma and other chronic lower respiratory diseases
CPT/HCPCS: 36415; 71045; 76700; 80048; 80053; 81003; 82150; 82728; 83540; 83550; 83690; 83735; 85025; 94640; 94760; 96360; 99285

== ENCOUNTER 2020-12-28 10:29 | Inpatient (IN) | payer MEDICARE, BC ==
--- NOTE | 2020-12-28 10:40 | ED ---
General Adult HPI - General Source: patient, RN notes reviewed Mode of arrival: wheelchair Limitations: no limitations <Dwight Beltran - Last Filed: 12/28/20 10:44> <Nicola Helton - Last Filed: 12/28/20 14:10> - General Stated complaint: L Leg swelling Time Seen by Provider: 12/28/20 10:35 - History of Present Illness Initial comments: This is a pleasant 89-year-old female presents emergency Department with chief complaint of left leg swelling and discomfort. This is increasing last couple days. Patient has been off Lasix secondary to her renal function. Patient did recently receive Procrit injection in which their concern about possible blood clot in her left leg. No history. Patient has multiple chronic comorbidities. Patient does have chronic shortness of breath related to COPD, anemia, kidney disease. Family member does state that she's had increasing weakness, increasing shortness of breath, weight loss. Patient finger states that she is very ill with her comorbidities. (Dwight Beltran) - Related Data Home Medications Medication Instructions Recorded Confirmed Budesonide [Pulmicort] 0.5 mg INHALATION RT-HS 10/01/14 12/28/20 Montelukast [Singulair] 10 mg PO DAILY 10/01/14 12/28/20 Nitroglycerin Sl Tabs [Nitrostat] 0.4 mg SL Q5M PRN 10/01/14 12/28/20 Omalizumab [Xolair] 150 mg SQ Q30D 10/01/14 12/28/20 Isosorbide Mononitrate ER [Imdur] 30 mg PO DAILY 01/30/16 12/28/20 Metoprolol Tartrate [Lopressor] 25 mg PO BID 12/01/17 12/28/20 Simvastatin [Zocor] 20 mg PO HS 12/01/17 12/28/20 Citalopram Hydrobromide [CeleXA] 20 mg PO HS 02/10/20 12/28/20 Ipratropium-Albuterol Nebulize 3 ml INHALATION RT-HS 12/28/20 12/28/20 [Duoneb 0.5 mg-3 mg/3 ml Soln] Levothyroxine Sodium [Synthroid] 75 mcg PO DAILY 12/28/20 12/28/20 Previous Rx's Medication Instructions Recorded Pantoprazole [Protonix] 40 mg PO AC-BRKFST #30 tablet. 02/01/16 Allergies Allergy/AdvReac Type Severity Reaction Status Date / Time cephalexin monohydrate AdvReac Colitis Verified 12/28/20 13:25 [From Keflex] Review of Systems ROS Other: All systems not noted in ROS Statement are negative. <Dwight Beltran - Last Filed: 12/28/20 10:44> ROS Other: All systems not noted in ROS Statement are negative. <Nicola Helton - Last Filed: 12/28/20 14:10> ROS Statement: Those systems with pertinent positive or pertinent negative responses have been documented in the HPI. Past Medical History Past Medical History: Asthma, Coronary Artery Disease (CAD), Chest Pain / Angina, COPD, Dementia, Hyperlipidemia, Hypertension, Myocardial Infarction (OK), Osteoarthritis (OA), Thyroid Disorder Additional Past Medical History / Comment(s): OK in 1998, 2 cardiac stents in 1998, shingles, collitis, Last Myocardial Infarction Date:: 1998 History of Any Multi-Drug Resistant Organisms: C-DIFF Date of last positivie culture/infection: 02/03/20 MDRO Source:: stool Past Surgical History: Heart Catheterization With Stent Additional Past Surgical History / Comment(s): B\L cataracts removed 2013, aortic aneurysm clipped 2005, colonoscopy Past Anesthesia/Blood Transfusion Reactions: No Reported Reaction Date of Last Stent Placement:: 1998 Past Psychological History: Depression Smoking Status: Former smoker Past Alcohol Use History: None Reported Past Drug Use History: None Reported - Past Family History Father Additional Family Medical History / Comment(s): emphazema Mother Additional Family Medical History / Comment(s): Alzhiemiers <Dwight Beltran - Last Filed: 12/28/20 10:44> General Exam General appearance: alert, in no apparent distress, cachectic Head exam: Present: atraumatic, normocephalic, normal inspection Eye exam: Present: normal appearance, PERRL, EOMI. Absent: scleral icterus, co njunctival injection, periorbital swelling Cardiovascular Exam: Present: regular rate, normal rhythm, normal heart sounds. Absent: systolic murmur, diastolic murmur, rubs, gallop, clicks Extremities exam: Present: other (Left leg swelling, mild tenderness with palpation there are palpable pulses) <MarielenakenyonDwight Kj - Last Filed: 12/28/20 10:44> Neck exam: Present: normal inspection. Absent: tenderness Respiratory exam: Present: normal lung sounds bilaterally. Absent: respiratory distress, wheezes, rales, rhonchi GI/Abdominal exam: Present: soft. Absent: distended, tenderness, guarding Extremities exam: Present: other Neurological exam: Present: alert. Absent: oriented X3 Skin exam: Present: warm, dry, intact, erythema (Mild erythema left extremity) <Nicola Helton - Last Filed: 12/28/20 14:10> Course Vital Signs 12/28/20 12/28/20 10:38 13:16 Temperature 98 F 98.6 F Pulse Rate 69 92 Respiratory 18 18 Rate Blood Pressure 84/53 100/59 O2 Sat by Pulse 100 98 Oximetry EKG Findings - EKG Comments: EKG Findings:: EKG: Sinus rhythm rate of 91, MA interval 170, QRS duration 50, QTC 452, there is diffuse T-wave inversion in both the inferior leads and the precordial leads. There is no ST segment elevation. <Nicola Helton - Last Filed: 12/28/20 14:10> Medical Decision Making - Lab Data Result diagrams: 12/28/20 11:35 12/28/20 11:35 <Nicola Helton - Last Filed: 12/28/20 14:10> - Medical Decision Making 89 -year-old female presenting with left lower extremity swelling. Ultrasound performed shows extensive DVT in the iliac. Hemoglobin 11 which is stable for this patient. Patient is started on high-dose heparin. I discussed case with Dr. Pastrana who will admit and with Dr. Way covering for vascular surgery. (Nicola Helton) - Lab Data Lab Results 12/28/20 12/28/20 12/28/20 Range/Units 11:35 11:35 11:35 WBC 12.3 H (3.8-10.6) k/uL RBC 3.88 (3.80-5.40) m/uL Hgb 11.1 L (11.4-16.0) gm/dL Hct 33.8 L (34.0-46.0) % MCV 87.0 (80.0-100.0) fL MCH 28.7 (25.0-35.0) pg MCHC 33.0 (31.0-37.0) g/dL RDW 17.6 H (11.5-15.5) % Plt Count 254 (150-450) k/uL MPV 8.5 Neutrophils % 85 % Lymphocytes % 8 % Monocytes % 6 % Eosinophils % 0 % Basophils % 0 % Neutrophils # 10.4 H (1.3-7.7) k/uL Lymphocytes # 1.0 (1.0-4.8) k/uL Monocytes # 0.7 (0-1.0) k/uL Eosinophils # 0.0 (0-0.7) k/uL Basophils # 0.0 (0-0.2) k/uL Hypochromasia Slight Anisocytosis Slight PT (9.0-12.0) sec INR (<1.2) APTT (22.0-30.0) sec Sodium 132 L (137-145) mmol/L Potassium 4.0 (3.5-5.1) mmol/L Chloride 100 (98-107) mmol/L Carbon Dioxide 24 (22-30) mmol/L Anion Gap 8 mmol/L BUN 42 H (7-17) mg/dL Creatinine 3.09 H (0.52-1.04) mg/dL Est GFR (CKD-EPI)AfAm 15 (>60 ml/min/1.73 sqM) Est GFR (CKD-EPI)NonAf 13 (>60 ml/min/1.73 sqM) Glucose 131 H (74-99) mg/dL Calcium 8.5 (8.4-10.2) mg/dL Total Bilirubin 1.2 (0.2-1.3) mg/dL AST 20 (14-36) U/L ALT 9 (4-34) U/L Alkaline Phosphatase 158 H (38-126) U/L Troponin I <0.012 (0.000-0.034) ng/mL NT-Pro-B Natriuret Pep pg/mL Total Protein 5.6 L (6.3-8.2) g/dL Albumin 2.7 L (3.5-5.0) g/dL 12/28/20 12/28/20 Range/Units 11:35 12:16 WBC (3.8-10.6) k/uL RBC (3.80-5.40) m/uL Hgb (11.4-16.0) gm/dL Hct (34.0-46.0) % MCV (80.0-100.0) fL MCH (25.0-35.0) pg MCHC (31.0-37.0) g/dL RDW (11.5-15.5) % Plt Count (150-450) k/uL MPV Neutrophils % % Lymphocytes % % Monocytes % % Eosinophils % % Basophils % % Neutrophils # (1.3-7.7) k/uL Lymphocytes # (1.0-4.8) k/uL Monocytes # (0-1.0) k/uL Eosinophils # (0-0.7) k/uL Basophils # (0-0.2) k/uL Hypochromasia Anisocytosis PT 14.2 H (9.0-12.0) sec INR 1.4 H (<1.2) APTT 31.6 H (22.0-30.0) sec Sodium (137-145) mmol/L Potassium (3.5-5.1) mmol/L Chloride (98-107) mmol/L Carbon Dioxide (22-30) mmol/L Anion Gap mmol/L BUN (7-17) mg/dL Creatinine (0.52-1.04) mg/dL Est GFR (CKD-EPI)AfAm (>60 ml/min/1.73 sqM) Est GFR (CKD-EPI)NonAf (>60 ml/min/1.73 sqM) Glucose (74-99) mg/dL Calcium (8.4-10.2) mg/dL Total Bilirubin (0.2-1.3) mg/dL AST (14-36) U/L ALT (4-34) U/L Alkaline Phosphatase (38-126) U/L Troponin I (0.000-0.034) ng/mL NT-Pro-B Natriuret Pep 2720 pg/mL Total Protein (6.3-8.2) g/dL Albumin (3.5-5.0) g/dL Disposition <Dwight Beltran - Last Filed: 12/28/20 10:44> Is patient prescribed a controlled substance at d/c from ED?: No Decision to Admit Reason: Admit from EC Decision Date: 12/28/20 Decision Time: 14:10 <Nicola Helton - Last Filed: 12/28/20 14:10> Clinical Impression: DVT (deep venous thrombosis) Disposition: ADMITTED IP TO THIS [facility] Condition: Stable Referrals: Flora Pastrana MD [Primary Care Provider] - 1-2 days
[2020-12-28 11:59] LABS: Anisocytosis Slight; Basophils % (A) 0 %; Eosinophils % (A) 0 %; HCT 33.8 % (34.0-46.0); HGB 11.1 gm/dL (11.4-16.0); Hypochromasia Slight; Lymphocytes % (A) 8 %; MCH 28.7 pg (25.0-35.0); Mean Platelet Volume 8.5; Monocytes # (A) 0.7 k/uL (0-1.0); Monocytes % (A) 6 %; Neutrophils # (A) 10.4 k/uL (1.3-7.7); Neutrophils % (A) 85 %; Platelet Count 254 k/uL (150-450); RBC 3.88 m/uL (3.80-5.40); RDW 17.6 % (11.5-15.5); WBC 12.3 k/uL (3.8-10.6)
[2020-12-28 12:23] LABS: Albumin 2.7 g/dL (3.5-5.0); Calcium 8.5 mg/dL (8.4-10.2); Total Bilirubin 1.2 mg/dL (0.2-1.3); Total Protein 5.6 g/dL (6.3-8.2)
--- NOTE | 2020-12-28 12:49 | XR ---
EXAMINATION TYPE: XR chest 2V DATE OF EXAM: 12/28/2020 COMPARISON: 06/04/2020 HISTORY: Shortness of breath TECHNIQUE: Frontal and lateral views of the chest are obtained. FINDINGS: Scattered senescent parenchymal changes noted. Hyperinflation compatible with COPD. No evidence for infiltrate. No evidence for atelectasis. Nodular density right midlung zone. Heart size is stable. Mediastinal structures are stable and grossly unremarkable. No evidence for hilar prominence. Degenerative changes dorsal spine. IMPRESSION: 1. No evidence for focal infiltrate. Nodular density right midlung zone requires appropriate follow-u p.
[2020-12-28 12:55] LABS: INR 1.4 (<1.2); Partial Thromboplastin Time 31.6 sec (22.0-30.0); Prothrombin Time 14.2 sec (9.0-12.0)
[2020-12-28] MEDS ORDERED: HEPARIN SODIUM 1,000 UN/ML (10ML VL) IV PRN (13:34)
[2020-12-28] MEDS ORDERED: HEPARIN SODIUM 1,000 UN/ML (10ML VL) IV ONE (13:34)
--- NOTE | 2020-12-28 13:56 | US ---
EXAMINATION TYPE: US venous doppler duplex LE LT DATE OF EXAM: 12/28/2020 1:35 PM COMPARISON: NONE CLINICAL HISTORY: pain swelling. Swelling since last night, has been getting worse. No redness. Not on blood thinners. SIDE PERFORMED: Left TECHNIQUE: The lower extremity deep venous system is examined utilizing real time linear array sonog yvan with graded compression, doppler sonography and color-flow sonography. VESSELS IMAGED: Common Femoral Vein Deep Femoral Vein Greater Saphenous Vein * Femoral Vein Popliteal Vein Small Saphenous Vein * Proximal Calf Veins (* superficial vessels) Left Leg: Positive for DVT from EIV to proximal calf veins. No vascular flow visualized. IMPRESSION: 1. Left lower extremity ultrasound with deep venous thrombosis extending from the external iliac vein to the proximal calf veins.
[2020-12-28] MEDS ORDERED: ACETAMINOPHEN TAB 325 MG TAB PO PRN (14:03)
[2020-12-28] MEDS ORDERED: NALOXONE 0.4 MG/ML 1 ML VIAL IV PRN (14:03)
[2020-12-28] MEDS: HEPARIN SOD,PORK IN 0.45% NACL 25,000 UNIT in 0.45% NACL 1 250ML.BAG IV SCH (14:32)
--- NOTE | 2020-12-28 19:50 | P.HPIM ---
History of Present Illness H&P Date: 12/28/20 Alejandra Castellon, is an 89-year-old female who presented to [facility] emergency room with a chief complaint of left lower extremity swelling and discomfort she was evaluated in the emergency room, vital examination on presentation revealed a temperature of 98 pulse 69 respiration 18 blood pressure 84/53 pulse ox 100% on room air. Her white blood count is 12.3 hemoglobin 11.1 platelet count 254 sodium 132 potassium 4.0 chloride 100 CO2 24 BUN 42 creatinine 3.09 glucose level was 131, left lower extremity Doppler done in the emergency room revealed evidence of deep venous thrombosis extending from the external iliac vein to the proximal calf veins, chest x-ray done in the emergenc y room revealed no evidence for focal infiltrate there was a nodular density in the right midlung zone otherwise no acute abnormality. EKG done in the emergency room revealed normal sinus rhythm with ST and T-wave abnormalities in the inferior and anterior leads. Patient was admitted to telemetry floor she was started on IV heparin, consultation to vascular surgery was initiated due to the large extent of thrombosis in the lower extremity. Patient has a known history of chronic kidney disease she is followed by nephrology she also has known history of anemia and was recently started on Procrit injections. Past medical history is also significant for hypertension, hyperlipidemia, asthma, hypothyroidism, coronary artery disease, osteoarthritis, and gastroesophageal reflux disease. Past Medical History Past Medical History: Asthma, Coronary Artery Disease (CAD), Chest Pain / Angina, COPD, Dementia, Hyperlipidemia, Hypertension, Myocardial Infarction ([place]), Osteoarthritis (OA), Thyroid Disorder Additional Past Medical History / Comment(s): [place] in 1998, 2 cardiac stents in 1998, shingles, collitis, Last Myocardial Infarction Date:: 1998 History of Any Multi-Drug Resistant Organisms: C-DIFF Date of last positivie culture/infection: 02/03/20 MDRO Source:: stool Past Surgical History: Heart Catheterization With Stent Additional Past Surgical History / Comment(s): B\L cataracts removed 2013, aortic aneurysm clipped 2005, colonoscopy Past Anesthesia/Blood Transfusion Reactions: No Reported Reaction Date of Last Stent Placement:: 1998 Past Psychological History: Depression Smoking Status: Former smoker Past Alcohol Use History: None Reported Past Drug Use History: None Reported - Past Family History Father Additional Family Medical History / Comment(s): emphazema Mother Additional Family Medical History / Comment(s): Alzhiemiers Medications and Allergies Home Medications Medication Instructions Recorded Confirmed Type Budesonide [Pulmicort] 0.5 mg INHALATION RT-HS 10/01/14 12/28/20 History Montelukast [Singulair] 10 mg PO DAILY 10/01/14 12/28/20 History Nitroglycerin Sl Tabs [Nitrostat] 0.4 mg SL Q5M PRN 10/01/14 12/28/20 History Omalizumab [Xolair] 150 mg SQ Q30D 10/01/14 12/28/20 History Isosorbide Mononitrate ER [Imdur] 30 mg PO DAILY 01/30/16 12/28/20 History Pantoprazole [Protonix] 40 mg PO AC-BRKFST #30 tablet. 02/01/16 12/28/20 Rx Metoprolol Tartrate [Lopressor] 25 mg PO BID 12/01/17 12/28/20 History Simvastatin [Zocor] 20 mg PO HS 12/01/17 12/28/20 History Citalopram Hydrobromide [CeleXA] 20 mg PO HS 02/10/20 12/28/20 History Ipratropium-Albuterol Nebulize 3 ml INHALATION RT-HS 12/28/20 12/28/20 History [Duoneb 0.5 mg-3 mg/3 ml Soln] Levothyroxine Sodium [Synthroid] 75 mcg PO DAILY 12/28/20 12/28/20 History Allergies Allergy/AdvReac Type Severity Reaction Status Date / Time cephalexin monohydrate AdvReac Colitis Verified 12/28/20 13:25 [From Keflex] Physical Exam Vitals: Vital Signs Temp Pulse Resp BP Pulse Ox 12/28/20 17:32 88 18 90/59 98 12/28/20 13:16 98.6 F 92 18 100/59 98 12/28/20 10:38 98 F 69 18 84/53 100 Intake and Output 12/28/20 12/28/20 12/28/20 06:59 14:59 22:59 Other: Weight 42.184 kg In general patient is alert and oriented 3 in no apparent distress HEENT head normocephalic and atraumatic Neck is supple no JVD no goiter no lymphadenopathy Chest exam reveals a few scattered crackles no wheezing Cardiac exam reveals regular heart sounds S1 and S2 no gallops no murmurs Abdomen is soft nontender no organomegaly with normal bowel sounds Extremity exam reveals significant edema in the left lower extremity which is much larger than the right no cyanosis or clubbing Neurological examination reveals no gross focal deficit Results CBC & Chem 7: 12/28/20 11:35 12/28/20 11:35 Labs: Abnormal Lab Results - Last 24 Hours (Table) 12/28/20 12/28/20 12/28/20 Range/Units 11:35 11:35 12:16 WBC 12.3 H (3.8-10.6) k/uL Hgb 11.1 L (11.4-16.0) gm/dL Hct 33.8 L (34.0-46.0) % RDW 17.6 H (11.5-15.5) % Neutrophils # 10.4 H (1.3-7.7) k/uL PT 14.2 H (9.0-12.0) sec INR 1.4 H (<1.2) APTT 31.6 H (22.0-30.0) sec Sodium 132 L (137-145) mmol/L BUN 42 H (7-17) mg/dL Creatinine 3.09 H (0.52-1.04) mg/dL Glucose 131 H (74-99) mg/dL Alkaline Phosphatase 158 H (38-126) U/L Total Protein 5.6 L (6.3-8.2) g/dL Albumin 2.7 L (3.5-5.0) g/dL Assessment and Plan Plan: Left lower extremity DVT Underlying history of coronary artery disease Underlying history of hypertension Underlying history of hyperlipidemia Underlying history of hypothyroidism Underlying history of asthma Underlying history of chronic kidney disease Underlying history of anemia At this time patient was started on IV heparin Vascular surgery consultation was requested Home medications reviewed and reordered Blood pressure was low on presentation Will monitor closely and adjust medications as needed
[2020-12-28] MEDS ORDERED: NITROGLYCERIN SL TABS 0.4 MG TAB SUBLINGUAL PRN (22:12)
[2020-12-28] MEDS ORDERED: NON FORMULARY DRUG (Omalizumab 150 MG Vial) SQ SCH (22:15)
[2020-12-29] MEDS: LEVOTHYROXINE 75 MCG TAB PO SCH (05:18)
[2020-12-29] MEDS: PANTOPRAZOLE 40 MG TABLET PO SCH (07:57)
[2020-12-29] MEDS: METOPROLOL TARTRATE 25 MG TAB PO SCH ×2 (08:00→20:18)
[2020-12-29] MEDS: ISOSORBIDE MONONITRATE ER 30 MG TAB.ER.24H PO SCH (08:00)
[2020-12-29] MEDS: MONTELUKAST 10 MG TAB PO SCH (08:00)
[2020-12-29 08:08] LABS: Anisocytosis Slight; Basophils % (A) 0 %; Eosinophils % (A) 0 %; HCT 29.7 % (34.0-46.0); HGB 9.8 gm/dL (11.4-16.0); Hypochromasia Slight; Lymphocytes # (A) 0.7 k/uL (1.0-4.8); Lymphocytes % (A) 9 %; MCHC 33.1 g/dL (31.0-37.0); MCV 87.7 fL (80.0-100.0); Mean Platelet Volume 8.5; Monocytes # (A) 0.5 k/uL (0-1.0); Monocytes % (A) 6 %; Neutrophils # (A) 6.3 k/uL (1.3-7.7); Neutrophils % (A) 82 %; Platelet Count 217 k/uL (150-450); RBC 3.38 m/uL (3.80-5.40); RDW 17.6 % (11.5-15.5); WBC 7.7 k/uL (3.8-10.6)
[2020-12-29 08:42] LABS: ALT 6 U/L (4-34); AST 20 U/L (14-36); African American GFR (CKD) 15 (>60 ml/min/1.73 sqM); Albumin 2.3 g/dL (3.5-5.0); Albumin/Globulin Ratio 0.9; Alkaline Phosphatase 126 U/L (38-126); Anion Gap 7 mmol/L; Blood Urea Nitrogen 48 mg/dL (7-17); Carbon Dioxide 24 mmol/L (22-30); Chloride 101 mmol/L (98-107); Globulin 2.6 g/dL; Glucose 66 mg/dL (74-99); Non-African American GFR(CKD) 13 (>60 ml/min/1.73 sqM); Potassium 3.6 mmol/L (3.5-5.1); Sodium 132 mmol/L (137-145); Total Bilirubin 1.1 mg/dL (0.2-1.3); Total Protein 4.9 g/dL (6.3-8.2)
--- NOTE | 2020-12-29 09:04 | P.GSCN ---
History of Present Illness Consult date: 12/29/20 Reason for Consult: left lower extremity dvt History of present illness: 89 year old female with history of dementia, CKD, and COPD presented to the ER with complaints of left lower extremity swelling and discomfort. She was found to have a significant venous thrombosis extending from the ankle to above the inguinal ligament and was admitted to the hospital and started on a heparin drip. Currently she denies any pain in her left leg unless touched. She states she usually can walk and has no pain in her legs. She denies any fevers, ch ills, nausea, vomiting, chest pain or shortness of breath. Review of Systems All systems: negative (what is mentioned in HPI or PMH) Past Medical History Past Medical History: Asthma, Coronary Artery Disease (CAD), Chest Pain / Angina, COPD, Dementia, Hyperlipidemia, Hypertension, Myocardial Infarction ([place]), Osteoarthritis (OA), Thyroid Disorder Additional Past Medical History / Comment(s): [place] in 1998, 2 cardiac stents in 1998, shingles, collitis, Last Myocardial Infarction Date:: 1998 History of Any Multi-Drug Resistant Organisms: C-DIFF Year Discovered:: 02/03/20 MDRO Source:: stool Past Surgical History: Heart Catheterization With Stent Additional Past Surgical History / Comment(s): B\L cataracts removed 2013, aortic aneurysm clipped 2005, colonoscopy Past Anesthesia/Blood Transfusion Reactions: No Reported Reaction Date of Last Stent Placement:: 1998 Past Psychological History: Depression Smoking Status: Former smoker Past Alcohol Use History: None Reported Past Drug Use History: None Reported - Past Family History Father Additional Family Medical History / Comment(s): emphazema Mother Additional Family Medical History / Comment(s): Phan Medications and Allergies Home Medications Medication Instructions Recorded Confirmed Type Budesonide [Pulmicort] 0.5 mg INHALATION RT-HS 10/01/14 12/28/20 History Montelukast [Singulair] 10 mg PO DAILY 10/01/14 12/28/20 History Nitroglycerin Sl Tabs [Nitrostat] 0.4 mg SL Q5M PRN 10/01/14 12/28/20 History Omalizumab [Xolair] 150 mg SQ Q30D 10/01/14 12/28/20 History Isosorbide Mononitrate ER [Imdur] 30 mg PO DAILY 01/30/16 12/28/20 History Pantoprazole [Protonix] 40 mg PO DWAYNEFSEvita #30 tablet. 02/01/16 12/28/20 Rx Metoprolol Tartrate [Lopressor] 25 mg PO BID 12/01/17 12/28/20 History Simvastatin [Zocor] 20 mg PO HS 12/01/17 12/28/20 History Citalopram Hydrobromide [CeleXA] 20 mg PO HS 02/10/20 12/28/20 History Ipratropium-Albuterol Nebulize 3 ml INHALATION RT-HS 12/28/20 12/28/20 History [Duoneb 0.5 mg-3 mg/3 ml Soln] Levothyroxine Sodium [Synthroid] 75 mcg PO DAILY 12/28/20 12/28/20 History Allergies Allergy/AdvReac Type Severity Reaction Status Date / Time cephalexin monohydrate AdvReac Colitis Verified 12/28/20 13:25 [From Keflex] Surgical - Exam Vital Signs Temp Pulse Resp BP Pulse Ox 98 F 69 18 84/53 100 12/28/20 10:38 12/28/20 10:38 12/28/20 10:38 12/28/20 10:38 12/28/20 10:38 left lower extremity with 2+ edema, +TTP at the calf and thigh. No cyanosis. + capillary refill. Non palpable dp, pt, popliteal pulses. Palpable femoral pulse. right lower extremity without significant edema. + TTP at the calf and thigh. No cyanosis. + capillary refill. Non palpable dp, pt, popliteal pulses. Palpable femoral pulse. - General well developed, well nourished, no distress - Eyes PERRL, normal ocular movement - ENT normal pinna, normal nares - Neck no masses, no bruits - Respiratory normal expansion, other (scattered crackles) - Cardiovascular Rhythm: regular - Abdomen Abdomen: soft, non tender, no distended - Integumentary no rash, no growths - Neurologic normal coordination, normal sensation - Psychiatric oriented to time, oriented to person, oriented to place, speech is normal Results - Labs 12/29/20 06:55 12/29/20 06:55 Abnormal Lab Results - Last 24 Hours (Table) 12/28/20 12/28/20 12/28/20 Range/Units 11:35 11:35 12:16 WBC 12.3 H (3.8-10.6) k/uL RBC (3.80-5.40) m/uL Hgb 11.1 L (11.4-16.0) gm/dL Hct 33.8 L (34.0-46.0) % RDW 17.6 H (11.5-15.5) % Neutrophils # 10.4 H (1.3-7.7) k/uL Lymphocytes # (1.0-4.8) k/uL PT 14.2 H (9.0-12.0) sec INR 1.4 H (<1.2) APTT 31.6 H (22.0-30.0) sec Sodium 132 L (137-145) mmol/L BUN 42 H (7-17) mg/dL Creatinine 3.09 H (0.52-1.04) mg/dL Glucose 131 H (74-99) mg/dL Calcium (8.4-10.2) mg/dL Alkaline Phosphatase 158 H (38-126) U/L Total Protein 5.6 L (6.3-8.2) g/dL Albumin 2.7 L (3.5-5.0) g/dL 12/28/20 12/29/20 12/29/20 Range/Units 21:16 00:57 06:55 WBC (3.8-10.6) k/uL RBC 3.38 L (3.80-5.40) m/uL Hgb 9.8 L (11.4-16.0) gm/dL Hct 29.7 L (34.0-46.0) % RDW 17.6 H (11.5-15.5) % Neutrophils # (1.3-7.7) k/uL Lymphocytes # 0.7 L (1.0-4.8) k/uL PT (9.0-12.0) sec INR (<1.2) APTT >200.0 H* 33.7 H (22.0-30.0) sec Sodium (137-145) mmol/L BUN (7-17) mg/dL Creatinine (0.52-1.04) mg/dL Glucose (74-99) mg/dL Calcium (8.4-10.2) mg/dL Alkaline Phosphatase (38-126) U/L Total Protein (6.3-8.2) g/dL Albumin (3.5-5.0) g/dL 12/29/20 Range/Units 06:55 WBC (3.8-10.6) k/uL RBC (3.80-5.40) m/uL Hgb (11.4-16.0) gm/dL Hct (34.0-46.0) % RDW (11.5-15.5) % Neutrophils # (1.3-7.7) k/uL Lymphocytes # (1.0-4.8) k/uL PT (9.0-12.0) sec INR (<1.2) APTT (22.0-30.0) sec Sodium 132 L (137-145) mmol/L BUN 48 H (7-17) mg/dL Creatinine 3.12 H (0.52-1.04) mg/dL Glucose 66 L (74-99) mg/dL Calcium 8.0 L (8.4-10.2) mg/dL Alkaline Phosphatase (38-126) U/L Total Protein 4.9 L (6.3-8.2) g/dL Albumin 2.3 L (3.5-5.0) g/dL Diabetes panel 12/28/20 12/29/20 Range/Units 11:35 06:55 Sodium 132 L 132 L (137-145) mmol/L Potassium 4.0 3.6 (3.5-5.1) mmol/L Chloride 100 101 (98-107) mmol/L Carbon Dioxide 24 24 (22-30) mmol/L BUN 42 H 48 H (7-17) mg/dL Creatinine 3.09 H 3.12 H (0.52-1.04) mg/dL Glucose 131 H 66 L (74-99) mg/dL Calcium 8.5 8.0 L (8.4-10.2) mg/dL AST 20 20 (14-36) U/L ALT 9 6 (4-34) U/L Alkaline Phosphatase 158 H 126 (38-126) U/L Total Protein 5.6 L 4.9 L (6.3-8.2) g/dL Albumin 2.7 L 2.3 L (3.5-5.0) g/dL Calcium panel 12/28/20 12/29/20 Range/Units 11:35 06:55 Calcium 8.5 8.0 L (8.4-10.2) mg/dL Albumin 2.7 L 2.3 L (3.5-5.0) g/dL Pituitary panel 12/28/20 12/29/20 Range/Units 11:35 06:55 Sodium 132 L 132 L (137-145) mmol/L Potassium 4.0 3.6 (3.5-5.1) mmol/L Chloride 100 101 (98-107) mmol/L Carbon Dioxide 24 24 (22-30) mmol/L BUN 42 H 48 H (7-17) mg/dL Creatinine 3.09 H 3.12 H (0.52-1.04) mg/dL Glucose 131 H 66 L (74-99) mg/dL Calcium 8.5 8.0 L (8.4-10.2) mg/dL Adrenal panel 12/28/20 12/29/20 Range/Units 11:35 06:55 Sodium 132 L 132 L (137-145) mmol/L Potassium 4.0 3.6 (3.5-5.1) mmol/L Chloride 100 101 (98-107) mmol/L Carbon Dioxide 24 24 (22-30) mmol/L BUN 42 H 48 H (7-17) mg/dL Creatinine 3.09 H 3.12 H (0.52-1.04) mg/dL Glucose 131 H 66 L (74-99) mg/dL Calcium 8.5 8.0 L (8.4-10.2) mg/dL Total Bilirubin 1.2 1.1 (0.2-1.3) mg/dL AST 20 20 (14-36) U/L ALT 9 6 (4-34) U/L Alkaline Phosphatase 158 H 126 (38-126) U/L Total Protein 5.6 L 4.9 L (6.3-8.2) g/dL Albumin 2.7 L 2.3 L (3.5-5.0) g/dL Assessment and Plan Assessment: 1. Acute left lower extremity DVT extending from the External iliac vein to PTVs 2. CKD 3. HTN 4. CAD Plan: Continue heparin and if patient can tolerate oral anticoagulation would transition to Eliquis. I did discussed options for intervention with her in full detail and she would benefit from percutaneous thrombectomy of the left lower extremity but she doesn't want any surgical procedure. She states she is too old for any surgery. We will continue to treat medically. If she changes her mind then I would recommend access at the popliteal vein and percutaneous thrombectomy. Thank you for the consultation.
[2020-12-29] MEDS: SODIUM CHLORIDE 0.9% 1,000 ML IV SCH (10:48)
--- NOTE | 2020-12-29 10:55 | P.PN ---
Subjective Progress Note Date: 12/29/20 Alejandra Castellon, is an 89-year-old female who presented to [facility] emergency room with a chief complaint of left lower extremity swelling and discomfort she was evaluated in the emergency room, vital examination on presentation revealed a temperature of 98 pulse 69 respiration 18 blood pressure 84/53 pulse ox 100% on room air. Her white blood count is 12.3 hemoglobin 11.1 platelet count 254 sodium 132 potassium 4.0 chloride 100 CO2 24 BUN 42 creatinine 3.09 glucose level was 131, left lower extremity Doppler done in the emergency room revealed evidence of deep venous thrombosis extending from the external iliac vein to the proximal calf veins, chest x-ray done in the emergency room revealed no evidence for focal infiltrate there was a nodular density in the right midlung zone otherwise no acute abnormality. EKG done in the emergency room revealed normal sinus rhythm with ST and T-wave abnormalities in the inferior and anterior leads. Patient was admitted to telemetry floor she was started on IV heparin, consultation to vascular surgery was initiated due to the large extent of thrombosis in the lower extremity. Patient has a known history of chronic kidney disease she is followed by nephrology she also has known history of anemia and was recently started on Procrit injections. Past medical history is also significant for hypertension, hyperlipidemia, asthma, hypothyroidism, coronary artery disease, osteoarthritis, and gastroesophageal reflux disease. 12/29/2020 patient is alert and oriented 3 resting comfortably in bed. Patient remains on heparin drip. case management to check coverage for eliquis. Patient started on normal saline at 75 for acute kidney injury. Patient denies chest pain or shortness. Patient denies angina diarrhea. Patient denies any urinary burning and frequency Objective - Vital Signs Vital signs: Vital Signs Temp 97.8 F 12/29/20 06:32 Pulse 82 12/29/20 08:31 Resp 16 12/29/20 06:32 BP 100/64 12/29/20 06:32 Pulse Ox 99 12/29/20 06:32 Intake & Output 12/28/20 12/29/20 12/29/20 18:59 06:59 18:59 Intake Total 56.821 Balance 56.821 Weight 42.184 kg Intake: Intake, IV Titration 56.821 Amount Heparin Sod,Pork in 0.45% 56.821 NaCl 25,000 unit In 0.45 % NaCl 1 250ml.bag @ 18 UNITS/KG/HR 7.593 mls/hr IV .Q24H [facility] Rx#: [id number] Other: Voiding Method Diaper # Bowel Movements 1 - Exam In general patient is alert and oriented 3 in no apparent distress HEENT head normocephalic and atraumatic Neck is supple no JVD no goiter no lymphadenopathy Chest exam reveals a few scattered crackles no wheezing Cardiac exam reveals regular heart sounds S1 and S2 no gallops no murmurs Abdomen is soft nontender no organomegaly with normal bowel sounds Extremity exam reveals significant edema in the left lower extremity which is much larger than the right no cyanosis or clubbing Neurological examination reveals no gross focal deficit - Labs CBC & Chem 7: 12/29/20 06:55 12/29/20 06:55 Labs: Abnormal Lab Results - Last 24 Hours (Table) 12/28/20 12/28/20 12/28/20 Range/Units 11:35 11:35 12:16 WBC 12.3 H (3.8-10.6) k/uL RBC (3.80-5.40) m/uL Hgb 11.1 L (11.4-16.0) gm/dL Hct 33.8 L (34.0-46.0) % RDW 17.6 H (11.5-15.5) % Neutrophils # 10.4 H (1.3-7.7) k/uL Lymphocytes # (1.0-4.8) k/uL PT 14.2 H (9.0-12.0) sec INR 1.4 H (<1.2) APTT 31.6 H (22.0-30.0) sec Sodium 132 L (137-145) mmol/L BUN 42 H (7-17) mg/dL Creatinine 3.09 H (0.52-1.04) mg/dL Glucose 131 H (74-99) mg/dL Calcium (8.4-10.2) mg/dL Alkaline Phosphatase 158 H (38-126) U/L Total Protein 5.6 L (6.3-8.2) g/dL Albumin 2.7 L (3.5-5.0) g/dL 12/28/20 12/29/20 12/29/20 Range/Units 21:16 00:57 06:55 WBC (3.8-10.6) k/uL RBC 3.38 L (3.80-5.40) m/uL Hgb 9.8 L (11.4-16.0) gm/dL Hct 29.7 L (34.0-46.0) % RDW 17.6 H (11.5-15.5) % Neutrophils # (1.3-7.7) k/uL Lymphocytes # 0.7 L (1.0-4.8) k/uL PT (9.0-12.0) sec INR (<1.2) APTT >200.0 H* 33.7 H (22.0-30.0) sec Sodium (137-145) mmol/L BUN (7-17) mg/dL Creatinine (0.52-1.04) mg/dL Glucose (74-99) mg/dL Calcium (8.4-10.2) mg/dL Alkaline Phosphatase (38-126) U/L Total Protein (6.3-8.2) g/dL Albumin (3.5-5.0) g/dL 12/29/20 12/29/20 Range/Units 06:55 06:55 WBC (3.8-10.6) k/uL RBC (3.80-5.40) m/uL Hgb (11.4-16.0) gm/dL Hct (34.0-46.0) % RDW (11.5-15.5) % Neutrophils # (1.3-7.7) k/uL Lymphocytes # (1.0-4.8) k/uL PT (9.0-12.0) sec INR (<1.2) APTT 150.4 H* (22.0-30.0) sec Sodium 132 L (137-145) mmol/L BUN 48 H (7-17) mg/dL Creatinine 3.12 H (0.52-1.04) mg/dL Glucose 66 L (74-99) mg/dL Calcium 8.0 L (8.4-10.2) mg/dL Alkaline Phosphatase (38-126) U/L Total Protein 4.9 L (6.3-8.2) g/dL Albumin 2.3 L (3.5-5.0) g/dL Assessment and Plan Plan: Left lower extremity DVT Acute on chronic kidney disease. Normal saline at 75 ordered. Nephrology service is consulted Services consulted Underlying history of coronary artery disease Underlying history of hypertension Underlying history of hyperlipidemia Underlying history of hypothyroidism Underlying history of asthma Underlying history of chronic kidney disease Underlying history of anemia At this time patient was started on IV heparin Vascular surgery consultation patient refusing any surgical intervention at this time Patient on heparin drip continue normal saline at 75 Case management to check coverage for eliquis
--- NOTE | 2020-12-29 11:48 | P.NPCON ---
History of Present Illness - Reason for Consult acute renal failure, chronic renal failure - History of Present Illness Reason for consultation: Acute kidney injury on chronic kidney disease History of present illness: Patient is a 89-year-old female seen in consultation for acute kidney injury on chronic kidney disease. Patient's creatinine in May 2020 was near 1.5 and in October 2020 and was 3.2. This admission was 3.09 and is stable at 3.12 today. She has been voiding. No hematuria. She presented from an extended care facility with edema in her left lower extremity. She is noted to have a DVT and is currently maintained on anticoagulation. She denies any chest pain or shortness of breath. No vomiting or diarrhea. Oral intake is fair. She is maintained on IV fluids. Blood pressure is in the systolic 80s to low 100s. She is on metoprolol. I don't see any nonsteroidals in her outpatient medications. Vital signs are stable. General: The patient appeared well nourished and normally developed. HEENT: Head exam is unremarkable. Neck is without jugular venous distension. LUNGS: Breath sounds decreased. HEART: Rate and Rhythm are regular. ABDOMEN: Soft, nontender. EXTREMITITES: 1+ edema left lower extremity. Past Medical History Past Medical History: Asthma, Coronary Artery Disease (CAD), Chest Pain / Angina, COPD, Dementia, Hyperlipidemia, Hypertension, Myocardial Infarction ([place]), Osteoarthritis (OA), Thyroid Disorder Additional Past Medical History / Comment(s): [place] in 1998, 2 cardiac stents in 1998, shingles, collitis, Last Myocardial Infarction Date:: 1998 History of Any Multi-Drug Resistant Organisms: C-DIFF Date of last positivie culture/infection: 02/03/20 MDRO Source:: stool Past Surgical History: Heart Catheterization With Stent Additional Past Surgical History / Comment(s): B\L cataracts removed 2013, aortic aneurysm clipped 2005, colonoscopy Past Anesthesia/Blood Transfusion Reactions: No Reported Reaction Date of Last Stent Placement:: 1998 Past Psychological History: Depression Smoking Status: Former smoker Past Alcohol Use History: None Reported Past Drug Use History: None Reported - Past Family History Father Additional Family Medical History / Comment(s): emphazema Mother Additional Family Medical History / Comment(s): Alzhiemiers Medications and Allergies Home Medications Medication Instructions Recorded Confirmed Type Budesonide [Pulmicort] 0.5 mg INHALATION RT-HS 10/01/14 12/28/20 History Montelukast [Singulair] 10 mg PO DAILY 10/01/14 12/28/20 History Nitroglycerin Sl Tabs [Nitrostat] 0.4 mg SL Q5M PRN 10/01/14 12/28/20 History Omalizumab [Xolair] 150 mg SQ Q30D 10/01/14 12/28/20 History Isosorbide Mononitrate ER [Imdur] 30 mg PO DAILY 01/30/16 12/28/20 History Pantoprazole [Protonix] 40 mg PO AC-BRKFST #30 tablet.dr 02/01/16 12/28/20 Rx Metoprolol Tartrate [Lopressor] 25 mg PO BID 12/01/17 12/28/20 History Simvastatin [Zocor] 20 mg PO HS 12/01/17 12/28/20 History Citalopram Hydrobromide [CeleXA] 20 mg PO HS 02/10/20 12/28/20 History Ipratropium-Albuterol Nebulize 3 ml INHALATION RT-HS 12/28/20 12/28/20 History [Duoneb 0.5 mg-3 mg/3 ml Soln] Levothyroxine Sodium [Synthroid] 75 mcg PO DAILY 12/28/20 12/28/20 History Apixaban [Eliquis] 2.5 mg PO BID 30 Days #60 tab 12/29/20 Rx Allergies Allergy/AdvReac Type Severity Reaction Status Date / Time cephalexin monohydrate AdvReac Colitis Verified 12/28/20 13:25 [From Keflex] Physical Exam Vitals: Vital Signs Temp Pulse Pulse Resp BP BP BP 12/29/20 08:31 82 12/29/20 06:32 97.8 F 82 16 100/64 12/29/20 01:58 97.5 F L 86 18 89/59 12/28/20 19:55 82 12/28/20 19:43 98.4 F 82 16 91/56 12/28/20 17:32 88 18 90/59 12/28/20 13:16 98.6 F 92 18 100/59 Pulse Ox 12/29/20 08:31 12/29/20 06:32 99 04/02/21 01:58 100 12/28/20 19:55 99 12/28/20 19:43 12/28/20 17:32 98 12/28/20 13:16 98 Intake and Output 12/28/20 12/29/20 12/29/20 22:59 06:59 14:59 Intake Total 56.821 0 56.948 Balance 56.821 0 56.948 Intake: Intake, IV Titration 56.821 0 56.948 Amount Heparin Sod,Pork in 0.45% 56.821 0 56.948 NaCl 25,000 unit In 0.45 % NaCl 1 250ml.bag @ 18 UNITS/KG/HR 7.593 mls/hr IV .Q24H [facility] Rx#: [id number] Other: Voiding Method Diaper # Bowel Movements 1 Weight 42.184 kg Results - Lab Results Most recent lab results Calcium 8.0 mg/dL (8.4-10.2) L 12/29/20 06:55 12/29/20 06:55 12/29/20 06:55 Assessment and Plan Plan: Assessment: 1. Acute kidney injury due to ATN versus progression of underlying chronic kidney disease stage 4. Etiology is nephrosclerosis. Recent creatinine has been near 3.2. 2. Left lower extremity DVT maintained on IV heparin. 3. Anemia of chronic kidney disease. 4. Hyponatremia secondary to chronic kidney disease. Plan: Maintain normal saline. Check urinalysis. Check renal ultrasound. Avoid nephrotoxins. Add midodrine. Check iron studies. Thank you for the consultation. I will continue to follow the patient with you during her hospital stay.
[2020-12-29] MEDS: MIDODRINE 5 MG TAB PO SCH ×2 (12:12→17:47)
[2020-12-29 13:42] VITALS: BMI 17.5
--- NOTE | 2020-12-29 14:08 | US ---
EXAMINATION TYPE: US kidneys/renal and bladder DATE OF EXAM: 12/29/2020 COMPARISON: US CLINICAL HISTORY: meghana; US done at bedside EXAM MEASUREMENTS: Right Kidney: 8.2 x 4.9 x 4.4 cm Left Kidney: 7.5 x3.7 x 3.2 cm Post Void Residual Volume: no assessed on inpatient awaiting U/A sample Right Kidney: couple of renal cysts seen with larger renal pelvic cyst = 2.7 x 2.7 x 2.7cm. Left Kidney: cortical cyst seen mid pole = 0.7 x 0.7 x 0.6cm, thin renal cortex is noted; small for s ize. Bladder: well distended Bilateral Jets seen: no Normal Post Void Residual: not assessed on inpatient IMPRESSION: 1. Bilateral cortical renal cysts.
[2020-12-29] MEDS: CITALOPRAM HYDROBROMIDE 20 MG TAB PO SCH (20:20)
[2020-12-29] MEDS: ATORVASTATIN 10 MG TAB PO SCH (20:20)
[2020-12-29] MEDS: BUDESONIDE 0.5 MG/2 ML NEBU INHALATION SCH (20:40)
[2020-12-29] MEDS: IPRATROPIUM-ALBUTEROL 3 ML NEB INHALATION SCH (20:40)
[2020-12-29 23:27] LABS: % Iron Saturation 20.2 (12.00-45.00); Ferritin 495.9 ng/mL (10.0-291.0)
[2020-12-30] MEDS: HEPARIN SOD,PORK IN 0.45% NACL 25,000 UNIT in 0.45% NACL 1 250ML.BAG IV SCH ×2 (05:28→19:15)
[2020-12-30] MEDS: LEVOTHYROXINE 75 MCG TAB PO SCH (05:28)
[2020-12-30] MEDS: SODIUM CHLORIDE 0.9% 1,000 ML IV SCH (05:30)
[2020-12-30] MEDS: PANTOPRAZOLE 40 MG TABLET PO SCH (07:56)
[2020-12-30] MEDS: MIDODRINE 5 MG TAB PO SCH ×2 (07:56→17:19)
[2020-12-30] MEDS: ISOSORBIDE MONONITRATE ER 30 MG TAB.ER.24H PO SCH (07:56)
[2020-12-30] MEDS: MONTELUKAST 10 MG TAB PO SCH (07:56)
[2020-12-30] MEDS: METOPROLOL TARTRATE 25 MG TAB PO SCH ×2 (07:57→21:47)
[2020-12-30 08:20] LABS: ALT 6 U/L (4-34); AST 19 U/L (14-36); African American GFR (CKD) 17 (>60 ml/min/1.73 sqM); Albumin 1.9 g/dL (3.5-5.0); Albumin/Globulin Ratio 0.8; Alkaline Phosphatase 126 U/L (38-126); Anion Gap 5 mmol/L; Blood Urea Nitrogen 45 mg/dL (7-17); Calcium 7.3 mg/dL (8.4-10.2); Carbon Dioxide 23 mmol/L (22-30); Chloride 104 mmol/L (98-107); Globulin 2.4 g/dL; Glucose 82 mg/dL (74-99); Non-African American GFR(CKD) 15 (>60 ml/min/1.73 sqM); Potassium 3.1 mmol/L (3.5-5.1); Sodium 132 mmol/L (137-145); Total Bilirubin 0.8 mg/dL (0.2-1.3); Total Protein 4.3 g/dL (6.3-8.2)
[2020-12-30 08:25] LABS: Anisocytosis Slight; Basophils % (A) 0 %; Eosinophils % (A) 1 %; HCT 27.6 % (34.0-46.0); HGB 8.8 gm/dL (11.4-16.0); Hypochromasia Slight; Lymphocytes # (A) 0.6 k/uL (1.0-4.8); Lymphocytes % (A) 9 %; MCV 87.7 fL (80.0-100.0); Mean Platelet Volume 7.9; Monocytes # (A) 0.5 k/uL (0-1.0); Monocytes % (A) 7 %; Neutrophils # (A) 5.5 k/uL (1.3-7.7); Neutrophils % (A) 82 %; Platelet Count 247 k/uL (150-450); RBC 3.15 m/uL (3.80-5.40); RDW 17.8 % (11.5-15.5); WBC 6.7 k/uL (3.8-10.6)
--- NOTE | 2020-12-30 10:44 | P.PN ---
Subjective Progress Note Date: 12/30/20 Alejandra Castellon, is an 89-year-old female who presented to [facility] emergency room with a chief complaint of left lower extremity swelling and discomfort she was evaluated in the emergency room, vital examination on presentation revealed a temperature of 98 pulse 69 respiration 18 blood pressure 84/53 pulse ox 100% on room air. Her white blood count is 12.3 hemoglobin 11.1 platelet count 254 sodium 132 potassium 4.0 chloride 100 CO2 24 BUN 42 creatinine 3.09 glucose level was 131, left lower extremity Doppler done in the emergency room revealed evidence of deep venous thrombosis extending from the external iliac vein to the proximal calf veins, chest x-ray done in the emergency room revealed no evidence for focal infiltrate there was a nodular density in the right midlung zone otherwise no acute abnormality. EKG done in the emergency room revealed normal sinus rhythm with ST and T-wave abnormalities in the inferior and anterior leads. Patient was admitted to telemetry floor she was started on IV heparin, consultation to vascular surgery was initiated due to the large extent of thrombosis in the lower extremity. Patient has a known history of chronic kidney disease she is followed by nephrology she also has known history of anemia and was recently started on Procrit injections. Past medical history is also significant for hypertension, hyperlipidemia, asthma, hypothyroidism, coronary artery disease, osteoarthritis, and gastroesophageal reflux disease. 12/29/2020 patient is alert and oriented 3 resting comfortably in bed. Patient remains on heparin drip. case management to check coverage for eliquis. Patient started on normal saline at 75 for acute kidney injury. Patient denies chest pain or shortness. Patient denies angina diarrhea. Patient denies any urinary burning and frequency. On 12/30/2020 patient was seen and examined on the medical floor she is alert and oriented 3 in no apparent distress , she is complaining of mild discomfort in the left lower extremity otherwise she denies any complaints there is no fever or chills no headache or dizziness no chest pain no shortness of breath no cough no nausea or vomiting no abdominal pain no diarrhea no blood in the stools no burning with urination no frequency or urgency and no hematuria Objective - Vital Signs Vital signs: Vital Signs Temp 97.5 F L 12/30/20 08:00 Pulse 73 12/30/20 08:00 Resp 16 12/30/20 08:00 BP 99/58 12/30/20 08:00 Pulse Ox 100 12/30/20 08:00 Intake & Output 12/29/20 12/30/20 12/30/20 18:59 06:59 18:59 Intake Total 105.463 45.711 Output Total 1 Balance 104.463 45.711 Weight 42.184 kg Intake: Intake, IV Titration 105.463 45.711 Amount Heparin Sod,Pork in 0.45% 105.463 45.711 NaCl 25,000 unit In 0.45 % NaCl 1 250ml.bag @ 18 UNITS/KG/HR 7.593 mls/hr IV .Q24H [facility] Rx#: [id number] Output: Urine 1 Other: Voiding Method Diaper Diaper # Voids 1 # Bowel Movements 1 1 - Exam In general patient is alert and oriented 3 in no apparent distress HEENT head normocephalic and atraumatic Neck is supple no JVD no goiter no lymphadenopathy Chest exam reveals a few scattered crackles no wheezing Cardiac exam reveals regular heart sounds S1 and S2 no gallops no murmurs Abdomen is soft nontender no organomegaly with normal bowel sounds Extremity exam reveals significant edema in the left lower extremity which is much larger than the right no cyanosis or clubbing Neurological examination reveals no gross focal deficit - Labs CBC & Chem 7: 12/30/20 06:42 12/30/20 06:42 Labs: Abnormal Lab Results - Last 24 Hours (Table) 12/29/20 12/29/20 12/29/20 Range/Units 06:55 17:25 22:36 RBC (3.80-5.40) m/uL Hgb (11.4-16.0) gm/dL Hct (34.0-46.0) % RDW (11.5-15.5) % Lymphocytes # (1.0-4.8) k/uL APTT 103.6 H* 69.0 H (22.0-30.0) sec Sodium (137-145) mmol/L Potassium (3.5-5.1) mmol/L BUN (7-17) mg/dL Creatinine (0.52-1.04) mg/dL Calcium (8.4-10.2) mg/dL Iron 20 L (50-170) ug/dL TIBC 99 L (228-460) ug/dL Ferritin 495.9 H (10.0-291.0) ng/mL Total Protein (6.3-8.2) g/dL Albumin (3.5-5.0) g/dL 12/30/20 12/30/20 12/30/20 Range/Units 06:42 06:42 06:42 RBC 3.15 L (3.80-5.40) m/uL Hgb 8.8 L (11.4-16.0) gm/dL Hct 27.6 L (34.0-46.0) % RDW 17.8 H (11.5-15.5) % Lymphocytes # 0.6 L (1.0-4.8) k/uL APTT 45.0 H (22.0-30.0) sec Sodium 132 L (137-145) mmol/L Potassium 3.1 L (3.5-5.1) mmol/L BUN 45 H (7-17) mg/dL Creatinine 2.77 H (0.52-1.04) mg/dL Calcium 7.3 L (8.4-10.2) mg/dL Iron (50-170) ug/dL TIBC (228-460) ug/dL Ferritin (10.0-291.0) ng/mL Total Protein 4.3 L (6.3-8.2) g/dL Albumin 1.9 L (3.5-5.0) g/dL Assessment and Plan Plan: Left lower extremity DVT Acute on chronic kidney disease. Normal saline at 75 ordered. Nephrology service is consulted Services consulted Underlying history of coronary artery disease Underlying history of hypertension Underlying history of hyperlipidemia Underlying history of hypothyroidism Underlying history of asthma Underlying history of chronic kidney disease Underlying history of anemia At this time patient was started on IV heparin Vascular surgery consultation patient refusing any surgical intervention at this time Patient on heparin drip continue normal saline at 75 Case management to check coverage for eliquis
--- NOTE | 2020-12-30 13:22 | P.CONS ---
History of Present Illness - Reason for Consult Consult date: 12/30/20 Need for Anticoagulation with chronic Anemia Requesting physician: Flora Pastrana - History of Present Illness Ms Castellon is a pleasant WF, with a longstanding h/o anemia off and on for " years". In 07/13 her Hgb was 11.3. In 01/12 she dropped in to the 7-8 range with MCV of 80. On 01/30/16, it was 6.5, and she was admitted to [facility]. She had an EGD and colonoscopy by Dr Grover, revealing a pyloric ulcer. H pylori was negative. She received 2 U PRBC, and was started on PO iron 1/d. Per her daughter this was a low dose preparation. On 02/29/16 Hgb was 7.1, with MCV of 78.9. Iron was increased to BID . She required another transfusion on 03/15/16 for Hgb < 7. She was thus referred here for further evaluation and recommendations. Labs were c/w iron deficiency. SHe received Injectafer in 04/13, and stopped PO iron. Hgb improved to 12.2 by 07/14. She had another infusion at that time, for low stores. Her Hgb stablised in the high 11 range, and it was felt that she may have an element of MDS, preventing further improvement. She also has RI. Hgb and iron stores declined in 05/15 , leading to repeat infusion. EGD in 10/16 was negative Hgb dropped in 04/15 to 8.9, normal iron stores and stable Cr, but increased to 10.8 by the time of her visit in 06/16 Her most recent infusion was in Telemedicine Audio Visual 01/20/20: the patient has comparatively slow affect and responses. Most of the history was obtained from her daughter. She appears to continue to have issues with persistently decreased appetite and fatigue. Activity level is quite low. She has also been having some diarrhea and stool testing was ordered by her PCP. Results are pending. She denied any f/c/n/v. She was admitted in 12/14 for pneumonia. She continues on home O2 and is now using a wheelchair outside the house. No obvious bleeding. Ankle swelling is intermittent, with some SOB. She is now on O2 ATC. Her back and other joint pain issues are stable. Her ROS is otherwise as per HPI and negative out of 10. as above The patient was admitted to [facility] on 02/27/20, with progressive weakness, and hemoglobin in the 6 range. She received a unit of PRBC. She had an EGD done, which showed mild gastritis of the antrum. Biopsies were positive only for chronic gastritis with focal intestinal metaplasia. Patient also received IV iron. Colonoscopy was discussed but she and her family decided against that. the patient apparently also had a diagnosis of C. difficile and required a couple of courses of antibiotics. Mrs. Castellon now presents to [facility]. She has significant increase in fatigue. Activity level is very low. Appetite appears to have declined. She has not had any obvious bleeding, or recurrence of diarrhea. She continues on home O2 and is using a wheelchair outside the house. she uses a walker inside the house.No obvious bleeding. Ankle swelling is intermittent, with some SOB. She is on O2 ATC. Her back and other joint pain issues are stable. She recieved IV Retacrit last 12/27 - three total infusions. Now presents with acute DVT. Hemoglobin decreasing since admission. Her performance is poor. Review of Systems All systems: negative Constitutional: Reports as per HPI Past Medical History Past Medical History: Asthma, Coronary Artery Disease (CAD), Chest Pain / Angina, COPD, Dementia, Hyperlipidemia, Hypertension, Myocardial Infarction (LA), Osteoarthritis (OA), Thyroid Disorder Additional Past Medical History / Comment(s): LA in 1998, 2 cardiac stents in 1998, shingles, collitis, Last Myocardial Infarction Date:: 1998 History of Any Multi-Drug Resistant Organisms: C-DIFF Year Discovered:: 02/03/20 MDRO Source:: stool Past Surgical History: Heart Catheterization With Stent Additional Past Surgical History / Comment(s): B\\L cataracts removed 2013, aortic aneurysm clipped 2005, colonoscopy Past Anesthesia/Blood Transfusion Reactions: No Reported Reaction Date of Last Stent Placement:: 1998 Past Psychological History: Depression Smoking Status: Former smoker Past Alcohol Use History: None Reported Past Drug Use History: None Reported - Past Family History Father Additional Family Medical History / Comment(s): emphazema Mother Additional Family Medical History / Comment(s): Alzhiemiers Medications and Allergies Home Medications Medication Instructions Recorded Confirmed Type Budesonide [Pulmicort] 0.5 mg INHALATION RT-HS 10/01/14 12/28/20 History Montelukast [Singulair] 10 mg PO DAILY 10/01/14 12/28/20 History Nitroglycerin Sl Tabs [Nitrostat] 0.4 mg SL Q5M PRN 10/01/14 12/28/20 History Omalizumab [Xolair] 150 mg SQ Q30D 10/01/14 12/28/20 History Isosorbide Mononitrate ER [Imdur] 30 mg PO DAILY 01/30/16 12/28/20 History Pantoprazole [Protonix] 40 mg PO AC-BRKFST #30 tablet.dr 02/01/16 12/28/20 Rx Metoprolol Tartrate [Lopressor] 25 mg PO BID 12/01/17 12/28/20 History Simvastatin [Zocor] 20 mg PO HS 12/01/17 12/28/20 History Citalopram Hydrobromide [CeleXA] 20 mg PO HS 02/10/20 12/28/20 History Ipratropium-Albuterol Nebulize 3 ml INHALATION RT-HS 12/28/20 12/28/20 History [Duoneb 0.5 mg-3 mg/3 ml Soln] Levothyroxine Sodium [Synthroid] 75 mcg PO DAILY 12/28/20 12/28/20 History Apixaban [Eliquis] 2.5 mg PO BID 30 Days #60 tab 12/29/20 Rx Allergies Allergy/AdvReac Type Severity Reaction Status Date / Time cephalexin monohydrate AdvReac Colitis Verified 12/28/20 13:25 [From Keflex] Physical Exam Vitals: Vital Signs Temp Pulse Resp BP BP Pulse Ox 12/30/20 08:00 97.5 F L 73 16 99/58 100 12/30/20 07:57 73 16 12/30/20 01:18 97.9 F 69 18 102/61 99 12/29/20 19:47 98.2 F 66 16 92/50 12/29/20 16:55 97.7 F 67 16 94/53 100 Intake and Output 12/29/20 12/30/20 12/30/20 22:59 06:59 14:59 Intake Total 48.515 45.711 Balance 48.515 45.711 Intake: Intake, IV Titration 48.515 45.711 Amount Heparin Sod,Pork in 0.45% 48.515 45.711 NaCl 25,000 unit In 0.45 % NaCl 1 250ml.bag @ 18 UNITS/KG/HR 7.593 mls/hr IV .Q24H [facility] Rx#: [id number] Other: Voiding Method Diaper Diaper # Voids 1 # Bowel Movements 1 - Constitutional General appearance: cooperative, no acute distress - EENT ENT: hard of hearing - Respiratory Respiratory: bilateral: CTA - Cardiovascular Rhythm: regularly irregular - Gastrointestinal General gastrointestinal: soft - Integumentary Integumentary: pale - Musculoskeletal Musculoskeletal: generalized weakness - Psychiatric Psychiatric: A&O x's 3 Results CBC & Chem 7: 12/30/20 06:42 12/30/20 06:42 Labs: Abnormal Lab Results - Last 24 Hours (Table) 12/29/20 12/29/20 12/29/20 Range/Units 06:55 17:25 22:36 RBC (3.80-5.40) m/uL Hgb (11.4-16.0) gm/dL Hct (34.0-46.0) % RDW (11.5-15.5) % Lymphocytes # (1.0-4.8) k/uL APTT 103.6 H* 69.0 H (22.0-30.0) sec Sodium (137-145) mmol/L Potassium (3.5-5.1) mmol/L BUN (7-17) mg/dL Creatinine (0.52-1.04) mg/dL Calcium (8.4-10.2) mg/dL Iron 20 L (50-170) ug/dL TIBC 99 L (228-460) ug/dL Ferritin 495.9 H (10.0-291.0) ng/mL Total Protein (6.3-8.2) g/dL Albumin (3.5-5.0) g/dL 12/30/20 12/30/20 12/30/20 Range/Units 06:42 06:42 06:42 RBC 3.15 L (3.80-5.40) m/uL Hgb 8.8 L (11.4-16.0) gm/dL Hct 27.6 L (34.0-46.0) % RDW 17.8 H (11.5-15.5) % Lymphocytes # 0.6 L (1.0-4.8) k/uL APTT 45.0 H (22.0-30.0) sec Sodium 132 L (137-145) mmol/L Potassium 3.1 L (3.5-5.1) mmol/L BUN 45 H (7-17) mg/dL Creatinine 2.77 H (0.52-1.04) mg/dL Calcium 7.3 L (8.4-10.2) mg/dL Iron (50-170) ug/dL TIBC (228-460) ug/dL Ferritin (10.0-291.0) ng/mL Total Protein 4.3 L (6.3-8.2) g/dL Albumin 1.9 L (3.5-5.0) g/dL Venous US: report reviewed Assessment and Plan (1) DVT (deep venous thrombosis) Narrative/Plan: Left Lower Extremity Iliac to Calf extension. Currently on a heparin drip, should continue on heparin drip and monitor serial hemoglobin. Anticoagulation risk is increased with her chronic anemia, hemoglobin 11.1 on admission, today 8.8. Recommend Pulmonary perfusion to confirm no Pulmonary emoboli Recommend Stool for OB and GI evaluation Recommend IVC filterand without terminal operator AC therapy with high risk of bleeding/fall , GI to evaluate and if no active bleeding noted very close monitoring of H and H. Will have weekly CBC checks (home care versus visits) and if signs of bleeding will need to hold anticogulation and consider IVC CLose monitoring can also replace parental iron PRN Consideration of EPOGEN, if ESRD then this may not be effective without dialysis - Defer to Nephrology. Current Visit: Yes Status: Acute Code(s): I82.409 - ACUTE EMBOLISM AND THOMBOS UNSP DEEP VN UNSP LOWER EXTREMITY SNOMED Code(s): 482850740 (2) Chronic kidney disease Narrative/Plan: unknown stage Nephrology following Defer Epogen as another consideration to assist in anemia while on anticoagulation Current Visit: Yes Status: Acute Code(s): N18.9 - CHRONIC KIDNEY DISEASE, UNSPECIFIED SNOMED Code(s): 287934265 (3) Normocytic anemia Narrative/Plan: Last Iron infusion on 12/27 She has had a 2point hemoglobin drop since starting anticoaulation (contributing factors chronic kidney disease, dilution, but will need to confirm no active GI bleeding) Current Visit: Yes Status: Acute Code(s): D64.9 - ANEMIA, UNSPECIFIED SN OMED Code(s): 697319610 Plan: Further review will show patients overall performance is low and risk for fall is increased with risk of detrimental fall on anticoaulation - Perfusion Study - No fpc anticoagulation - PLace IVC Filter
--- NOTE | 2020-12-30 15:18 | P.PN ---
Subjective Progress Note Date: 12/30/20 Follow-up for acute kidney injury. Objective - Vital Signs Vital signs: Vital Signs Temp 97.9 F 12/30/20 14:00 Pulse 83 12/30/20 14:00 Resp 16 12/30/20 14:00 BP 101/61 12/30/20 14:00 Pulse Ox 98 12/30/20 14:00 Intake & Output 12/29/20 12/30/20 12/30/20 18:59 06:59 18:59 Intake Total 105.463 45.711 Output Total 1 Balance 104.463 45.711 Weight 42.184 kg Intake: Intake, IV Titration 105.463 45.711 Amount Heparin Sod,Pork in 0.45% 105.463 45.711 NaCl 25,000 unit In 0.45 % NaCl 1 250ml.bag @ 18 UNITS/KG/HR 7.593 mls/hr IV .Q24H [facility] Rx#: [id number] Output: Urine 1 Other: Voiding Method Diaper Diaper # Voids 1 # Bowel Movements 1 1 - Exam No acute distress S1-S2 heard Decreased breath sounds No edema - Labs CBC & Chem 7: 12/30/20 06:42 12/30/20 06:42 Labs: Abnormal Lab Results - Last 24 Hours (Table) 12/29/20 12/29/20 12/29/20 Range/Units 06:55 17:25 22:36 RBC (3.80-5.40) m/uL Hgb (11.4-16.0) gm/dL Hct (34.0-46.0) % RDW (11.5-15.5) % Lymphocytes # (1.0-4.8) k/uL APTT 103.6 H* 69.0 H (22.0-30.0) sec Sodium (137-145) mmol/L Potassium (3.5-5.1) mmol/L BUN (7-17) mg/dL Creatinine (0.52-1.04) mg/dL Calcium (8.4-10.2) mg/dL Iron 20 L (50-170) ug/dL TIBC 99 L (228-460) ug/dL Ferritin 495.9 H (10.0-291.0) ng/mL Total Protein (6.3-8.2) g/dL Albumin (3.5-5.0) g/dL 12/30/20 12/30/20 12/30/20 Range/Units 06:42 06:42 06:42 RBC 3.15 L (3.80-5.40) m/uL Hgb 8.8 L (11.4-16.0) gm/dL Hct 27.6 L (34.0-46.0) % RDW 17.8 H (11.5-15.5) % Lymphocytes # 0.6 L (1.0-4.8) k/uL APTT 45.0 H (22.0-30.0) sec Sodium 132 L (137-145) mmol/L Potassium 3.1 L (3.5-5.1) mmol/L BUN 45 H (7-17) mg/dL Creatinine 2.77 H (0.52-1.04) mg/dL Calcium 7.3 L (8.4-10.2) mg/dL Iron (50-170) ug/dL TIBC (228-460) ug/dL Ferritin (10.0-291.0) ng/mL Total Protein 4.3 L (6.3-8.2) g/dL Albumin 1.9 L (3.5-5.0) g/dL Assessment and Plan Assessment: #1 acute kidney injury secondary to ischemic ATN versus progressive CK D stage IV. Baseline creatinine 3.2 MG per DL #2 lower extremity DVT #3 anemia with chronic kidney disease #4 Hypovolemic hyponatremia #5 low normal blood pressures Plan: #1 continue with IV fluids, renal function improving replace KCl. #2 midodrine for hemodynamic support #3 avoid nephrotoxic agents and hypotensive episodes.
[2020-12-30] MEDS: BUDESONIDE 0.5 MG/2 ML NEBU INHALATION SCH (20:07)
[2020-12-30] MEDS: IPRATROPIUM-ALBUTEROL 3 ML NEB INHALATION SCH (20:07)
[2020-12-30] MEDS: CITALOPRAM HYDROBROMIDE 20 MG TAB PO SCH (21:55)
[2020-12-30] MEDS: ATORVASTATIN 10 MG TAB PO SCH (21:55)
[2020-12-31] MEDS: SODIUM CHLORIDE 0.9% 1,000 ML IV SCH (00:37)
[2020-12-31] MEDS: LEVOTHYROXINE 75 MCG TAB PO SCH (05:27)
[2020-12-31] MEDS: METOPROLOL TARTRATE 25 MG TAB PO SCH ×2 (08:05→21:59)
[2020-12-31] MEDS: ISOSORBIDE MONONITRATE ER 30 MG TAB.ER.24H PO SCH (08:06)
[2020-12-31] MEDS: MONTELUKAST 10 MG TAB PO SCH (08:06)
[2020-12-31] MEDS: MIDODRINE 5 MG TAB PO SCH ×2 (08:06→17:14)
[2020-12-31] MEDS: PANTOPRAZOLE 40 MG TABLET PO SCH (08:06)
[2020-12-31 09:08] LABS: Basophils # (A) 0.02 X 10*3/uL (0.00-0.10); Basophils % (A) 0.3 %; Eosinophils # (A) 0.02 X 10*3/uL (0.04-0.35); Eosinophils % (A) 0.3 %; HCT 30.7 % (37.2-46.3); HGB 9.2 g/dL (12.0-15.0); Lymphocytes # (A) 0.66 X 10*3/uL (0.90-5.00); Lymphocytes % (A) 8.7 %; MCH 27.2 pg (27.0-32.0); MCV 90.8 fL (80.0-97.0); Mean Platelet Volume 10.8 fL (9.5-12.2); Monocytes # (A) 0.69 X 10*3/uL (0.20-1.00); Monocytes % (A) 9.1 %; Neutrophils # (A) 6.13 X 10*3/uL (1.80-7.70); Neutrophils % (A) 81.1 %; Platelet Count 258 X 10*3/uL (140-440); RBC 3.38 X 10*6/uL (4.10-5.20); RDW 18.8 % (11.5-14.5); Reticulocyte % 2.82 % (0.10-1.80); WBC 7.56 X 10*3/uL (4.50-10.00)
[2020-12-31 11:31] LABS: % Iron Saturation 16.24 (12.00-45.00); African American GFR (CKD) 19.1 (60.0-200.0); Albumin 2.4 g/dL (3.80-4.90); Albumin/Globulin Ratio 1.09 (1.60-3.17); Anion Gap 11.6 mmol/L (4.00-12.00); BUN/Creat Ratio 16.4 Ratio (12.00-20.00); Calcium 7.5 mg/dL (8.7-10.3); Carbon Dioxide 19.4 mmol/L (21.6-31.8); Ferritin 594.3 ng/mL (10.0-291.0); Globulin 2.2 g/dL (1.6-3.3); Non-African American GFR(CKD) 16.5 (60.0-200.0); Potassium 3.2 mmol/L (3.5-5.5); Total Bilirubin 0.7 mg/dL (0.3-1.2); Total Protein 4.6 g/dL (6.2-8.2)
[2020-12-31 12:13] LABS: Folate, Serum 4.4 ng/mL
--- NOTE | 2020-12-31 12:31 | CONS ---
CONSULTATION DATE OF SERVICE: 12/31/2020 REQUESTING PHYSICIAN: Dr. Pastrana. REASON FOR CONSULTATION: Anemia, rule out GI bleed. HISTORY OF PRESENT ILLNESS: The patient is an 89-year-old pleasant white female admitted to hospital with left lower extremity swelling and subsequently diagnosed with DVT. Presently on IV heparin. At the time of admission to the hospital hemoglobin was 11.1 and gradually dropped to 8.8 g/dL. Hence we are consulted for possible GI bleed. The patient is extremely confused and history of advanced dementia. As per the nursing staff in the last 3 days she did not have any obvious GI bleed, in fact she had 2 bowel movements last night and as per the nursing education consultant, they were brown in color. The patient does have a longstanding history of iron deficiency anemia and is followed by Hematology on an outpatient basis. Apparently in 2015, she had a hemoglobin of 6 and she had an EGD and colonoscopy done by Dr. Grover at that time, which revealed some gastritis. Subsequently she was admitted to the hospital in January of 2020 with a hemoglobin of 6 g/dL. She had an upper endoscopy done at that time, which showed mild gastritis. However, she refused a colonoscopy. PAST MEDICAL HISTORY: Significant for asthma, coronary artery disease, congestive heart failure, hypertension, hyperlipidemia, advanced dementia, coronary artery disease, hypothyroidism. PAST SURGICAL HISTORY: Cardiac cath with stent placement, bilateral cataract surgeries, abdominal aortic aneurysm clipped in 2005. EGD and colonoscopy in the past. MEDICATIONS AT HOME: Include Pulmicort, Singulair, nitroglycerin, Xolair, Imdur, Protonix, Lopressor, Zocor, Celexa, DuoNeb, Synthroid, and Eliquis. ALLERGIES: KEFLEX. SOCIAL HISTORY: Former smoker. No alcohol use. FAMILY HISTORY: Father had emphysema. Mother had Alzheimer's. REVIEW OF SYSTEMS: Review of systems could not be obtained as patient is very confused. PHYSICAL EXAMINATION: GENERAL: She appears comfortable. No apparent distress. VITAL SIGNS: Stable. Blood pressure 116/82, pulse rate 85, temperature 98.2. HEENT: Examination unremarkable. Conjunctivae are pink. Sclerae anicteric. Oral cavity no lesions. NECK: No JVD or lymph node enlargement. CHEST: Clear to auscultation. ABDOMEN: Soft. There was mild tenderness in the suprapubic area, as well as in the left lower quadrant area. The rest of the abdomen was benign. Bowel sounds are positive, no organomegaly. EXTREMITIES: No pedal edema. NEURO: She is alert and oriented x3. No focal deficits. LABS: WBC 7.5, hemoglobin 9.2, platelets 258. Two days ago hemoglobin was 11.1 g/dL. PTT is 45.2. Serum iron is 20, TIBC is 99, iron saturation is 20% and ferritin is 495. BUN and creatinine are 45 and 2.77 respectively. AST, ALT are normal. Alkaline phosphatase is 158. T bilirubin is normal. IMPRESSION: 1. Normocytic anemia. This is not consistent with iron deficiency anemia. Most likely dealing with anemia of chronic disease probably related to chronic kidney disease. There is no evidence of active gastrointestinal bleed. 2. New onset left lower extremity deep venous thrombosis, on IV heparin. 3. Chronic kidney disease with elevated BUN and creatinine. 4. Advanced dementia. 5. History of hypertension. RECOMMENDATIONS: 1. Continue with IV heparin. 2. Monitor labs closely. 3. Since there is no evidence of active bleeding, no indication for any endoscopy intervention at the present time. 4. In regard to the new onset deep venous thrombosis, the patient is being followed by Hematology/Oncology service. Her last colonoscopy was in 2016 that was unremarkable. At this time, patient declines to have any invasive procedures. 5. Continue with symptomatic and supportive care. We will follow with you. Thank you for this consultation. LESLY / SHAWNN: [phone] /
--- NOTE | 2020-12-31 13:27 | P.PN ---
Subjective Progress Note Date: 12/31/20 Follow-up for acute kidney injury. Objective - Vital Signs Vital signs: Vital Signs Temp 98.2 F 12/31/20 08:00 Pulse 85 12/31/20 08:00 Resp 16 12/31/20 08:00 BP 116/60 12/31/20 08:00 Pulse Ox 99 12/31/20 08:00 Intake & Output 12/30/20 12/31/20 12/31/20 18:59 06:59 18:59 Intake Total 900 Balance 900 Intake: Intake, IV Titration 900 Amount Sodium Chloride 0.9% 1, 900 000 ml @ 75 mls/hr IV . [id number] [facility] Rx#:[id number] Other: Voiding Method Diaper Diaper Diaper # Voids 1 1 # Bowel Movements 1 1 - Exam No acute distress S1-S2 heard Decreased breath sounds No edema - Labs CBC & Chem 7: 12/31/20 06:33 12/31/20 06:33 Labs: Abnormal Lab Results - Last 24 Hours (Table) 12/31/20 12/31/20 12/31/20 Range/Units 06:33 06:33 06:33 RBC 3.38 L (4.10-5.20) X 10*6/uL Hgb 9.2 L (12.0-15.0) g/dL Hct 30.7 L (37.2-46.3) % MCHC 30.0 L (32.0-37.0) g/dL RDW 18.8 H (11.5-14.5) % Lymphocytes # 0.66 L (0.90-5.00) X 10*3/uL Eosinophils # 0.02 L (0.04-0.35) X 10*3/uL Retic Count 2.82 H (0.10-1.80) % APTT 46.4 H (22.0-30.0) sec Potassium 3.2 L (3.5-5.5) mmol/L Chloride 110 H (96-109) mmol/L Carbon Dioxide 19.4 L (21.6-31.8) mmol/L BUN 41.0 H (9.0-27.0) mg/dL Creatinine 2.5 H (0.6-1.5) mg/dL Est GFR (CKD-EPI)AfAm 19.1 L (60.0-200.0) Est GFR (CKD-EPI)NonAf 16.5 L (60.0-200.0) Calcium 7.5 L (8.7-10.3) mg/dL Iron 19 L (50-170) ug/dL TIBC 117 L (228-460) ug/dL Ferritin 594.3 H (10.0-291.0) ng/mL Alkaline Phosphatase 133 H (41-126) U/L Total Protein 4.6 L (6.2-8.2) g/dL Albumin 2.40 L (3.80-4.90) g/dL Albumin/Globulin Ratio 1.09 L (1.60-3.17) g/dL Assessment and Plan Assessment: #1 acute kidney injury secondary to ischemic ATN versus progressive CK D stage IV. Baseline creatinine 3.2 MG per DL #2 lower extremity DVT #3 anemia with chronic kidney disease #4 Hypovolemic hyponatremia, resolved #5 low normal blood pressures Plan: #1 stop IV fluids. Renal function around baseline #2 midodrine for hemodynamic support #3 avoid nephrotoxic agents and hypotensive episodes.
--- NOTE | 2020-12-31 17:24 | PN ---
PROGRESS NOTE DATE OF SERVICE: 12/31/2020 I am covering for Dr. Pastrana INTERVAL HISTORY: This is an 89-year-old woman who was admitted with left lower leg DVT, also acute on chronic kidney disease. Patient is being closely monitored at this time. Gastroenterology also has been consulted. Nephrology is following the patient closely for renal failure. Gastroenterology saw the patient for anemia and IV heparin has been continued. No evidence of active bleeding was noted. Today's labs showed hemoglobin 9.2 and PTT is therapeutic. Potassium is 3.2. COVID-19 is negative. PAST MEDICAL HISTORY: Reviewed. REVIEW OF SYSTEMS: CARDIOVASCULAR: No angina or palpitations. RESPIRATORY: As mentioned earlier. GI: As mentioned earlier. : No dysuria. NERVOUS SYSTEM: No numbness or weakness. CURRENT MEDICATIONS: Reviewed and include Tylenol, DuoNeb, Pulmicort, Celexa, Synthroid. Doses reviewed. PHYSICAL EXAM: GENERAL: Patient is alert and oriented times two. VITAL SIGNS: Pulse 67, blood pressure 103/57, respirations 16, temperature 98.6, pulse ox 98% on room air. HEENT: Conjunctivae normal. Oral mucosa moist. NECK: No jugular venous distention. No carotid bruits. RESPIRATORY: Breath sounds diminished at the bases. Scattered rhonchi and crackles. HEART: S1 and S2, muffled. ABDOMEN: Soft, no tenderness. No masses palpable. EXTREMITIES: Left leg edema. NERVOUS: No focal deficits. LABS: Hemoglobin 9.2, sodium 141, potassium 3.2, and creatinine is 2.5. ASSESSMENT: 1. Acute left lower leg deep vein thrombosis. 2. Acute on chronic kidney failure. 3. Acute kidney failure possibly acute tubular necrosis. 4. History of coronary artery disease. 5. Hypertension. 6. Hyperlipidemia. 7. Hypothyroidism. 8. History of asthma. 9. History of chronic kidney disease. 10.History of anemia. 11.Hypokalemia. 12.Hyponatremia. 13.Hypocalcemia. 14.Hypoalbuminemia with severe protein calorie malnutrition. 15.Anemia, normocytic anemia of chronic disease. 16.History of asthma. 17.History of colitis. 18.Gait dysfunction. 19.NO CODE, NO CPR, NO VENT. RECOMMENDATIONS AND DISCUSSION: In this 89-year-old woman who presented with multiple complex medical issues, we will monitor the patient closely. Continue the current management and continue symptomatic treatment. Continue with IV heparin. Otherwise PT OT evaluation. Repeat labs. Closely follow with Nephrology. Guarded prognosis. Further recommendations to follow. Hematology oncology is following the patient closely. MMVILMAL / SHAWNN: [id number] /
[2020-12-31] MEDS: HEPARIN SOD,PORK IN 0.45% NACL 25,000 UNIT in 0.45% NACL 1 250ML.BAG IV SCH (18:57)
[2020-12-31] MEDS: ATORVASTATIN 10 MG TAB PO SCH (21:59)
[2020-12-31] MEDS: CITALOPRAM HYDROBROMIDE 20 MG TAB PO SCH (21:59)
[2020-12-31] MEDS: BUDESONIDE 0.5 MG/2 ML NEBU INHALATION SCH (22:41)
[2020-12-31] MEDS: IPRATROPIUM-ALBUTEROL 3 ML NEB INHALATION SCH (22:41)
[2021-01-01] MEDS: LEVOTHYROXINE 75 MCG TAB PO SCH (06:01)
[2021-01-01 08:54] LABS: Basophils # (A) 0.03 X 10*3/uL (0.00-0.10); Basophils % (A) 0.5 %; Eosinophils # (A) 0.04 X 10*3/uL (0.04-0.35); Eosinophils % (A) 0.6 %; HCT 27.8 % (37.2-46.3); HGB 8.3 g/dL (12.0-15.0); Lymphocytes # (A) 0.83 X 10*3/uL (0.90-5.00); MCH 27.3 pg (27.0-32.0); MCHC 29.9 g/dL (32.0-37.0); MCV 91.4 fL (80.0-97.0); Mean Platelet Volume 10.9 fL (9.5-12.2); Neutrophils # (A) 4.74 X 10*3/uL (1.80-7.70); Neutrophils % (A) 74.3 %; Platelet Count 217 X 10*3/uL (140-440); RBC 3.04 X 10*6/uL (4.10-5.20); WBC 6.38 X 10*3/uL (4.50-10.00)
[2021-01-01] MEDS: ISOSORBIDE MONONITRATE ER 30 MG TAB.ER.24H PO SCH (09:11)
[2021-01-01] MEDS: METOPROLOL TARTRATE 25 MG TAB PO SCH ×2 (09:11→20:45)
[2021-01-01] MEDS: MONTELUKAST 10 MG TAB PO SCH (09:21)
[2021-01-01] MEDS: MIDODRINE 5 MG TAB PO SCH ×2 (09:21→17:49)
[2021-01-01] MEDS: PANTOPRAZOLE 40 MG TABLET PO SCH (09:21)
--- NOTE | 2021-01-01 11:21 | P.PN ---
Subjective Progress Note Date: 01/01/21 Principal diagnosis: Left lower extremity DVT The patient is seen and examined sitting up in chair. She is denying any acute changes through the night. She denies any signs of active GI bleed or pain in the left lower extremity. She remains on a heparin drip. Hematology has seen patient and recommends IVC filter placement due to inability to transition to oral anticoagulation due to high risk of falling. Objective - Vital Signs Vital signs: Vital Signs Temp 98.1 F 01/01/21 07:28 Pulse 64 01/01/21 07:28 Resp 16 01/01/21 07:28 BP 96/51 01/01/21 07:28 Pulse Ox 97 01/01/21 07:28 Intake & Output 12/31/20 01/01/21 01/01/21 18:59 06:59 18:59 Intake Total 825 Balance 825 Intake: Intake, IV Titration 825 Amount Sodium Chloride 0.9% 1, 825 000 ml @ 75 mls/hr IV . [id number] [facility] Rx#:[id number] Other: Voiding Method Diaper Diaper # Voids 2 # Bowel Movements 2 - Exam General appearance: The patient is alert, oriented, in no acute distress. HET: Head is normocephalic and atraumatic. Neck: Supple without lymphadenopathy. Trachea midline. Extremities: Normal skin color and turgor. Left lower extremity with edema +2, good capillary refill. Nonpalpable DP, PT, popliteal pulses positive. Palpable femoral pulse. Right lower extremity without edema. Neurological: No focal deficits. - Labs CBC & Chem 7: 01/01/21 05:30 01/01/21 05:30 Labs: Abnormal Lab Results - Last 24 Hours (Table) 12/31/20 01/01/21 Range/Units 06:33 05:30 RBC 3.04 L (4.10-5.20) X 10*6/uL Hgb 8.3 L (12.0-15.0) g/dL Hct 27.8 L (37.2-46.3) % MCHC 29.9 L (32.0-37.0) g/dL RDW 19.0 H (11.5-14.5) % Lymphocytes # 0.83 L (0.90-5.00) X 10*3/uL Potassium 3.2 L (3.5-5.5) mmol/L Chloride 110 H (96-109) mmol/L Carbon Dioxide 19.4 L (21.6-31.8) mmol/L BUN 41.0 H (9.0-27.0) mg/dL Creatinine 2.5 H (0.6-1.5) mg/dL Est GFR (CKD-EPI)AfAm 19.1 L (60.0-200.0) Est GFR (CKD-EPI)NonAf 16.5 L (60.0-200.0) Calcium 7.5 L (8.7-10.3) mg/dL Iron 19 L (50-170) ug/dL TIBC 117 L (228-460) ug/dL Ferritin 594.3 H (10.0-291.0) ng/mL Alkaline Phosphatase 133 H (41-126) U/L Total Protein 4.6 L (6.2-8.2) g/dL Albumin 2.40 L (3.80-4.90) g/dL Albumin/Globulin Ratio 1.09 L (1.60-3.17) g/dL Assessment and Plan Assessment: 1. Acute left lower extremity DVT extending from the External iliac vein to PTVs 2. CKD 3. HTN 4. CAD Plan: Dr. Jauregui to discuss with patient's daughter, SATISH regarding proceeding with IVC filter placement. The patient and her daughter Luana who is the patient's power of divorce attorney have Agreed to IVC filter placement for left lower extremity DVT. Patient will be nothing by mouth after midnight, continue IV heparin 6 hours prior to procedure. The above dictated assessment and findings were discussed with Dr. Jauregui. The impression and plan of care have been directed as dictated.
[2021-01-01 11:26] LABS: African American GFR (CKD) 19.1 (60.0-200.0); Anion Gap 6.7 mmol/L (4.00-12.00); Calcium 7.8 mg/dL (8.7-10.3); Carbon Dioxide 23.3 mmol/L (21.6-31.8); Non-African American GFR(CKD) 16.5 (60.0-200.0); Potassium 3.6 mmol/L (3.5-5.5)
--- NOTE | 2021-01-01 13:55 | P.PN ---
Subjective Progress Note Date: 01/01/21 Principal diagnosis: Anemia Patient seen and examined sitting up in a bedside chair. She denies any abdominal pain, nausea, or vomiting. She has not had any signs of GI bleed ho wever she did have a drop in her hemoglobin today to 8.3 from 9.2 yesterday. She remains on a heparin drip. She will likely proceed with IVC filter placement tomorrow with vascular surgery. Objective - Vital Signs Vital signs: Vital Signs Temp 98.1 F 01/01/21 07:28 Pulse 64 01/01/21 07:28 Resp 16 01/01/21 07:28 BP 96/51 01/01/21 07:28 Pulse Ox 97 01/01/21 07:28 Intake & Output 12/31/20 01/01/21 01/01/21 18:59 06:59 18:59 Intake Total 825 Balance 825 Intake: Intake, IV Titration 825 Amount Sodium Chloride 0.9% 1, 825 000 ml @ 75 mls/hr IV . [id number] [facility] Rx#:[id number] Other: Voiding Method Diaper Diaper # Voids 2 # Bowel Movements 2 - Exam General appearance: The patient is alert, oriented, in no acute distress. HET: Head is normocephalic and atraumatic. Neck: Supple without lymphadenopathy. Trachea midline. Abdomen: Soft, nontender, normal bowel sounds, no guarding or rigidity. Extremities: Normal skin color and turgor. Left lower extremity with edema +2, good capillary refill. Nonpalpable DP, PT, popliteal pulses positive. Palpable femoral pulse. Right lower extremity without edema. Skin: No rashes or jaundice. Neurological: No focal deficits. - Labs CBC & Chem 7: 01/01/21 05:30 01/01/21 05:30 Labs: Abnormal Lab Results - Last 24 Hours (Table) 12/31/20 01/01/21 Range/Units 06:33 05:30 RBC 3.04 L (4.10-5.20) X 10*6/uL Hgb 8.3 L (12.0-15.0) g/dL Hct 27.8 L (37.2-46.3) % MCHC 29.9 L (32.0-37.0) g/dL RDW 19.0 H (11.5-14.5) % Lymphocytes # 0.83 L (0.90-5.00) X 10*3/uL Potassium 3.2 L (3.5-5.5) mmol/L Chloride 110 H (96-109) mmol/L Carbon Dioxide 19.4 L (21.6-31.8) mmol/L BUN 41.0 H (9.0-27.0) mg/dL Creatinine 2.5 H (0.6-1.5) mg/dL Est GFR (CKD-EPI)AfAm 19.1 L (60.0-200.0) Est GFR (CKD-EPI)NonAf 16.5 L (60.0-200.0) Calcium 7.5 L (8.7-10.3) mg/dL Iron 19 L (50-170) ug/dL TIBC 117 L (228-460) ug/dL Ferritin 594.3 H (10.0-291.0) ng/mL Alkaline Phosphatase 133 H (41-126) U/L Total Protein 4.6 L (6.2-8.2) g/dL Albumin 2.40 L (3.80-4.90) g/dL Albumin/Globulin Ratio 1.09 L (1.60-3.17) g/dL Assessment and Plan (1) Normocytic anemia Narrative/Plan: Yamilka 89-year-old pleasant female who presented to the hospital with new onset of left lower extremity pain and edema. She was found to have an acute DVT of the left lower extremity. During her hospitalization she was also found to be anemic. The picture is not consistent with iron deficiency anemia, the patient has a history of chronic anemia and has been receiving Procrit outpatient. Most likely dealing with anemia of chronic disease probably related to chronic kidney disease. There is been no evidence of any active gastrointestinal bleed. Current Visit: Yes Status: Acute Code(s): D64.9 - ANEMIA, UNSPECIFIED SNOMED Code(s): 475124981 (2) DVT (deep venous thrombosis) Narrative/Plan: New onset of left lower extremity deep vein thrombosis on IV heparin, plan is for IVC filter placement with vascular surgery. Current Visit: Yes Status: Acute Code(s): I82.409 - ACUTE EMBOLISM AND THOMBOS UNSP DEEP VN UNSP LOWER EXTREMITY SNOMED Code(s): 457032114 (3) Chronic kidney disease Current Visit: Yes Status: Acute Code(s): N18.9 - CHRONIC KIDNEY DISEASE, UNSPECIFIED SNOMED Code(s): 312618492 Plan: 1. Continue symptomatic and supportive care 2. Continue with IV heparin as ordered 3. Continue to monitor for signs of GI bleed 4. The patient last had a colonoscopy in 2016 that was unremarkable. The patient and her daughter who is her power of attorney law clerk Stated the do not want any invasive procedures during this hospitalization. 5. Continue to follow recommendations from hematology 6. Acute for this consultation, we will sign off at this time. Dr. Azul I agree with the dictator's note, documented as a scribe by Tracee Devlin.
--- NOTE | 2021-01-01 14:57 | P.PN ---
Subjective Progress Note Date: 01/01/21 Principal diagnosis: Anticoagulation recommendations for LLE DVT In follow-up today patient is pleasantly confused, denies any bleeding, no pain to report. Objective - Vital Signs Vital signs: Vital Signs Temp 98.1 F 01/01/21 07:28 Pulse 64 01/01/21 07:28 Resp 16 01/01/21 07:28 BP 96/51 01/01/21 07:28 Pulse Ox 97 01/01/21 07:28 Intake & Output 12/31/20 01/01/21 01/01/21 18:59 06:59 18:59 Intake Total 825 Balance 825 Weight 42.184 kg Intake: Intake, IV Titration 825 Amount Sodium Chloride 0.9% 1, 825 000 ml @ 75 mls/hr IV . [id number] [facility] Rx#:[id number] Other: Voiding Method Diaper Diaper # Voids 2 # Bowel Movements 2 - Constitutional General appearance: Present: cooperative, no acute distress, thin (Frail) - EENT Eyes: Present: anicteric sclerae, EOMI ENT: Present: hard of hearing, normal oropharynx - Respiratory Details: Respirations even and unlabored at rest - Cardiovascular Details: Skin warm and dry to the touch, radial pulse 2+, regular - Peripheral edema leg Peripheral Edema: right: Trace, left: 2+ - Gastrointestinal General gastrointestinal: Present: soft - Musculoskeletal Musculoskeletal: Present: generalized weakness - Psychiatric Psychiatric Comment(s): A&O 2 - Labs CBC & Chem 7: 01/01/21 05:30 01/01/21 05:30 Labs: Abnormal Lab Results - Last 24 Hours (Table) 01/01/21 01/01/21 Range/Units 05:30 05:30 RBC 3.04 L (4.10-5.20) X 10*6/uL Hgb 8.3 L (12.0-15.0) g/dL Hct 27.8 L (37.2-46.3) % MCHC 29.9 L (32.0-37.0) g/dL RDW 19.0 H (11.5-14.5) % Lymphocytes # 0.83 L (0.90-5.00) X 10*3/uL Chloride 113 H (96-109) mmol/L BUN 40.0 H (9.0-27.0) mg/dL Creatinine 2.5 H (0.6-1.5) mg/dL Est GFR (CKD-EPI)AfAm 19.1 L (60.0-200.0) Est GFR (CKD-EPI)NonAf 16.5 L (60.0-200.0) Calcium 7.8 L (8.7-10.3) mg/dL Assessment and Plan (1) Anemia in chronic kidney disease Narrative/Plan: Patient's hemoglobin is stable. Her iron studies are adequate. Based on how she is able to follow-up, supplementation with erythropoietin medications may be reasonable. Current Visit: Yes Status: Chronic Priority: Medium Code(s): N18.9 - CHRONIC KIDNEY DISEASE, UNSPECIFIED; D63.1 - ANEMIA IN CHRONIC KIDNEY DISEASE SNOMED Code(s): 493061581 (2) DVT (deep venous thrombosis) Narrative/Plan: Due to patient's age and history of falls IVC filter being placed, no anticoagulation. This was previously discussed with patient's daughter. Review case with MARKET DEVELOPMENT ANALYST. Current Visit: Yes Status: Acute Priority: High Code(s): I82.409 - ACUTE EMBOLISM AND THOMBOS UNSP DEEP VN UNSP LOWER EXTREMITY SNOMED Code(s): 143741695
--- NOTE | 2021-01-01 15:20 | PN ---
PROGRESS NOTE Patient is seen for followup for acute kidney injury. Renal function has improved, with creatinine down to 2.5 from 3.0 on initial admission. Patient's previous creatinine had been about 1.4 to 1.5 mg/dL in May of 2020. On examination, she is comfortable, not in any acute distress. Blood pressure was 101/63 this morning, heart rate 62 per minute. She is afebrile. Examination shows no significant edema in bilateral lower extremities. The patient does not communicate much. Labs show sodium 143, potassium 3.6, chloride 113, BUN 40, creatinine 2.5, hemoglobin 8.3 g/dL. ASSESSMENT: 1. Acute kidney injury secondary to ischemic acute tubular necrosis. Renal function fairly stable last couple of days. 2. Chronic kidney disease with previous creatinine 1.6 to 1.5 mg/dL in May of 2020. Etiology is likely nephrosclerosis. No evidence of proteinuria on UA in May. No UA this admission. 3. Hypokalemia, status post replacement. 4. Anemia. No active bleeding noted. Iron saturation about 16%. PLAN: Add IV iron. Encourage increased oral intake. Continue off of IV fluids and diuretics. MMODL / IJN: [id number] /
[2021-01-01] MEDS: HEPARIN SOD,PORK IN 0.45% NACL 25,000 UNIT in 0.45% NACL 1 250ML.BAG IV SCH (16:27)
[2021-01-01] MEDS: SODIUM FERRIC GLUCONAT-SUCROSE 125 MG in SODIUM CHLORIDE 0.9% 100 ML IVPB SCH (17:22)
[2021-01-01] MEDS: IPRATROPIUM-ALBUTEROL 3 ML NEB INHALATION SCH (19:03)
[2021-01-01] MEDS: BUDESONIDE 0.5 MG/2 ML NEBU INHALATION SCH (19:03)
[2021-01-01] MEDS: CITALOPRAM HYDROBROMIDE 20 MG TAB PO SCH (20:45)
[2021-01-01] MEDS: ATORVASTATIN 10 MG TAB PO SCH (20:45)
[2021-01-01] MEDS ORDERED: APIXABAN 5 MG TAB PO SCH (21:00)
--- NOTE | 2021-01-01 23:08 | PN ---
PROGRESS NOTE I am covering for Dr. Pastrana. DATE OF SERVICE: 01/01/2021 This 89-year-old woman who was admitted with acute left lower leg DVT also had chronic kidney disease. The patient is being evaluated by multiple consultants at this time. The patient has been worked up for IVC filter placement due to inability of transition to oral anticoagulants because of high risk of falling and bleeding. The patient is being closely monitored at this time. Past medical history reviewed. REVIEW OF SYSTEMS: CARDIOVASCULAR SYSTEM: No angina, palpitations. RESPIRATORY SYSTEM: As mentioned earlier. GI: As mentioned earlier. : No dysuria or retention. NERVOUS SYSTEM: No numbness, weakness. CURRENT MEDICATIONS: Reviewed. They include Tylenol, DuoNeb, Lipitor, Pulmicort, Celexa, heparin, Lopressor, ProAmatine. PHYSICAL EXAMINATION: Patient is alert, oriented x2. Pulse 97, blood pressure 107/55, respiration 20, temperature 98.3, pulse ox 99% on room air. HEENT: Conjunctivae normal. NECK: No jugular venous distention. CARDIOVASCULAR SYSTEM: S1, S2 muffled. RESPIRATORY SYSTEM: Breath sounds diminished at the bases. Bilateral scattered rhonchi and crackles. ABDOMEN: Soft, non-tender. LEGS: No edema. No swelling. NERVOUS SYSTEM: No focal deficit. LABS: WBC 6.38, hemoglobin is 8.3. APTT 42.5. Creatinine is 2.5. ASSESSMENT: 1. Acute left leg deep vein thrombosis. 2. Considering IVC filter placement. 3. Acute on chronic kidney failure. 4. Acute kidney failure, possibly acute tubular necrosis. 5. History of coronary artery disease. 6. Hypertension. 7. Hyperlipidemia. 8. Hypothyroidism. 9. History of asthma. 10.History of chronic kidney disease. 11.History of anemia. 12.Hypokalemia. 13.Hyponatremia. 14.Hypocalcemia. 15.Hypoalbuminemia with severe protein-calorie malnutrition. 16.Anemia; normocytic anemia of chronic disease. 17.History of asthma. 18.History of colitis. 19.Gait dysfunction. 20.NO CODE, NO CPR, NO VENT. RECOMMENDATIONS AND DISCUSSION: I recommend to continue current medications, continue with the monitoring, symptomatic treatment. Otherwise, at this time I recommend n.p.o. after midnight. IVC filter placement. Guarded prognosis because of multiple complex medical issues. Further recommendations to follow. MMODL / IJN: [id number] /
[2021-01-02] MEDS: LEVOTHYROXINE 75 MCG TAB PO SCH (05:33)
[2021-01-02] MEDS ORDERED: LIDOCAINE 1% INJ 10MG/ML (20 ML MDV) ONE (07:16)
[2021-01-02] MEDS ORDERED: IV FLUID CONTINUATION 1,000 ML IV ONE (07:19)
[2021-01-02] MEDS ORDERED: SODIUM CHLORIDE 0.9% 500 ML 500 ML IV ONE (07:40)
[2021-01-02] MEDS ORDERED: fentaNYL (PF) 50 MCG/ML 2 ML AMP ONE (07:50)
[2021-01-02] MEDS ORDERED: fentaNYL (PF) 50 MCG/ML 2 ML AMP IVP ONE (08:09)
[2021-01-02] MEDS ORDERED: MIDAZOLAM 2 MG/2 ML VIAL IVP ONE (08:09)
[2021-01-02] MEDS ORDERED: LIDOCAINE 1% INJ 10MG/ML (20 ML MDV) SQ ONE (08:10)
[2021-01-02] MEDS ORDERED: IOPAMIDOL-250 50ML BTL IV ONE (08:19)
--- NOTE | 2021-01-02 08:34 | P.OP ---
Date of Procedure: 01/02/21 Description of Procedure: Preoperative diagnosis: Left lower extremity DVT, fall risk with inability to anticoagulate Postoperative diagnosis: Same Procedure: Percutaneous placement of IVC filter via right common femoral vein ultrasound-guided access. IVC venogram. Surgeon: Ming Jauregui DO Anesthesia: Local with sedation x11 mins Estimated blood loss: Minimal Complications: None Contrast: 20 mL Condition: Stable Indication for procedure: 89-year-old female who is currently being treated at the hospital for left lower extremity DVT who was on IV heparin. She was evaluated by hematology and due to her age and fall risk it was determined that she would be unable to take oral anticoagulation. Due to her inability oral anticoagulation and sizable thrombus in the left lower extremity was discussed to place a filter. She presents today for IVC filter placement. Operative narrative: After written and informed consent was obtained the patient and all risks benefits and complications were described the patient was brought to the Display Coordinator and laid in a supine position. The area of the groins were prepped and draped in usual sterile fashion. Utilizing ultrasound the right femoral vein was located and shown to be patent and compressible without any visible thrombus. Utilizing ultrasound and Seldinger technique the vein was accessed and a 035 guidewire was placed followed by a 6-Uzbek sheath. Catheter was then placed within the inferior vena cava and IVC venogram was obtained de monstrating visualization of the renal veins. A [place] filter was then chosen to be placed and the deployment sheath was guided over the guidewire after removal of the 6-Uzbek sheath. The filter was then placed just beneath the renal veins and deployed in normal fashion. Once deployed final venogram was obtained demonstrating good placement of the filter without any tilting. All guidewires and catheters were then removed and pressure was held for hemostasis. The area was cleansed and dressings were placed. Patient tolerated procedure well was sent back to the room for recovery.
--- NOTE | 2021-01-02 10:24 | IR ---
EXAMINATION TYPE: IR IVC filter placement DATE OF EXAM: 01/02/2021 COMPARISON: NONE HISTORY: Fluoroscopy time. Fluoroscopy was provided to the referring clinician.
[2021-01-02] MEDS: METOPROLOL TARTRATE 25 MG TAB PO SCH ×2 (10:30→21:03)
[2021-01-02] MEDS: ISOSORBIDE MONONITRATE ER 30 MG TAB.ER.24H PO SCH (10:30)
[2021-01-02] MEDS: PANTOPRAZOLE 40 MG TABLET PO SCH (10:30)
[2021-01-02] MEDS: MONTELUKAST 10 MG TAB PO SCH (10:35)
[2021-01-02] MEDS: MIDODRINE 5 MG TAB PO SCH ×2 (10:35→16:51)
[2021-01-02] MEDS: SODIUM FERRIC GLUCONAT-SUCROSE 125 MG in SODIUM CHLORIDE 0.9% 100 ML IVPB SCH (10:35)
--- NOTE | 2021-01-02 14:05 | P.PN ---
Subjective Progress Note Date: 01/02/21 Principal diagnosis: Anticoagulation recommendations for LLE DVT. Anemia of chronic kidney disease, patient is on epo supplementation weekly outpatient In follow-up today patient is pleasantly confused, denies any bleeding, no pain to report. Objective - Vital Signs Vital signs: Vital Signs Temp 98.5 F 01/02/21 09:06 Pulse 70 01/02/21 09:23 Resp 16 01/02/21 09:06 BP 99/61 01/02/21 10:52 Pulse Ox 93 L 01/02/21 09:23 Intake & Output 01/01/21 01/02/21 01/02/21 18:59 06:59 18:59 Intake Total 574.416 31.469 100 Balance 574.416 31.469 100 Weight 42.184 kg Intake: IV 100 Intake, IV Titration 254.416 31.469 Amount Heparin Sod,Pork in 0.45% 254.416 31.469 NaCl 25,000 unit In 0.45 % NaCl 1 250ml.bag @ 18 UNITS/KG/HR 7.593 mls/hr IV .Q24H [facility] Rx#: [id number] Oral 320 Other: Voiding Method Diaper # Voids 1 1 # Bowel Movements 1 1 - Constitutional General appearance: Present: cooperative, no acute distress, thin - EENT Eyes: Present: anicteric sclerae, EOMI - Respiratory Respiratory: bilateral: CTA - Cardiovascular Heart sounds: normal: S1, S2 Abnormal Heart Sounds: Absent: systolic murmur, diastolic murmur, rub, S3 Gallop, S4 Gallop, click, other - Peripheral edema leg Peripheral Edema: bilateral: None - Gastrointestinal General gastrointestinal: Present: soft - Neurologic Neurologic: Present: CNII-XII intact - Musculoskeletal Musculoskeletal: Present: generalized weakness - Psychiatric Psychiatric Comment(s): Alert and oriented to self, somewhat place, not to time or situation - Labs CBC & Chem 7: 01/01/21 05:30 01/01/21 05:30 Labs: Abnormal Lab Results - Last 24 Hours (Table) 01/01/21 01/01/21 01/02/21 Range/Units 17:01 22:53 05:48 APTT 42.5 H >200.0 H* 48.4 H (22.0-30.0) sec Assessment and Plan (1) Anemia in chronic kidney disease Narrative/Plan: Patient's hemoglobin is stable. Her iron studies are adequate. Correction: The patient was started on Epo supplementation in our office. Her last dose was 12/27, 20,000 units of retacrit, scheduled for weekly dose if Hgb <11. Spoke with Pharmacist. Conversion to Aranesp is 60 mg subcu. This is been ordered for tomorrow morning. Current Visit: Yes Status: Chronic Priority: Medium Code(s): N18.9 - CHRONIC KIDNEY DISEASE, UNSPECIFIED; D63.1 - ANEMIA IN CHRONIC KIDNEY DISEASE SNOMED Code(s): 296229114 (2) DVT (deep venous thrombosis) Narrative/Plan: Due to patient's age and history of falls IVC filter being placed for recent diagnosis of DVT. This was previously discussed with patient's daughter. Current Visit: Yes Status: Acute Priority: High Code(s): I82.409 - ACUTE EMBOLISM AND THOMBOS UNSP DEEP VN UNSP LOWER EXTREMITY SNOMED Code(s): 1 85777460
--- NOTE | 2021-01-02 16:51 | PN ---
PROGRESS NOTE Patient is seen for followup for acute kidney injury. She is currently comfortable, awake, not in any acute distress. Serum creatinine was 2.5, which was about the same as the day before yesterday. We do not have any labs from today. Patient denies any significant complaints today. PHYSICAL EXAMINATION: Blood pressure 94/57, heart rate 62 per minute. She is afebrile. EXAMINATION OF THE HEART: S1 and S2. EXAMINATION OF LUNGS: Decreased breath sounds at bases. ABDOMEN: Soft, non-tender. Examination of lower extremities shows no significant edema. CREDIT CONTROL ASSISTANT exam shows patient moving all 4 extremities. LABS: No labs available from today. Labs from yesterday show creatinine 2.5. ASSESSMENT: 1. Acute kidney injury, currently improving, mostly ischemic acute tubular necrosis. 2. Chronic kidney disease, baseline creatinine 1.6 to 1.5 in May of 2020; etiology nephrosclerosis. No evidence of proteinuria on UA in May. 3. Hypokalemia, status post replacement. 4. Iron deficiency. Added IV iron yesterday. 5. Anemia with evidence of iron deficiency. No active bleeding noted at this time. 6. Left lower extremity deep venous thrombosis, status post [place] filter placement. PLAN: Continue with the Aranesp. Continue midodrine, as blood pressure remains low. MMODL / IJN: [id number] /
--- NOTE | 2021-01-02 17:16 | PN ---
PROGRESS NOTE I am covering for Dr. Pastrana. DATE OF SERVICE: 01/02/2021 This 89-year-old woman who was admitted with left leg DVT had IVC filter placement. No chest pain. No palpitations. No fever. PHYSICAL EXAMINATION: Patient is mildly confused, oriented x1. Pulse 62, blood pressure 100/56, respiration 19, temperature 98.2, pulse ox 100% on 2 L. HEENT: Conjunctivae normal. Oral mucosa moist. NECK: No jugular venous distention. CARDIOVASCULAR SYSTEM: S1, S2 muffled. RESPIRATORY SYSTEM: Breath sounds diminished at the bases. No rhonchi. No crackles. ABDOMEN: Soft, non-tender. LEGS: Left leg edema present. NERVOUS SYSTEM: No focal deficit. LABS: WBC 6.3, hemoglobin is 8.3. ASSESSMENT: 1. Acute left leg deep vein thrombosis. 2. Status post IVC filter placement. 3. Acute on chronic kidney failure. 4. Acute kidney injury, possible acute tubular necrosis. 5. History of coronary artery disease. 6. Hypertension. 7. Hyperlipidemia. 8. Hypothyroidism. 9. History of asthma. 10.History of chronic kidney disease. 11.History of anemia. 12.Hypokalemia. 13.Hyponatremia. 14.Hypocalcemia. 15.Hypoalbuminemia with severe protein-calorie malnutrition. 16.Anemia; normocytic anemia of chronic disease. 17.History of asthma. 18.History of colitis. 19.Gait dysfunction. 20.NO CODE, NO CPR, NO VENT. RECOMMENDATIONS AND DISCUSSION: I recommend to continue current medications, continue with the monitoring, symptomatic treatment. I recommend repeat labs, PT/OT evaluation. Either home with home care or ECF rehab. Further recommendations to follow. MMODL / IJN: [id number] /
[2021-01-02] MEDS: BUDESONIDE 0.5 MG/2 ML NEBU INHALATION SCH (20:49)
[2021-01-02] MEDS: IPRATROPIUM-ALBUTEROL 3 ML NEB INHALATION SCH (20:50)
[2021-01-02] MEDS: ATORVASTATIN 10 MG TAB PO SCH (21:01)
[2021-01-02] MEDS: CITALOPRAM HYDROBROMIDE 20 MG TAB PO SCH (21:01)
[2021-01-03] MEDS: LEVOTHYROXINE 75 MCG TAB PO SCH (05:33)
[2021-01-03] MEDS: ISOSORBIDE MONONITRATE ER 30 MG TAB.ER.24H PO SCH (08:47)
[2021-01-03] MEDS: MONTELUKAST 10 MG TAB PO SCH (08:47)
[2021-01-03] MEDS: PANTOPRAZOLE 40 MG TABLET PO SCH (08:47)
[2021-01-03] MEDS: MIDODRINE 5 MG TAB PO SCH (08:47)
[2021-01-03] MEDS ORDERED: DARBEPOETIN ALFA 60 MCG/0.3 ML SYRINGE SQ SCH (09:00)
[2021-01-03 09:16] LABS: African American GFR (CKD) 21.1 (60.0-200.0); Albumin/Globulin Ratio 1.05 (1.60-3.17); Anion Gap 11.1 mmol/L (4.00-12.00); BUN/Creat Ratio 16.52 Ratio (12.00-20.00); Calcium 7.6 mg/dL (8.7-10.3); Carbon Dioxide 18.9 mmol/L (21.6-31.8); Globulin 1.9 g/dL (1.6-3.3); Non-African American GFR(CKD) 18.2 (60.0-200.0); Potassium 3.3 mmol/L (3.5-5.5); Total Bilirubin 0.3 mg/dL (0.2-1.2); Total Protein 3.9 g/dL (6.2-8.2)
[2021-01-03 09:41] LABS: Basophils # (A) 0.02 X 10*3/uL (0.00-0.10); Basophils % (A) 0.3 %; Eosinophils # (A) 0.05 X 10*3/uL (0.04-0.35); Eosinophils % (A) 0.8 %; HCT 28.9 % (37.2-46.3); HGB 8.5 g/dL (12.0-15.0); Lymphocytes # (A) 0.65 X 10*3/uL (0.90-5.00); Lymphocytes % (A) 10.8 %; MCH 27.3 pg (27.0-32.0); MCHC 29.4 g/dL (32.0-37.0); MCV 92.9 fL (80.0-97.0); Mean Platelet Volume 10.7 fL (9.5-12.2); Monocytes # (A) 0.56 X 10*3/uL (0.20-1.00); Monocytes % (A) 9.3 %; Neutrophils # (A) 4.73 X 10*3/uL (1.80-7.70); Neutrophils % (A) 78.3 %; Platelet Count 184 X 10*3/uL (140-440); RBC 3.11 X 10*6/uL (4.10-5.20); RDW 19.7 % (11.5-14.5); WBC 6.04 X 10*3/uL (4.50-10.00)
--- NOTE | 2021-01-03 09:46 | P.PN ---
Subjective Progress Note Date: 01/03/21 Principal diagnosis: DVT The patient was seen and examined lying in bed. She is status post IVC filter placed yesterday via the right common femoral vein. There have been no acute changes through the night. She's had no signs of active bleeding. She denies any pain. She is able to move bilateral lower extremities. Objective - Vital Signs Vital signs: Vital Signs Temp 99.3 F 01/03/21 08:00 Pulse 67 01/03/21 08:00 Resp 16 01/03/21 08:00 BP 110/64 01/03/21 08:00 Pulse Ox 100 01/03/21 08:00 Intake & Output 01/02/21 01/03/21 01/03/21 18:59 06:59 18:59 Intake Total 640 Balance 640 Intake: IV 100 Oral 540 Other: Voiding Method Diaper Incontinent # Voids 2 1 # Bowel Movements 2 1 - Exam General appearance: The patient is alert, oriented, in no acute distress. HET: Head is normocephalic and atraumatic. Neck: Supple without lymphadenopathy. Trachea midline. Abdomen: Soft, nontender, normal bowel sounds, no guarding or rigidity. Extremities: Normal skin color and turgor. Left lower extremity with edema +2, good capillary refill. Bilateral palpable femoral pulses. Right groin site w ithout any active bleeding, no hematoma noted, with ecchymosis. Skin: No rashes or jaundice. Neurological: No focal deficits. Pleasantly confused. - Labs CBC & Chem 7: 01/01/21 05:30 01/02/21 05:48 Labs: Abnormal Lab Results - Last 24 Hours (Table) 12/31/20 Range/Units 06:33 Methylmalonic Acid 0.71 H (<0.40) umol/L Assessment and Plan Assessment: 1. Acute left lower extremity DVT extending from the External iliac vein to proximal calf vein 2. CKD 3. HTN 4. CAD (1) Normocytic anemia Current Visit: Yes Status: Acute Code(s): D64.9 - ANEMIA, UNSPECIFIED S NOMED Code(s): 724728751 (2) DVT (deep venous thrombosis) Current Visit: Yes Status: Acute Priority: High Code(s): I82.409 - ACUTE EMBOLISM AND THOMBOS UNSP DEEP VN UNSP LOWER EXTREMITY SNOMED Code(s): 698945150 (3) Chronic kidney disease Current Visit: Yes Status: Acute Code(s): N18.9 - CHRONIC KIDNEY DISEASE, UNSPECIFIED SNOMED Code(s): 074268673 Plan: 1. Continue symptomatic and supportive care 2. Continue medical management 3. Continue to monitor right groin site for bleeding or hematoma Thank you for this consultation, we will sign off at this time The impression and plan of care has been dictated as directed. Dr. Spring I performed a history and examination of this patient, discussed the same with the dictator. I agree with the dictator's note ,documented as a scribe. Any additional findings or plans will be noted.
[2021-01-03] MEDS: METOPROLOL TARTRATE 25 MG TAB PO SCH (11:47)
--- NOTE | 2021-01-03 12:30 | P.PN ---
Subjective Progress Note Date: 01/03/21 Principal diagnosis: Anticoagulation recommendations for LLE DVT. Anemia of chronic kidney disease, patient is on epo supplementation weekly outpatient In follow-up today patient is pleasantly confused, she is up in the chair, she is eating pretty well, she denies any acute complaints. Objective - Vital Signs Vital signs: Vital Signs Temp 99.3 F 01/03/21 08:00 Pulse 67 01/03/21 08:00 Resp 16 01/03/21 08:00 BP 110/64 01/03/21 08:00 Pulse Ox 100 01/03/21 08:00 Intake & Output 01/02/21 01/03/21 01/03/21 18:59 06:59 18:59 Intake Total 640 Balance 640 Intake: IV 100 Oral 540 Other: Voiding Method Diaper Diaper Incontinent Incontinent # Voids 2 1 # Bowel Movements 2 1 - Constitutional General appearance: Present: cooperative, no acute distress, thin - EENT Eyes: Present: anicteric sclerae, EOMI - Respiratory Details: Respirations even and unlabored - Peripheral edema leg Peripheral Edema: bilateral: None - Neurologic Neurologic: Present: CNII-XII intact - Musculoskeletal Musculoskeletal: Present: generalized weakness, strength equal bilaterally - Psychiatric Psychiatric: Present: appropriate affect - Labs CBC & Chem 7: 01/03/21 05:26 01/02/21 05:48 Labs: Abnormal Lab Results - Last 24 Hours (Table) 12/31/20 01/02/21 01/03/21 Range/Units 06:33 05:48 05:26 RBC 3.11 L (4.10-5.20) X 10*6/uL Hgb 8.5 L (12.0-15.0) g/dL Hct 28.9 L (37.2-46.3) % MCHC 29.4 L (32.0-37.0) g/dL RDW 19.7 H (11.5-14.5) % Lymphocytes # 0.65 L (0.90-5.00) X 10*3/uL Potassium 3.3 L (3.5-5.5) mmol/L Chloride 115 H (96-109) mmol/L Carbon Dioxide 18.9 L (21.6-31.8) mmol/L BUN 38.0 H (9.0-27.0) mg/dL Creatinine 2.3 H (0.6-1.5) mg/dL Est GFR (CKD-EPI)AfAm 21.1 L (60.0-200.0) Est GFR (CKD-EPI)NonAf 18.2 L (60.0-200.0) Calcium 7.6 L (8.7-10.3) mg/dL Total Protein 3.9 L (6.2-8.2) g/dL Albumin 2.00 L (3.80-4.90) g/dL Albumin/Globulin Ratio 1.05 L (1.60-3.17) g/dL Methylmalonic Acid 0.71 H (<0.40) umol/L Assessment and Plan (1) Anemia in chronic kidney disease Narrative/Plan: Patient's hemoglobin is stable. Her iron studies are adequate. Correction: The patient was started on Epo supplementation in our office. Her last dose was 12/27, 20,000 units of retacrit, scheduled for weekly dose if Hgb <11. Spoke with Pharmacist. Conversion to Aranesp is 60 mg subcu. Given 1. She follows up weekly in the office. Appointment for the same in the chart. Current Visit: Yes Status: Chronic Priority: Medium Code(s): N18.9 - CHRONIC KIDNEY DISEASE, UNSPECIFIED; D63.1 - ANEMIA IN CHRONIC KIDNEY DISEASE SNOMED Code(s): 504583611 (2) DVT (deep venous thrombosis) Narrative/Plan: Due to patient's age and history of falls IVC filter being placed for recent diagnosis of DVT. This was previously discussed with patient's daughter. Current Visit: Yes Status: Acute Priority: High Code(s): I82.409 - ACUTE EMBOLISM AND THOMBOS UNSP DEEP VN UNSP LOWER EXTREMITY SNOMED Code(s): 926545595
[2021-01-03 13:25] VITALS: BP 117/60; PULSE 75; RESP 19; TEMP 97.9
--- NOTE | 2021-01-03 14:23 | P.DS ---
Providers Date of admission: 12/28/20 14:03 Expected date of discharge: 01/03/21 Attending physician: Flora Pastrana Consults: 12/28/20 14:04 Consult Physician Routine Consulting Provider: Pk Zambrano Consult Reason/Comments: Lower extremity DVT Do you want consulting provider notified?: Yes 12/28/20 22:14 Consult Physician Routine Consulting Provider: Claire Nugent Consult Reason/Comments: CKD Do you want consulting provider notified?: Yes 12/30/20 10:44 Consult Physician Routine Consulting Provider: Thanh Tate Consult Reason/Comments: Recommendation for anticoagulation Do you want consulting provider notified?: Yes Primary care physician: Flora Pastrana [facility] Course: Final diagnosis Acute left leg DVT Status post IVC filter placement Acute on chronic kidney failure Acute kidney injury, possible acute tubular necrosis history of coronary artery disease Hypertension Hyperlipidemia Hypothyroidism History of asthma history of chronic kidney disease history of anemia History of colitis Gait dysfunction Hypokalemia hyponatremia Hypocalcemia Hypoalbuminemia with severe protein calorie malnutrition anemia, normocytic anemia of chronic disease No code, no CPR, no vent Discharge disposition Patient is being discharged in a stable condition with guarded prognosis to home. Patient will follow-up with Dr. Pastrana in the outpatient setting upon discharge. Patient is to follow-up with Dr. Kapoor and Dr. Nugent as scheduled. Patient will continue with home care in the outpatient setting. Total time taken is greater than 35 minutes. Hospital course This is an 89 year-old female who was recently admitted with left leg DVT and had IVC filter placement with vascular surgery. Hematology also following and will follow-up with the patient in one week as patient will be having weekly Aranesp injections. Patient also to follow-up with nephrology in the outpatient setting and a prescription was provided for repeat labs in 2-3 days to monitor kidney functions. Patient to continue with pured diet and aspiration precautions of head of the bed elevated 30-45 at all times and assistance with meals and supervision during meals. Currently no reports of chest pain, shortness of breath, or palpitations. Patient is afebrile. No reports of nausea or vomiting and patient is tolerating diet. Patient will be discharged home today. Guarded prognosis On exam vital signs are stable. Cardio S1, S2 are muffled. Respiratory system shows diminished breath sounds at the bases with no wheezing or rhonchi noted. Abdomen is soft and nontender. Nervous system shows no focal deficits. Please refer to medication reconciliation sheet for a list of medications. Patient Condition at Discharge: Stable Plan - Discharge Summary Discharge Rx Participant: Yes New Discharge Prescriptions: New Darbepoetin [place] [Aranesp] 60 mcg SQ Q7D #0 syringe Acetaminophen Tab [Tylenol] 650 mg PO Q6HR PRN tab PRN Reason: Mild Pain Or Fever > 100.5 Midodrine [ProAmatine] 5 mg PO AC-BID 30 Days #60 tab Continue Nitroglycerin Sl Tabs [Nitrostat] 0.4 mg SL Q5M PRN PRN Reason: Chest Pain Budesonide [Pulmicort] 0.5 mg INHALATION RT-HS Montelukast [Singulair] 10 mg PO DAILY Omalizumab [Xolair] 150 mg SQ Q30D Isosorbide Mononitrate ER [Imdur] 30 mg PO DAILY Pantoprazole [Protonix] 40 mg PO AC-BRKFST #30 tablet. Metoprolol Tartrate [Lopressor] 25 mg PO BID Simvastatin [Zocor] 20 mg PO HS Citalopram Hydrobromide [CeleXA] 20 mg PO HS Levothyroxine Sodium [Synthroid] 75 mcg PO DAILY Ipratropium-Albuterol Nebulize [Duoneb 0.5 mg-3 mg/3 ml Soln] 3 ml INHALATION RT-HS Discharge Medication List Budesonide [Pulmicort] 0.5 mg INHALATION RT-HS 10/01/14 [History] Montelukast [Singulair] 10 mg PO DAILY 10/01/14 [History] Nitroglycerin Sl Tabs [Nitrostat] 0.4 mg SL Q5M PRN 10/01/14 [History] Omalizumab [Xolair] 150 mg SQ Q30D 10/01/14 [History] Isosorbide Mononitrate ER [Imdur] 30 mg PO DAILY 01/30/16 [History] Pantoprazole [Protonix] 40 mg PO AC-BRKFST #30 tablet. 02/01/16 [Rx] Metoprolol Tartrate [Lopressor] 25 mg PO BID 12/01/17 [History] Simvastatin [Zocor] 20 mg PO HS 12/01/17 [History] Citalopram Hydrobromide [CeleXA] 20 mg PO HS 02/10/20 [History] Ipratropium-Albuterol Nebulize [Duoneb 0.5 mg-3 mg/3 ml Soln] 3 ml INHALATION RT-HS 12/28/20 [History] Levothyroxine Sodium [Synthroid] 75 mcg PO DAILY 12/28/20 [History] Acetaminophen Tab [Tylenol] 650 mg PO Q6HR PRN tab 01/03/21 [Rx] Darbepoetin [place] [Aranesp] 60 mcg SQ Q7D #0 syringe 01/03/21 [Rx] Midodrine [ProAmatine] 5 mg PO AC-BID 30 Days #60 tab 01/03/21 [Rx] Follow up Appointment(s)/Referral(s): Reece Kapoor MD [STAFF PHYSICIAN] - 1 Week (can be a lab encounter and RN visit for Epo injection) Claire Nugent MD [STAFF PHYSICIAN] - 01/18/21 11:00 am Flora Pastrana MD [Primary Care Provider] - 1-2 days (office not answering Please call to schedule appointment ) [facility] Visiting Nurse, [NON-STAFF] - Ambulatory/Diagnostic Orders: Complete Blood Count w/diff [LAB.AMB] Time Frame: 3 Days, Location: None Selected Patient Instructions/Handouts: Deep Vein Thrombosis (DC), Inferior Vena Cava Filter Placement (GEN) Activity/Diet/Wound Care/Special Instructions: Activity Limited until follow-up Follow-up with primary care provider upon discharge follow up with nephrology outpatient in one week Repeat labs in 2-3 days to monitor hemoglobin and kidney functions Continue with pured diet Discharge/Stand Alone Forms: Help In The Home Discharge Disposition: HOME WITH HOME HEALTH SERVICES
--- NOTE | 2021-01-03 20:07 | PN ---
PROGRESS NOTE Patient is seen for followup for acute kidney injury. She is currently sitting up in a bedside chair. Patient is comfortable. Denies any significant complaints. Renal function has been improving. PHYSICAL EXAMINATION: Blood pressure today was 110/64, heart rate 67 per minute, she is afebrile. Examination of the heart S1, S2. Examination of the lungs, decreased breath sounds at bases. Abdomen is soft, nontender. Examination of lower extremities shows no evidence of edema. [employer] exam is grossly intact. LABS: Show hemoglobin 8.5, sodium 145, potassium 3.3, serum creatinine 2.3 today. CO2 is 18.9. ASSESSMENT: 1. Acute kidney injury, currently improved, nonoliguric, mostly associated with acute tubular necrosis. 2. Chronic kidney disease, serum creatinine 1.6-1.5 at baseline from May 2020 secondary to nephrosclerosis. UA was quite benign in May of 2020. 3. Hypokalemia, being replaced. 4. History of deep venous thrombosis, status post [place] filter placement. It is left lower extremity deep venous thrombosis. 5. Anemia of chronic disease, maintained on Epogen. PLAN: Replace potassium. Continue to encourage increased oral intake. Monitor labs as outpatient. MMODL / IJN: [id number] /
== END 2021-01-03 13:35 | disposition home health service (06) | DRG 299 ==
LOC: EC 10:29 → 5NMEDONC 14:03 → 4SSUR 17:13
PROVIDERS: ADMIT Internal Medicine; ATTEND Internal Medicine
PROC: B5191ZZ Fluoroscopy of Inferior Vena Cava using Low Osmolar Contrast (ICD-10-PCS; 2021-01-02)
PROC: 06H03DZ Insertion of Intraluminal Device into Inferior Vena Cava, Percutaneous Approach (ICD-10-PCS; principal; 2021-01-02 07:30)
DX: I82.402 Acute embolism and thrombosis of unspecified deep veins of left lower extremity (principal); N17.0 Acute kidney failure with tubular necrosis; E43 Unspecified severe protein-calorie malnutrition; E87.1 Hypo-osmolality and hyponatremia; Z68.1 Body mass index [BMI] 19.9 or less, adult; I82.422 Acute embolism and thrombosis of left iliac vein; J44.9 Chronic obstructive pulmonary disease, unspecified; Z87.891 Personal history of nicotine dependence; N18.9 Chronic kidney disease, unspecified; Z20.822 Contact with and (suspected) exposure to COVID-19; I25.10 Atherosclerotic heart disease of native coronary artery without angina pectoris; E78.5 Hyperlipidemia, unspecified; K21.9 Gastro-esophageal reflux disease without esophagitis; Z79.890 Hormone replacement therapy; D50.9 Iron deficiency anemia, unspecified; I25.2 Old myocardial infarction; Z95.5 Presence of coronary angioplasty implant and graft; Z88.1 Allergy status to other antibiotic agents; Z79.01 Long term (current) use of anticoagulants; D63.1 Anemia in chronic kidney disease; K29.50 Unspecified chronic gastritis without bleeding; E03.9 Hypothyroidism, unspecified; Z82.5 Family history of asthma and other chronic lower respiratory diseases; Z82.0 Family history of epilepsy and other diseases of the nervous system; F03.90 Unspecified dementia, unspecified severity, without behavioral disturbance, psychotic disturbance, mood disturbance, and anxiety; E86.1 Hypovolemia; E87.6 Hypokalemia; E83.51 Hypocalcemia; R26.9 Unspecified abnormalities of gait and mobility; Z91.81 History of falling
CPT/HCPCS: 37191; 71046; 76770; 80048; 80053; 82607; 82728; 82746; 83540; 83550; 83880; 83921; 84484; 85025; 85045; 85610; 85730; 87635; 93005; 94640; 94760; 99285